=== PATIENT | female | born 1950 ===

== ENCOUNTER 2017-09-10 10:31 | Observation (INO) | payer OTHER ==
--- NOTE | 2017-09-10 11:04 | ED PDOC ---
Arrival/HPI - General Chief Complaint: Pain, Chronic Time Seen by Provider: 09/10/17 10:47 Historian: Patient, Family (daughters) - History of Present Illness Narrative History of Present Illness (Text): 09/10/17 10:54 A 66 year old male, whose past medical history includes rheumatoid arthritis and lupus, presents to the emergency department complaining of generalized body pain for 3 weeks. Patient reports she went to [facility] [place] 3 weeks ago, and had blood-work, X-Ray, and urinalysis done and was given medication, however felt no better. 1 week ago, patient went to [facility] and had repeat X-Ray, blood-work, and was diagnosed with UTI, and was given Levaquin ( which she finished within 1 week). Patient also went to go talk to a physician in [place], and was prescribed Tramadol, however has had no relief still. Due to patient not having in progress in recovery, patient's daughters called the ambulance and was brought here to the ER for evaluation of symptoms. Patient denies any other complaints at this time. No PMD Time/Duration: > week (3 weeks) Associated Symptoms (Text): 09/10/17 12:47 Approximately three-week history of generalized weakness and fatigue and just not feeling well with generalized body pain. She was seen in another hospital emergency department and had blood and urine testing and was discharged. The following week she was seen in a different hospital emergency department and again had blood and urine testing along with a negative CT scan of the head according to the daughter. She was found to have a urinary tract infection and treated with Levaquin but is no better. Today she was unable to ambulate or get out of bed because of severe generalized myalgias and arthralgias and generalized weakness and fatigue. Past Medical History - Provider Review Nursing Documentation Reviewed: Yes - Infectious Disease Hx of Infectious Diseases: None - Reproductive Menopause: Yes - Cardiac Hx Hypertension: Yes - Pulmonary Hx Asthma: Yes Hx Emphysema: Yes - Endocrine/Metabolic Hx Systemic Lupus Erythematosus: Yes - Musculoskeletal/Rheumatological Hx Arthritis: Yes Hx Rheumatoid Arthritis: Yes - Gastrointestinal Hx Gastrointestinal Disorders: No Hx Bowel Surgery: No - Genitourinary/Gynecological Hx Genitourinary Disorders: No - Psychiatric Hx Psychophysiologic Disorder: No Hx Substance Use: No - Anesthesia Hx Anesthesia Reactions: No Family/Social History - Physician Review Nursing Documentation Reviewed: Yes Family/Social History: No Known Family HX Smoking Status: Heavy Smoker > 10 Cigarettes Daily Hx Alcohol Use: No Hx Substance Use: No Allergies/Home Meds Allergies/Adverse Reactions: Allergies aspirin Allergy (Verified 09/10/17 10:49) RASH Penicillins Allergy (Verified 09/10/17 10:49) RASH Home Medications: Home Meds Medication Instructions Recorded Confirmed Meloxicam [Mobic] 7.5 mg PO DAILY 09/10/17 09/10/17 Omeprazole Magnesium [Prilosec] 20 mg PO DAILY 09/10/17 09/10/17 amLODIPine [Norvasc] 5 mg PO DAILY 09/10/17 09/10/17 traMADol [Ultram] 50 mg PO Q12 09/10/17 09/10/17 Review of Systems - Physician Review All systems were reviewed & negative as marked: Yes - Review of Systems Constitutional: Fatigue. absent: Fevers, Night Sweats Respiratory: absent: SOB, Cough, Wheezing Cardiovascular: absent: Chest Pain, Palpitations, Syncope Gastrointestinal: absent: Abdominal Pain, Diarrhea, Nausea, Vomiting Genitourinary Female: Frequency. absent: Dysuria, Hematuria Musculoskeletal: Arthralgias, Myalgias. absent: Back Pain, Neck Pain, Joint Swelling Skin: absent: Rash Neurological: absent: Headache, Dizziness, Focal Weakness Physical Exam Vital Signs Reviewed: Yes Vital Signs Temp Pulse Resp BP Pulse Ox 09/10/17 14:23 98.7 F 83 18 135/60 100 09/10/17 13:00 98.7 F 85 18 130/71 100 09/10/17 11:15 99.5 F 85 18 140/75 100 09/10/17 10:45 98.6 F 85 18 135/75 100 Temperature: Afebrile Blood Pressure: Normal Pulse: Regular Respiratory Rate: Normal Appearance: Positive for: Well-Appearing, Non-Toxic, Uncomfortable Pain Distress: Severe (patient screams in pain when any part of her body is touched or when she moves her joints.) Mental Status: Positive for: Alert and Oriented X 3 - Systems Exam Head: Present: Atraumatic, Normocephalic Pupils: Present: PERRL Extroacular Muscles: Present: EOMI Conjunctiva: Present: Normal Ears: Present: NORMAL TM, Normal Canal. No: Erythema, TM Bulging Mouth: Present: Moist Mucous Membranes Pharnyx: No: ERYTHEMA, EXUDATE, TONSILS ENLARGED Respiratory/Chest: Present: Decreased Breath Sounds Cardiovascular: Present: Regular Rate and Rhythm, Normal S1, S2. No: Murmurs Abdomen: No: Tenderness, Distention, Peritoneal Signs, Rebound, Guarding Upper Extremity: Present: Normal Inspection. No: Cyanosis, Edema Lower Extremity: Present: Normal Inspection. No: Edema Neurological: Present: GCS=15, CN II-XII Intact, Speech Normal, Motor Func Grossly Intact Skin: Present: Warm, Dry, Normal Color. No: Rashes Psychiatric: Present: Alert, Oriented x 3, Normal Insight, Normal Concentration Medical Decision Making ED Course and Treatment: 09/10/17 10:58 Impression: 66 year old female with body aches. Physical exam shows patient is in severe distress, and screams in pain whenever she is touched on any part of her body or when she moves her joint, lungs have diminished breath sounds; no other acute findings on examination. Plan: -- EKG -- Chest X-ray -- Labs -- Toradol -- Urinalysis -- Reassess and disposition Progress Notes: 09/10/17 12:52 EKG shows normal sinus rhythm rate approximately 85 with a left bundle branch block and no acute ST or T-wave changes with no old available for comparison. 09/10/17 14:57 Patient was seen in the emergency department by . - Lab Interpretations Lab Results: 09/10/17 11:29 09/10/17 11:29 Lab Results 09/10/17 11:38: Urine Color Yellow, Urine Appearance Sl cloudy, Urine pH 6.0, Ur Specific [place] 1.020, Urine Protein 30 H, Urine Glucose (UA) Negative, Urine Ketones Trace H, Urine Blood Negative, Urine Nitrate Negative, Urine Bilirubin Negative, Urine Urobilinogen 1.0 H, Ur Leukocyte Esterase Large H, Urine RBC 0 - 2, Urine WBC Tntc, Ur Epithelial Cells 0 - 2, Urine Bacteria Small 09/10/17 11:29: Sodium 136, Potassium 3.8, Chloride 96 L, Carbon Dioxide 29, Anion Gap 14, BUN 14, Creatinine 0.6 L, Est GFR ( Amer) > 60, Est GFR ( Non-Af Amer) > 60, Random Glucose 110, Calcium 8.9, Magnesium 2.1, Total Bilirubin 0.6, AST 27, ALT 15, Alkaline Phosphatase 130 H, Lactate Dehydrogenase 516, Total Creatine Kinase < 20 L, Troponin I < 0.01, Total Protein 7.9, Albumin 3.5, Globulin 4.4, Albumin/Globulin Ratio 0.8 L 09/10/17 11:29: WBC 6.3, RBC 4.39, Hgb 11.3 L, Hct 33.7 L, MCV 76.8 L, MCH 25.7 , MCHC 33.5, RDW 15.0 H, Plt Count 368, MPV 9.0, Gran % 79.4 H, Lymph % (Auto) 9.7 L, [place] % (Auto) 5.3, Eos % (Auto) 5.4 H, Baso % (Auto) 0.2, Gran # 4.99, Lymph # (Auto) 0.6 L, [place] # (Auto) 0.3, Eos # (Auto) 0.3, Baso # (Auto) 0.01, ESR 112 H - RAD Interpretation Radiology Orders: 09/10/17 10:59 CHEST PORTABLE [RAD] Stat Chest one view shows no infiltrate effusion or cardiomegaly. Emission Specialist: Radiologist - Medication Orders Current Medication Orders: Discontinued Medications Ciprofloxacin (Cipro 400mg/200ml Dsw) 400 mg in 200 mls @ 133.3 mls/hr IVPB STAT STA PRN Reason: Protocol Stop: 09/10/17 13:58 Last Admin: 09/10/17 12:39 Dose: 133.3 mls/hr eMAR Start Stop Document 09/10/17 12:39 LA (Rec: 09/10/17 12:41 [facility]) Intravenous Solution Start Date 09/10/17 Start Time 12:39 End Date 09/10/17 End time 14:10 Total Infusion Time 91 Ketorolac Tromethamine (Toradol) 15 mg IVP ONCE ONE Stop: 09/10/17 11:01 Last Admin: 09/10/17 11:21 Dose: 15 mg MAR Pain Assessment Document 09/10/17 11:21 LA (Rec: 09/10/17 11:21 [facility]) Pain Reassessment Is this a pain reassessment? No Sleep Is patient sleeping during reassessment? No Presence of Pain Presence of Pain Yes Pain Scale Used Pain Scale Used Numeric Location Pain Location Body Site Generalized Description Description Constant Intensity of Pain at present 7 IVP Administration Document 09/10/17 11:21 LA (Rec: 09/10/17 11:21 LA [facility]) Charges for Administration # of IVP Administrations 1 Re-Assess: JOSE Pain Assessment Document 09/10/17 12:21 LA (Rec: 09/10/17 12:38 LA [facility] Pain Reassessment Is this a pain reassessment? Yes Sleep Is patient sleeping during reassessment? No Presence of Pain Presence of Pain Yes Pain Scale Used Pain Scale Used Numeric Location Left, Right or Bilateral Bilateral Pain Location Body Engineering Administrator Shoulder Description Description Intermittent Intensity of Pain at present 5 Pain Behavior Facial Grimacing - Scribe Statement The provider has reviewed the documentation as recorded by the Edgardo Turner Provider Scribe Attestation: All medical record entries made by the Maríaibirma were at my direction and personally dictated by me. I have reviewed the chart and agree that the record accurately reflects my personal performance of the history, physical exam, medical decision making, and the department course for this patient. I have also personally directed, reviewed, and agree with the discharge instructions and disposition. Disposition/Present on Arrival - Present on Arrival Any Indicators Present on Arrival: No History of DVT/PE: No History of Uncontrolled Diabetes: No Urinary Catheter: No History of Decub. Ulcer: No History Surgical Site Infection Following: None - Disposition Have Diagnosis and Disposition been Completed?: Yes Diagnosis: Urinary tract infection, Elevated erythrocyte sedimentation rate, Myalgia, Arthralgia, Weakness, Unable to ambulate Disposition: HOSPITALIZED Disposition Time: 12:56 Patient Plan: Observation Patient Problems: Current Active Problems Problem Status Onset Arthralgia Acute Elevated erythrocyte sedimentation rate Acute Myalgia Acute Unable to ambulate Acute Urinary tract infection Acute Weakness Acute Condition: FAIR
[2017-09-10 11:44] LABS: ALB/GLOB RATIO 0.8 (1.1-1.8); ALBUMIN 3.5 g/dL (3.0-4.8); ALT/SGPT 15 U/L (7-56); AST/SGOT 27 U/L (14-36); BLOOD UREA NITROGEN 14 mg/dL (7-21); CALCIUM 8.9 mg/dL (8.4-10.5); GFR AFRICAN-AMERICAN > 60; GFR NON-AFRICAN AMERICAN > 60
[2017-09-10 11:47] LABS: BASO # 0.01 K/mm3 (0.0-2.0); BASO % 0.2 % (0.0-3.0); EOS # 0.3 (0.0-0.7); EOS % 5.4 % (1.5-5.0); GRAN # 4.99 (1.4-6.5); GRAN % 79.4 % (50.0-68.0); HEMOGLOBIN 11.3 g/dL (12.0-16.0); LYMPH # 0.6 (1.2-3.4); LYMPH % 9.7 % (22.0-35.0); MEAN CELL VOLUME 76.8 fl (80.0-105.0); MEAN CORPUSCULAR HEMOGLOBIN 25.7 pg (25.0-35.0); MEAN CORPUSCULAR HGB CONC 33.5 g/dl (31.0-37.0); MONO # 0.3 (0.1-0.6); MONO % 5.3 % (1.0-6.0); RBC 4.39 10^6/uL (3.5-6.1); WHITE BLOOD COUNT 6.3 10^3/ul (4.5-11.0)
[2017-09-10 11:55] LABS: TROPONIN I < 0.01 ng/mL
[2017-09-10 12:13] LABS: URINE BILIRUBIN NEGATIVE (NEGATIVE); URINE BLOOD NEGATIVE (NEGATIVE); URINE GLUCOSE (UA) NEGATIVE (NEGATIVE); URINE LEUKOCYTE ESTERASE LARGE Leu/uL (NEGATIVE); URINE PROTEIN 30 mg/dL (<30 mg/dL)
[2017-09-10 12:15] LABS: URINE APPEARANCE SL CLOUDY (CLEAR); URINE COLOR YELLOW (YELLOW)
--- NOTE | 2017-09-10 12:20 | RAD ---
Date of service: 09/10/2017 HISTORY: weak COMPARISON: No prior. FINDINGS: LUNGS: No active pulmonary disease. PLEURA: No significant pleural effusion identified, no pneumothorax apparent. CARDIOVASCULAR: Normal. OSSEOUS STRUCTURES: No significant abnormalities. VISUALIZED UPPER ABDOMEN: Normal. OTHER FINDINGS: None. IMPRESSION: No active disease.
[2017-09-10 12:25] LABS: URINE EPITHELIAL CELLS 0 - 2 /hpf (0-5); URINE RBC 0 - 2 /hpf (0-2); URINE WBC TNTC /hpf (0-6)
[2017-09-10 12:26] LABS: URINE BACTERIA SMALL (NEG)
[2017-09-10] MEDS ORDERED: Ciprofloxacin 400mg/200ml D5W 400 MG/200 ML BAG IVPB STA (12:28)
[2017-09-10 18:10] VITALS: BMI 28.5
[2017-09-11] MEDS ORDERED: Alum-Mag Hydrox-Simethicone Susp (30 mL) PO STA (04:20)
--- NOTE | 2017-09-11 06:48 | CARD ---
APPROVED REPORT Date of service: 09/10/2017 EKG Measurement Heart [id number] <Conclusion> Normal sinus rhythm Left bundle branch block Abnormal ECG
[2017-09-11] MEDS: levoFLOXacin 500 mg in D5W 500 MG/100 ML BAG IVPB SCH (10:45)
[2017-09-11] MEDS: Meloxicam 7.5 MG TAB PO SCH (10:45)
[2017-09-11] MEDS: Pantoprazole 20 mg EC Tab PO SCH (10:46)
--- NOTE | 2017-09-11 14:58 | PN ---
Copied To: Flora Ace MD Attending MD: Flora Ace MD DATE: 09/11/2017 SUBJECTIVE: This 66-year-old female remains hospitalized weak and deconditioned and according to nursing notes, unable to ambulate independently. She required 2 nursing assistants to assist her to the bathroom this morning and at present she is being treated with IV levofloxacin for presumed urinary tract infection that has been received by the lab, but results of which are pending. The patient at present is also tolerating her medication for chronic comorbidities of hypertension, hyperlipidemia and peptic ulcer disease with gastroesophageal reflux disease. She did require additional Toradol 30 mg IV last evening because of complaints of severe pain and at present remains weak and deconditioned, but denying fever, chills, chest pain or shortness of breath. PHYSICAL EXAMINATION: VITAL SIGNS: Physical exam shows she is in a normal sinus rhythm on engine monitor. Temperature 97.6, respirations 20, pulse 90 and blood pressure 120/69. Pulse ox 95% on room air. HEENT: Head: Normocephalic, atraumatic. Eyes: No icterus. Ears: Clear. Throat: Noninjected. NECK: Supple. HEART: Regular S1, S2. LUNGS: Clear. ABDOMEN: Soft. EXTREMITIES: No edema. SKIN: Without rash. NEUROLOGICAL: Intact. PSYCHOLOGICAL: Alert. VASCULAR: Legs warm to touch. LABORATORY DATA: Her urinalysis showed bacteriuria, white count 6300, hemoglobin 11.3, hematocrit 33.7, platelets 368,000 with a sodium of 136, K 3.8, chloride 96, bicarb 29, BUN 14, creatinine 0.6, random blood sugar 110, bilirubin 0.6, AST 27, ALT 15 and alk phos 130. IMPRESSION: A 66-year-old female with history of rheumatoid arthritis, lupus, hyperlipidemia and degenerative arthritis as well as peptic ulcer disease with gastroesophageal reflux disease, now with deconditioning and failure to thrive and inability to care for herself independently at home, also with recurrent urinary tract infection in the setting of penicillin, aspirin allergies. PLAN: Plan is to continue Levaquin 500 mg IV every 24 pending urine C and S results. She continues on Lipitor 10 mg p.o. at dinnertime, Mobic 7.5 mg p.o. daily, Norvasc 5 mg p.o. daily, Protonix 20 mg p.o. daily, Tylenol 650 p.o. every 6 hours p.r.n. [id number] pain and fever and Ultram 50 mg p.o. every 12 hours, p.r.n. severe pain. I have requested physical therapy for ambulation safety. I have requested Social Service evaluate this patient regarding disposition planning be it to subacute rehab for further reconditioning efforts and greater than 35 minutes was spent in the care and management, review of labs, orders and x-rays for this patient today. All questions were answered. Flora Ace MD MTDD
--- NOTE | 2017-09-11 17:01 | HP ---
Copied To: Flora Ace MD Attending MD: Flora Ace MD DATE OF EXAM: 09/10/2017 HISTORY OF PRESENT ILLNESS: This 66-year-old female was examined in the [facility] ER where she is being admitted with deconditioning, inability to ambulate independently and recurrent urinary tract infection. The patient has a past medical history of peptic ulcer disease with GERD, degenerative arthritis, hypertension, hyperlipidemia and urinary tract infection. She states she has a diagnosis of both lupus and rheumatoid arthritis and follows with a meat cutting block repairer, Dr. Myers in her [employer] managed care plan. The patient states she is on no chronic therapy for her lupus or rheumatoid arthritis, but was taking an occasional Mobic 7.5 mg p.o. daily as well as Ultram 50 mg p.o. every 12 with minimal response. When I questioned the patient if she was ever given any remitative agents for her lupus or rheumatoid arthritis, she stated she was not; however, she is being admitted because she is unable to care for herself independently in her home because of diffuse body aches and musculoskeletal pain. OUTPATIENT MEDICATIONS: Included Prilosec, Norvasc, Lipitor and Ultram p.r.n. ALLERGIES: SHE HAS ALLERGIES TO ASPIRIN AND PENICILLIN. SOCIAL HISTORY: She is a nondrinker, nonsmoker, non IV drug misuser. 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 The patient is a former smoker. REVIEW OF SYSTEMS: Constitutional review: Denied fever or chills. Head review: Denied headache or seizure. Eye: review: No change in visual acuity. Ear review: No hearing loss. Throat review: No swallowing difficulty. Neck review: No stiffness. Cardiac review: No chest pain. No knowledge of myocardial infarction. No valvular pathology. Lung: No asthma. No hemoptysis. GI: Peptic ulcer disease with GERD. : No urinary tract infection. Vascular: No claudication. Psychological: Chronic anxiety. Neurological: No knowledge of stroke. Musculoskeletal: She does have rheumatoid arthritis and degenerative arthritis. Psychological: She seems anxious. FAMILY HISTORY: Noncontributory. PHYSICAL EXAMINATION VITAL SIGNS: She was in a normal sinus rhythm on the airflight attendants supervisor with temperature of 98.7, respirations 18, pulse 85 and blood pressure 130/71 and pulse ox 100% on room air. HEENT: Head: Normocephalic, atraumatic. Eyes: No icterus. Ears: Clear. Throat: Noninjected. NECK: Supple. HEART: Regular S1, S2. LUNGS: Clear. ABDOMEN: Soft. EXTREMITIES: No edema. SKIN: Without rash. NEUROLOGICAL: Intact, but deconditioned. PSYCHOLOGICAL: Alert. VASCULAR: Legs warm to touch. SKIN: No rash. LABORATORY DATA: White count 6300, hemoglobin 11.3, hematocrit 33.7, platelets 368,000. Sodium 136, K 3.8, chloride 96, bicarb 29, BUN 14, creatinine 0.6, random blood sugar 110, calcium 8.9, magnesium 2.1, bilirubin 0.6, AST 27, ALT 17 and alk phos 130 with a CPK less than , troponin less than 0.01 and urinalysis showing small bacteria. EKG was reviewed, it showed a normal sinus rhythm with nonspecific ST-T wave changes and a chest x-ray was reviewed that showed no acute infiltrates, no CHF, no effusions and no active pulmonary disease. IMPRESSION: A 66-year-old female with history of lupus, rheumatoid arthritis, degenerative arthritis, hypertension, hyperlipidemia, now with anxiety and marked deconditioning and inability to care for herself independently at home related to multiple musculoskeletal complaints. Also with recurrent urinary tract infection and penicillin allergy. PLAN: The plan is to send off a stat urine culture while medicating this patient with IV levofloxacin. She continues on Lipitor 10 mg p.o. daily, Mobic 7.5 mg p.o. daily, Norvasc 5 mg p.o. daily, Protonix 20 mg p.o. daily. She was given Toradol 15 mg IV x1 dose with good results. She will be ordered to have Ultram 50 mg p.o. every 12 hours p.r.n. severe pain. ON heart-healthy, low-cholesterol diet and I have requested physical therapy for ambulation safety. As discussed with the patient and daughter at bedside, Pending her response to physical therapy intervention, a subacute rehabilitation stay may be necessary and I have also advised that they follow up with Rheumatology upon discharge for further management of both lupus and rheumatoid arthritic complaints that have rendered this patient deconditioned. All of the above was discussed in detail at bedside. Greater than 75 minutes was spent in the care and management, review of labs, orders, x-rays and discussion of this patient with herself, daughter and Dr. Hans Keita, emergency room physician. All questions were answered. Flora Ace MD JACLYN
[2017-09-12] MEDS: Meloxicam 7.5 MG TAB PO SCH (10:07)
[2017-09-12] MEDS: levoFLOXacin 500 mg in D5W 500 MG/100 ML BAG IVPB SCH (10:07)
[2017-09-12] MEDS: Pantoprazole 20 mg EC Tab PO SCH (10:07)
[2017-09-12 17:01] VITALS: BP 130/75; PULSE 114; RESP 19; O2SAT 93
[2017-09-12 17:05] VITALS: TEMP 99.7
--- NOTE | 2017-09-13 09:50 | DS ---
Copied To: Flora Ace MD Attending MD: Flora Ace MD DATE OF EXAM: 09/12/2017 FINAL DIAGNOSES: Marked deconditioning, inability to care for herself at home, recurrent urinary tract infections, hyperlipidemia, chronic hypertension, peptic ulcer disease with gastroesophageal reflux disease, degenerative arthritis, rheumatoid arthritis, systemic lupus erythematosus. DISPOSITION: Home with family providing 24-hour supervision. The patient was advised to follow up with her computational theory scientist, Dr. Myers within the next 48 hours. MEDICATIONS: The patient will continue on home medications including Prilosec 20 mg p.o. daily; Mobic 7.5 mg p.o. daily; Ultracet 1 tablet p.o. every 12 hours p.r.n. severe pain, #10 no refill; Norvasc 5 mg p.o. daily and Lipitor 10 mg p.o. daily. SUMMARY: This 66-year-old female was admitted to [facility] after presenting with her daughter with a chief complaint of diffuse body aches and dysuria and inability to ambulate safely at home due to deconditioning and concerns of fall. The patient has had recurrent urinary tract infections, has an ALLERGY TO PENICILLIN, was recultured and found to have an unremarkable urine culture and was seen in consultation by physical therapy, who deemed the patient safe for discharge. At the time of her evaluation, her temperature was 97.9, respirations 20, pulse 79 and blood pressure 126/65 with a pulse ox of 97% on room air. White count 6300, hemoglobin 11.3, hematocrit 33.7, platelets 36,000. Sodium 136, K 3.8, chloride 96, bicarb 29. BUN 14, creatinine 0.6. Random blood sugar 110. Calcium 8.9. Magnesium 2.1. Bilirubin 0.6, AST 27, ALT 15 and alk phos 130. Troponin was less than 0.01. EKG showed a normal sinus rhythm with nonspecific ST-T wave changes and her chest x-ray showed no active infiltrate, no CHF, no pleural effusion and no pneumothorax. The patient was cleared for discharge to home with given instructions to follow up with her computational theory scientist within 48 hours. She was instructed to take her Mobic daily, not p.r.n. and to take her Ultracet only for severe pain. I did speak to her physical therapist, Gaurang Marvin, who stated the patient was safe for discharge to home. I did review all of the above with her daughter at the bedside and also with her nurse, Claudia Huynh and socially responsible investment adviser Linnea Carlin. Greater than 35 minutes was spent in the discharge management of this patient today. All questions were answered. Flora Ace MD
== END 2017-09-12 20:31 | disposition home or self-care (01) ==
LOC: ED 10:31 → ERH 12:53 → 3RNO 14:51
PROVIDERS: ADMIT Internal Medicine; ATTEND Internal Medicine
DX: N39.0 Urinary tract infection, site not specified (principal); I10 Essential (primary) hypertension; M06.9 Rheumatoid arthritis, unspecified; M32.9 Systemic lupus erythematosus, unspecified; K27.7 Chronic peptic ulcer, site unspecified, without hemorrhage or perforation; K21.9 Gastro-esophageal reflux disease without esophagitis; E78.5 Hyperlipidemia, unspecified; F41.9 Anxiety disorder, unspecified; J43.9 Emphysema, unspecified; J45.909 Unspecified asthma, uncomplicated; R62.7 Adult failure to thrive; Z87.891 Personal history of nicotine dependence; Z88.0 Allergy status to penicillin
CPT/HCPCS: 71045; 80053; 81001; 82550; 83615; 83735; 84484; 85025; 85651; 87086; 93005; 96365; 96366; 96374; 97116; 97162; 97530; 99285; G0378; G8978; G8979; J0744; J1885

== ENCOUNTER 2017-10-02 16:55 | Inpatient (IN) | payer OTHER ==
--- NOTE | 2017-10-02 17:01 | ED PDOC ---
Arrival/HPI - General Time Seen by Provider: 10/02/17 16:57 Historian: Patient - History of Present Illness Narrative History of Present Illness (Text): 10/02/17 16:59 66 y/o female, pmh including htn/hld/lupus/rheumatoid arthiritis with degenerative arthritis/Chronic neck and lower back pain, seeing independent trader Dr. Myers, allergic to aspirin and pencilling but able to take nsaid such as mobic/toradol in previous visit, bib daughter c/o fatigue/decrease appetize and generalized bodyache for the past 3 days associated with cough. Pt. has been having sorethroat and cough for the past 3 days, associated with fatigue/ decrease appetize, generalized bodyache, started to having fever today, no antipyretic taken for the past 8 hours, no recent traveling, no energy to move or walk around which is worsen than usual, admits decrease appetize, no chest pain or shortness of breath, no other medical or psychological complaints. Past Medical History - Provider Review Nursing Documentation Reviewed: Yes - Infectious Disease Hx of Infectious Diseases: None - Cardiac Hx Cardiac Disorders: Yes Hx Hypertension: Yes - Pulmonary Hx Chronic Obstructive Pulmonary Disease (COPD): Yes - Neurological Hx Neurological Disorder: No - HEENT Hx HEENT Disorder: No - Renal Hx Renal Disorder: No - Endocrine/Metabolic Hx Systemic Lupus Erythematosus: Yes - Hematological/Oncological Hx Blood Disorders: No - Integumentary Hx Dermatological Disorder: No - Musculoskeletal/Rheumatological Hx Arthritis: Yes - Gastrointestinal Hx Gastrointestinal Disorders: Yes Hx Gastroesophageal Reflux: Yes Hx Gastrointestinal Ulcer: Yes - Genitourinary/Gynecological Hx Genitourinary Disorders: No - Psychiatric Hx Psychophysiologic Disorder: No Hx Substance Use: No - Anesthesia Hx Anesthesia Reactions: No Family/Social History - Physician Review Nursing Documentation Reviewed: Yes Family/Social History: Unknown Family HX Smoking Status: Former Smoker Hx Alcohol Use: No Hx Substance Use: No Allergies/Home Meds Allergies/Adverse Reactions: Allergies aspirin Allergy (Verified 10/02/17 17:13) RASH Penicillins Allergy (Verified 10/02/17 17:13) RASH Home Medications: Home Meds Medication Instructions Recorded Confirmed Omeprazole Magnesium [Prilosec] 20 mg PO DAILY 09/10/17 10/02/17 Meloxicam [Mobic] 7.5 mg PO DAILY 10/02/17 10/02/17 traMADol [Ultram] 50 mg PO Q12 10/02/17 10/02/17 Review of Systems - Review of Systems Constitutional: Fatigue, Fevers Eyes: absent: Vision Changes ENT: Sore Throat. absent: Hearing Changes Respiratory: Cough. absent: SOB, Sputum Cardiovascular: absent: Chest Pain Gastrointestinal: absent: Abdominal Pain, Nausea, Vomiting Skin: absent: Rash, Pruritis, Skin Lesions Neurological: absent: Headache, Dizziness Psychiatric: absent: Anxiety, Depression, Suicidal Ideation Physical Exam Vital Signs Reviewed: Yes Vital Signs Temp Pulse Resp BP Pulse Ox 10/02/17 20:38 90 18 113/69 95 10/02/17 19:52 99.7 F H 93 H 18 127/65 93 L 10/02/17 19:18 99.7 F H 10/02/17 18:18 100.4 F H 10/02/17 17:26 99 H 20 101/64 96 10/02/17 17:16 100.4 F H 107 H 20 89/54 L 96 10/02/17 17:12 100.4 F H 107 H 20 89/54 L 96 Temperature: Febrile Pulse: Tachycardic Respiratory Rate: Normal Appearance: Positive for: Ill-Appearing Pain Distress: None Mental Status: Positive for: Alert and Oriented X 3 - Systems Exam Head: Present: Atraumatic, Normocephalic Pupils: Present: PERRL Extroacular Muscles: Present: EOMI Conjunctiva: Present: Normal Ears: Present: NORMAL TM, Normal Canal. No: Erythema Mouth: Present: Moist Mucous Membranes Pharnyx: No: ERYTHEMA, EXUDATE, TONSILS ENLARGED Nose (External): Present: Atraumatic. No: Abrasion, Contusion, Laceration Nose (Internal): Present: Normal Inspection, No Active Bleeding. No: Rhinorrhea , Septal Hematoma, Epistaxis Neck: Present: Normal Range of Motion. No: Meningeal Signs, MIDLINE TENDERNESS , Paraspinal Tenderness, Lymphadenopathy Respiratory/Chest: Present: Rhonchi (RLL). No: Respiratory Distress, Accessory Muscle Use, Wheezes, Decreased Breath Sounds (RLL), Retracting, Tachypneic Cardiovascular: Present: Regular Rate and Rhythm, Normal S1, S2. No: Murmurs Abdomen: No: Tenderness, Distention, Peritoneal Signs, Rebound, Guarding Back: Present: Normal Inspection Upper Extremity: Present: Normal Inspection. No: Cyanosis, Edema Lower Extremity: Present: Normal Inspection, Neurovascularly Intact. No: Edema Neurological: Present: GCS=15, CN II-XII Intact, Speech Normal Skin: Present: Warm, Dry, Normal Color. No: Rashes Lymphatic: No: Cervical Adenopathy, Axillary Adenopathy Psychiatric: Present: Alert, Oriented x 3, Normal Insight, Normal Concentration Medical Decision Making ED Course and Treatment: 10/02/17 17:34 Differential: UTI vs. Pneumonia vs. Viral syndrome vs. Dehydration vs. Sepsis -Labs/vbg/rapid flu/ua -Chest xray -IVF/tylenol -satellite project site monitor -Observe and reassess 10/02/17 18:29 -Chest xray show rt. pleural effusion with atelectasis/infiltate, clinically appear to be infiltrate as she has fever and cough, hospitalized in the past 90 days for over 2 days, IV van/meropenem/cipro ordered with blood cultures. 10/02/17 19:45 -Labs show no acute findings except K+ 3.4 (potassium chloride 20meq po ordered) -VBG lactic acid 1.5, within normal limit. -UA ordered and pending result. -Pt. will need IV antibiotics meropenem/cipro/vancomycin -Paging admitting physican Dr. Ace for admission for hospital acquired pneumonia. 10/02/17 19:57 -All labs/radiology results discussed with the patient, agreed to be admitted. -I spoke to Dr. Ace about this case/labs/radiology result, request to admit to her service under tele but let Dr. Lopez know as he is covering for her now. -Paging Dr. Lopez for admission. 10/02/17 20:01 -I spoke to Dr. Lopez about this case/labs/radiology result, agreed on the admission and he is covering for Dr. Ace, he will follow up on any pending result. - Lab Interpretations Lab Results: 10/02/17 18:29 10/02/17 18:29 Lab Results 10/02/17 18:29: WBC 5.8, RBC 4.11, Hgb 10.4 L, Hct 30.9 L, MCV 75.2 L, MCH 25.3 , MCHC 33.7, RDW 15.0 H, Plt Count 431, MPV 9.1, Gran % 85.6 H, Lymph % (Auto) 5.4 L, [place] % (Auto) 5.2, Eos % (Auto) 3.6, Baso % (Auto) 0.2, Gran # 4.94, Lymph # (Auto) 0.3 L, [place] # (Auto) 0.3, Eos # (Auto) 0.2, Baso # (Auto) 0.01 10/02/17 18:29: Sodium 132, Chloride 94 L, Potassium 3.5 L, Carbon Dioxide 28, Anion Gap 14, BUN 14, Creatinine 0.6 L, Est GFR ( Amer) > 60, Est GFR ( Non-Af Amer) > 60, Random Glucose 110, Calcium 8.4, Magnesium 2.0, Total Bilirubin 0.6, AST 51 H D, ALT 25, Alkaline Phosphatase 167 H D, Total Protein 7.7, Albumin 3.2, Globulin 4.5, Albumin/Globulin Ratio 0.7 L 10/02/17 18:26: pO2 24 L, VBG pH 7.44 H, VBG pCO2 41.0, VBG HCO3 27.8, VBG Total CO2 29.1 H, VBG O2 Sat (Calc) 49.3, VBG Base Excess 3.3 H, VBG Potassium 3.2 L, Sodium 130.0 L, Chloride 95.0 L, Glucose 107 H, Lactate 1.5, FiO2 21.0, Venous Blood Potassium 3.2 L - RAD Interpretation Radiology Orders: 10/02/17 17:29 CHEST PORTABLE [RAD] Stat HISTORY: fever COMPARISON: Chest radiograph dated 09/10/2017. FINDINGS: LUNGS: Right basilar atelectasis versus infiltrate. PLEURA: Questionable small right pleural effusion. No pneumothorax apparent. CARDIOVASCULAR: Atherosclerotic aortic calcifications. Cardiomediastinal silhouette stably enlarged. OSSEOUS STRUCTURES: Unchanged. VISUALIZED UPPER ABDOMEN: Normal. OTHER FINDINGS: None. IMPRESSION: Questionable small right pleural effusion with right basilar atelectasis versus infiltrate. 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 - Medication Orders Current Medication Orders: Amlodipine Besylate (Norvasc) 5 mg PO DAILY BRYANT Meropenem (Merrem Iv 1 Gm Premix) 50 mls @ 100 mls/hr IVPB STAT BRYANT PRN Reason: Protocol Last Admin: 10/02/17 18:59 Dose: 100 mls/hr eMAR Start Stop Document 10/02/17 18:59 HI (Rec: 10/02/17 18:59 [id number]) Intravenous Solution Start Date 10/02/17 Start Time 18:59 Sodium Chloride (Sodium Chloride 0.9%) 1,000 mls @ 100 mls/hr IV .Q10H BRYANT Last Admin: 10/02/17 20:43 Dose: 100 mls/hr eMAR Start Stop Document 10/02/17 20:43 HI (Rec: 10/02/17 20:44 [id number]) Intravenous Solution Start Date 10/02/17 Start Time 20:43 Discontinued Medications Acetaminophen (Tylenol 325mg Tab) 650 mg PO STAT STA Stop: 10/02/17 17:30 Last Admin: 10/02/17 18:18 Dose: 650 mg MAR Pain/Vitals Document 10/02/17 18:18 HI (Rec: 10/02/17 18:18 [id number]) Pain Reassessment Is This A Pain ReAssessment? No Sleep Is patient sleeping during reassessment? No Vitals Temperature (97.6 F-99.6 F) 100.4 F Temperature Source Oral Re-Assess: MAR Pain/Vitals Document 10/02/17 19:18 HI (Rec: 10/02/17 20:01 [id number]) Vitals Temperature (97.6 F-99.6 F) 99.7 F Temperature Source Oral Sodium Chloride (Sodium Chloride 0.9%) 1,000 mls @ 999 mls/hr IV .Q1H1M STA Stop: 10/02/17 18:29 Last Admin: 10/02/17 18:16 Dose: 999 mls/hr eMAR Start Stop Document 10/02/17 18:16 HI (Rec: 10/02/17 18:18 [id number]) Intravenous Solution Start Date 10/02/17 Start Time 18:18 Ciprofloxacin (Cipro 400mg/200ml Dsw) 400 mg in 200 mls @ 133.3 mls/hr IVPB STAT STA PRN Reason: Protocol Stop: 10/02/17 19:55 Last Admin: 10/02/17 19:31 Dose: 133.3 mls/hr eMAR Start Stop Document 10/02/17 19:31 HI (Rec: 10/02/17 19:31 ME [id number]) Intravenous Solution Start Date 10/02/17 Start Time 19:31 Vancomycin HCl (Vancomycin 1gm) 1 gm in 250 mls @ 167 mls/hr IVPB STAT STA PRN Reason: Protocol Stop: 10/02/17 19:54 Last Admin: 10/02/17 21:28 Dose: 167 mls/hr eMAR Start Stop Document 10/02/17 21:28 ME (Rec: 10/02/17 21:29 ME [id number]) Intravenous Solution Start Date 10/02/17 Start Time 21:29 Potassium Chloride (K-Dur 20 Meq Er Tab) 20 meq PO STAT STA Stop: 10/02/17 19:16 Last Admin: 10/02/17 20:41 Dose: 20 meq - 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 Disposition/Present on Arrival - Present on Arrival Any Indicators Present on Arrival: No History of DVT/PE: No History of Uncontrolled Diabetes: No Urinary Catheter: No History of Decub. Ulcer: No History Surgical Site Infection Following: None - Disposition Have Diagnosis and Disposition been Completed?: Yes Diagnosis: Hospital acquired PNA, Failure to thrive, Hypokalemia Disposition: HOSPITALIZED Disposition Time: 18:32 Patient Plan: Admission, Telemetry Patient Problems: Current Active Problems Problem Status Onset Hospital acquired PNA Acute Failure to thrive Acute Hypokalemia Acute Condition: STABLE
[2017-10-02] MEDS ORDERED: Sodium Chloride 0.9% 1,000 ML IV STA (17:29)
[2017-10-02 17:32] VITALS: BMI 24.3
--- NOTE | 2017-10-02 18:24 | RAD ---
Date of service: 10/02/2017 HISTORY: fever COMPARISON: Chest radiograph dated 09/10/2017. FINDINGS: LUNGS: Right basilar atelectasis versus infiltrate. PLEURA: Questionable small right pleural effusion. No pneumothorax apparent. CARDIOVASCULAR: Atherosclerotic aortic calcifications. Cardiomediastinal silhouette stably enlarged. OSSEOUS STRUCTURES: Unchanged. VISUALIZED UPPER ABDOMEN: Normal. OTHER FINDINGS: None. IMPRESSION: Questionable small right pleural effusion with right basilar atelectasis versus infiltrate.
[2017-10-02] MEDS ORDERED: Ciprofloxacin 400mg/200ml D5W 400 MG/200 ML BAG IVPB STA (18:25)
[2017-10-02] MEDS ORDERED: Vancomycin 1gm in NS 250ml 1 GM/250 ML BAG IVPB STA (18:25)
[2017-10-02] MEDS ORDERED: Meropenem IV 1 gm in NS 50 ML IVPB SCH (18:30)
[2017-10-02 18:31] LABS: VENOUS BLOOD GAS BASE EXCESS 3.3 mmol/L (0.0-2.0); VENOUS BLOOD GAS PO2 24 mm/Hg (30-55); VENOUS BLOOD PH 7.44 (7.32-7.43)
[2017-10-02 18:50] LABS: ALB/GLOB RATIO 0.7 (1.1-1.8); ALBUMIN 3.2 g/dL (3.0-4.8); ALT/SGPT 25 U/L (7-56); AST/SGOT 51 U/L (14-36); BLOOD UREA NITROGEN 14 mg/dL (7-21); CALCIUM 8.4 mg/dL (8.4-10.5); GFR NON-AFRICAN AMERICAN > 60
[2017-10-02 18:59] LABS: BASO # 0.01 K/mm3 (0.0-2.0); BASO % 0.2 % (0.0-3.0); EOS # 0.2 (0.0-0.7); EOS % 3.6 % (1.5-5.0); GRAN # 4.94 (1.4-6.5); GRAN % 85.6 % (50.0-68.0); HEMOGLOBIN 10.4 g/dL (12.0-16.0); LYMPH # 0.3 (1.2-3.4); LYMPH % 5.4 % (22.0-35.0); MEAN CELL VOLUME 75.2 fl (80.0-105.0); MEAN CORPUSCULAR HEMOGLOBIN 25.3 pg (25.0-35.0); MEAN CORPUSCULAR HGB CONC 33.7 g/dl (31.0-37.0); MEAN PLATELET VOLUME 9.1 fl (7.0-11.0); MONO # 0.3 (0.1-0.6); MONO % 5.2 % (1.0-6.0); RBC 4.11 10^6/uL (3.5-6.1); WHITE BLOOD COUNT 5.8 10^3/ul (4.5-11.0)
[2017-10-02] MEDS ORDERED: Potassium Chloride 20 mEq ER Tab PO STA (19:15)
[2017-10-02] MEDS: Sodium Chloride 0.9% 1,000 ML IV SCH (20:43)
[2017-10-02 22:59] LABS: URINE BILIRUBIN NEGATIVE (NEGATIVE); URINE BLOOD SMALL (NEGATIVE); URINE GLUCOSE (UA) NEGATIVE (NEGATIVE); URINE LEUKOCYTE ESTERASE LARGE Leu/uL (NEGATIVE); URINE PROTEIN NEGATIVE mg/dL (<30 mg/dL)
[2017-10-02 23:16] LABS: URINE APPEARANCE SL CLOUDY (CLEAR); URINE COLOR YELLOW (YELLOW)
[2017-10-02 23:45] LABS: URINE BACTERIA LARGE (NEG); URINE WBC 25 - 30 /hpf (0-6)
[2017-10-03] MEDS: Sodium Chloride 0.9% 1,000 ML IV SCH ×2 (05:49→19:37)
[2017-10-03 06:32] LABS: IRON 21 ug/dL (45-180)
[2017-10-03 06:42] LABS: % IRON SATURATION 13 % (20-55); TOTAL IRON BINDING CAPACITY 163 ug/dL (265-497)
--- NOTE | 2017-10-03 08:44 | CT ---
Date of service: 10/03/2017 PROCEDURE: CT Chest without contrast HISTORY: r/o right lower lobe PNA COMPARISON: None available. TECHNIQUE: Contiguous axial images were obtained through the chest without intravenous contrast enhancement. Sagittal and coronal reconstructions were performed. Radiation dose (DLP): 711 mGy-cm. This CT exam was performed using one or more of the following dose reduction techniques: Automated exposure control, adjustment of the mA and/or kV according to patient size, and/or use of iterative reconstruction technique. FINDINGS: LUNGS: There is minimal consolidation adjacent to the pleural effusion at the right lung base MEDIASTINUM: Unremarkable thoracic aorta. No aneurysm. Mild cardiomegaly Main pulmonary artery unremarkable. No vascular congestion. No lymphadenopathy. PLEURA: Moderate size right pleural effusion and small left effusion. There is a small pericardial effusion measuring 13 mm in maximal thickness BONES: No fracture. No destructive lesion. UPPER ABDOMEN: Grossly unremarkable. OTHER FINDINGS: None. IMPRESSION: Moderate size right pleural effusion with minimal adjacent consolidation. Small left effusion and small pericardial effusion
--- NOTE | 2017-10-03 08:45 | CP.PCM.CON ---
History of Present Illness - History of Present Illness History of Present Illness: PGY3 INFECTIOUS DISEASE CONSULT NOTE FOR DR. STRICKLAND Past Patient History - Infectious Disease Hx of Infectious Diseases: None - Past Social History Smoking Status: Heavy Smoker > 10 Cigarettes Daily - CARDIAC Hx Cardiac Disorders: Yes Hx Angina: Yes Hx Hypertension: Yes - PULMONARY Hx Respiratory Disorders: Yes Hx Asthma: Yes Hx Chronic Obstructive Pulmonary Disease (COPD): Yes Hx Emphysema: Yes Other/Comment: smokes PPD, haven't smoke in 4wks due to not been able to climb stairs. - NEUROLOGICAL Hx Neurological Disorder: No - HEENT Hx HEENT Problems: No - RENAL Hx Chronic Kidney Disease: No - ENDOCRINE/METABOLIC Hx Endocrine Disorders: Yes Hx Systemic Lupus Erythematosus: Yes - HEMATOLOGICAL/ONCOLOGICAL Hx Blood Disorders: No - INTEGUMENTARY Hx Dermatological Problems: No - MUSCULOSKELETAL/RHEUMATOLOGICAL Hx Musculoskeletal Disorders: Yes Hx Arthritis: Yes Hx Falls: No - GASTROINTESTINAL Hx Gastrointestinal Disorders: Yes Hx Gastroesophageal Reflux: Yes - GENITOURINARY/GYNECOLOGICAL Hx Genitourinary Disorders: No - PSYCHIATRIC Hx Psychophysiologic Disorder: Yes Hx Depression: Yes Hx Substance Use: No - SURGICAL HISTORY Hx Surgeries: Yes Hx Hysterectomy: Yes Other/Comment: left lumpectomy - ANESTHESIA Hx Anesthesia Reactions: No Meds Allergies/Adverse Reactions: Allergies Allergy/AdvReac Type Severity Reaction Status Date / Time aspirin Allergy RASH Verified 10/02/17 17:13 Penicillins Allergy RASH Verified 10/02/17 17:13 - Medications Medications: Current Medications Amlodipine Besylate (Norvasc) 5 mg PO DAILY BRYANT Meropenem (Merrem Iv 1 Gm Premix) 50 mls @ 100 mls/hr IVPB STAT BRYANT PRN Reason: Protocol Last Admin: 10/02/17 18:59 Dose: 100 mls/hr Sodium Chloride (Sodium Chloride 0.9%) 1,000 mls @ 100 mls/hr IV .Q10H BRYANT Last Admin: 10/03/17 05:49 Dose: 100 mls/hr Results - Vital Signs Recent Vital Signs: Last Vital Signs Temp 98 F 10/03/17 05:52 Pulse 91 H 10/03/17 05:52 Resp 16 10/03/17 05:52 BP 126/72 10/03/17 05:52 Pulse Ox 96 10/03/17 05:52 - Labs Result Diagrams: 10/02/17 18:29 10/02/17 18:29 Labs: Laboratory Results - last 24 hr 10/02/17 10/03/17 22:55 05:20 Iron 21 L TIBC 163 L % Saturation 13 L Urine Color Yellow Urine Appearance Sl cloudy Urine pH 6.0 Ur Specific [place] <= 1.005 Urine Protein Negative Urine Glucose (UA) Negative Urine Ketones Negative Urine Blood Small H Urine Nitrate Negative Urine Bilirubin Negative Urine Urobilinogen 1.0 H Ur Leukocyte Esterase Large H Urine RBC 1 - 3 Urine WBC 25 - 30 Ur Epithelial Cells 4 - 5 Urine Bacteria Large
--- NOTE | 2017-10-03 09:13 | CARD ---
APPROVED REPORT Date of service: 10/02/2017 EKG Measurement Heart [id number] <Conclusion> Normal sinus rhythm Left bundle branch block No change
[2017-10-03 09:18] LABS: BASO # 0.01 K/mm3 (0.0-2.0); BASO % 0.3 % (0.0-3.0); EOS # 0.6 (0.0-0.7); EOS % 15.4 % (1.5-5.0); GRAN # 2.57 (1.4-6.5); GRAN % 70.8 % (50.0-68.0); HEMOGLOBIN 8.9 g/dL (12.0-16.0); LYMPH # 0.3 (1.2-3.4); LYMPH % 8.5 % (22.0-35.0); MEAN CELL VOLUME 75.8 fl (80.0-105.0); MEAN CORPUSCULAR HEMOGLOBIN 24.8 pg (25.0-35.0); MEAN CORPUSCULAR HGB CONC 32.7 g/dl (31.0-37.0); MEAN PLATELET VOLUME 8.9 fl (7.0-11.0); MONO # 0.2 (0.1-0.6); RBC 3.59 10^6/uL (3.5-6.1); RED CELL DISTRIBUTION WIDTH 15.3 % (11.5-14.5); WHITE BLOOD COUNT 3.6 10^3/ul (4.5-11.0)
[2017-10-03 09:27] LABS: ALB/GLOB RATIO 0.7 (1.1-1.8); ALBUMIN 2.3 g/dL (3.0-4.8); ALT/SGPT 26 U/L (7-56); AST/SGOT 28 U/L (14-36); BLOOD UREA NITROGEN 7 mg/dL (7-21); CALCIUM 7.9 mg/dL (8.4-10.5); GFR NON-AFRICAN AMERICAN > 60
[2017-10-03] MEDS ORDERED: Potassium Chloride 20 mEq ER Tab PO STA (12:06)
--- NOTE | 2017-10-03 12:15 | CP.PCM.HP ---
<Olivier Howard - Last Filed: 10/03/17 12:10> History of Present Illness - History of Present Illness History of Present Illness: History and Physical for Dr. Tee 66 year old female with past medical history of GERD, HTN, HLD, and questionable SLE/RA presents to the hospital for a 3 day history of fatigue and bodyaches for the past 3 days. Patient also admits to having a cough and sore throat during this time. Patient states she had a subjective fever at home. Denies chest pain, shortness of breath, nausea, vomiting, diarrhea, dysuria, change in vision, numbness, tingling. PMH: As above Social Hx: Former smoker, denies alcohol or illicit drug use Family Hx: CAD, DM Allergies: Penicillin, ASA Meds: Reviewed as per MAR Present on Admission - Present on Admission Any Indicators Present on Admission: No Review of Systems - Review of Systems Review of Systems: 12 point ROS as per HPI, otherwise negative Past Patient History - Infectious Disease Hx of Infectious Diseases: None - Past Social History Smoking Status: Heavy Smoker > 10 Cigarettes Daily - CARDIAC Hx Cardiac Disorders: Yes Hx Angina: Yes Hx Hypertension: Yes - PULMONARY Hx Respiratory Disorders: Yes Hx Asthma: Yes Hx Chronic Obstructive Pulmonary Disease (COPD): Yes Hx Emphysema: Yes Other/Comment: smokes PPD, haven't smoke in 4wks due to not been able to climb stairs. - NEUROLOGICAL Hx Neurological Disorder: No - HEENT Hx HEENT Problems: No - RENAL Hx Chronic Kidney Disease: No - ENDOCRINE/METABOLIC Hx Endocrine Disorders: Yes Hx Systemic Lupus Erythematosus: Yes - HEMATOLOGICAL/ONCOLOGICAL Hx Blood Disorders: No - INTEGUMENTARY Hx Dermatological Problems: No - MUSCULOSKELETAL/RHEUMATOLOGICAL Hx Musculoskeletal Disorders: Yes Hx Arthritis: Yes Hx Falls: No - GASTROINTESTINAL Hx Gastrointestinal Disorders: Yes Hx Gastroesophageal Reflux: Yes - GENITOURINARY/GYNECOLOGICAL Hx Genitourinary Disorders: No - PSYCHIATRIC Hx Psychophysiologic Disorder: Yes Hx Depression: Yes Hx Substance Use: No - SURGICAL HISTORY Hx Surgeries: Yes Hx Hysterectomy: Yes Other/Comment: left lumpectomy - ANESTHESIA Hx Anesthesia Reactions: No Meds Allergies/Adverse Reactions: Allergies Allergy/AdvReac Type Severity Reaction Status Date / Time Iodinated Contrast- Oral and Allergy Intermediate RASH Verified 10/06/17 07:24 IV Dye aspirin Allergy RASH Verified 10/02/17 17:13 Penicillins Allergy RASH Verified 10/02/17 17:13 Physical Exam - Constitutional Appears: Toxic, No Acute Distress - Head Exam Head Exam: ATRAUMATIC, NORMAL INSPECTION, NORMOCEPHALIC - Eye Exam Eye Exam: EOMI, Normal appearance - ENT Exam ENT Exam: Mucous Membranes Dry - Respiratory Exam Respiratory Exam: Decreased Breath Sounds (Right lower lung field), NORMAL BREATHING PATTERN. absent: Rales, Rhonchi, Wheezes - Cardiovascular Exam Cardiovascular Exam: RRR, +S1, +S2 - GI/Abdominal Exam GI & Abdominal Exam: Normal Bowel Sounds, Soft. absent: Tenderness - Extremities Exam Extremities exam: Positive for: normal inspection. Negative for: pedal edema, tenderness - Neurological Exam Neurological exam: Alert, CN II-XII Intact, Oriented x3 - Psychiatric Exam Psychiatric exam: Normal Affect, Normal Mood - Skin Skin Exam: Dry, Intact, Normal Color Results - Vital Signs Recent Vital Signs: Last Vital Signs Temp 99.2 F 10/03/17 11:37 Pulse 101 H 10/03/17 11:37 Resp 20 10/03/17 11:37 BP 146/72 10/03/17 11:37 Pulse Ox 96 10/03/17 05:52 - Labs Result Diagrams: 10/03/17 06:00 10/03/17 06:00 Labs: Laboratory Results - last 24 hr 10/02/17 10/03/17 10/03/17 22:55 05:20 06:00 WBC 3.6 L D RBC 3.59 Hgb 8.9 L Hct 27.2 L MCV 75.8 L MCH 24.8 L MCHC 32.7 RDW 15.3 H Plt Count 397 MPV 8.9 Gran % 70.8 H Lymph % (Auto) 8.5 L [place] % (Auto) 5.0 Eos % (Auto) 15.4 H Baso % (Auto) 0.3 Gran # 2.57 Lymph # (Auto) 0.3 L [place] # (Auto) 0.2 Eos # (Auto) 0.6 Baso # (Auto) 0.01 Sodium Potassium Chloride Carbon Dioxide Anion Gap BUN Creatinine Est GFR ( Amer) Est GFR (Non-Af Amer) Random Glucose Calcium Phosphorus Iron 21 L TIBC 163 L % Saturation 13 L Total Bilirubin AST ALT Alkaline Phosphatase Total Protein Albumin Globulin Albumin/Globulin Ratio Urine Color Yellow Urine Appearance Sl cloudy Urine pH 6.0 Ur Specific [place] <= 1.005 Urine Protein Negative Urine Glucose (UA) Negative Urine Ketones Negative Urine Blood Small H Urine Nitrate Negative Urine Bilirubin Negative Urine Urobilinogen 1.0 H Ur Leukocyte Esterase Large H Urine RBC 1 - 3 Urine WBC 25 - 30 Ur Epithelial Cells 4 - 5 Urine Bacteria Large 10/03/17 10/03/17 06:00 06:30 WBC RBC Hgb Hct MCV MCH MCHC RDW Plt Count MPV Gran % Lymph % (Auto) [place] % (Auto) Eos % (Auto) Baso % (Auto) Gran # Lymph # (Auto) [place] # (Auto) Eos # (Auto) Baso # (Auto) Sodium 138 Potassium 3.5 L Chloride 104 Carbon Dioxide 25 Anion Gap 13 BUN 7 Creatinine 0.5 L Est GFR ( Amer) > 60 Est GFR (Non-Af Amer) > 60 Random Glucose 86 Calcium 7.9 L Phosphorus 2.8 Iron TIBC % Saturation Total Bilirubin 0.4 AST 28 ALT 26 Alkaline Phosphatase 130 H D Total Protein 5.9 Albumin 2.3 L Globulin 3.6 Albumin/Globulin Ratio 0.7 L Urine Color Urine Appearance Urine pH Ur Specific [place] Urine Protein Urine Glucose (UA) Urine Ketones Urine Blood Urine Nitrate Urine Bilirubin Urine Urobilinogen Ur Leukocyte Esterase Urine RBC Urine WBC Ur Epithelial Cells Urine Bacteria Assessment & Plan - Assessment and Plan (Free Text) Plan: 1. HCAP 2. Transaminitis 3. Iron deficiency anemia 4. HTN 5. Hypokalemia Patient will continue current antibiotic regimen of Merrem and Doxycycline as per ID. Patient received Chest CT which showed right and left pleural effusion with right-sided consolidation. We will continue to follow blood and urine cultures. Patient to have abdominal US to evaluate for abnormal LFT's. In addition, patient was noted to have iron deficiency anemia, will consult GI for further workup. Patient will continue on current medical regimen and will be monitored closely. Anita, PGY-3 <Denis Tee S - Last Filed: 10/10/17 17:34> Results - Vital Signs Recent Vital Signs: Last Vital Signs Temp 99.6 F 10/10/17 11:46 Pulse 116 H 10/10/17 11:46 Resp 20 10/10/17 11:46 BP 119/78 10/10/17 11:46 Pulse Ox 99 10/10/17 06:00 - Labs Result Diagrams: 10/09/17 09:20 10/10/17 07:00 Labs: Laboratory Results - last 24 hr 10/10/17 07:00 Potassium 3.9 Assessment & Plan - Assessment and Plan (Free Text) Plan: Pt seen and examined. I have reviewed the note of the district medical examiner and agree with it. I have discussed the assessment and plan with the resident. I have reviewed the patient's labs and medications. Pt with pneumonia. She is on IV Abx and being followed by ID. CT of the chest has been reviewed. Will wait for BCx and UCx. GI eval for iron def anemia. PCN allergy noted.
[2017-10-03] MEDS: Meloxicam 7.5 MG TAB PO SCH (12:45)
--- NOTE | 2017-10-03 13:03 | CP.PCM.CON ---
<Claudia Coley - Last Filed: 10/03/17 14:00> History of Present Illness - History of Present Illness History of Present Illness: Seen and examined at bedside this am, chart reviewed. Request for consult is for Anemia. HPI: This is a 66 year old female with a history of Lupus/RA , chronic neck/ back pain, Iron def. Anemia in the past, HTN and HLD, brought to hospital by daughter for c/o fatigue,decrease appetite and generalized body with subjective fevers. Patient has been having sore throat the past three days. Denies recent travelm sick contacts. No c/o sob or chest pain. In review of labs patient hemaglobin is trending downward. Patient came in at 10.4 and today she is 8.9. Patient was in hospital beginning of September and hemoglobin was noted to be 11. Patient denies melena or BRBPR, had stool guiac about 1 yr ago that was negative. No change in bowel habits except that she does not have much of an appetite, her last BM was 2 days ago, no GI bleeding. She does get dyspepsia and is on Omeprazole daily. In the past the patient endorsed that she had Iron infusion and Iron tablets, but is no longer on supplements. She has lots of back pain, hx of RA is on Melexocam and does admit to taking Tylenol and Motrin few times/week for at least the past month or so. She was told in the past she had ulcers but never had an EGD. She did have a colon 8-9 yrs ago for screening and denies any known h/o of colon polyps. She has recently and difficulty with swallowing, no choking or coughing sensation. Also c/o 30 pound weight loss in month, has no appetite. Also patient endoresed that she had h/o stroke was on PLavix up to 3 weeks ago, was told to stop this for possible procedure for back. PMH: Iron def. Anemia, htn,hld,lupus, RA, Stroke PSH: domenico Family HX: hear disease/DM/HTN Allergies: Aspirin/PCN MEDS: reviewed was per MAR Social hx: quit smoking 44 yrs ago, denies ETOH or illicit drugs ROS: systems reviewed with positive findings, see HPI Past Patient History - Infectious Disease Hx of Infectious Diseases: None - Past Social History Smoking Status: Heavy Smoker > 10 Cigarettes Daily - CARDIAC Hx Cardiac Disorders: Yes Hx Angina: Yes Hx Hypertension: Yes - PULMONARY Hx Respiratory Disorders: Yes Hx Asthma: Yes Hx Chronic Obstructive Pulmonary Disease (COPD): Yes Hx Emphysema: Yes Other/Comment: smokes PPD, haven't smoke in 4wks due to not been able to climb stairs. - NEUROLOGICAL Hx Neurological Disorder: No - HEENT Hx HEENT Problems: No - RENAL Hx Chronic Kidney Disease: No - ENDOCRINE/METABOLIC Hx Endocrine Disorders: Yes Hx Systemic Lupus Erythematosus: Yes - HEMATOLOGICAL/ONCOLOGICAL Hx Blood Disorders: No - INTEGUMENTARY Hx Dermatological Problems: No - MUSCULOSKELETAL/RHEUMATOLOGICAL Hx Musculoskeletal Disorders: Yes Hx Arthritis: Yes Hx Falls: No - GASTROINTESTINAL Hx Gastrointestinal Disorders: Yes Hx Gastroesophageal Reflux: Yes - GENITOURINARY/GYNECOLOGICAL Hx Genitourinary Disorders: No - PSYCHIATRIC Hx Psychophysiologic Disorder: Yes Hx Depression: Yes Hx Substance Use: No - SURGICAL HISTORY Hx Surgeries: Yes Hx Hysterectomy: Yes Other/Comment: left lumpectomy - ANESTHESIA Hx Anesthesia Reactions: No Meds Allergies/Adverse Reactions: Allergies Allergy/AdvReac Type Severity Reaction Status Date / Time aspirin Allergy RASH Verified 10/02/17 17:13 Penicillins Allergy RASH Verified 10/02/17 17:13 - Medications Medications: Current Medications Amlodipine Besylate (Norvasc) 5 mg PO DAILY [facility] Last Admin: 10/03/17 09:25 Dose: 5 mg Doxycycline Hyclate (Doryx) 100 mg PO Q12 [facility] PRN Reason: Protocol Stop: 10/12/17 10:53 Last Admin: 10/03/17 11:51 Dose: 100 mg Sodium Chloride (Sodium Chloride 0.9%) 1,000 mls @ 100 mls/hr IV .Q10H [facility] Last Admin: 10/03/17 05:49 Dose: 100 mls/hr Meropenem (Merrem Iv 1 Gm Premix) 50 mls @ 100 mls/hr IVPB Q8 [facility] PRN Reason: Protocol Stop: 10/12/17 14:01 Meloxicam (Mobic) 7.5 mg PO DAILY [facility] Tramadol HCl (Ultram) 50 mg PO Q12 [facility] Physical Exam - Constitutional Appears: No Acute Distress - Head Exam Head Exam: NORMOCEPHALIC - Eye Exam Eye Exam: Normal appearance. absent: Scleral icterus - ENT Exam ENT Exam: Mucous Membranes Moist - Neck Exam Neck exam: Positive for: Normal Inspection - Respiratory Exam Respiratory Exam: NORMAL BREATHING PATTERN. absent: Respiratory Distress - Cardiovascular Exam Cardiovascular Exam: +S1, +S2 - GI/Abdominal Exam GI & Abdominal Exam: Normal Bowel Sounds, Soft, Tenderness. absent: Guarding, Organomegaly, Rebound Additional comments: diffuse epigastric/ upper abdomen - Extremities Exam Extremities exam: Positive for: pedal pulses present. Negative for: calf tenderness, pedal edema - Neurological Exam Neurological exam: Alert, Oriented x3 - Skin Skin Exam: Dry, Warm Results - Vital Signs Recent Vital Signs: Last Vital Signs Temp 99.2 F 10/03/17 11:37 Pulse 101 H 10/03/17 11:37 Resp 20 10/03/17 11:37 BP 146/72 10/03/17 11:37 Pulse Ox 96 10/03/17 05:52 - Labs Result Diagrams: 10/03/17 06:00 10/03/17 06:00 Labs: Laboratory Results - last 24 hr 10/02/17 10/03/17 10/03/17 22:55 05:20 06:00 WBC 3.6 L D RBC 3.59 Hgb 8.9 L Hct 27.2 L MCV 75.8 L MCH 24.8 L MCHC 32.7 RDW 15.3 H Plt Count 397 MPV 8.9 Gran % 70.8 H Lymph % (Auto) 8.5 L [place] % (Auto) 5.0 Eos % (Auto) 15.4 H Baso % (Auto) 0.3 Gran # 2.57 Lymph # (Auto) 0.3 L [place] # (Auto) 0.2 Eos # (Auto) 0.6 Baso # (Auto) 0.01 Sodium Potassium Chloride Carbon Dioxide Anion Gap BUN Creatinine Est GFR ( Amer) Est GFR (Non-Af Amer) Random Glucose Calcium Phosphorus Iron 21 L TIBC 163 L % Saturation 13 L Total Bilirubin AST ALT Alkaline Phosphatase Total Protein Albumin Globulin Albumin/Globulin Ratio Urine Color Yellow Urine Appearance Sl cloudy Urine pH 6.0 Ur Specific [place] <= 1.005 Urine Protein Negative Urine Glucose (UA) Negative Urine Ketones Negative Urine Blood Small H Urine Nitrate Negative Urine Bilirubin Negative Urine Urobilinogen 1.0 H Ur Leukocyte Esterase Large H Urine RBC 1 - 3 Urine WBC 25 - 30 Ur Epithelial Cells 4 - 5 Urine Bacteria Large 10/03/17 10/03/17 06:00 06:30 WBC RBC Hgb Hct MCV MCH MCHC RDW Plt Count MPV Gran % Lymph % (Auto) [place] % (Auto) Eos % (Auto) Baso % (Auto) Gran # Lymph # (Auto) [place] # (Auto) Eos # (Auto) Baso # (Auto) Sodium 138 Potassium 3.5 L Chloride 104 Carbon Dioxide 25 Anion Gap 13 BUN 7 Creatinine 0.5 L Est GFR ( Amer) > 60 Est GFR (Non-Af Amer) > 60 Random Glucose 86 Calcium 7.9 L Phosphorus 2.8 Iron TIBC % Saturation Total Bilirubin 0.4 AST 28 ALT 26 Alkaline Phosphatase 130 H D Total Protein 5.9 Albumin 2.3 L Globulin 3.6 Albumin/Globulin Ratio 0.7 L Urine Color Urine Appearance Urine pH Ur Specific [place] Urine Protein Urine Glucose (UA) Urine Ketones Urine Blood Urine Nitrate Urine Bilirubin Urine Urobilinogen Ur Leukocyte Esterase Urine RBC Urine WBC Ur Epithelial Cells Urine Bacteria Assessment & Plan - Assessment and Plan (Free Text) Assessment: ASSESSMENT: Anemia Iron deficient Pneumonia Abdominal pain Elevated LFT Weight loss Lupus/RA Chronic back pain PLAN: abdominal US elevated LFT, alk phos hepatitis panel continue PPI, on BID consider ct scan for abdominal pain/weight loss antibiotics as per ID would benefit EGD eval for PUD, GI bleeding, when optimal monitor H/H, transfuse as necessary Thank you for this consult and for allowing us to participate in your patient care, further recommendation based upon clinical course. Seen and discussed w/ Dr. Hackett. <Ranulfo Hackett V - Last Filed: 10/03/17 23:37> Meds - Medications Medications: Current Medications Amlodipine Besylate (Norvasc) 5 mg PO DAILY [facility] Last Admin: 10/03/17 09:25 Dose: 5 mg Doxycycline Hyclate (Doryx) 100 mg PO Q12 [facility] PRN Reason: Protocol Stop: 10/12/17 10:53 Last Admin: 10/03/17 21:48 Dose: 100 mg Sodium Chloride (Sodium Chloride 0.9%) 1,000 mls @ 100 mls/hr IV .Q10H [facility] Last Admin: 10/03/17 19:37 Dose: 100 mls/hr Meropenem (Merrem Iv 1 Gm Premix) 50 mls @ 100 mls/hr IVPB Q8 [facility] PRN Reason: Protocol Stop: 10/12/17 14:01 Last Admin: 10/03/17 21:48 Dose: 100 mls/hr Meloxicam (Mobic) 7.5 mg PO DAILY [facility] Last Admin: 10/03/17 12:45 Dose: 7.5 mg Tramadol HCl (Ultram) 50 mg PO Q12 [facility] Last Admin: 10/03/17 21:49 Dose: 50 mg Results - Vital Signs Recent Vital Signs: Last Vital Signs Temp 99.2 F 10/03/17 11:37 Pulse 97 H 10/03/17 18:00 Resp 20 10/03/17 11:37 BP 146/72 10/03/17 11:37 Pulse Ox 96 10/03/17 05:52 - Labs Result Diagrams: 10/03/17 06:00 10/03/17 06:00 Attending/Attestation - Attestation I have personally seen and examined this patient.: Yes I have fully participated in the care of the patient.: Yes I have reviewed all pertinent clinical information: Yes
[2017-10-03] MEDS: Meropenem IV 1 gm in NS 50 ML IVPB SCH ×2 (13:55→21:48)
[2017-10-03] MEDS ORDERED: Barium Sulfate Susp 2.1% w/v, 2.0% w/w 450 mL Bottle PO ONE (14:36)
--- NOTE | 2017-10-03 16:00 | CON ---
Copied To: Blade Mallory MD Attending MD: Blade Mallory MD DATE: 10/03/2017 LOCATION: The patient is seen earlier today in 264, bed 1. CHIEF COMPLAINT: Fever and weakness times several days. HISTORY OF PRESENT ILLNESS: This is a 66-year-old female with history of hypertension, history of lupus, hyperlipidemia, degenerative joint disease, recurrent urinary tract infections, rheumatoid arthritis, anxiety, who was admitted now with a diagnosis of hospital-acquired pneumonia, hyperkalemia, failure to thrive, weight loss. Review of systems reveals the patient had fevers and the patient does have cough, nonproductive. The patient has nausea, but no vomiting. No diarrhea or constipation. No bright red blood per rectum. No melena. REVIEW OF SYSTEMS: Twelve-point review of systems is performed. PAST MEDICAL HISTORY: Significant for hypertension, lupus, hyperlipidemia, degenerative joint disease, recurrent urinary tract infection, rheumatoid arthritis and anxiety. PAST SURGICAL HISTORY: Significant for hysterectomy and a left upper extremity cyst removal and the patient also has chronic obstructive lung disease. ALLERGIES: THE PATIENT IS ALLERGIC TO PENICILLIN. SHE DEVELOPED A RASH A CHILD. IT WAS NOT TYPE 1. THE PATIENT ALSO IS ALLERGIC TO ASPIRIN. MEDICATIONS AT HOME: Include tramadol, Mobic, amlodipine, omeprazole. PHYSICAL EXAMINATION: GENERAL: The patient is in bed, answering questions appropriately. VITAL SIGNS: Temperature is 98, T-max is 100.4 with heart rate of 91, it was up to 107; respiratory rate of 16 and it was up to 20 with a blood pressure of 126/70 and initially it was 89/54. The patient has BMI of 23. O2 saturation was down to 93% O2 saturation on room air. HEENT: Examination of HEENT reveals temporal wasting. NECK: Supple. LUNGS: Have decreased breath sounds. HEART: Normal S1, S2. ABDOMEN: Soft, nontender. No organomegaly. No rebound or guarding. No masses. LABORATORY DATA: Laboratory examination reveals the white count is 5.8, hemoglobin of 10 with an MCV of 75 with platelets of 431, 85% granulocytosis. Today's white count is 3.6 with 70% granulocytosis. Blood gases are noted. BUN of 14, creatinine of 0.6 with iron level of 21, TIBC of 163 with iron saturation of 13%. AST is 51, ALT is 25, alk phos is 167. Urinalysis reveals small blood, large leukocyte esterase, 25-30 wbc's and large bacteria. The patient had a CAT scan of the chest, which revealed right lower lobe effusion and pneumonia. Emergency room chart is reviewed. The EKG reveals a QTc of 514 and a chest x-ray is reviewed. ASSESSMENT AND PLAN: A 66-year-old female with hypertension, lupus and hyperlipidemia, degenerative joint disease, recurrent urinary tract infection, rheumatoid arthritis, anxiety, presenting with hypotension, fevers, infiltrates and the patient had been in the hospital in 09/2017; however, was in the hospital only 48 hours and the patient who is allergic to penicillin, underlying lupus and rheumatoid arthritis; however, not on immunosuppressive medications with severe sepsis with right lower lobe community-acquired pneumonia with hyponatremia. Rule out bacterial such as Streptococcus pneumonia, which has higher incidence in lupus patients versus typical such as Legionella versus the progression of underlying lupus. We will order blood cultures, urine cultures, sputum cultures, urinalysis, hepatitis profile and phosphorus level, procalcitonin, urine for Legionella antigen. Start the patient on doxycycline and meropenem. Order ultrasound of the abdomen and we will also order a C3 and C4 to evaluate the status of the lupus and we will make further recommendations upon availability of initial results. Blade Mallory MD
[2017-10-03 16:12] LABS: COMPLEMENT C4 10.2 mg/dL (14.0-44.0)
[2017-10-03 17:05] LABS: URINE BILIRUBIN NEGATIVE (NEGATIVE); URINE BLOOD TRACE-LYSED (NEGATIVE); URINE GLUCOSE (UA) NEGATIVE (NEGATIVE); URINE LEUKOCYTE ESTERASE SMALL Leu/uL (NEGATIVE); URINE PROTEIN NEGATIVE mg/dL (<30 mg/dL)
[2017-10-03 17:07] LABS: URINE APPEARANCE CLEAR (CLEAR); URINE COLOR YELLOW (YELLOW)
[2017-10-03 17:10] LABS: URINE BACTERIA MANY (NEG)
--- NOTE | 2017-10-03 17:13 | US ---
Date of service: 10/03/2017 HISTORY: elevated LFTs COMPARISON: None. TECHNIQUE: Sonographic evaluation of the abdomen. FINDINGS: LIVER: Measures 14.9 cm. Diffusely increased echogenicity of the liver parenchyma suggests hepatic steatosis other etiologies are possible. No mass. No intrahepatic bile duct dilatation. GALLBLADDER: Unremarkable. No gallstones. COMMON BILE DUCT: Measures 4.4 mm. No stones. No dilatation. PANCREAS: Unremarkable as visualized. No mass. No ductal dilatation. RIGHT KIDNEY: Measures 10.8cm. Normal echogenicity. No calculus, mass, or hydronephrosis. LEFT KIDNEY: Measures 11.0cm. Normal echogenicity. No calculus, mass, or hydronephrosis. SPLEEN: Normal in size and contour, 8.7 cm. No mass. AORTA: No aneurysmal dilatation. IVC: Unremarkable. OTHER FINDINGS: None. IMPRESSION: Hepatic steatosis suggested though other etiologies are possible. No biliary tree dilatation or suspicious gallbladder findings. Exam otherwise unremarkable.
[2017-10-03 17:39] LABS: HEPATITIS B SURFACE AG Negative (NEGATIVE)
[2017-10-03 17:44] LABS: HEPATITIS B CORE AB NEGATIVE (NEGATIVE)
[2017-10-03 17:56] LABS: HEPATITIS C ANTIBODY NEGATIVE (NEGATIVE)
[2017-10-03 18:57] LABS: HEPATITIS A IGM NEGATIVE (NEGATIVE)
[2017-10-04] MEDS: Meropenem IV 1 gm in NS 50 ML IVPB SCH ×3 (05:33→22:11)
[2017-10-04 06:49] LABS: INR 1.25; PARTIAL THROMBOPLASTIN TIME 28.8 Seconds (25.1-36.5); PROTHROMBIN TIME 14.4 SECONDS (9.4-12.5)
[2017-10-04] MEDS: Meloxicam 7.5 MG TAB PO SCH (09:58)
--- NOTE | 2017-10-04 10:57 | CP.PCM.PN ---
Subjective - Date & Time of Evaluation Date of Evaluation: 10/04/17 Time of Evaluation: 09:10 - Subjective Subjective: S&E at bedside, chart reviewed, c/o sob, no chest pain. Patient just placed oxygen 2L on. No respiratory distress.Abdominal pain better, no fever or chill, N/V or overt GI bleeding. Was NPO for EGD. Objective - Vital Signs/Intake and Output Vital Signs (last 24 hours): Temp Pulse Resp BP Pulse Ox 98.6 F 101 H 18 142/80 95 10/04/17 06:00 10/04/17 09:59 10/04/17 06:00 10/04/17 09:59 10/04/17 06:00 Intake and Output: 10/04/17 10/04/17 06:59 18:59 Intake Total 1340 Output Total 500 Balance 840 - Medications Medications: Current Medications Amlodipine Besylate (Norvasc) 5 mg PO DAILY [facility] Last Admin: 10/04/17 09:59 Dose: 5 mg Arformoterol Tartrate (Brovana) 15 mcg [facility] [id number] [facility] Budesonide (Pulmicort Respules) 0.5 mg IH [id number] [facility] Doxycycline Hyclate (Doryx) 100 mg PO Q12 [facility] PRN Reason: Protocol Stop: 10/12/17 10:53 Last Admin: 10/04/17 09:58 Dose: 100 mg Sodium Chloride (Sodium Chloride 0.9%) 1,000 mls @ 100 mls/hr IV .Q10H [facility] Last Admin: 10/03/17 19:37 Dose: 100 mls/hr Meropenem (Merrem Iv 1 Gm Premix) 50 mls @ 100 mls/hr IVPB Q8 [facility] PRN Reason: Protocol Stop: 10/12/17 14:01 Last Admin: 10/04/17 05:33 Dose: 100 mls/hr Meloxicam (Mobic) 7.5 mg PO DAILY [facility] Last Admin: 10/04/17 09:58 Dose: 7.5 mg Tramadol HCl (Ultram) 50 mg PO Q12 [facility] Last Admin: 10/04/17 10:00 Dose: 50 mg - Labs Labs: PT 14.4 SECONDS (9.4-12.5) H 10/04/17 05:45 INR 1.25 10/04/17 05:45 APTT 28.8 Seconds (25.1-36.5) 10/04/17 05:45 - Constitutional Appears: No Acute Distress - Head Exam Head Exam: NORMOCEPHALIC - Eye Exam Eye Exam: Normal appearance. absent: Scleral icterus - ENT Exam ENT Exam: Mucous Membranes Moist - Neck Exam Neck Exam: Normal Inspection - Respiratory Exam Respiratory Exam: Decreased Breath Sounds (right lung base), NORMAL BREATHING PATTERN. absent: Rales, Wheezes, Respiratory Distress - Cardiovascular Exam Cardiovascular Exam: +S1, +S2 - GI/Abdominal Exam GI & Abdominal Exam: Soft, Normal Bowel Sounds. absent: Guarding, Tenderness, Organomegaly, Rebound - Extremities Exam Extremities Exam: absent: Calf Tenderness, Pedal Edema - Neurological Exam Neurological Exam: Alert, Awake, Oriented x3 - Skin Skin Exam: Dry, Warm Assessment and Plan - Assessment and Plan (Free Text) Assessment: ASSESSMENT: Anemia Iron deficient Pneumonia Abdominal pain Elevated LFT Weight loss Lupus/RA Chronic back pain PLAN: abdominal US no GB stones, CBD 4mm, fatty liver hepatitis panel negative continue PPI, on BID start clear liquid plan for ct scan and A&P with oral contrast , for abdominal pain/weight loss, patient states that she had IV contrast in hte past had purtitis around IV site. antibiotics as per ID monitor H/H, transfuse as necessary CBC/cmp in am pulmonology evaluation EGD planned for today, patient w/SOB, right lung sound decrease, ct scan does show mod pleural effusion, will have pulmonology evaluation, will plan when pt optimal, discuss w/ Dr. Tee covering Dr. Bowling. Resume diet Seen and discussed w/ Dr. Hackett.
[2017-10-04] MEDS ORDERED: Barium Sulfate Susp 2.1% w/v, 2.0% w/w 450 mL Bottle PO ONE (11:25)
--- NOTE | 2017-10-04 11:39 | CP.PCM.PN ---
<Olivier Howard - Last Filed: 10/04/17 11:35> Subjective - Date & Time of Evaluation Date of Evaluation: 10/04/17 Time of Evaluation: 11:35 - Subjective Subjective: Patient seen and examined at bedside. Patient states she has improved shortness of breath, and feels better overall. Denies chest pain, nausea, vomiting, diarrhea, fever, chills. Objective - Vital Signs/Intake and Output Vital Signs (last 24 hours): Temp Pulse Resp BP Pulse Ox 98.6 F 101 H 18 142/80 95 10/04/17 06:00 10/04/17 09:59 10/04/17 06:00 10/04/17 09:59 10/04/17 06:00 Intake and Output: 10/04/17 10/04/17 06:59 18:59 Intake Total 1340 Output Total 500 Balance 840 - Medications Medications: Current Medications Amlodipine Besylate (Norvasc) 5 mg PO DAILY [facility] Last Admin: 10/04/17 09:59 Dose: 5 mg Arformoterol Tartrate (Brovana) 15 mcg [facility] [id number] [facility] Budesonide (Pulmicort Respules) 0.5 mg [facility] [id number] [facility] Doxycycline Hyclate (Doryx) 100 mg PO Q12 [facility] PRN Reason: Protocol Stop: 10/12/17 10:53 Last Admin: 10/04/17 09:58 Dose: 100 mg Sodium Chloride (Sodium Chloride 0.9%) 1,000 mls @ 100 mls/hr IV .Q10H [facility] Last Admin: 10/03/17 19:37 Dose: 100 mls/hr Meropenem (Merrem Iv 1 Gm Premix) 50 mls @ 100 mls/hr IVPB Q8 [facility] PRN Reason: Protocol Stop: 10/12/17 14:01 Last Admin: 10/04/17 05:33 Dose: 100 mls/hr Meloxicam (Mobic) 7.5 mg PO DAILY [facility] Last Admin: 10/04/17 09:58 Dose: 7.5 mg Tramadol HCl (Ultram) 50 mg PO Q12 [facility] Last Admin: 10/04/17 10:00 Dose: 50 mg - Labs Labs: PT 14.4 SECONDS (9.4-12.5) H 10/04/17 05:45 INR 1.25 10/04/17 05:45 APTT 28.8 Seconds (25.1-36.5) 10/04/17 05:45 - Constitutional Appears: Non-toxic, No Acute Distress - Head Exam Head Exam: ATRAUMATIC, NORMAL INSPECTION, NORMOCEPHALIC - ENT Exam ENT Exam: Mucous Membranes Moist - Respiratory Exam Respiratory Exam: Decreased Breath Sounds (On right lower lung base), NORMAL BREATHING PATTERN. absent: Rales, Rhonchi, Wheezes - Cardiovascular Exam Cardiovascular Exam: RRR, +S1, +S2 - GI/Abdominal Exam GI & Abdominal Exam: Soft, Normal Bowel Sounds. absent: Tenderness - Extremities Exam Extremities Exam: Normal Inspection. absent: Pedal Edema - Neurological Exam Neurological Exam: Alert, Awake, CN II-XII Intact, Oriented x3 - Psychiatric Exam Psychiatric exam: Normal Affect, Normal Mood - Skin Skin Exam: Intact, Normal Color, Warm Assessment and Plan - Assessment and Plan (Free Text) Plan: 1. HCAP 2. Transaminitis 3. Iron deficiency anemia 4. HTN 5. Hypokalemia Patient will continue current antibiotic regimen of Merrem and Doxycycline as per ID. Abdominal US showed hepatic steatosis with no acute pathology. Patient scheduled for endoscopy this morning due to anemia, but cancelled due to breathing status as per GI. Will obtain pulmonary consult for further evaluation. Potassium repleted this morning. Patient will continue on current medical regimen and will be monitored closely. Anita, PGY-3 <Denis Tee S - Last Filed: 10/04/17 20:31> Objective - Vital Signs/Intake and Output Vital Signs (last 24 hours): Temp Pulse Resp BP Pulse Ox 99.1 F 88 20 137/80 97 10/04/17 18:00 10/04/17 19:41 10/04/17 18:00 10/04/17 18:00 10/04/17 18:00 Intake and Output: 10/04/17 10/05/17 18:59 06:59 Intake Total 180 Balance 180 - Medications Medications: Current Medications Amlodipine Besylate (Norvasc) 5 mg PO DAILY [facility] Last Admin: 10/04/17 09:59 Dose: 5 mg Arformoterol Tartrate (Brovana) 15 mcg I[facility] [id number] [facility] Last Admin: 10/04/17 19:38 Dose: 15 mcg Budesonide (Pulmicort Respules) 0.5 mg IH [id number] [facility] Last Admin: 10/04/17 19:38 Dose: 0.5 mg Doxycycline Hyclate (Doryx) 100 mg PO Q12 [facility] PRN Reason: Protocol Stop: 10/12/17 10:53 Last Admin: 10/04/17 09:58 Dose: 100 mg Sodium Chloride (Sodium Chloride 0.9%) 1,000 mls @ 100 mls/hr IV .Q10H [facility] Last Admin: 10/04/17 12:15 Dose: 100 mls/hr Meropenem (Merrem Iv 1 Gm Premix) 50 mls @ 100 mls/hr IVPB Q8 [facility] PRN Reason: Protocol Stop: 10/12/17 14:01 Last Admin: 10/04/17 15:00 Dose: 100 mls/hr Meloxicam (Mobic) 7.5 mg PO DAILY [facility] Last Admin: 10/04/17 09:58 Dose: 7.5 mg Tramadol HCl (Ultram) 50 mg PO Q12 [facility] Last Admin: 10/04/17 10:00 Dose: 50 mg - Labs Labs: PT 14.4 SECONDS (9.4-12.5) H 10/04/17 05:45 INR 1.25 10/04/17 05:45 APTT 28.8 Seconds (25.1-36.5) 10/04/17 05:45 Assessment and Plan - Assessment and Plan (Free Text) Plan: Pt seen and examined. I have reviewed the note of the medical office assistant and agree with it. I have discussed the assessment and plan with the resident. I have reviewed the patient's labs and medications. Pt with community acquired pneumonia. She has iron def anemia. Pt with HTN. She may need endoscopy. Will get Pulmonary evaluation.
[2017-10-04] MEDS: Potassium Chloride 20 mEq ER Tab PO STA ×2 (12:14→12:40)
[2017-10-04] MEDS: Sodium Chloride 0.9% 1,000 ML IV SCH ×2 (12:15→22:11)
--- NOTE | 2017-10-04 13:57 | PN ---
Copied To: Blade Mallory MD Attending MD: Blade Mallory MD DATE: 10/04/2017 SUBJECTIVE: The patient is in bed. The patient seen earlier today in 264, bed 1. No fevers, no chills, no nausea. PHYSICAL EXAMINATION: VITAL SIGNS: Temperature is 98, T-max is 100.1, respiratory rate of 18 , heart rate of 104, blood pressure is 138/80. HEENT: Unremarkable. NECK: Supple. LUNGS: Decreased breath sounds. HEART: Normal S1, S2. ABDOMEN: Soft, nontender. LABORATORY EXAMINATION: Reveals a white count of 3.6, hemoglobin of 8, and platelets of 397. BUN of 7, creatinine of 0.5. Alk phos is 130, procalcitonin 0.29. Urinalysis is noted and complement levels are noted. C3 is 91 and C4 is 10. Serology: Urine for Legionella antigen is negative. HIV is negative. Hepatitis C and hepatitis profile negative. The patient is on doxycycline and meropenem. ASSESSMENT AND PLAN: A 66-year-old female with past medical history significant for lupus, degenerative joint disease, urinary tract infection, rheumatoid arthritis, hyperlipidemia, hypertension, anxiety. She is not on any immunosuppressed medications, admitted with severe sepsis with right lower lobe community-acquired pneumonia and hyponatremia with normal procalcitonin and low C4. Negative HIV and negative urine for Legionella antigen. Negative for hepatitis. Currently on day #2 of meropenem and doxycycline. We will check on the panculture results and initial workup results, and we will follow closely with you. Blade Mallory MD
--- NOTE | 2017-10-04 14:39 | CT ---
Date of service: 10/04/2017 PROCEDURE: CT Abdomen and Pelvis without intravenous contrast HISTORY: abdominal pain/anemia/wt loss COMPARISON: None. TECHNIQUE: Without contrast.. Contrast dose: Radiation dose: Total exam DLP = 661 mGy-cm. This CT exam was performed using one or more of the following dose reduction techniques: Automated exposure control, adjustment of the mA and/or kV according to patient size, and/or use of iterative reconstruction technique. FINDINGS: LOWER THORAX: Small pleural effusions LIVER: Unremarkable. No gross lesion or ductal dilatation. GALLBLADDER AND BILE DUCTS: Unremarkable. PANCREAS: Unremarkable. No gross lesion or ductal dilatation. SPLEEN: Unremarkable. ADRENALS: Unremarkable. No mass. KIDNEYS AND URETERS: Unremarkable. No hydronephrosis. No solid mass. VASCULATURE: Unremarkable. No aortic aneurysm. BOWEL: Inflammatory changes are seen in the left lower quadrant adjacent to the colon. The etiology is uncertain. There is no obvious diverticulitis or colitis. Findings could be secondary to mesenteric adenitis. Mildly enlarged mesenteric lymph nodes are seen in this area. APPENDIX: Unremarkable. Normal appendix. PERITONEUM: Unremarkable. No free fluid. No free air. LYMPH NODES: Mildly enlarged lymph nodes are seen in the retroperitoneal space specifically in the peripancreatic and celiac region. BLADDER: Unremarkable. REPRODUCTIVE: Unremarkable. BONES: No acute fracture. OTHER FINDINGS: None. IMPRESSION: Inflammatory changes are seen in the left lower quadrant adjacent to the colon. The etiology is uncertain. There is no obvious diverticulitis or colitis. Findings could be secondary to mesenteric adenitis. Mildly enlarged mesenteric lymph nodes are seen in this area
[2017-10-04] MEDS: Arformoterol 15 mcg/2 ml Inh Sol IH SCH (19:38)
[2017-10-04] MEDS: Budesonide 0.5 mg/2 ml Inhal Susp UD IH SCH (19:38)
--- NOTE | 2017-10-04 20:56 | CON ---
Copied To: Cory Saul MD Attending MD: Cory Saul MD DATE: 10/04/2017 PULMONARY CONSULTATION REASON FOR CONSULTATION: Shortness of breath. REFERRING PHYSICIAN: Denis Tee MD. HISTORY OF PRESENT ILLNESS: The patient is a chronically ill 66-year-old female, with past medical history significant for chronic obstructive pulmonary disease, positive former smoker, asthma, hypertension, systemic lupus erythematosus, rheumatoid arthritis, chronic neck and back pain, who presents to [facility] with main complaints of increasing fatigue, weakness, and cough for the past 3 days. There is no history of shortness of breath at rest, or dyspnea on exertion. There is no history of significant sputum production. There is no history of chest pain, coughing up of blood, or chest pain - made worse with deep respirations. The patient did present with low-grade fevers. No history of chills or infectious exposure. No history of night sweats, weight loss, or appetite change prior to the above events. No history of calf pains. No history of syncope or diaphoresis. No history of recent travel or trauma. REVIEW OF SYSTEMS: The patient did complain of a sore throat for the past few days. No history of nausea, vomiting, or diarrhea. No acute urinary symptoms. Rest of the review of systems negative. ALLERGIES: ASPIRIN AND PENICILLIN. SOCIAL HISTORY: Positive for tobacco. Negative for alcohol. FAMILY HISTORY: No inheritable diseases. HOME MEDICATIONS: Include Ultram, Mobic, Norvasc, Prilosec, and Breo Ellipta PHYSICAL EXAMINATION: GENERAL: The patient appears comfortable this morning. She is not short of breath at rest. VITAL SIGNS: Temperature is 98.6, pulse 99, respirations 18, blood pressure 131/82. Oxygen saturation on nasal cannula is 95%-96%. HEENT: Normocephalic, atraumatic. No JVD. CARDIOVASCULAR: Positive S1, S2. No S3 gallop. LUNGS: Decreased breath sounds at the bases. Minimal rhonchi. No wheezing. EXTREMITIES: No clubbing, cyanosis, or edema. Calves are nontender to palpation. GASTROINTESTINAL: Abdomen is soft, nontender, nondistended. Bowel sounds are positive. SKIN: No acute rash. NEUROLOGIC: Limited at the present time. PERTINENT LABORATORY DATA: CAT scan of the chest was done yesterday and reviewed. There is a [id number] right pleural effusion with minimal adjacent consolidation. There is also a small left pleural effusion, as well as a small pericardial effusion. There is no lymphadenopathy. CBC: White count 3.6K, hemoglobin 8.9, hematocrit 27.2, platelets of 397,000. Complete metabolic profile: Potassium 3.5, calcium 7.9, alkaline phosphatase 130, albumin 2.3. Rest of the metabolic profile is within normal limits. Original urinalysis: Urine bacteria large. Urine leukocyte esterase - large. IMPRESSION: 1. Rule out pneumonia - right lower lobe. 2. Bilateral pleural effusions. 3. Chronic obstructive pulmonary disease. 4. Asthma. 5. Possible urinary tract infection. 6. Anemia. PLAN: The patient presents to [facility] with increasing weakness, fatigue, and cough for the past 3 days. The patient also presented with low-grade fevers-- to the Emergency Room. I did review the CAT scan of the chest - noted above. There is a very minimal consolidation adjacent to the pleural effusion on the right. This consolidation may very well be atelectasis (compressive) and not true pneumonia. I have also reviewed the urinalysis. Urine leukocyte esterase - large - is noted. The patient has been placed on antibiotic therapy - as per Infectious Disease. Input by Dr. Mallory is noted. As above, the patient does have a history of chronic obstructive pulmonary disease, and asthma. On physical exam, there is no significant bronchospasm noted. In addition, there is no significant alveolar-arterial gradient. I will start the patient on Brovana and Pulmicort nebulizer treatments. The patient is on Breo Ellipta at home. Clinical status of the patient certainly appears improved - compared to the initial presentation. Her temperatures are resolving. She does state to feeling better this morning. Additional pulmonary intervention will be based on the clinical status of the patient. I will discuss the above with Dr. Tee. Thank you very much for this pulmonary consultation. Cory Saul MD JACLYN
[2017-10-05] MEDS: Meropenem IV 1 gm in NS 50 ML IVPB SCH ×3 (05:57→22:22)
[2017-10-05] MEDS: Arformoterol 15 mcg/2 ml Inh Sol IH SCH ×3 (07:24→21:05)
[2017-10-05] MEDS: Budesonide 0.5 mg/2 ml Inhal Susp UD IH SCH ×3 (07:25→21:07)
[2017-10-05 07:40] LABS: ALB/GLOB RATIO 0.7 (1.1-1.8); ALBUMIN 2.4 g/dL (3.0-4.8); ALT/SGPT 24 U/L (7-56); AST/SGOT 21 U/L (14-36); BLOOD UREA NITROGEN 4 mg/dL (7-21); GFR NON-AFRICAN AMERICAN > 60
--- NOTE | 2017-10-05 07:45 | PN ---
Copied To: Cory Saul MD Attending MD: Cory Saul MD DATE: 10/05/2017 PULMONARY NOTE SUBJECTIVE: The patient appears very comfortable this morning. She is not short of breath at rest. OBJECTIVE: VITAL SIGNS: Temperature 98.4, pulse 97, respirations 18, blood pressure 126/75. Oxygen saturation on nasal cannula is 94-97%. HEENT: Normocephalic, atraumatic. NECK: No JVD. CARDIOVASCULAR: Positive S1, S2. No S3 gallop. LUNGS: Decreased breath sounds at the bases. Much less/minimal rhonchi. No wheezing. EXTREMITIES: No clubbing, cyanosis or edema. Calves are nontender to palpation. GI: Abdomen is soft, nontender and nondistended. Bowel sounds are positive. SKIN: No acute rash. NEUROLOGIC: Exam limited at the present time. PERTINENT LABORATORY DATA: Abdominal and pelvic CAT scan was done yesterday. There are only small bilateral pleural effusions noted. There are inflammatory changes seen in the left upper quadrant adjacent to the colon. Procalcitonin done yesterday - negative - 0.29. IMPRESSION: 1. Rule out pneumonia - right lower lobe. 2. Bilateral pleural effusions. 3. Chronic obstructive pulmonary disease. 4. Asthma. 5. Possible urinary tract infection. 6. Anemia. PLAN: The patient appears very comfortable this morning. She is not short of breath at rest. She does state to feeling much better overall. I did discuss the case with the night nurse at length. The night nurse stated that the patient had a very good night. On physical exam, there is certainly less bronchospasm noted. In addition, there is no significant alveolar-arterial gradient. I will continue with the current nebulizer treatments and inhaled steroids for now.. The patient remains on antibiotic therapy - as per Infectious Disease. Temperatures have now fully resolved. There is no leukocytosis. Again, I did review the CAT scan of the abdomen and pelvis. There are small bilateral pleural effusions noted. There is only a minimal consolidation adjacent to the right pleural effusion. With the above CAT scan and negative procalcitonin - pneumonia is possible but less likely at this point in time. GI evaluation is ongoing. Clinical status of the patient is certainly improved - compared to the initial presentation. I will discuss the above with Dr. Tee. Cory Saul MD [facility] # [id number] JACLYN
[2017-10-05 07:56] LABS: MEAN CELL VOLUME 75.7 fl (80.0-105.0); MEAN CORPUSCULAR HEMOGLOBIN 24.9 pg (25.0-35.0); MEAN CORPUSCULAR HGB CONC 32.8 g/dl (31.0-37.0); MEAN PLATELET VOLUME 8.5 fl (7.0-11.0); RBC 3.62 10^6/uL (3.5-6.1); RED CELL DISTRIBUTION WIDTH 15.3 % (11.5-14.5); WHITE BLOOD COUNT 4.6 10^3/ul (4.5-11.0)
[2017-10-05] MEDS: Sodium Chloride 0.9% 1,000 ML IV SCH (08:35)
[2017-10-05] MEDS: Meloxicam 7.5 MG TAB PO SCH (09:17)
--- NOTE | 2017-10-05 12:20 | PN ---
Copied To: Blade Mallory MD Attending MD: Blade Mallory MD DATE: 10/05/2017 SUBJECTIVE: The patient is seen in room 264 bed 1 early today. No fevers and no chills. Uneventful night. OBJECTIVE: VITAL SIGNS: On exam, temperature is 98, blood pressure is 126/50, respirations 16. HEENT: Examination is unremarkable. NECK: Supple. LUNGS: Clear. HEART: Normal S1, S2. ABDOMEN: Soft. DATA: Laboratory examination is reviewed. Microbiology reveals negative blood culture, negative urine culture and review of medication reveals the patient is on p.o. doxycycline, IV meropenem and the patient's procalcitonin has stayed at 0.29. The patient had a CAT scan of the abdomen and pelvis, which revealed lower thorax have small pleural effusions and liver to be unremarkable, gallbladder be unremarkable. Pancreas, spleen, adrenals and kidney is unremarkable. Data also reveals a white count of 4.6, hemoglobin of 9, platelets of 437. Creatinine 0.4, procalcitonin 0.29. Urinalysis is noted. IMPRESSION: 1. Inflammatory changes in the left lower quadrant adjacent to the colon, no obvious diverticulitis and/or colitis, mildly enlarged mesenteric lymph nodes. Dr. Saul's note is reviewed from this morning. Dr. Tee's note from yesterday is reviewed. Dr. Saul's consultation from yesterday is reviewed. ASSESSMENT AND PLAN: This is a 66-year-old female seen in room 264 bed 1 earlier today with a history of lupus and degenerative joint disease, rheumatoid arthritis, urinary tract infection, hyperlipidemia, hypertension, anxiety. She is not on immunosuppressive medications, admitted with severe sepsis with right lower lobe community-acquired pneumonia with hyponatremia, normal procalcitonin, does have a low complement for negative HIV, negative urine for Legionella antigen, negative for hepatitis and day #3 of meropenem and doxycycline with negative blood cultures and urine cultures, day #3 of antibiotics and appears to be improving. Maybe able to switch to p.o. upon discharge. The patient did have a CT scan of the chest, which showed a moderate-sized right pleural effusion, minimal adjacent consolidation. We will follow with you. THE PATIENT IS ALLERGIC TO PENICILLIN AND ASPIRIN. Had an EKG on 10/02/2017 with a QTc of 514, which limits the use of quinolones if the patient continues to do well, maybe able to discontinue meropenem and complete the therapy with p.o. doxycycline in 5 to 7 days. Blade Mallory MD
--- NOTE | 2017-10-05 13:57 | CP.PCM.PN ---
Subjective - Date & Time of Evaluation Date of Evaluation: 10/05/17 Time of Evaluation: 13:52 - Subjective Subjective: GI Progress Note for Dr. Hackett's Service- Velma, PGY2 Patient seen and assessed at bedside. No acute events overnight. She reports she is tolerating her diet well without complaints. Patient denies any complaints at this time including fevers, chills, chest pain, SOB, abdominal pain, N/V/D/C, hematochezia, melena, changes in urine output or any skin changes. Objective - Vital Signs/Intake and Output Vital Signs (last 24 hours): Temp Pulse Resp BP Pulse Ox 98 F 91 H 18 120/85 94 L 10/05/17 11:26 10/05/17 11:26 10/05/17 11:26 10/05/17 11:26 10/05/17 06:00 Intake and Output: 10/05/17 10/05/17 06:59 18:59 Intake Total 400 Balance 400 - Medications Medications: Current Medications Amlodipine Besylate (Norvasc) 5 mg PO DAILY [facility] Last Admin: 10/05/17 09:17 Dose: 5 mg Arformoterol Tartrate (Brovana) 15 mcg IH [id number] [facility] Last Admin: 10/05/17 07:24 Dose: 15 mcg Budesonide (Pulmicort Respules) 0.5 mg IH [id number] BR[facility] Last Admin: 10/05/17 07:25 Dose: 0.5 mg Doxycycline Hyclate (Doryx) 100 mg PO Q12 BR[facility]ANT PRN Reason: Protocol Stop: 10/12/17 10:53 Last Admin: 10/05/17 09:16 Dose: 100 mg Sodium Chloride (Sodium Chloride 0.9%) 1,000 mls @ 100 mls/hr IV .Q10H BRYANT Last Admin: 10/05/17 08:35 Dose: 100 mls/hr Meropenem (Merrem Iv 1 Gm Premix) 50 mls @ 100 mls/hr IVPB Q8 BR[facility]ANT PRN Reason: Protocol Stop: 10/12/17 14:01 Last Admin: 10/05/17 05:57 Dose: 100 mls/hr Meloxicam (Mobic) 7.5 mg PO DAILY [facility] Last Admin: 10/05/17 09:17 Dose: 7.5 mg Tramadol HCl (Ultram) 50 mg PO Q12 BRYANT Last Admin: 10/05/17 09:16 Dose: 50 mg - Labs Labs: 10/05/17 06:00 10/05/17 06:00 PT 14.4 SECONDS (9.4-12.5) H 10/04/17 05:45 INR 1.25 10/04/17 05:45 APTT 28.8 Seconds (25.1-36.5) 10/04/17 05:45 - Constitutional Appears: Non-toxic, No Acute Distress - Head Exam Head Exam: ATRAUMATIC, NORMOCEPHALIC - Eye Exam Eye Exam: EOMI, Normal appearance - ENT Exam ENT Exam: Mucous Membranes Moist - Neck Exam Neck Exam: Full ROM. absent: Tenderness - Respiratory Exam Respiratory Exam: Clear to Ausculation Bilateral, NORMAL BREATHING PATTERN. absent: Accessory Muscle Use, Chest Wall Tenderness, Decreased Breath Sounds, Prolonged Expiratory Phase, Rales, Rhonchi, Wheezes, Respiratory Distress, Stridor - Cardiovascular Exam Cardiovascular Exam: REGULAR RHYTHM, RRR, +S1, +S2. absent: Bradycardia, Tachycardia, Clicks, Diastolic murmur, Gallop, Irregular Rhythm, JVD, Rubs, +S4 , Murmur - GI/Abdominal Exam GI & Abdominal Exam: Soft, Normal Bowel Sounds. absent: Distended, Firm, Guarding, Rigid, Tenderness, Mass - Extremities Exam Extremities Exam: Full ROM, Normal Capillary Refill. absent: Calf Tenderness, Joint Swelling, Pedal Edema, Tenderness - Neurological Exam Neurological Exam: Alert, Awake, Oriented x3 - Psychiatric Exam Psychiatric exam: Normal Affect, Normal Mood - Skin Skin Exam: Dry, Intact, Normal Color, Warm Assessment and Plan - Assessment and Plan (Free Text) Assessment: 66 year old female with a past medical history significant for GERD, HTN, HLD, and questionable SLE/RA who presented to the hospital with fatigue and body aches for three days. Patient was found to be anemic and GI was consulted to evaluate for possible GI hemorrhage. Patient was to have EGD but this was postponed after patient was found to have pleural effusions on CT chest. Plan: -CT Abdomen/Pelvis (PO Contrast) showed inflammatory changes in the LLQ adjacent to the colon possibly representing mesenteric adenitis with mildly enlarged mesenteric lymph nodes -Abdominal US showed no cholelithiasis, CBD to 4mm and hepatic steatosis -H/H currently stable -Hepatitis panel negative -Antibiotics per ID, recommendations appreciated -Pulmonology evaluation appreciated -Heart Healthy Diet -Continue BID PPI -Will need EGD when medically optimized Will discuss further with attending, Dr. Hackett.
--- NOTE | 2017-10-05 17:46 | CP.PCM.PN ---
Subjective - Date & Time of Evaluation Date of Evaluation: 10/05/17 Time of Evaluation: 05:00 - Subjective Subjective: Subjective: CC: Paged by RN for Chest Pain HPI: Patient seen and examined at bedside. Patient states that she began experiencing chest pressure and increased shortness of breath after ambulating to the bathroom. Chest pain originated and remained localized to the left inferior parasternal region. Pain was characterized as a dull sensation and was originally rated a 5/10. Pain reproduced/exacerbated on palpation. After patient rested in bed the SOB has improved and chest pain decreased to a 2/10. Also admitted to baseline dizziness. Admits to nausea. Denies fevers, chills, abdominal pain, vomiting, diaphoresis, visual/auditory changes. 12 point ROS negative except as indicated in HPI Physical Examination: - Constitutional Appears: No Acute Distress - Head Exam Head Exam: NORMAL INSPECTION - Respiratory Exam Respiratory Exam: diminished breath sounds on right lower lung basse absent: Rhonchi, Wheezes, Stridor, Nasal retraction, secondary respiratory muscle use - Cardiovascular Exam Cardiovascular Exam: Tachycardic, +S1, +S2, reproducible on palpation, absent: Gallop, Rubs, Murmur - GI/Abdominal Exam GI & Abdominal Exam: Soft, non-distended, non-tender to palpation - Extremities Exam Extremities Exam: no edema, no erythema, no pain on palpation - Back Exam Back Exam: NORMAL INSPECTION - Neurological Exam Neurological Exam: Alert, Awake, Oriented x3, responds to verbal stimuli, answers questions appropriately, follows commands, and moves extremities past midline - Psychiatric Exam Psychiatric exam: Normal Affect, Normal Mood - Skin Skin Exam: Dry, Intact, Normal Color, Warm Assessment and Plan: Patient is a 66 year old female with past medical history of GERD, HTN, HLD, and questionable SLE/RA who was admitted to the hospital for evaluation and treatment of fatigue and bodyache. Paged by RN for evaluation of chest pain, SOB which has improved relative to onset. Chest Pain, Sinus Tachycardia - HR reviewed and trended on tele monitor 110s sustained - EKG ordered and reviewed- Sinus tachycardia, Left Bundle Branch Block HR 116bpm, QTc 480ms; compared to EKG on 10/02/2017 LBBB noted on this EKG with similar ST T wave changes noted - troponin ordered stat and trended q6h x 2 - repeat Ekgs ordered with each troponin draw - d- dimer rule out DVT in light of sinus tach (though likely secondary to exertion upon ambulation) Reproducible Chest Pain - EKG reviewed and appreciated- please see plan under chest pain/ sinus tachycardia Tachypnea - resolved - oxygenating without overt difficultly - Supplemental oxygen 2L via NC prn SOB Nausea/Dizziness - improving - no zofran, antivert at this time as QTc is prolonged 480ms with approaching Twaves to each subsequent Pwave Gait Instability - likely 2/2 to generalized weakness and deconditioned state - high risk fall precautions Call placed to primary service- call back information provided awaiting call back for further instructions Patient case endorsed to night resident- made aware to follow up on troponins, EKGs, and D- dimer. Objective - Vital Signs/Intake and Output Vital Signs (last 24 hours): Temp Pulse Resp BP Pulse Ox 98 F 98 H 18 120/85 94 L 10/05/17 11:26 10/05/17 14:00 10/05/17 11:26 10/05/17 11:26 10/05/17 06:00 Intake and Output: 10/05/17 10/05/17 06:59 18:59 Intake Total 400 Balance 400 - Medications Medications: Current Medications Amlodipine Besylate (Norvasc) 5 mg PO DAILY [facility] Last Admin: 10/05/17 09:17 Dose: 5 mg Arformoterol Tartrate (Brovana) 15 mcg IH [id number] [facility] Last Admin: 10/05/17 07:24 Dose: 15 mcg Budesonide (Pulmicort Respules) 0.5 mg IH [id number] [facility] Last Admin: 10/05/17 07:25 Dose: 0.5 mg Doxycycline Hyclate (Doryx) 100 mg PO Q12 [facility]YANT PRN Reason: Protocol Stop: 10/12/17 10:53 Last Admin: 10/05/17 09:16 Dose: 100 mg Sodium Chloride (Sodium Chloride 0.9%) 1,000 mls @ 100 mls/hr IV .Q10H [facility] Last Admin: 10/05/17 08:35 Dose: 100 mls/hr Meropenem (Merrem Iv 1 Gm Premix) 50 mls @ 100 mls/hr IVPB Q8 [facility]YANT PRN Reason: Protocol Stop: 10/12/17 14:01 Last Admin: 10/05/17 14:47 Dose: 100 mls/hr Meloxicam (Mobic) 7.5 mg PO DAILY [facility] Last Admin: 10/05/17 09:17 Dose: 7.5 mg Tramadol HCl (Ultram) 50 mg PO Q12 [facility] Last Admin: 10/05/17 09:16 Dose: 50 mg - Labs Labs: 10/05/17 06:00 10/05/17 06:00 PT 14.4 SECONDS (9.4-12.5) H 10/04/17 05:45 INR 1.25 10/04/17 05:45 APTT 28.8 Seconds (25.1-36.5) 10/04/17 05:45
--- NOTE | 2017-10-05 21:45 | CP.PCM.PN ---
Addendum entered and electronically signed by Lidia Curry DO 10/06/17 05:36 : V/Q scan was ordered however could not be done til morning; SC heparin 5000 units q8h was started Dopplers ordered and were negative; Addendum entered and electronically signed by Lidia Curry DO 10/05/17 21:47 : Patient denied CT chest because she states she has allergic reaction to contrast Patient was spoken to about the importance of getting ABG because her resp rate was 44 as per Resp therapist Repeat Cxray Original Note: Subjective - Date & Time of Evaluation Date of Evaluation: 10/05/17 Time of Evaluation: 21:35 - Subjective Subjective: Patient seen and examined at bedside Patient was complaining of ongoing nausea since 12pm this morning Patient refused blood cultures; refused ABG Patient asking for anti nausea meds however QTC on most recent EKG As per nursing patient is febrile with temp of 102; patient was given cooling ice packets; Will order 1 dose of tylenol and cooling blankets prn CT chest was ordered for tachycardia and elevated d-dimer No WBC A: Fever Tachycardia Plan: Order cooling blankets, tylenol prn Patient denied blood cultures and ABG; educated on the importance of blood cultures however patient denied Chest CT ordered to rule out PE QTc at 470; ordered Zofran 2mg IVP once Objective - Vital Signs/Intake and Output Vital Signs (last 24 hours): Temp Pulse Resp BP Pulse Ox 98 F 97 H 18 135/59 L 97 10/05/17 18:00 10/05/17 18:00 10/05/17 18:00 10/05/17 18:00 10/05/17 18:00 Intake and Output: 10/05/17 10/06/17 18:59 06:59 Intake Total 2110 Output Total 1200 Balance 910 - Medications Medications: Current Medications Amlodipine Besylate (Norvasc) 5 mg PO DAILY [facility] Last Admin: 10/05/17 09:17 Dose: 5 mg Arformoterol Tartrate (Brovana) 15 mcg IH [id number] [facility] Last Admin: 10/05/17 21:05 Dose: Not Given Budesonide (Pulmicort Respules) 0.5 mg IH [id number] [facility] Last Admin: 10/05/17 21:07 Dose: Not Given Doxycycline Hyclate (Doryx) 100 mg PO Q12 [facility] PRN Reason: Protocol Stop: 10/12/17 10:53 Last Admin: 10/05/17 09:16 Dose: 100 mg Sodium Chloride (Sodium Chloride 0.9%) 1,000 mls @ 100 mls/hr IV .Q10H [facility] Last Admin: 10/05/17 08:35 Dose: 100 mls/hr Meropenem (Merrem Iv 1 Gm Premix) 50 mls @ 100 mls/hr IVPB Q8 [facility] PRN Reason: Protocol Stop: 10/12/17 14:01 Last Admin: 10/05/17 14:47 Dose: 100 mls/hr Meloxicam (Mobic) 7.5 mg PO DAILY [facility] Last Admin: 10/05/17 09:17 Dose: 7.5 mg Tramadol HCl (Ultram) 50 mg PO Q12 [facility] Last Admin: 10/05/17 09:16 Dose: 50 mg - Labs Labs: 10/05/17 06:00 10/05/17 06:00 PT 14.4 SECONDS (9.4-12.5) H 10/04/17 05:45 INR 1.25 10/04/17 05:45 APTT 28.8 Seconds (25.1-36.5) 10/04/17 05:45
[2017-10-05 22:12] LABS: ARTERIAL BLOOD GAS HCO3 24.8 mmol/L (21-28); ARTERIAL BLOOD GAS O2 SAT 97.6 % (95-98); ARTERIAL BLOOD GAS PCO2 29 mm/Hg (35-45); ARTERIAL BLOOD GAS PH 7.54 (7.35-7.45); ARTERIAL BLOOD GAS TCO2 25.7 mmol.L (22-28)
[2017-10-06] MEDS: Meropenem IV 1 gm in NS 50 ML IVPB SCH ×3 (06:35→22:19)
[2017-10-06] MEDS: Sodium Chloride 0.9% 1,000 ML IV SCH ×2 (06:46→14:09)
[2017-10-06 07:42] LABS: BASO # 0.01 K/mm3 (0.0-2.0); BASO % 0.1 % (0.0-3.0); EOS % 0.3 % (1.5-5.0); GRAN # 6.47 (1.4-6.5); GRAN % 86.2 % (50.0-68.0); LYMPH # 0.5 (1.2-3.4); LYMPH % 6.1 % (22.0-35.0); MEAN CELL VOLUME 75.1 fl (80.0-105.0); MEAN CORPUSCULAR HEMOGLOBIN 24.3 pg (25.0-35.0); MEAN CORPUSCULAR HGB CONC 32.4 g/dl (31.0-37.0); MEAN PLATELET VOLUME 8.7 fl (7.0-11.0); MONO # 0.6 (0.1-0.6); MONO % 7.3 % (1.0-6.0); RBC 3.7 10^6/uL (3.5-6.1); RED CELL DISTRIBUTION WIDTH 15.6 % (11.5-14.5); WHITE BLOOD COUNT 7.5 10^3/ul (4.5-11.0)
[2017-10-06 07:44] LABS: TROPONIN I 0.02 ng/mL
[2017-10-06 07:58] LABS: ALB/GLOB RATIO 0.7 (1.1-1.8); ALBUMIN 2.5 g/dL (3.0-4.8); ALT/SGPT 23 U/L (7-56); AST/SGOT 20 U/L (14-36); BLOOD UREA NITROGEN 8 mg/dL (7-21); CALCIUM 7.7 mg/dL (8.4-10.5); GFR NON-AFRICAN AMERICAN > 60
[2017-10-06] MEDS: Budesonide 0.5 mg/2 ml Inhal Susp UD IH SCH ×2 (08:20→21:10)
[2017-10-06] MEDS: Arformoterol 15 mcg/2 ml Inh Sol IH SCH ×2 (08:21→21:10)
--- NOTE | 2017-10-06 08:33 | PN ---
Copied To: Cory Saul MD Attending MD: Cory Saul MD DATE: 10/06/2017 PULMONARY NOTE SUBJECTIVE: The patient appears comfortable this morning. She is not short of breath at rest. She does appear weak. PHYSICAL EXAMINATION: VITAL SIGNS: Temperature is 98.9, pulse on the monitor is 94, respirations 18, blood pressure 126/79. Oxygen saturation on nasal cannula is 97%. HEENT: Normocephalic, atraumatic. No JVD. CARDIOVASCULAR: Positive S1, S2. No S3 gallop. LUNGS: Decreased breath sounds at the bases. Very minimal/less rhonchi. No wheezing. EXTREMITIES: No clubbing, cyanosis or edema. Calves are nontender to palpation. GI: Abdomen is soft, nontender and nondistended. Bowel sounds are positive. SKIN: No acute rash. NEUROLOGIC: Limited at the present time. PERTINENT LABORATORY DATA: Chest x-ray was done last night and reviewed. There is very minimal linear atelectasis versus scarring noted at the right lower lobe. There are no significant infiltrates. IMPRESSION: 1. Rule out pneumonia - right lower lobe. 2. Bilateral pleural effusions. 3. Chronic obstructive pulmonary disease. 4. Asthma. 5. Possible urinary tract infection. 6. Anemia. PLAN: The patient appears comfortable this morning. She is not short of breath at rest. She does appear very weak. I did discuss the case with the night nurse at length. The night nurse stated that the patient had a pretty good night. However, the night nurse also informed me that the patient had a temperature of 102.3 at 7:00 p.m. Repeat cultures were obtained. On physical exam, there is only minimal bronchospasm noted. In addition, there is no significant alveolar-arterial gradient. I will continue with the current nebulizer treatments and inhaled steroids for now. The patient remains on antibiotic therapy - as per Infectious Disease. Input from Dr. Mallory is noted. Input by GI is also noted. Lastly, I did review the chest x-ray as above. There are no significant infiltrates noted. Clinical status of this patient appears guarded at this point in time. I will discuss the above with the attending physician. Cory Saul MD [facility] # [id number] MTDNatasha
[2017-10-06] MEDS ORDERED: Enoxaparin 80 mg Syringe SC SCH (08:45)
[2017-10-06] MEDS ORDERED: Enoxaparin 80 mg Syringe SC ONE (08:48)
[2017-10-06 09:10] LABS: ARTERIAL BLOOD GAS HCO3 23.4 mmol/L (21-28); ARTERIAL BLOOD GAS HEMOGLOBIN 9.1 g/dL (11.7-17.4); ARTERIAL BLOOD GAS O2 CAPACITY 12.4 mL/dl (16-24); ARTERIAL BLOOD GAS O2 CONTENT 12.2 ML/dl (15-23); ARTERIAL BLOOD GAS PCO2 30 mm/Hg (35-45); ARTERIAL BLOOD GAS TCO2 24.3 mmol.L (22-28)
[2017-10-06 09:14] LABS: INR 1.48; PARTIAL THROMBOPLASTIN TIME 31.4 Seconds (25.1-36.5); PROTHROMBIN TIME 17.2 SECONDS (9.4-12.5)
--- NOTE | 2017-10-06 09:22 | RAD ---
Date of service: 10/05/2017 HISTORY: increased resp rate, fever COMPARISON: 10/02/2017 FINDINGS: LUNGS: There is linear scarring at both lung bases PLEURA: No significant pleural effusion identified, no pneumothorax apparent. CARDIOVASCULAR: Moderate cardiomegaly OSSEOUS STRUCTURES: No significant abnormalities. VISUALIZED UPPER ABDOMEN: Normal. OTHER FINDINGS: None. IMPRESSION: No active disease.
[2017-10-06 09:24] LABS: TROPONIN I 0.03 ng/mL
--- NOTE | 2017-10-06 09:39 | CARD ---
APPROVED REPORT Date of service: 10/05/2017 EKG Measurement Heart [id number] NC 148P41 [id number] <Conclusion> Sinus tachycardia Left bundle branch block No change except the rate is faster.
--- NOTE | 2017-10-06 09:43 | CARD ---
APPROVED REPORT Date of service: 10/05/2017 EKG Measurement Heart [id number] IA 150P36 [id number] <Conclusion> Sinus tachycardia Left bundle branch block No change
--- NOTE | 2017-10-06 09:48 | CARD ---
APPROVED REPORT Date of service: 10/05/2017 EKG Measurement Heart [id number] ME 146P49 [id number] <Conclusion> Sinus tachycardia with one PVC Left bundle branch block No change except the PVC.
--- NOTE | 2017-10-06 09:57 | CARD ---
APPROVED REPORT Date of service: 10/06/2017 EKG Measurement Heart [id number] NE 150P43 [id number] <Conclusion> Sinus tachycardia Left bundle branch block No change
--- NOTE | 2017-10-06 09:59 | PCM.RRT ---
<Donavan Escalante - Last Filed: 10/06/17 10:18> MEDICAL CLAIMS PROCESSOR Nurse Assessment - Situation Date: 10/06/17 Time MEDICAL CLAIMS PROCESSOR was called: 08:29 MEDICAL CLAIMS PROCESSOR Responder Arrival Time: 08:32 MEDICAL CLAIMS PROCESSOR Location:: [facility] MEDICAL CLAIMS PROCESSOR Reason for Call: Chest Pain MEDICAL CLAIMS PROCESSOR Called By: Other Disciplines - IV IV Inserted during MEDICAL CLAIMS PROCESSOR?: No IV Fluids Initiated During MEDICAL CLAIMS PROCESSOR?: no - Respiratory Oxygen Delivery Method: Nasal Cannula @L/min Oxygen Flow Rate: 4 Received Nebulizer Treatments:: No Was the Patient Ventilated with Bag/Mask 100% O2?: No Secretions Suctioned?: No Was the Patient Intubated?: No Was the Patient Placed on a Ventilator?: No - Medication Medications Administered During MEDICAL CLAIMS PROCESSOR: 0.5mg Ativan IVP , Lovenox 70mg SC - Diagnostic Test Ordered EKG: Yes CPR started during MEDICAL CLAIMS PROCESSOR?: No - Vital Signs Vital Sign: Rapid Response Vital Sign Blood Pressure 144/80 Pulse Rate 110 Respiratory Rate 22 Oxygen Saturation 98 - Time MEDICAL CLAIMS PROCESSOR Ended Time MEDICAL CLAIMS PROCESSOR Ended: 08:45 I.Reason for MEDICAL CLAIMS PROCESSOR - A) Acute Change in Patient: (Select all that apply): Staff member or family is worried about patient - Neurological Status (Select all that apply): Alert, Responsive, Oriented, Verbal, Follows Commands - Respiratory Oxygen Delivery Method: Nasal Cannula @L/min Oxygen Flow Rate: 4 Plan - Assessment of Findings&Treatment Plan Subjective: MEDICAL CLAIMS PROCESSOR: Called for Chest Pain HPI: Patient seen and examined with MEDICAL CLAIMS PROCESSOR team in VQ scanning office. Patient states that she began experiencing chest pressure and increased shortness of breath as she transferred to the scanning bed. Chest pain originated and remained localized to the right iparasternal region. Pain was characterized as a dull sensation. Pain reproduced/exacerbated on palpation. Both the SOB and chest pain have improved relative to onset. States that she does not handle closed spaces well and becomes anxious. Also admits to baseline baseline dizziness and nausea. Denies fevers, chills, abdominal pain, vomiting, diaphoresis, visual/ auditory changes. 12 point ROS negative except as indicated in HPI Physical Examination: - Constitutional Appears: No Acute Distress - Head Exam Head Exam: NORMAL INSPECTION - Respiratory Exam Respiratory Exam: diminished breath sounds on right lower lung basse absent: Rhonchi, Wheezes, Stridor, Nasal retraction, secondary respiratory muscle use - Cardiovascular Exam Cardiovascular Exam: Tachycardic, +S1, +S2, reproducible on palpation, absent: Gallop, Rubs, Murmur - GI/Abdominal Exam GI & Abdominal Exam: Soft, non-distended, non-tender to palpation - Extremities Exam Extremities Exam: no edema, no erythema, no pain on palpation - Back Exam Back Exam: NORMAL INSPECTION - Neurological Exam Neurological Exam: Alert, Awake, Oriented x3, responds to verbal stimuli, answers questions appropriately, follows commands, and moves extremities past midline - Psychiatric Exam Psychiatric exam: Normal Affect, Normal Mood - Skin Skin Exam: Dry, Intact, Normal Color, Warm Assessment and Plan: Patient is a 66 year old female with past medical history of GERD, HTN, HLD, and questionable SLE/RA who was admitted to the hospital for evaluation and treatment of fatigue and bodyache. MEDICAL CLAIMS PROCESSOR called evaluation of chest pain, SOB which has improved relative to onset. Chest Pain, Sinus Tachycardia - HR reviewed and trended on monitor 110s sustained - EKG ordered and reviewed- Sinus tachycardia, Left Bundle Branch Block HR 111bpm, QTc 505ms; compared to EKG on 10/05/2017 LBBB noted on this EKG with similar ST T wave changes noted - troponin ordered stat - d- dimer elevated- patient performing VQ scan now, Subq lovenox therapeutic dosing ordered - will discontinue and place back on subq heparin if VQ scan is negative - anxiety induced tachycardia- patient given 0.5mg of ativan to allow for VQ scan to be completed Reproducible Chest Pain - EKG reviewed and appreciated- please see plan under chest pain/ sinus tachycardia Tachypnea, SOB - ABG reviewed and appreciated- pH 7.50, not retain PCO2 30, PO2 low at 76, Bicarb 23.4- improve oxygenation with treatment of pneumonia + supplemental oxygen - oxygenating without overt difficultly - increase Supplemental oxygen 4L via NC prn SOB Nausea/Dizziness - no zofran, antivert at this time as QTc is prolonged 505ms Gait Instability - likely 2/2 to generalized weakness and deconditioned state - high risk fall precautions Call placed to primary service x 2- call back information provided awaiting call back for further instructions Call placed to nursing microwave supervisor to confirm the primary care physician status for patient- awaiting call back Patient seen, case discussed with, and plan approved by attending physician, Dr. Minoo Escalante. <Minoo Escalante R - Last Filed: 10/07/17 15:47> MEDICAL CLAIMS PROCESSOR Nurse Assessment - Vital Signs Vital Sign: Rapid Response Vital Sign Blood Pressure 144/80 Pulse Rate 110 Respiratory Rate 22 Oxygen Saturation 98 Attending/Attestation - Attestation I have personally seen and examined this patient.: Yes I have fully participated in the care of the patient.: Yes I have reviewed all pertinent clinical information, including history, physical exam and plan: Yes Notes (Text): Patient seen and examined by me at 8:34AM with resident 10/06/17. Case discussed with resident. Agree with above with following additions/corrections. Rapid response called at 8:29 AM arrived at 8:34 AM. Patient was at VQ scan when she started to experience chest pain. Patient states that she had this chest pain yesterday. However yesterday the chest pain was on the left. Today the chest pain is on the right. Patient also complains of some shortness of breath. Patient feels very anxious. She states that she is claustrophobic. She denies any vomiting but does feel a little nauseous. No abdominal pain. No headaches. Patient does complain of some dizziness. Patient is afebrile. Physical exam: General: Awake and alert lying in bed in no acute distress HEENT: Normocephalic atraumatic. Pupils equal reactive. No scleral icterus. Oropharynx is pink and moist. Cardiovascular: Normal rhythm. Normal S1, S2. No murmurs, rubs, or gallops appreciated Pulmonary: Normal respiratory effort. No rhonchi, rales or wheezing appreciated. Gastrointestinal: Soft, nondistended. Nontender. Positive bowel sounds all 4 quadrants. Musculoskeletal: Positive right anterior chest wall tenderness. Central nervous system: AAOx3. CN2-12 grossly intact. Assessment and plan: 1. Chest pain. Reproducible. May be secondary to underlying pneumonia. D-dimer elevated. Patient given Ativan to complete VQ scan. Given 1 dose of therapeutic Lovenox empirically for possible PE. EKG reviewed in similar to previous. Patient is allergic to aspirin. Will follow-up on VQ scan results. ABG reviewed. Continue with O2 via nasal cannula as needed. 2. Nausea/dizziness. May be secondary to anxiety. Anti-nausea medications held for now secondary to QTc prolongation. Call placed to primary care doctor for further treatment and plan, awaiting callback. Case discussed in detail with the patient.
--- NOTE | 2017-10-06 10:43 | NM ---
Date of service: 10/06/2017 COMPARISON: 10/05/2017 TECHNIQUE: 37.0 mCi technetium 99-m DTPA aerosol. 4.9 mCI technetium 99-m MAA administered intravenously. FINDINGS: VENTILATION COMPONENT: Normal. PERFUSION COMPONENT: Normal. IMPRESSION: Lowprobability ventilation perfusion scan for pulmonary embolism.
[2017-10-06] MEDS: Meloxicam 7.5 MG TAB PO SCH (10:47)
[2017-10-06] MEDS ORDERED: Propofol 10 mg/ml Inj (20 ML) ONE (13:01)
[2017-10-06] MEDS ORDERED: Lidocaine PF 2% (5 ml) Inj (For Cardiac Arrhy) ONE (13:11)
[2017-10-06] MEDS: Benzocaine/Menthol (Cepacol) Lozenge MT PRN (13:37)
[2017-10-06] MEDS: Nystatin 100,000 Units/ml Oral Susp 5 ml UD PO SCH ×2 (13:38→18:12)
--- NOTE | 2017-10-06 14:35 | CP.PCM.PN ---
<Jasper Thurston - Last Filed: 10/06/17 14:38> Subjective - Date & Time of Evaluation Date of Evaluation: 10/06/17 Time of Evaluation: 14:33 - Subjective Subjective: GI Progress Note for Dr. Hackett's Service- Velma, PGY2 Patient seen and assessed at bedside. Overnight, patient was noted to have a fever of 102. She was also tachycardic and was found to have an elevated d- dimer. Due to an allergy to IV contrast, V/Q scan was ordered and showed low probability of pulmonary embolism. While in nuclear medicine, patient also had an TOP AND SEAT COVER FITTER called for chest pain. Currently, patient is resting comfortably in bed without any complaints. Patient denies chills, chest pain, SOB, abdominal pain, N/V/D/C, hematochezia, melena, changes in urine output or any skin changes. Objective - Vital Signs/Intake and Output Vital Signs (last 24 hours): Temp Pulse Resp BP Pulse Ox 98 F 109 H 18 136/77 97 10/06/17 12:00 10/06/17 12:00 10/06/17 12:00 10/06/17 13:37 10/05/17 18:00 Intake and Output: 10/06/17 10/06/17 06:59 18:59 Intake Total 1540 Output Total 350 Balance 1190 - Medications Medications: Current Medications Amlodipine Besylate (Norvasc) 5 mg PO DAILY [facility] Last Admin: 10/06/17 10:47 Dose: 5 mg Arformoterol Tartrate (Brovana) 15 mcg IH [id number] [facility] Last Admin: 10/06/17 08:21 Dose: Not Given Benzocaine/Menthol (Cepacol Sore Throat) 1 julissa MT Q2H PRN PRN Reason: Sore Throat Last Admin: 10/06/17 13:37 Dose: 1 julissa Budesonide (Pulmicort Respules) 0.5 mg IH [id number] [facility] Last Admin: 10/06/17 08:20 Dose: Not Given Doxycycline Hyclate (Doryx) 100 mg PO Q12 [facility] PRN Reason: Protocol Stop: 10/12/17 10:53 Last Admin: 10/06/17 10:47 Dose: 100 mg Heparin Sodium (Porcine) (Heparin) 5,000 units SC Q8 [facility] PRN Reason: Protocol Sodium Chloride (Sodium Chloride 0.9%) 1,000 mls @ 100 mls/hr IV .Q10H [facility] Last Admin: 10/06/17 14:09 Dose: Not Given Meropenem (Merrem Iv 1 Gm Premix) 50 mls @ 100 mls/hr IVPB Q8 [facility] PRN Reason: Protocol Stop: 10/12/17 14:01 Last Admin: 10/06/17 13:37 Dose: 100 mls/hr Meloxicam (Mobic) 7.5 mg PO DAILY [facility] Last Admin: 10/06/17 10:47 Dose: 7.5 mg Nystatin (Nystatin Oral Susp) 5 ml PO Q6 [facility] Last Admin: 10/06/17 13:38 Dose: 5 ml Tramadol HCl (Ultram) 50 mg PO Q12 [facility] Last Admin: 10/06/17 10:46 Dose: 50 mg - Labs Labs: 10/06/17 06:30 10/06/17 06:30 PT 17.2 SECONDS (9.4-12.5) H 10/06/17 08:50 INR 1.48 10/06/17 08:50 APTT 31.4 Seconds (25.1-36.5) 10/06/17 08:50 - Constitutional Appears: No Acute Distress - Head Exam Head Exam: ATRAUMATIC, NORMOCEPHALIC - Eye Exam Eye Exam: EOMI, Normal appearance - ENT Exam ENT Exam: Mucous Membranes Moist - Neck Exam Neck Exam: Full ROM - Respiratory Exam Respiratory Exam: Clear to Ausculation Bilateral, NORMAL BREATHING PATTERN. absent: Accessory Muscle Use, Chest Wall Tenderness, Decreased Breath Sounds, Prolonged Expiratory Phase, Rales, Rhonchi, Wheezes, Respiratory Distress, Stridor - Cardiovascular Exam Cardiovascular Exam: REGULAR RHYTHM, RRR, +S1, +S2. absent: Bradycardia, Tachycardia, Clicks, Diastolic murmur, Gallop, Irregular Rhythm, JVD, Rubs, +S4 , Murmur - GI/Abdominal Exam GI & Abdominal Exam: Soft, Normal Bowel Sounds. absent: Bruit, Distended, Firm , Guarding, Rigid, Tenderness, Diminished Bowel Sounds, Hernia, Hyperactive Bowel Sounds, Hypoactive Bowel Sounds, Organomegaly, Pulsatile Mass, Rebound, Mass - Extremities Exam Extremities Exam: absent: Joint Swelling, Pedal Edema, Tenderness - Neurological Exam Neurological Exam: Alert, Awake, Oriented x3 - Psychiatric Exam Psychiatric exam: Normal Affect, Normal Mood - Skin Skin Exam: Dry, Intact, Normal Color, Warm Assessment and Plan - Assessment and Plan (Free Text) Assessment: 66 year old female with a past medical history significant for GERD, HTN, HLD, and questionable SLE/RA who presented to the hospital with fatigue and body aches for three days. Patient was found to be anemic and GI was consulted to evaluate for possible GI hemorrhage. Patient was to have EGD on 10/05 but this was postponed after patient was found to have pleural effusions on CT chest. Patient was rescheduled for EGD on 10/06 but this was cancelled as patient had fever overnight and was found to have significantly elevated D-Dimer. V/Q scan was done and showed low probability for pulmonary embolism. Plan: -Patient will need EGD once medically appropriate -CT Abdomen/Pelvis (PO Contrast) showed inflammatory changes in the LLQ adjacent to the colon possibly representing mesenteric adenitis with mildly enlarged mesenteric lymph nodes -Abdominal US showed no cholelithiasis, CBD to 4mm and hepatic steatosis -H/H currently stable -Hepatitis panel negative -Antibiotics per ID, recommendations appreciated -Pulmonology evaluation appreciated -Heart Healthy Diet -Continue BID PPI Patient seen and case discussed with attending, Dr. Hackett. <Ranulfo Hackett V - Last Filed: 10/06/17 23:49> Objective - Vital Signs/Intake and Output Vital Signs (last 24 hours): Temp Pulse Resp BP Pulse Ox 100.4 F H 112 H 18 128/69 97 10/06/17 21:57 10/06/17 18:00 10/06/17 18:00 10/06/17 18:00 10/06/17 18:00 Intake and Output: 10/06/17 10/07/17 18:59 06:59 Intake Total 300 1300 Output Total 1200 Balance -900 1300 - Medications Medications: Current Medications Acetaminophen (Tylenol 325mg Tab) 325 mg PO Q6H PRN PRN Reason: Fever >100.4 F Last Admin: 10/06/17 20:57 Dose: 325 mg Amlodipine Besylate (Norvasc) 5 mg PO DAILY [facility] Last Admin: 10/06/17 10:47 Dose: 5 mg Arformoterol Tartrate (Brovana) 15 mcg IH [id number] [facility] Last Admin: 10/06/17 21:10 Dose: 15 mcg Benzocaine/Menthol (Cepacol Sore Throat) 1 julissa MT Q2H PRN PRN Reason: Sore Throat Last Admin: 10/06/17 13:37 Dose: 1 julissa Budesonide (Pulmicort Respules) 0.5 mg IH [id number] [facility] Last Admin: 10/06/17 21:10 Dose: 0.5 mg Doxycycline Hyclate (Doryx) 100 mg PO Q12 [facility] PRN Reason: Protocol Stop: 10/12/17 10:53 Last Admin: 10/06/17 22:18 Dose: 100 mg Heparin Sodium (Porcine) (Heparin) 5,000 units SC Q8 [facility] PRN Reason: Protocol Last Admin: 10/06/17 22:33 Dose: Not Given Sodium Chloride (Sodium Chloride 0.9%) 1,000 mls @ 100 mls/hr IV .Q10H [facility] Last Admin: 10/06/17 14:09 Dose: Not Given Meropenem (Merrem Iv 1 Gm Premix) 50 mls @ 100 mls/hr IVPB Q8 [facility] PRN Reason: Protocol Stop: 10/12/17 14:01 Last Admin: 10/06/17 22:19 Dose: 100 mls/hr Meloxicam (Mobic) 7.5 mg PO DAILY [facility] Last Admin: 10/06/17 10:47 Dose: 7.5 mg Nystatin (Nystatin Oral Susp) 5 ml PO Q6 [facility] Last Admin: 10/06/17 18:12 Dose: 5 ml Tramadol HCl (Ultram) 50 mg PO Q12 [facility] Last Admin: 10/06/17 23:17 Dose: Not Given - Labs Labs: 10/06/17 06:30 10/06/17 06:30 PT 17.2 SECONDS (9.4-12.5) H 10/06/17 08:50 INR 1.48 10/06/17 08:50 APTT 31.4 Seconds (25.1-36.5) 10/06/17 08:50 Attending/Attestation - Attestation I have personally seen and examined this patient.: Yes I have fully participated in the care of the patient.: Yes I have reviewed all pertinent clinical information, including history, physical exam and plan: Yes
--- NOTE | 2017-10-06 21:10 | PN ---
Copied To: Blade Mallory MD Attending MD: Blade Mallory MD DATE: 10/06/2017 SUBJECTIVE: The patient is in bed, in no acute distress, nontoxic. The patient did have a fever. PHYSICAL EXAMINATION: VITAL SIGNS: Temperature is 98, T-max 102.3, blood pressure is 130/70, respiratory rate of 18. HEENT: Unremarkable. NECK: Supple. LUNGS: Have decreased breath sounds. HEART: Normal S1, S2. ABDOMINAL: Soft, nontender. LABORATORY EXAMINATION: Reveals a white count of 7.5, hemoglobin of 9, platelets of 427. Chemistries reveals a BUN of 8, creatinine of 0.5 and procalcitonin is 0.29. Urinalysis is noted and complement is noted. Serology is negative. HIV, hepatitis, urine Legionella, blood cultures, urine cultures are negative and the patient had a perfusion scan which was low probability for PE. Had a rapid response report by Dr. Donavan Escalante. Because of the chest pain, orders are noted. Dr. Saul's progress note is noted. ASSESSMENT AND PLAN: A 66-year-old female with lupus, degenerative joint disease, rheumatoid arthritis, urinary tract infection, hyperlipidemia, hypertension, anxiety. The patient is not on any immunosuppressed medications and admitted with severe sepsis with a right lower lobe community-acquired pneumonia, hyponatremia, normal procalcitonin, low complement, negative human immunodeficiency virus, negative urine Legionella antigen on meropenem and doxycycline day #4 with cultures negative and negative procalcitonin. Blood cultures were ordered yesterday. Urine cultures were ordered today. Doppler of the lower extremities were ordered. The patient's chest x-ray from yesterday linear scarring. No active disease. We will check on repeat culture results. Make further recommendations. Per se, the patient certainly does not look toxic. We will follow with you. Blade Mallory MD
[2017-10-07] MEDS: Nystatin 100,000 Units/ml Oral Susp 5 ml UD PO SCH ×3 (00:19→15:51)
--- NOTE | 2017-10-07 05:12 | CARD ---
APPROVED REPORT Date of service: 10/06/2017 EKG Measurement Heart [id number] MD 142P42 [id number] <Conclusion> Sinus tachycardia Left bundle branch block Abnormal ECG
[2017-10-07] MEDS: Meropenem IV 1 gm in NS 50 ML IVPB SCH (05:48)
[2017-10-07] MEDS: Sodium Chloride 0.9% 1,000 ML IV SCH ×4 (05:53→20:18)
--- NOTE | 2017-10-07 07:40 | CP.PCM.PN ---
<Tyler Lopez - Last Filed: 10/07/17 08:16> Subjective - Date & Time of Evaluation Date of Evaluation: 10/07/17 Time of Evaluation: 07:37 - Subjective Subjective: GI Fellow PGY4, progress note. Patient seen and examined at bedside. Febrile overnight. Left sided chest pains. No complaints of n/v/d/bloody stool. She is tolerating her diet. 12pt ROS completed and negative except for above. Objective - Vital Signs/Intake and Output Vital Signs (last 24 hours): Temp Pulse Resp BP Pulse Ox 99.9 F H 102 H 19 136/86 109 H 10/07/17 06:00 10/07/17 05:10 10/07/17 06:00 10/07/17 06:00 10/07/17 06:00 Intake and Output: 10/07/17 10/07/17 06:59 18:59 Intake Total 2920 Output Total 1000 Balance 1920 - Medications Medications: Current Medications Acetaminophen (Tylenol 325mg Tab) 325 mg PO Q6H PRN PRN Reason: Fever >100.4 F Last Admin: 10/06/17 20:57 Dose: 325 mg Amlodipine Besylate (Norvasc) 5 mg PO DAILY [facility] Last Admin: 10/06/17 10:47 Dose: 5 mg Arformoterol Tartrate (Brovana) 15 mcg IH [id number] [facility] Last Admin: 10/06/17 21:10 Dose: 15 mcg Benzocaine/Menthol (Cepacol Sore Throat) 1 julissa MT Q2H PRN PRN Reason: Sore Throat Last Admin: 10/06/17 13:37 Dose: 1 julissa Budesonide (Pulmicort Respules) 0.5 mg IH [id number] [facility] Last Admin: 10/06/17 21:10 Dose: 0.5 mg Heparin Sodium (Porcine) (Heparin) 5,000 units SC Q8 [facility] PRN Reason: Protocol Last Admin: 10/07/17 05:58 Dose: Not Given Sodium Chloride (Sodium Chloride 0.9%) 1,000 mls @ 100 mls/hr IV .Q10H [facility] Last Admin: 10/07/17 05:53 Dose: 100 mls/hr Meloxicam (Mobic) 7.5 mg PO DAILY [facility] Last Admin: 10/06/17 10:47 Dose: 7.5 mg Nystatin (Nystatin Oral Susp) 5 ml PO Q6 [facility] Last Admin: 10/07/17 05:57 Dose: 5 ml Tramadol HCl (Ultram) 50 mg PO Q12 [facility] Last Admin: 10/06/17 23:17 Dose: Not Given - Labs Labs: 10/06/17 06:30 10/06/17 06:30 PT 17.2 SECONDS (9.4-12.5) H 10/06/17 08:50 INR 1.48 10/06/17 08:50 APTT 31.4 Seconds (25.1-36.5) 10/06/17 08:50 - Constitutional Appears: Non-toxic, No Acute Distress - Head Exam Head Exam: NORMAL INSPECTION - Eye Exam Eye Exam: Normal appearance - ENT Exam ENT Exam: Mucous Membranes Moist - Respiratory Exam Respiratory Exam: Clear to Ausculation Bilateral, NORMAL BREATHING PATTERN. absent: Stridor - Cardiovascular Exam Cardiovascular Exam: REGULAR RHYTHM, +S1, +S2 - GI/Abdominal Exam GI & Abdominal Exam: Soft, Normal Bowel Sounds. absent: Tenderness - Extremities Exam Extremities Exam: Normal Inspection - Neurological Exam Neurological Exam: Alert, Awake, Oriented x3 - Psychiatric Exam Psychiatric exam: Normal Affect - Skin Skin Exam: Dry, Normal Color Assessment and Plan - Assessment and Plan (Free Text) Assessment: 66 year old female with a past medical history significant for GERD, HTN, HLD, and questionable SLE/RA who presented to the hospital with fatigue and body aches for three days. Patient was found to be anemic and GI was consulted to evaluate for possible GI hemorrhage. Patient was to have EGD on 10/05 but this was postponed after patient was found to have pleural effusions on CT chest. Patient was rescheduled for EGD on 10/06 but this was cancelled as patient had fever overnight and was found to have significantly elevated D-Dimer. V/Q scan was done and showed low probability for pulmonary embolism. Plan: -Patient will need EGD once medically appropriate -CT Abdomen/Pelvis (PO Contrast) showed inflammatory changes in the LLQ adjacent to the colon possibly representing mesenteric adenitis with mildly enlarged mesenteric lymph nodes -Abdominal US showed no cholelithiasis, CBD to 4mm and hepatic steatosis -H/H currently stable -Hepatitis panel negative -Antibiotics per ID, recommendations appreciated -Pulmonology evaluation appreciated -Heart Healthy Diet -Continue BID PPI Attending/Attestation - Attestation I have personally seen and examined this patient.: Yes I have fully participated in the care of the patient.: Yes I have reviewed all pertinent clinical information, including history, physical exam and plan: Yes <Ranulfo Hackett V - Last Filed: 10/07/17 23:44> Objective - Vital Signs/Intake and Output Vital Signs (last 24 hours): Temp Pulse Resp BP Pulse Ox 99.6 F 96 H 20 117/60 109 H 10/07/17 18:00 10/07/17 18:00 10/07/17 18:00 10/07/17 18:00 10/07/17 06:00 Intake and Output: 10/07/17 10/08/17 18:59 06:59 Intake Total 900 Output Total 1200 Balance -300 - Medications Medications: Current Medications Acetaminophen (Tylenol 325mg Tab) 325 mg PO Q6H PRN PRN Reason: Fever >100.4 F Last Admin: 10/06/17 20:57 Dose: 325 mg Amlodipine Besylate (Norvasc) 5 mg PO DAILY [facility] Last Admin: 10/07/17 09:27 Dose: 5 mg Arformoterol Tartrate (Brovana) 15 mcg IH [id number] [facility] Last Admin: 10/07/17 20:03 Dose: 15 mcg Atorvastatin Calcium (Lipitor) 20 mg PO DIN [facility] Last Admin: 10/07/17 17:34 Dose: 20 mg Benzocaine/Menthol (Cepacol Sore Throat) 1 julissa MT Q2H PRN PRN Reason: Sore Throat Last Admin: 10/06/17 13:37 Dose: 1 julissa Budesonide (Pulmicort Respules) 0.5 mg IH [id number] [facility] Last Admin: 10/07/17 20:03 Dose: 0.5 mg Clopidogrel Bisulfate (Plavix) 75 mg PO DAILY [facility] Famotidine (Pepcid) 20 mg PO 1000,2200 [facility] Last Admin: 10/07/17 21:25 Dose: 20 mg Heparin Sodium (Porcine) (Heparin) 5,000 units SC Q8 [facility] PRN Reason: Protocol Last Admin: 10/07/17 21:28 Dose: Not Given Sodium Chloride (Sodium Chloride 0.9%) 1,000 mls @ 100 mls/hr IV .Q10H [facility] Last Admin: 10/07/17 20:18 Dose: Not Given Meloxicam (Mobic) 7.5 mg PO DAILY [facility] Last Admin: 10/07/17 09:27 Dose: Not Given Nitroglycerin (Nitrostat Sl Tab) 0.4 mg SL Q5M PRN PRN Reason: chest pain Nystatin (Nystatin Oral Susp) 5 ml PO Q6 [facility] Last Admin: 10/07/17 15:51 Dose: 5 ml Tramadol HCl (Ultram) 50 mg PO Q12 [facility] Last Admin: 10/07/17 21:25 Dose: 50 mg - Labs Labs: 10/06/17 06:30 10/06/17 06:30 PT 17.2 SECONDS (9.4-12.5) H 10/06/17 08:50 INR 1.48 10/06/17 08:50 APTT 31.4 Seconds (25.1-36.5) 10/06/17 08:50 - Constitutional Appears: Well - Head Exam Head Exam: ATRAUMATIC, NORMAL INSPECTION, NORMOCEPHALIC - Eye Exam Eye Exam: EOMI, Normal appearance, PERRL Pupil Exam: NORMAL ACCOMODATION, PERRL - ENT Exam ENT Exam: Mucous Membranes Moist, Normal Exam - Neck Exam Neck Exam: Full ROM, Normal Inspection. absent: Lymphadenopathy - Respiratory Exam Respiratory Exam: Clear to Ausculation Bilateral, NORMAL BREATHING PATTERN - Cardiovascular Exam Cardiovascular Exam: REGULAR RHYTHM, +S1, +S2. absent: Murmur - GI/Abdominal Exam GI & Abdominal Exam: Soft, Normal Bowel Sounds. absent: Tenderness - Rectal Exam Rectal Exam: NORMAL INSPECTION - Exam Exam: Circumcision, NORMAL INSPECTION External exam: NORMAL EXTERNAL EXAM Speculum exam: NORMAL SPECULUM EXAM Bimanual exam: NORMAL BIMANUAL EXAM - Extremities Exam Extremities Exam: Full ROM, Normal Capillary Refill, Normal Inspection. absent : Joint Swelling, Pedal Edema - Back Exam Back Exam: NORMAL INSPECTION - Neurological Exam Neurological Exam: Alert, Awake, CN II-XII Intact, Normal Gait, Oriented x3 - Psychiatric Exam Psychiatric exam: Normal Affect, Normal Mood - Skin Skin Exam: Dry, Intact, Normal Color, Warm Attending/Attestation - Attestation I have personally seen and examined this patient.: Yes I have fully participated in the care of the patient.: Yes I have reviewed all pertinent clinical information, including history, physical exam and plan: Yes Notes (Text): This is an addendum to GI progress report dictated by the GI Fellow.The patient was seen and examined earlier. Medical records, lab studies, imagings were reviewed. Last 24 hours events reviewed. Agreed with the above treatment plan as outlined in GI Fellow 's notes with the addition of the following Patient has been complaining of left- sided chest discomfort earlier Denies any abdominal pain Physical examination no abdominal tenderness Patient was also has mild peripancreatic and celiac adenopathy questionable inflammatory changes left quadrant area mesenteric adenitis Patient has been on antibiotics as per ID EGD scheduled earlier was as this patient spiked a temperature awaiting for pulmonary optimization Patient would benefit from GD and a colonoscopy to further evallaluate anemia 10/07/17 23:38
[2017-10-07] MEDS: Arformoterol 15 mcg/2 ml Inh Sol IH SCH ×2 (07:45→20:03)
[2017-10-07] MEDS: Budesonide 0.5 mg/2 ml Inhal Susp UD IH SCH ×2 (07:45→20:03)
--- NOTE | 2017-10-07 07:59 | PN ---
Copied To: Cory Saul MD Attending MD: Cory Salu MD DATE: 10/07/2017 PULMONARY NOTE SUBJECTIVE: The patient appears comfortable this morning. She is not short of breath at rest. PHYSICAL EXAMINATION: VITAL SIGNS: Temperature is 99.9, pulse 102, respirations 19, blood pressure 136/86. Oxygen saturation on nasal cannula is 99%. HEENT: Normocephalic, atraumatic. No JVD. CARDIOVASCULAR: Positive S1, S2. No S3 gallop. LUNGS: Decreased breath sounds at the bases. No rhonchi or wheezing this morning. EXTREMITIES: No clubbing, cyanosis, edema. Calves are nontender to palpation. GASTROINTESTINAL: Abdomen is soft, nontender, and nondistended. Bowel sounds are positive. SKIN: No acute rash. NEUROLOGIC: Limited at the present time. PERTINENT LABORATORY DATA: Ventilation-perfusion scan was done yesterday. It is low probability for pulmonary embolism. IMPRESSION: 1. Sepsis syndrome. 2. Rule out pneumonia - right lower lobe - less likely. 3. Bilateral pleural effusions. 4. Chronic obstructive pulmonary disease. 5. Asthma. 6. Anemia. PLAN: The patient appears comfortable this morning. She is not short of breath at rest. I did discuss the case with the night nurse at length. The night nurse informed me that the patient did have an episode of left-sided chest discomfort yesterday. This chest discomfort is reproducible by palpation. In any case, ventilation-perfusion scan was done. It was low probability for pulmonary embolism. On physical exam, her bronchospasm continues to resolve. In addition, the oxygen saturation on nasal cannula is now 99%. I will continue with the current nebulizer treatments and inhaled steroids for now. I would continue with the antibiotic coverage as per Infectious Disease. Input by Dr. Mallory is noted. The patient remains with low-grade fevers. The previous procalcitonin was negative. Input by GI is also noted. Clinical status of the patient is improved - compared to the initial presentation. However, again, her overall status/prognosis does remain somewhat guarded. I will discuss the above with the attending physician. Cory Saul MD [facility] # [id number] JACLYN
--- NOTE | 2017-10-07 08:22 | PN ---
Copied To: Blade Mallory MD Attending MD: Blade Mallory MD DATE: 10/07/2017 SUBJECTIVE: The patient is seen earlier today in bed, no acute distress. She had low-grade fevers. She did have a fever earlier. OBJECTIVE: VITAL SIGNS: On exam, temperature is 99, T-max is 102; blood pressure is 130/80; heart rate of 109. HEENT: Examination is unremarkable. NECK: Supple. LUNGS: Have decreased breath sounds. HEART: Normal S1, S2. ABDOMEN: Soft, nontender. No rebound, no guarding. DATA: Laboratory examination reveals the blood cultures are negative. Urine cultures are negative and the patient had a abdominal CAT scan, inflammatory changes is seen in left lower quadrant adjacent to the colon. No obvious diverticulitis or colitis, mesenteric adenitis, mildly enlarged mesenteric lymph nodes. CAT scan was done on 10/04/[address] Jasper Thurston's note is reviewed. ASSESSMENT AND PLAN: This is a 66-year-old female who was seen earlier today in room 264, bed 1 who has a history of lupus, degenerative joint disease, rheumatoid arthritis, urinary tract infection, hyperlipidemia, hypertension, anxiety. The patient is not on immunosuppressive medications, admitted with severe sepsis with a right lower lobe community-acquired pneumonia, hyponatremia, normal procalcitonin. The patient does have a low complement, negative human immunodeficiency virus, negative urine Legionella antigen, feels nauseated probably secondary to the doxycycline, today is day #5 with negative procalcitonin, cultures negative, Dopplers negative and lung scan is negative with lower extremity Dopplers pending. Because of the nausea and workup thus far, we will discontinue the doxycycline. The patient is on meropenem, we will discontinue the meropenem. THE PATIENT IS ALLERGIC TO PENICILLIN. She does not appear toxic. 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 The patient is on tramadol, Mobic, Norvasc, Prilosec. We will follow the patient 24 hours with discontinuing the antibiotics and since she is not appearing toxic, white count is normal, cultures are negative, procalcitonin is negative. We will discuss with Dr. Saul regarding right lower lobe infiltrate. The patient did have a CAT scan of the chest. She is comfortable. She is not short of breath. Minimal adjacent consolidation on the CAT scan. Today is day #5 of antibiotics. We will discontinue the antibiotics and follow with you. Blade Mallory MD
[2017-10-07] MEDS: Meloxicam 7.5 MG TAB PO SCH (09:27)
[2017-10-07] MEDS ORDERED: Levalbuterol 0.63 MG/3 ML Inhal Soln UD IH PRN (22:46)
[2017-10-07] MEDS ORDERED: Levalbuterol 0.63 MG/3 ML Inhal Soln UD IH ONE (23:06)
[2017-10-08] MEDS: Sodium Chloride 0.9% 1,000 ML IV SCH ×4 (02:58→17:14)
[2017-10-08] MEDS: Nystatin 100,000 Units/ml Oral Susp 5 ml UD PO SCH ×4 (05:08→18:03)
[2017-10-08] MEDS: Pantoprazole 40 mg EC Tab PO SCH (06:39)
[2017-10-08] MEDS: Arformoterol 15 mcg/2 ml Inh Sol IH SCH ×2 (08:03→20:30)
[2017-10-08] MEDS: Budesonide 0.5 mg/2 ml Inhal Susp UD IH SCH ×2 (08:04→20:30)
--- NOTE | 2017-10-08 08:25 | PN ---
Copied To: Cory Saul MD Attending MD: Cory Saul MD DATE: 10/08/2017 PULMONARY NOTE SUBJECTIVE: The patient appears comfortable this morning. She is not short of breath at rest. PHYSICAL EXAMINATION: VITAL SIGNS: Temperature is 98.1, pulse on the monitor is 91, respiratory rate 18, blood pressure 113/68. Oxygen saturation on nasal cannula is 96%. HEENT: Normocephalic, atraumatic. No JVD. CARDIOVASCULAR: Positive S1, S2. No S3 gallop. LUNGS: Slight decreased breath sounds at the bases. Otherwise clear. EXTREMITIES: No clubbing, cyanosis or edema. Calves are nontender to palpation. GI: Abdomen is soft, nontender and nondistended. Bowel sounds are positive. SKIN: No acute rash. NEUROLOGIC: Limited at the present time. IMPRESSION: 1. Sepsis syndrome. 2. Rule out pneumonia - right lower lobe - less likely. 3. Bilateral pleural effusions. 4. Chronic obstructive pulmonary disease. 5. Asthma. 6. Anemia. PLAN: The patient appears very comfortable this morning. She is not short of breath at rest. I did discuss the case with the night nurse at length. The night nurse stated that the patient had a good night. She is quite comfortable this morning. On physical exam, her bronchospasm has resolved. In addition, there is no significant alveolar-arterial gradient. I will continue with the current nebulizer treatments and inhaled steroids for now. I would continue with the antibiotic coverage as per Infectious Disease. There is no leukocytosis noted. The temperatures have now fully resolved. Input by GI is also noted. At this point in time, the patient appears to show significant clinical improvement. Her lungs are now clear. There is no significant alveolar-arterial gradient. In addition, her temperatures have now fully resolved. I would continue with the antibiotic coverage - as per Infectious Disease. Input by Dr. Mallory is noted. At this point in time, no additional pulmonary intervention is needed or warranted. I will thus follow up on this patient again as requested. Please call me for any additional pulmonary questions or problems with this patient. Thank you. Cory Saul MD [facility] # [id number] MTDNatasha
[2017-10-08] MEDS: Benzocaine/Menthol (Cepacol) Lozenge MT PRN (09:04)
[2017-10-08] MEDS: Meloxicam 7.5 MG TAB PO SCH ×2 (09:06→14:31)
--- NOTE | 2017-10-08 11:48 | CP.PCM.PN ---
<Tyler Lopez - Last Filed: 10/08/17 11:48> Subjective - Date & Time of Evaluation Date of Evaluation: 10/08/17 Time of Evaluation: 11:45 - Subjective Subjective: GI fellow PGY4 Looking better. Still complains of some left sided chest pain. Complains of vision changes. Wants to see a neurologist. She is tolerating diet. Denies n,v,d , bloody bms, melena, abdominal pain. She does not want an EGD or colonoscopy. We discussed the findings of lymphnodes in the abdomen and she should have endoscopy as an outpt. 5pt ROS completed and negative except for above. Objective - Vital Signs/Intake and Output Vital Signs (last 24 hours): Temp Pulse Resp BP Pulse Ox 98.1 F 115 H 20 120/66 96 10/08/17 05:56 10/08/17 10:00 10/08/17 05:56 10/08/17 09:05 10/08/17 05:56 Intake and Output: 10/08/17 10/08/17 06:59 18:59 Intake Total 2640 Output Total 1600 Balance 1040 - Medications Medications: Current Medications Acetaminophen (Tylenol 325mg Tab) 325 mg PO Q6H PRN PRN Reason: Fever >100.4 F Last Admin: 10/06/17 20:57 Dose: 325 mg Amlodipine Besylate (Norvasc) 5 mg PO DAILY [facility] Last Admin: 10/08/17 09:05 Dose: 5 mg Arformoterol Tartrate (Brovana) 15 mcg IH [id number] [facility] Last Admin: 10/08/17 08:03 Dose: 15 mcg Atorvastatin Calcium (Lipitor) 20 mg PO DIN [facility] Last Admin: 10/07/17 17:34 Dose: 20 mg Benzocaine/Menthol (Cepacol Sore Throat) 1 julissa MT Q2H PRN PRN Reason: Sore Throat Last Admin: 10/08/17 09:04 Dose: 1 julissa Budesonide (Pulmicort Respules) 0.5 mg IH [id number] [facility] Last Admin: 10/08/17 08:04 Dose: 0.5 mg Clopidogrel Bisulfate (Plavix) 75 mg PO DAILY [facility] Last Admin: 10/08/17 09:05 Dose: 75 mg Heparin Sodium (Porcine) (Heparin) 5,000 units SC Q8 [facility] PRN Reason: Protocol Last Admin: 10/08/17 05:09 Dose: Not Given Sodium Chloride (Sodium Chloride 0.9%) 1,000 mls @ 100 mls/hr IV .Q10H [facility] Last Admin: 10/08/17 05:09 Dose: Not Given Meloxicam (Mobic) 7.5 mg PO DAILY [facility] Last Admin: 10/08/17 09:06 Dose: Not Given Nitroglycerin (Nitrostat Sl Tab) 0.4 mg SL Q5M PRN PRN Reason: chest pain Nystatin (Nystatin Oral Susp) 5 ml PO Q6 [facility] Last Admin: 10/08/17 05:08 Dose: 5 ml Pantoprazole Sodium (Protonix Ec Tab) 40 mg PO 0600 [facility] Last Admin: 10/08/17 06:39 Dose: 40 mg Tramadol HCl (Ultram) 50 mg PO Q12 [facility] Last Admin: 10/08/17 09:05 Dose: 50 mg - Labs Labs: 10/06/17 06:30 10/06/17 06:30 PT 17.2 SECONDS (9.4-12.5) H 10/06/17 08:50 INR 1.48 10/06/17 08:50 APTT 31.4 Seconds (25.1-36.5) 10/06/17 08:50 - Constitutional Appears: Non-toxic, No Acute Distress - Head Exam Head Exam: NORMAL INSPECTION - Eye Exam Eye Exam: Normal appearance - ENT Exam ENT Exam: Mucous Membranes Moist - Respiratory Exam Respiratory Exam: Clear to Ausculation Bilateral, NORMAL BREATHING PATTERN - Cardiovascular Exam Cardiovascular Exam: REGULAR RHYTHM, +S1, +S2 - GI/Abdominal Exam GI & Abdominal Exam: Soft, Normal Bowel Sounds. absent: Tenderness - Extremities Exam Extremities Exam: Normal Inspection - Neurological Exam Neurological Exam: Alert, Awake, Oriented x3 - Skin Skin Exam: Dry, Normal Color Assessment and Plan - Assessment and Plan (Free Text) Assessment: 66 year old female with a past medical history significant for GERD, HTN, HLD, and questionable SLE/RA who presented to the hospital with fatigue and body aches for three days. Patient was found to be anemic and GI was consulted to evaluate for possible GI hemorrhage. Patient was to have EGD on 10/05 but this was postponed after patient was found to have pleural effusions on CT chest. Patient was rescheduled for EGD on 10/06 but this was cancelled as patient had fever overnight and was found to have significantly elevated D-Dimer. V/Q scan was done and showed low probability for pulmonary embolism. Plan: -CT Abdomen/Pelvis (PO Contrast) showed inflammatory changes in the LLQ adjacent to the colon possibly representing mesenteric adenitis with mildly enlarged mesenteric lymph nodes -CT findings discussed with patient. She does not want EGD or CSPY at this time. She should have endoscopic procedures as an outpatient. -Abdominal US showed no cholelithiasis, CBD to 4mm and hepatic steatosis -H/H currently stable -Hepatitis panel negative -Antibiotics per ID, recommendations appreciated -Pulmonology evaluation appreciated -Heart Healthy Diet -Continue ppi daily. -Plavix per primary -Follow up with GI as outpt for EGD/colonoscopy <Ranulfo Hackett V - Last Filed: 10/08/17 20:18> Objective - Vital Signs/Intake and Output Vital Signs (last 24 hours): Temp Pulse Resp BP Pulse Ox 99.2 F 119 H 18 125/82 95 10/08/17 18:00 10/08/17 18:00 10/08/17 18:00 10/08/17 18:00 10/08/17 18:00 Intake and Output: 10/08/17 10/09/17 18:59 06:59 Intake Total 1200 Output Total 1150 Balance 50 - Medications Medications: Current Medications Acetaminophen (Tylenol 325mg Tab) 325 mg PO Q6H PRN PRN Reason: Fever >100.4 F Last Admin: 10/06/17 20:57 Dose: 325 mg Amlodipine Besylate (Norvasc) 5 mg PO DAILY [facility] Last Admin: 10/08/17 09:05 Dose: 5 mg Arformoterol Tartrate (Brovana) 15 mcg IH [id number] [facility] Last Admin: 10/08/17 08:03 Dose: 15 mcg Atorvastatin Calcium (Lipitor) 20 mg PO DIN [facility] Last Admin: 10/08/17 17:14 Dose: 20 mg Benzocaine/Menthol (Cepacol Sore Throat) 1 julissa MT Q2H PRN PRN Reason: Sore Throat Last Admin: 10/08/17 09:04 Dose: 1 julissa Budesonide (Pulmicort Respules) 0.5 mg IH [id number] [facility] Last Admin: 10/08/17 08:04 Dose: 0.5 mg Clopidogrel Bisulfate (Plavix) 75 mg PO DAILY [facility] Last Admin: 10/08/17 09:05 Dose: 75 mg Heparin Sodium (Porcine) (Heparin) 5,000 units SC Q8 [facility] PRN Reason: Protocol Last Admin: 10/08/17 14:31 Dose: Not Given Sodium Chloride (Sodium Chloride 0.9%) 1,000 mls @ 100 mls/hr IV .Q10H [facility] Last Admin: 10/08/17 17:14 Dose: Not Given Meloxicam (Mobic) 7.5 mg PO DAILY [facility] Last Admin: 10/08/17 14:31 Dose: 7.5 mg Nitroglycerin (Nitrostat Sl Tab) 0.4 mg SL Q5M PRN PRN Reason: chest pain Nystatin (Nystatin Oral Susp) 5 ml PO Q6 [facility] Last Admin: 10/08/17 18:03 Dose: 5 ml Pantoprazole Sodium (Protonix Ec Tab) 40 mg PO 0600 [facility] Last Admin: 10/08/17 06:39 Dose: 40 mg Tramadol HCl (Ultram) 50 mg PO Q12 [facility] Last Admin: 10/08/17 09:05 Dose: 50 mg - Labs Labs: 10/06/17 06:30 10/06/17 06:30 PT 17.2 SECONDS (9.4-12.5) H 10/06/17 08:50 INR 1.48 10/06/17 08:50 APTT 31.4 Seconds (25.1-36.5) 10/06/17 08:50 Attending/Attestation - Attestation I have personally seen and examined this patient.: Yes I have fully participated in the care of the patient.: Yes I have reviewed all pertinent clinical information, including history, physical exam and plan: Yes Notes (Text): This is an addendum to GI progress report dictated by the GI Fellow.The patient was seen and examined earlier. Medical records, lab studies, imagings were reviewed. Last 24 hours events reviewed. Agreed with the above treatment plan as outlined in GI Fellow 's notes with the addition of the following patient was feeling better on examination abdomen was soft nont Patient's CT scan finding and anemia status explained need for endoscopic evaluation explain Patient refused endoscopy athe present time Patient has been started on Plavix 10/08/17 20:17
--- NOTE | 2017-10-08 13:15 | PN ---
Copied To: Blade Mallory MD Attending MD: Blade Mallory MD DATE: 10/08/2017 SUBJECTIVE: The patient is in bed, in no acute distress, nontoxic. PHYSICAL EXAMINATION: VITAL SIGNS: Temperature is 98, blood pressure is 113/60, respiratory rate of 20. HEENT: Unremarkable. NECK: Supple. LUNGS: Decreased breath sounds. HEART: Normal S1, S2. ABDOMEN: Soft, nontender. LABORATORY EXAMINATION: Reveals a white count of 7.5, hemoglobin of 9, and platelets of 427. Chemistries are noted. BUN of 8, creatinine of 0.5. Procalcitonin 0.57. Urinalysis is noted. Immunology is reviewed. Serology is noted. MEDICATIONS: Review of medications reveals the patient to be off antibiotics. Dr. Saul's note is reviewed from this morning. ASSESSMENT AND PLAN: A 66-year-old female who was seen earlier today with a history of lupus, history of degenerative joint disease, history of rheumatoid arthritis, urinary tract infection, hyperlipidemia, hypertension, anxiety. However, the patient is not on any immunosuppressive medications, who was admitted with severe sepsis, right lower lobe community-acquired pneumonia, hyponatremia, has a normal procalcitonin. She does have a low complement C4.. HIV is negative. Urine Legionella antigen is negative and has completed 5 days of antibiotics and currently off antibiotics. SHE IS ALLERGIC TO PENICILLIN. She is afebrile. Off antibiotics. White count is normal and procalcitonin is negative. We will follow with you. flaring of the lupus including the pulmonary symptoms. We will follow with you. The patient is now off antibiotics, she has completed antibiotic therapy, she is afebrile with a normal white count. Blade Mallory MD
[2017-10-09] MEDS: Nystatin 100,000 Units/ml Oral Susp 5 ml UD PO SCH ×5 (00:05→23:09)
[2017-10-09] MEDS: Sodium Chloride 0.9% 1,000 ML IV SCH ×2 (01:22→12:24)
[2017-10-09] MEDS: Pantoprazole 40 mg EC Tab PO SCH (05:26)
--- NOTE | 2017-10-09 05:32 | CARD ---
APPROVED REPORT Date of service: 10/08/2017 EKG Measurement Heart [id number] <Conclusion> Sinus tachycardia Left bundle branch block Abnormal ECG
[2017-10-09] MEDS: Arformoterol 15 mcg/2 ml Inh Sol IH SCH ×2 (07:33→20:05)
[2017-10-09] MEDS: Budesonide 0.5 mg/2 ml Inhal Susp UD IH SCH ×2 (07:33→20:05)
--- NOTE | 2017-10-09 08:23 | PN ---
Copied To: Flora Ace MD Attending MD: Flora Ace MD DATE: 10/05/2017 SUBJECTIVE: This 66-year-old female remains hospitalized with multiple medical problems including right lower lung pneumonia, exacerbation of chronic obstructive pulmonary disease with an episode earlier of atypical chest pain exacerbated by claustrophobia while trying to complete a V/Q lung scan. The patient was seen in evaluation by mannequin maker, Dr. Cory Saul, who felt the patient was still experiencing bronchospasm, but felt the patient also was showing signs of clinical improvement. However, he nonetheless recommended a V/Q scan for completeness sake. PHYSICAL EXAMINATION: VITAL SIGNS: At present, vital signs show temperature 98, respirations 18, pulse 97 and blood pressure 135/59 with a pulse ox of 97% on room air. HEENT: Head: Normocephalic, atraumatic. Eyes: No icterus. Ears: Clear. Throat: Noninjected. NECK: Supple. HEART: Regular S1, S2. LUNGS: Had occasional rhonchi that cleared with coughing. ABDOMEN: Soft. EXTREMITIES: No edema. SKIN: Without rash. NEUROLOGICAL: Deconditioned. VASCULAR: Legs warm to touch. LABORATORY DATA: White count 4600, hemoglobin 9, hematocrit 27.4, platelets 437,000. PT/INR 1.25, PTT 28.8. Sodium 135, K 3.5, chloride 100, bicarb 27, BUN 4, creatinine 0.4, random blood sugar 86. All liver function testing normal including bilirubin 0.4, AST 21, ALT 24, alk phos 113. Blood and urine culture showed no growth to date. IMPRESSION: A 66-year-old female with history of lupus and rheumatoid arthritis, now admitted with right lower lung pneumonia, exacerbation of chronic obstructive pulmonary disease, degenerative arthritis, chronic hypertension, hyperlipidemia with plans to continue IV antibiotics under the direction of Dr. Blade Mallory and maintenance medication including Mobic, Norvasc and Ultram. The patient will continue pulmonary toiletry with inhaled steroids and will consider new to be followed by Dr. Cory Saul from Pulmonary regarding all of the above. This case was reviewed with co-consultants and the patient. Flora Ace MD [facility] # [id number] MTDD
--- NOTE | 2017-10-09 08:35 | PN ---
Copied To: Flora Ace MD Attending MD: Flora Ace MD DATE: 10/07/2017 SUBJECTIVE: This 66-year-old female was examined at her bedside and this case was reviewed in detail with her nurse, Angela Lilly, registered nurse. The patient remains weak and deconditioned with a poor appetite. I did discuss with nurse, Vijaya the institution of strawberry-flavored supplement to include Ensure Enlive one with each meal three times daily strawberry flavored. Also, the patient was reevaluated by Dr. Mallory after recurrent fever and approximately 5 days of parenteral meropenem and oral Doryx and at present is off all antibiotics with no further fever noted. The patient was seen earlier today by Dr. Cory Saul from pulmonary, who comments that the patient's clinical status is improved compared to her initial presentation and he recommends continued nebulizer treatment and inhaled steroids at present time. The patient has had no further chest pain. PHYSICAL EXAMINATION: VITAL SIGNS: On physical exam had a temperature of 99.4, respirations 20, pulse 102 and blood pressure 127/71. HEENT: Head: Normocephalic, atraumatic. Eyes: No icterus. Ears: Clear. Throat: Noninjected. NECK: Supple. HEART: Regular S1, S2. LUNGS: With occasional rhonchi. No wheezing. ABDOMEN: Soft. EXTREMITIES: No edema. SKIN: Without rash. NEUROLOGICAL: Intact, but deconditioned. VASCULAR: Legs warm to touch. PSYCHOLOGICAL: Alert and oriented x3. LABORATORY DATA: Repeat blood cultures also showed no growth. IMPRESSION: A 66-year-old female with right lower lung pneumonia, exacerbation of chronic obstructive pulmonary disease, history of lupus and rheumatoid arthritis as well as degenerative arthritis and comorbidities of chronic hypertension and hyperlipidemia, anxiety neurosis, also with anemia of chronic disease and dyspepsia, dysphagia. PLAN: The plan as discussed with the patient and nursing will be to encourage p.o. intake while continuing Cepacol lozenges for sore throat and administering strawberry Ensure Enlive three times daily. She will continue on pulmonary toiletry, inhaled steroids. She continues off IV antibiotics while being followed by Infectious Disease group segment consultant, Dr. Mallory. She is now receiving heparin subcu because of deconditioning and will continue on Lipitor, Mobic when able to swallow, nitroglycerin p.r.n. chest pain, Norvasc, nystatin swish and swallow, 0.9 saline at 100 mL/hour and p.r.n. Ultram for severe pain. All of the above was discussed in detail with the patient and nursing at bedside. I have encouraged this patient to perform incentive spirometry and did instruct her into the proper technique and also to attempt out of bed to chair and ambulation with assistance to avoid further deconditioning and blood clots. Greater than 35 minutes was spent in the care and discussion of this patient today. All questions were answered. Flora Ace MD MTDD
--- NOTE | 2017-10-09 09:03 | PN ---
Copied To: Flora Ace MD Attending MD: Flora Ace MD DATE: 10/08/2017 SUBJECTIVE: This 66-year-old female was examined on the cardiac gregory at the [facility] in the presence of nurse, Namrata Jacobsen, registered nurse. The patient is improving daily. She is less short of breath at rest. She was seen by Dr. Saul, who feels her pulmonary status is now stable and is recommending continued pulmonary toiletry with nebulizer treatments as well as inhaled steroids. She has been off parenteral antibiotics for almost 48 hours and at present has had no fever higher than 99. She remains in a normal sinus rhythm on the registered nurse cardiac and is cooperating with dietary intake of Ensure Enlive. PHYSICAL EXAMINATION: VITAL SIGNS: On her physical exam, she was in a sinus rhythm on the registered nurse cardiac with a temperature of 99.4, respirations 19, pulse 104 and blood pressure 131/64. HEENT: Head: Normocephalic, atraumatic. Eyes: No icterus. Ears: Clear. Throat: Noninjected. NECK: Supple. HEART: S1, S2. No pathological rubs, murmurs or gallops. LUNGS: With occasional rhonchi that clear with coughing. ABDOMEN: Soft. EXTREMITIES: No edema. SKIN: Without rash. NEUROLOGICAL: Deconditioned. VASCULAR: Legs warm to touch. PSYCHOLOGICAL: Alert and oriented x3. LABORATORY DATA: Microbiology show all blood and urine cultures with no growth. Her labs show white count 7500, hemoglobin 9, hematocrit 27.8, platelets 427,000. Sodium 131, K 3.6, chloride 97, bicarb 23, BUN 8, creatinine 0.5, random blood sugar 117. Procalcitonin level 0.57. Hepatitis A, B, C serology negative. HIV serology negative. Urine for Legionella antigen negative. IMPRESSION: A 66-year-old female with an exacerbation of chronic obstructive pulmonary disease, hyperlipidemia, deconditioning, rheumatoid arthritis, degenerative arthritis, systemic lupus erythematosus, chronic hypertension, peptic ulcer disease with gastroesophageal reflux disease and deconditioning with dysphagia. PLAN: Plan is to encourage p.o. intake of soft bland diet as well as Ensure Enlive strawberry flavored three times daily while maintaining the patient on aspiration precautions and physical and occupational therapy for reconditioning and gait training. She was once again instructed on incentive spirometry. She continues on tramadol, Tylenol, 0.9 saline, Pulmicort inhalational therapy, Protonix, Plavix, nystatin, Norvasc, nitroglycerin, Mobic, Lipitor, subcu heparin, Cepacol and Brovana. Based on her clinical progress, disposition planning will be entertained and the patient was advised that she will need endoscopy and colonoscopy under the direction of Dr. Ranulfo Hackett given her multiple GI complaints and chronic anemia. Greater than 35 minutes was spent in the care and management, review of labs, orders, x-rays and discussion of this patient with her at bedside and nurse, Namrata Jacobsen, registered nurse present as well. All questions were answered. Flora Ace MD MTDNatasha
[2017-10-09] MEDS: Meloxicam 7.5 MG TAB PO SCH (09:10)
[2017-10-09 09:35] LABS: BLOOD UREA NITROGEN 6 mg/dL (7-21); CALCIUM 7.8 mg/dL (8.4-10.5); GFR NON-AFRICAN AMERICAN > 60
--- NOTE | 2017-10-09 09:42 | PN ---
Copied To: Flora Ace MD Attending MD: Flora Ace MD DATE: 10/06/2017 SUBJECTIVE: This 66-year-old female was examined at her bedside in the presence of her nurse, Namrata Jacobsen, registered nurse. The patient had a rapid response earlier this morning while undergoing a V/Q scan under the direction of Dr. Cory Saul from [facility]. Apparently, the patient became acutely short of breath, fearful, and exhibited sinus tachycardia on her heart monitor. She was examined by the house physician as well as Dr. Saul and this was felt to be consistent with atypical chest pain. The patient at present has no further chest discomfort. EKG showed no acute changes and her costochondral chest discomfort is easily reproducible. The patient is being hospitalized for right lower lung pneumonia with exacerbation of chronic obstructive pulmonary disease and also complains of difficulty swallowing secondary to sore throat. Also, she was scheduled for upper endoscopy as well as colonoscopy which has been canceled x2 in the setting of worsening anemia and guaiac-positive stools. Because of hyponatremia, I have instructed her nurse to give the patient one dose of Lasix 20 IV and for her dysphagia, nystatin 5 mL swish and swallow every 6 hours as well as Cepacol lozenges every 2 hours. This was reviewed at bedside with nurse, Namrata Jacobsen. PHYSICAL EXAMINATION: VITAL SIGNS: This patient was in sinus tachycardia rhythm with a temperature of 98, respirations 18, pulse 109, and blood pressure 136/77. Temperature at 08:00 p.m. last night was recorded at 102.3. HEENT: Head: Normocephalic, atraumatic. Eyes: No icterus. Ears: Clear. Throat: Noninjected. NECK: Supple. HEART: Was regular S1, S2. No pathological rubs, murmurs, or gallops. LUNGS: With rhonchi that clear with coughing. ABDOMEN: Soft. EXTREMITIES: No edema. SKIN: Without rash. NEUROLOGICAL: Deconditioned. VASCULAR: Legs warm to touch. PSYCHOLOGICAL: Alert and oriented x3. LABORATORY DATA: Sodium 131, K 3.6, chloride 97, bicarb 23, BUN 8, creatinine 0.5, random blood sugar 117. Bilirubin 0.6, AST 20, ALT 23, alk phos 104. Complement C3 of 91, compliment C4 of 10.2. Hepatitis A, B, C serology negative. HIV serology nonreactive. Urine for Legionella negative. V/Q scan was reviewed and showed low probability for pulmonary embolism. IMPRESSION: A 66-year-old female with exacerbation of chronic obstructive pulmonary disease, right lower lung pneumonia, persistent fevers, dyspepsia, rule out secondary to Doryx antibiotic. The patient continues at present on IV meropenem under the direction of Dr. Blade Mallory, Infectious Disease, and I have asked nurse, Namrata Jacobsen, registered nurse to reach out to discuss further plan of action with Dr. Mallory given fever in excess of 102 late last evening. At present, the patient will continue on inhalational steroids, Cepacol lozenges p.r.n., subcu heparin, Lipitor, Mobic, nitroglycerin p.r.n. chest pain, Norvasc, nystatin swish and swallow, gentle IV fluids, p.r.n. Tylenol and p.r.n. Ultram for severe pain. Based on clinical response, additional diagnostic testing and workup will be entertained. Greater than 35 minutes was spent in the care management, review of labs, orders, x-rays, and discussion of this patient with herself, co-consultants, and nursing at bedside. All questions were answered. Flora Ace MD JACLYN
--- NOTE | 2017-10-09 09:45 | PN ---
Copied To: Blade Mallory MD Attending MD: Blade Malloyr MD DATE: 10/09/2017 SUBJECTIVE: The patient is in bed, in no acute distress. She is comfortable. No fevers and chills. PHYSICAL EXAMINATION: VITAL SIGNS: On exam, temperature is 98, blood pressure is 138/60, respiratory rate of 18, heart rate of 102. HEENT: Examination of HEENT is unremarkable. NECK: Supple. LABORATORY DATA: Laboratory examination reveals a white count of 7.5, hemoglobin of 9, platelets of 427. Chemistries reveals a BUN of 8, creatinine of 0.5, procalcitonin 0.57 and initial one was 0.29. Urinalysis is noted. Immunology is noted. Complement C4 level is 10. Complement C3 is 91. Serology is urine for Legionella antigen is negative. Hepatitis profile is negative. HIV is negative. Microbiology: Blood cultures, urine cultures are negative and repeat blood cultures are negative. Review of orders reveals the patient to be off of antibiotics. Dr. Ace's note from yesterday and another note from yesterday is also reviewed. Dr. Saul's note from yesterday is reviewed. ASSESSMENT AND PLAN: A 66-year-old female, seen earlier this morning in 264, bed 1 with a history of lupus, history of degenerative joint disease, history of rheumatoid arthritis, history of hyperlipidemia, anxiety, hypertension, history of urinary tract infection. The patient has not been on any immunosuppressive medication for her lupus or rheumatoid arthritis, who was admitted with severe sepsis with a right lower lobe community-acquired pneumonia, hyponatremia, had a normal procalcitonin, had a negative human immunodeficiency virus, negative urine Legionella antigen. Did have low complement, all cultures have been negative. Currently off of antibiotics. A repeat procalcitonin is slightly elevated. The patient is clinically stable. I believe this may be the lupus that is responsible for her pulmonary symptoms. Rheumatology evaluation. Currently afebrile, off of antibiotics and normal white count. She does have exertional dyspnea. She would benefit from a rheumatological evaluation. Blade Mallory MD [facility] # [id number]
[2017-10-09 09:53] LABS: HEMOGLOBIN 8.8 g/dL (12.0-16.0); MEAN CELL VOLUME 75.8 fl (80.0-105.0); MEAN CORPUSCULAR HEMOGLOBIN 24.8 pg (25.0-35.0); MEAN CORPUSCULAR HGB CONC 32.7 g/dl (31.0-37.0); MEAN PLATELET VOLUME 8.7 fl (7.0-11.0); RBC 3.55 10^6/uL (3.5-6.1); RED CELL DISTRIBUTION WIDTH 15.6 % (11.5-14.5); WHITE BLOOD COUNT 3.7 10^3/ul (4.5-11.0)
--- NOTE | 2017-10-09 11:29 | CP.PCM.PN ---
Subjective - Date & Time of Evaluation Date of Evaluation: 10/09/17 Time of Evaluation: 11:26 - Subjective Subjective: GI Fellow PGY4 She is doing well. No complaints. Possible discharge tomorrow. Again, she is refusing EGD at this time. She understands the risk of not following up. 5pt ROS neg except for above. Objective - Vital Signs/Intake and Output Vital Signs (last 24 hours): Temp Pulse Resp BP Pulse Ox 98.2 F 108 H 18 138/67 96 10/09/17 06:00 10/09/17 10:00 10/09/17 06:00 10/09/17 09:11 10/09/17 06:00 Intake and Output: 10/09/17 10/09/17 06:59 18:59 Intake Total 3420 Output Total 1150 Balance 2270 - Medications Medications: Current Medications Acetaminophen (Tylenol 325mg Tab) 325 mg PO Q6H PRN PRN Reason: Fever >100.4 F Last Admin: 10/06/17 20:57 Dose: 325 mg Amlodipine Besylate (Norvasc) 5 mg PO DAILY [facility] Last Admin: 10/09/17 09:11 Dose: 5 mg Arformoterol Tartrate (Brovana) 15 mcg IH [id number] [facility] Last Admin: 10/09/17 07:33 Dose: 15 mcg Atorvastatin Calcium (Lipitor) 20 mg PO DIN [facility] Last Admin: 10/08/17 17:14 Dose: 20 mg Benzocaine/Menthol (Cepacol Sore Throat) 1 julissa MT Q2H PRN PRN Reason: Sore Throat Last Admin: 10/08/17 09:04 Dose: 1 julissa Budesonide (Pulmicort Respules) 0.5 mg [facility] [id number] [facility] Last Admin: 10/09/17 07:33 Dose: 0.5 mg Clopidogrel Bisulfate (Plavix) 75 mg PO DAILY [facility] Last Admin: 10/09/17 09:08 Dose: 75 mg Heparin Sodium (Porcine) (Heparin) 5,000 units SC Q8 BRYANT PRN Reason: Protocol Last Admin: 10/09/17 06:11 Dose: Not Given Sodium Chloride (Sodium Chloride 0.9%) 1,000 mls @ 100 mls/hr IV .Q10H [facility] Last Admin: 10/09/17 01:22 Dose: 100 mls/hr Meloxicam (Mobic) 7.5 mg PO DAILY [facility] Last Admin: 10/09/17 09:10 Dose: 7.5 mg Nitroglycerin (Nitrostat Sl Tab) 0.4 mg SL Q5M PRN PRN Reason: chest pain Nystatin (Nystatin Oral Susp) 5 ml PO Q6 [facility] Last Admin: 10/09/17 05:26 Dose: 5 ml Pantoprazole Sodium (Protonix Ec Tab) 40 mg PO 0600 [facility] Last Admin: 10/09/17 05:26 Dose: 40 mg Tramadol HCl (Ultram) 50 mg PO Q12 [facility] Last Admin: 10/09/17 09:08 Dose: 50 mg - Labs Labs: 10/09/17 09:20 10/09/17 09:20 PT 17.2 SECONDS (9.4-12.5) H 10/06/17 08:50 INR 1.48 10/06/17 08:50 APTT 31.4 Seconds (25.1-36.5) 10/06/17 08:50 - Head Exam Head Exam: NORMAL INSPECTION - Eye Exam Eye Exam: Normal appearance - ENT Exam ENT Exam: Mucous Membranes Moist - Respiratory Exam Respiratory Exam: Clear to Ausculation Bilateral, NORMAL BREATHING PATTERN - Cardiovascular Exam Cardiovascular Exam: REGULAR RHYTHM - GI/Abdominal Exam GI & Abdominal Exam: Soft, Normal Bowel Sounds. absent: Tenderness - Neurological Exam Neurological Exam: Alert, Awake, Oriented x3 - Psychiatric Exam Psychiatric exam: Normal Affect, Normal Mood - Skin Skin Exam: Dry, Normal Color Assessment and Plan - Assessment and Plan (Free Text) Assessment: 66 year old female with a past medical history significant for GERD, HTN, HLD, and questionable SLE/RA who presented to the hospital with fatigue and body aches for three days. Patient was found to be anemic and GI was consulted to evaluate for possible GI hemorrhage. Patient was to have EGD on 10/05 but this was postponed after patient was found to have pleural effusions on CT chest. Patient was rescheduled for EGD on 10/06 but this was cancelled as patient had fever overnight and was found to have significantly elevated D-Dimer. V/Q scan was done and showed low probability for pulmonary embolism. Plan: -CT Abdomen/Pelvis (PO Contrast) showed inflammatory changes in the LLQ adjacent to the colon possibly representing mesenteric adenitis with mildly enlarged celiac lymph nodes -CT findings discussed with patient. She does not want EGD or CSPY at this time. She should have endoscopic procedures as an outpatient. -Abdominal US showed no cholelithiasis, CBD to 4mm and hepatic steatosis -H/H currently stable -Hepatitis panel negative -Antibiotics per ID, recommendations appreciated -Pulmonology evaluation appreciated -Heart Healthy Diet -Continue ppi daily. -Plavix per primary -Follow up with GI as outpt for EGD/colonoscopy. Patient understands.
[2017-10-09] MEDS: Potassium Chloride 20 mEq ER Tab PO SCH ×2 (12:18→17:29)
--- NOTE | 2017-10-09 22:17 | US ---
HISTORY: Leg pain and swelling. Evaluate for DVT PHYSICIAN(S): Mohit Nguyễn MD. TECHNIQUE: Duplex sonography and color-flow Doppler with graded compression were used to evaluate the deep venous systems of both lower extremities. FINDINGS: The visualized deep venous systems of both lower extremities are sonographically normal and compressible. Normal wave forms and augmentation are seen. There is no sonographic evidence for deep venous thrombosis in the visualized segments of both lower extremities. IMPRESSION: No sonographic evidence for deep venous thrombosis in the visualized segments of both lower extremities.
[2017-10-10] MEDS: Pantoprazole 40 mg EC Tab PO SCH (05:32)
[2017-10-10] MEDS: Nystatin 100,000 Units/ml Oral Susp 5 ml UD PO SCH ×3 (05:32→18:35)
[2017-10-10] MEDS: Budesonide 0.5 mg/2 ml Inhal Susp UD IH SCH ×2 (07:21→20:04)
[2017-10-10] MEDS: Arformoterol 15 mcg/2 ml Inh Sol IH SCH ×2 (07:21→20:04)
[2017-10-10] MEDS ORDERED: Metoprolol Succinate 25 mg XL Tab PO SCH ×2 (09:45→18:00)
[2017-10-10] MEDS: Meloxicam 7.5 MG TAB PO SCH (09:58)
[2017-10-10] MEDS: Potassium Chloride 20 mEq ER Tab PO SCH ×2 (09:59→18:35)
[2017-10-10] MEDS: Sodium Chloride 0.9% 1,000 ML IV SCH ×2 (10:00→12:15)
--- NOTE | 2017-10-10 13:04 | CON ---
Copied To: Dar Varghese MD Attending MD: Dar Varghese MD DATE: 10/10/2017 HISTORY OF PRESENT ILLNESS: This is a 66-year-old female with past medical history of hypertension, lupus, hyperlipidemia, recurrent UTI, anxiety, who presented with hypotension and fever and workup going on and she developed dizzy. Called to evaluate the patient. PAST MEDICAL HISTORY: As above, hypertension, lupus, hyperlipidemia, arthritis and also chronic obstructive lung disease. ALLERGIES: ALLERGIC TO PENICILLIN AND ALSO TO ASPIRIN. PHYSICAL EXAMINATION: HEENT: Normocephalic, atraumatic. NECK: Supple. NEUROLOGIC: Alert, awake, orientated x3. No aphasia. Cranial nerves II through XII were tested. Pupils reactive. EOM intact. Visual field full. No facial asymmetry. Tongue midline. Motor examination: Moves all the extremities equally. Tone normal. Deep tendon reflexes 1+. Both plantars downgoing. Sensory appears intact. Cerebellar gait deferred. IMPRESSION: A 66-year-old female with past medical history of hypertension, lupus, hyperlipidemia, degenerative joint disease, recurrent infection and chronic obstructive pulmonary disease. Became a little dizzy yesterday and with some visual symptoms and with some nausea. No vomiting. Appears like benign positional dizziness and less likely vertebrobasilar ischemia. We will do the CAT scan of the head without contrast and follow up. Dar Varghese MD
--- NOTE | 2017-10-10 16:09 | CT ---
Date of service: 10/10/2017 PROCEDURE: CT HEAD WITHOUT CONTRAST. HISTORY: dizzy COMPARISON: None available. TECHNIQUE: Axial computed tomography images were obtained through the head/brain without intravenous contrast. Radiation dose: Total exam DLP = 813 mGy-cm. This CT exam was performed using one or more of the following dose reduction techniques: Automated exposure control, adjustment of the mA and/or kV according to patient size, and/or use of iterative reconstruction technique. FINDINGS: HEMORRHAGE: No intracranial hemorrhage. BRAIN: No mass effect or edema. Chronic microvascular changes are seen in the periventricular white matter. No acute findings VENTRICLES: Unremarkable. No hydrocephalus. CALVARIUM: Unremarkable. PARANASAL SINUSES: Unremarkable as visualized. No significant inflammatory changes. MASTOID AIR CELLS: Unremarkable as visualized. No inflammatory changes. OTHER FINDINGS: None. IMPRESSION: No acute findings
--- NOTE | 2017-10-10 17:10 | CP.PCM.PN ---
Subjective - Date & Time of Evaluation Date of Evaluation: 10/10/17 Time of Evaluation: 17:07 - Subjective Subjective: GI Fellow PGY4. Patient had CT head and Echo today. No change in clinical status. She did not eat lunch today. 5pt ROS completed and neg except for above. Objective - Vital Signs/Intake and Output Vital Signs (last 24 hours): Temp Pulse Resp BP Pulse Ox 99.6 F 116 H 20 119/78 99 10/10/17 11:46 10/10/17 11:46 10/10/17 11:46 10/10/17 11:46 10/10/17 06:00 Intake and Output: 10/10/17 10/10/17 06:59 18:59 Intake Total 1560 Output Total 1200 Balance 360 - Medications Medications: Current Medications Acetaminophen (Tylenol 325mg Tab) 325 mg PO Q6H PRN PRN Reason: Fever >100.4 F Last Admin: 10/06/17 20:57 Dose: 325 mg Arformoterol Tartrate (Brovana) 15 mcg IH [id number] [facility] Last Admin: 10/10/17 07:21 Dose: 15 mcg Atorvastatin Calcium (Lipitor) 20 mg PO DIN [facility] Last Admin: 10/09/17 17:29 Dose: 20 mg Benzocaine/Menthol (Cepacol Sore Throat) 1 julissa MT Q2H PRN PRN Reason: Sore Throat Last Admin: 10/08/17 09:04 Dose: 1 julissa Budesonide (Pulmicort Respules) 0.5 mg IH [id number] [facility] Last Admin: 10/10/17 07:21 Dose: 0.5 mg Clopidogrel Bisulfate (Plavix) 75 mg PO DAILY [facility] Last Admin: 10/10/17 09:57 Dose: 75 mg Heparin Sodium (Porcine) (Heparin) 5,000 units SC Q8 [facility] PRN Reason: Protocol Last Admin: 10/10/17 14:00 Dose: Not Given Sodium Chloride (Sodium Chloride 0.9%) 1,000 mls @ 50 mls/hr IV .Q20H [facility] Last Admin: 10/10/17 12:15 Dose: 50 mls/hr Lorazepam (Ativan) 0.5 mg PO Q6H PRN; Protocol PRN Reason: Anxiety Meloxicam (Mobic) 7.5 mg PO DAILY [facility] Last Admin: 10/10/17 09:58 Dose: 7.5 mg Metoprolol Succinate (Toprol Xl) 25 mg PO BID [facility] Nitroglycerin (Nitrostat Sl Tab) 0.4 mg SL Q5M PRN PRN Reason: chest pain Nystatin (Nystatin Oral Susp) 5 ml PO Q6 [facility] Last Admin: 10/10/17 12:00 Dose: Not Given Pantoprazole Sodium (Protonix Ec Tab) 40 mg PO 0600 [facility] Last Admin: 10/10/17 05:32 Dose: 40 mg Potassium Chloride (K-Dur 20 Meq Er Tab) 40 meq PO BID [facility] Stop: 10/11/17 10:00 Last Admin: 10/10/17 09:59 Dose: 40 meq Tramadol HCl (Ultram) 50 mg PO Q12 [facility] Last Admin: 10/10/17 10:00 Dose: Not Given - Labs Labs: 10/09/17 09:20 10/10/17 07:00 PT 17.2 SECONDS (9.4-12.5) H 10/06/17 08:50 INR 1.48 10/06/17 08:50 APTT 31.4 Seconds (25.1-36.5) 10/06/17 08:50 - Constitutional Appears: Non-toxic, No Acute Distress, Chronically Ill - Head Exam Head Exam: NORMAL INSPECTION - Eye Exam Eye Exam: Normal appearance - ENT Exam ENT Exam: Mucous Membranes Moist - Respiratory Exam Respiratory Exam: Clear to Ausculation Bilateral, NORMAL BREATHING PATTERN. absent: Stridor - Cardiovascular Exam Cardiovascular Exam: REGULAR RHYTHM, +S1, +S2 - GI/Abdominal Exam GI & Abdominal Exam: Soft, Normal Bowel Sounds. absent: Tenderness - Extremities Exam Extremities Exam: Normal Inspection - Neurological Exam Neurological Exam: Alert, Awake, Oriented x3 - Psychiatric Exam Psychiatric exam: Normal Affect, Normal Mood - Skin Skin Exam: Dry, Normal Color Assessment and Plan - Assessment and Plan (Free Text) Assessment: 66 year old female with a past medical history significant for GERD, HTN, HLD, and questionable SLE/RA who presented to the hospital with fatigue and body aches for three days. Patient was found to be anemic and GI was consulted to evaluate for possible GI hemorrhage. Patient was to have EGD on 10/05 but this was postponed after patient was found to have pleural effusions on CT chest. Patient was rescheduled for EGD on 10/06 but this was cancelled as patient had fever overnight and was found to have significantly elevated D-Dimer. V/Q scan was done and showed low probability for pulmonary embolism. Plan: -CT Abdomen/Pelvis (PO Contrast) showed inflammatory changes in the LLQ adjacent to the colon possibly representing mesenteric adenitis with mildly enlarged celiac lymph nodes -CT findings discussed with patient. She does not want EGD or CSPY at this time. She should have endoscopic procedures as an outpatient. -Abdominal US showed no cholelithiasis, CBD to 4mm and hepatic steatosis -H/H currently stable -Hepatitis panel negative -Antibiotics per ID, recommendations appreciated -Pulmonology evaluation appreciated -Heart Healthy Diet -Continue ppi daily. -Plavix per primary -Follow up with GI as outpt for EGD/colonoscopy. Patient understands.
--- NOTE | 2017-10-10 19:37 | CARD ---
APPROVED REPORT Date of service: 10/10/2017 EXAM: Two-dimensional and M-mode echocardiogram with Doppler and color Doppler. INDICATION TACHYCARDIA 2D DIMENSIONS IVSd1.3 (0.7-1.1cm)LVDd4.3 (3.9-5.9cm) PWd1.2 (0.7-1.1cm)LVDs3.7 (2.5-4.0cm) FS (%) 13.1 %LVEF (%)28.2 (>50%) M-Mode DIMENSIONS Left Atrium (MM)3.90 (2.5-4.0cm)Aortic Root3.60 (2.2-3.7cm) Aortic Cusp Exc.2.00 (1.5-2.0cm) Aortic Valve AoV Peak Ekkrykwz059.0cm/Ricardo Peak GR.16mmHg Mitral Valve MV E Xraycytc168.0cm/s TDI Lateral E' Peak V14.80cm/sMedial E' Peak V14.10cm/sE/Lateral E'9.5 E/Medial E'9.9 Tricuspid Valve TR Peak Kmzqqnty121fn/sRAP ROSUKYIN23sjYzHD Peak Gr.30mmHg [id number] LEFT VENTRICLE The left ventricle is normal size. There is mild concentric left ventricular hypertrophy. The systolic function is severely impaired. Paradoxic septum Transmitral Doppler flow pattern is Grade I-abnormal relaxation pattern. No left ventricle thrombus noted on this study. RIGHT VENTRICLE The right ventricle is normal size. There is normal right ventricular wall thickness. The right ventricular systolic function is normal. ATRIA The left atrium size is normal. The right atrium size is normal. AORTIC VALVE The aortic valve is not well visualized. No aortic regurgitation is present. There is no aortic valvular stenosis. MITRAL VALVE The mitral valve is moderately thickened. There is no mitral valve regurgitation noted. There is no mitral valve stenosis. TRICUSPID VALVE The tricuspid valve is normal in structure. There is mild pulmonary hypertension. PULMONIC VALVE The pulmonary valve is normal in structure. There is no pulmonic valvular regurgitation. GREAT VESSELS The aortic root is normal in size. The IVC collapses <50% with inspiration. PERICARDIAL EFFUSION There is moderate pleural effusion. There is a small-moderate circumferential pericardial effusion. There are echocardiographic suggestion for cardiac tamponade. <Conclusion> The left ventricle is normal size. There is mild concentric left ventricular hypertrophy. The systolic function is severely impaired. Paradoxic septum Transmitral Doppler flow pattern is Grade I-abnormal relaxation pattern. There is mild pulmonary hypertension. There is a small-moderate circumferential pericardial effusion. There are echocardiographic suggestion for cardiac tamponade.(Floor was notified)
--- NOTE | 2017-10-10 21:03 | CP.PCM.PN ---
<Aline Shea - Last Filed: 10/11/17 00:34> Subjective - Date & Time of Evaluation Date of Evaluation: 10/10/17 Time of Evaluation: 20:50 - Subjective Subjective: PGY1 Night Float Progress Note for: Dr. Mcdonald CC: Nurse called for echo report suspicious of cardiac tamponade Pt was seen and examined at bedside soon after I recieved a call from the nurse about an echo report that was concerning for the suspicion of cardiac tamponade. Upon exam the pt denies any chest pain, weakness, lightheadedness, difficult breathing, SOB, feeling faint or LOC. She states that she is having some anxiety that is related to neck and back pain that she experiences every night. She also admits to some jaw pain that she states started when she quit smoking 2 months ago. Subjective: V: BP: 91/57, HR:104, RR:18, O2sat:100 on 4L O2, temp: 98 PE: General: No acute distress, non-toxic, pt has NC on and is showing no signs of distress HEENT: JVD noted on exam, no carotid bruits noted, no stridor, PERRLA, EOMI Cardiac: Tachycardic, no murmurs, rubs or gallops, no muffled heart sounds Pulm: Decreased breath sounds noted in both the lower lung landaverde, no wheezing, rales, rhonchi Abd: Soft, non-tender Extermties: Distal pulses present b/l, no pedal edema Skin: Warm, dry, intact A&P: 66 yo F who was suspected to have cardiac tamponade as per echo report, was seen and examined at the bedside. 1) Echo suggesting cardiac tamponade, (+) paradoxic septum, (+) JVD distention on exam Hx of questionable SLE/RA - Vital signs: BP remains on the lower side (91/57) althought pt is on IV fluids, has tachycardia even after metoprolol given twice today - EKG done: No change from previous EKGs and continues to have LBBB, no electrical alternans noted, and no evidence of pericarditis, read by me - Cardiology consult for: cardiac tamponade - Dr. Mcdonald called Dr. Ace and discussed pts echo findings - Cardiology consult with Dr. Conde/Jennifer was requested stat and pt to be transferred to ICU as per request - Case discussed with Dr. Conde - He agreed with transfer to ICU and consult to be called with cardiothoracic surgeon - residential electrician placed call to Dr. Bañuelos, awaiting response - Dr. Hunter consulted, pt was moved to ICU for further care Objective - Vital Signs/Intake and Output Vital Signs (last 24 hours): Temp Pulse Resp BP Pulse Ox 99.5 F 119 H 20 114/73 99 10/10/17 18:00 10/10/17 18:34 10/10/17 18:00 10/10/17 18:34 10/10/17 06:00 Intake and Output: 10/10/17 10/11/17 18:59 06:59 Intake Total 360 Output Total 750 Balance -390 - Medications Medications: Current Medications Acetaminophen (Tylenol 325mg Tab) 325 mg PO Q6H PRN PRN Reason: Fever >100.4 F Last Admin: 10/06/17 20:57 Dose: 325 mg Arformoterol Tartrate (Brovana) 15 mcg IH [id number] [facility] Last Admin: 10/10/17 20:04 Dose: 15 mcg Atorvastatin Calcium (Lipitor) 20 mg PO DIN [facility] Last Admin: 10/10/17 18:34 Dose: 20 mg Benzocaine/Menthol (Cepacol Sore Throat) 1 julissa MT Q2H PRN PRN Reason: Sore Throat Last Admin: 10/08/17 09:04 Dose: 1 julissa Budesonide (Pulmicort Respules) 0.5 mg IH [id number] [facility] Last Admin: 10/10/17 20:04 Dose: 0.5 mg Clopidogrel Bisulfate (Plavix) 75 mg PO DAILY [facility] Last Admin: 10/10/17 09:57 Dose: 75 mg Heparin Sodium (Porcine) (Heparin) 5,000 units SC Q8 [facility] PRN Reason: Protocol Last Admin: 10/10/17 14:00 Dose: Not Given Sodium Chloride (Sodium Chloride 0.9%) 1,000 mls @ 50 mls/hr IV .Q20H [facility] Last Admin: 10/10/17 12:15 Dose: 50 mls/hr Lorazepam (Ativan) 0.5 mg PO Q6H PRN; Protocol PRN Reason: Anxiety Meloxicam (Mobic) 7.5 mg PO DAILY [facility] Last Admin: 10/10/17 09:58 Dose: 7.5 mg Metoprolol Succinate (Toprol Xl) 25 mg PO BID [facility] Last Admin: 10/10/17 18:34 Dose: 25 mg Nitroglycerin (Nitrostat Sl Tab) 0.4 mg SL Q5M PRN PRN Reason: chest pain Nystatin (Nystatin Oral Susp) 5 ml PO Q6 [facility] Last Admin: 10/10/17 18:35 Dose: Not Given Pantoprazole Sodium (Protonix Ec Tab) 40 mg PO 0600 [facility] Last Admin: 10/10/17 05:32 Dose: 40 mg Potassium Chloride (K-Dur 20 Meq Er Tab) 40 meq PO BID [facility] Stop: 10/11/17 10:00 Last Admin: 10/10/17 18:35 Dose: 40 meq Tramadol HCl (Ultram) 50 mg PO Q12 [facility] Last Admin: 10/10/17 10:00 Dose: Not Given - Labs Labs: 10/09/17 09:20 10/10/17 07:00 PT 17.2 SECONDS (9.4-12.5) H 10/06/17 08:50 INR 1.48 10/06/17 08:50 APTT 31.4 Seconds (25.1-36.5) 10/06/17 08:50 <Marimar Mcdonald - Last Filed: 10/11/17 03:00> Objective - Vital Signs/Intake and Output Vital Signs (last 24 hours): Temp Pulse Resp BP Pulse Ox 99.5 F 102 H 35 H 106/65 99 10/10/17 18:00 10/11/17 01:10 10/11/17 01:10 10/11/17 01:00 10/11/17 01:10 Intake and Output: 10/10/17 10/11/17 18:59 06:59 Intake Total 360 Output Total 750 Balance -390 - Medications Medications: Current Medications Acetaminophen (Tylenol 325mg Tab) 325 mg PO Q6H PRN PRN Reason: Fever >100.4 F Last Admin: 10/06/17 20:57 Dose: 325 mg Arformoterol Tartrate (Brovana) 15 mcg IH [id number] [facility] Last Admin: 10/10/17 20:04 Dose: 15 mcg Atorvastatin Calcium (Lipitor) 20 mg PO DIN [facility] Last Admin: 10/10/17 18:34 Dose: 20 mg Benzocaine/Menthol (Cepacol Sore Throat) 1 julissa MT Q2H PRN PRN Reason: Sore Throat Last Admin: 10/08/17 09:04 Dose: 1 julissa Budesonide (Pulmicort Respules) 0.5 mg IH [id number] [facility] Last Admin: 10/10/17 20:04 Dose: 0.5 mg Haloperidol Lactate (Haldol) 2 mg IM Q6 PRN; Protocol PRN Reason: Agitation Heparin Sodium (Porcine) (Heparin) 5,000 units SC Q8 [facility] PRN Reason: Protocol Last Admin: 10/10/17 21:37 Dose: Not Given Sodium Chloride (Sodium Chloride 0.9%) 1,000 mls @ 50 mls/hr IV .Q20H [facility] Last Admin: 10/10/17 12:15 Dose: 50 mls/hr Meloxicam (Mobic) 7.5 mg PO DAILY [facility] Last Admin: 10/10/17 09:58 Dose: 7.5 mg Nystatin (Nystatin Oral Susp) 5 ml PO Q6 [facility] Last Admin: 10/11/17 01:48 Dose: 5 ml Pantoprazole Sodium (Protonix Ec Tab) 40 mg PO 0600 [facility] Last Admin: 10/10/17 05:32 Dose: 40 mg Potassium Chloride (K-Dur 20 Meq Er Tab) 40 meq PO BID [facility] Stop: 10/11/17 10:00 Last Admin: 10/10/17 18:35 Dose: 40 meq Tramadol HCl (Ultram) 50 mg PO Q12 [facility] Last Admin: 10/10/17 21:36 Dose: 50 mg - Labs Labs: 10/09/17 09:20 10/10/17 07:00 PT 17.2 SECONDS (9.4-12.5) H 10/06/17 08:50 INR 1.48 10/06/17 08:50 APTT 31.4 Seconds (25.1-36.5) 10/06/17 08:50 Attending/Attestation - Attestation I have personally seen and examined this patient.: Yes I have fully participated in the care of the patient.: Yes I have reviewed all pertinent clinical information, including history, physical exam and plan: Yes Notes (Text): 10/11/17 02:53 Pt seen with the resident by the bedside. Case discussed in detail,Pt's PMD, Dr Ace called. As per request discussed with Dr Conde and whirley operator Mulu. Patient was transferred to the ICU. Dr Bañuelos called,message left with service.Will await respomse.
[2017-10-10] MEDS ORDERED: Albumin Human 25% (12.5 gm/50 ml) IV ONE (22:29)
--- NOTE | 2017-10-10 23:13 | CP.PCM.CON ---
<Lidia Curry - Last Filed: 10/10/17 23:37> History of Present Illness - History of Present Illness History of Present Illness: Lidia Curry PGY-1 Consult Note CC: Echo findings HPI: Patient is a 66 year old female with PMH of HTN, lupus, RA, HLD, recurrent UTI, and anxiety who presented to the hospital for evaluation for 3 day history of fatigue and body aches. During admission, patient was noted to have fevers and was worked up for possible pneumonia due to imaging showing pleural effusions however pneumonia studies came back negative. Antibiotics were discontinued as per ID because the thought was the symptoms were due to possible SLE flair instead of infectious cause. During hospital course, patient complained of chest pain and SOB worsened with exertion, noted to have sinus tachycardia on EKG. D-dimer was ordered and V/Q scan showed low probability of pulmonary embolism. Troponins were negative and repeat EKGs were done to rule out acute coronary syndrome. Echo from 10/10 showed pericardial effusion with possible cardiac tamponade findings. PMH: As above Social Hx: Former smoker, denies alcohol or illicit drug use Family Hx: CAD, DM Allergies: Penicillin, ASA Meds: Reviewed as per [facility] Review of Systems - Constitutional Constitutional: Chills, Fatigue, Fever. absent: Headache - EENT Eyes: absent: Blurred Vision, Change in Vision Ears: Dizziness - Cardiovascular Cardiovascular: absent: Chest Pain, Chest Pain at Rest, Diaphoresis, Lightheadedness - Respiratory Respiratory: absent: Cough, Dyspnea - Gastrointestinal Gastrointestinal: absent: Abdominal Pain, Constipation, Diarrhea, Nausea, Vomiting - Genitourinary Genitourinary: absent: Change in Urinary Stream, Difficulty Urinating, Dysuria - Musculoskeletal Musculoskeletal: absent: Back Pain, Numbness, Tingling - Neurological Neurological: Dizziness. absent: Numbness, Headaches, Tingling Past Patient History - Infectious Disease Hx of Infectious Diseases: None - Past Social History Smoking Status: Heavy Smoker > 10 Cigarettes Daily - CARDIAC Hx Cardiac Disorders: Yes Hx Angina: Yes Hx Hypertension: Yes - PULMONARY Hx Respiratory Disorders: Yes Hx Asthma: Yes Hx Chronic Obstructive Pulmonary Disease (COPD): Yes Hx Emphysema: Yes Other/Comment: smokes PPD, haven't smoke in 4wks due to not been able to climb stairs. - NEUROLOGICAL Hx Neurological Disorder: No - HEENT Hx HEENT Problems: No - RENAL Hx Chronic Kidney Disease: No - ENDOCRINE/METABOLIC Hx Endocrine Disorders: Yes Hx Systemic Lupus Erythematosus: Yes - HEMATOLOGICAL/ONCOLOGICAL Hx Blood Disorders: No - INTEGUMENTARY Hx Dermatological Problems: No - MUSCULOSKELETAL/RHEUMATOLOGICAL Hx Musculoskeletal Disorders: Yes Hx Arthritis: Yes Hx Falls: No - GASTROINTESTINAL Hx Gastrointestinal Disorders: Yes Hx Gastroesophageal Reflux: Yes - GENITOURINARY/GYNECOLOGICAL Hx Genitourinary Disorders: No - PSYCHIATRIC Hx Psychophysiologic Disorder: Yes Hx Depression: Yes Hx Substance Use: No - SURGICAL HISTORY Hx Surgeries: Yes Hx Hysterectomy: Yes Other/Comment: left lumpectomy - ANESTHESIA Hx Anesthesia Reactions: No Meds Allergies/Adverse Reactions: Allergies Allergy/AdvReac Type Severity Reaction Status Date / Time Iodinated Contrast- Oral and Allergy Intermediate RASH Verified 10/06/17 07:24 IV Dye aspirin Allergy RASH Verified 10/02/17 17:13 Penicillins Allergy RASH Verified 10/02/17 17:13 - Medications Medications: Current Medications Acetaminophen (Tylenol 325mg Tab) 325 mg PO Q6H PRN PRN Reason: Fever >100.4 F Last Admin: 10/06/17 20:57 Dose: 325 mg Arformoterol Tartrate (Brovana) 15 mcg IH [id number] [facility] Last Admin: 10/10/17 20:04 Dose: 15 mcg Atorvastatin Calcium (Lipitor) 20 mg PO DIN [facility] Last Admin: 10/10/17 18:34 Dose: 20 mg Benzocaine/Menthol (Cepacol Sore Throat) 1 julissa MT Q2H PRN PRN Reason: Sore Throat Last Admin: 10/08/17 09:04 Dose: 1 julissa Budesonide (Pulmicort Respules) 0.5 mg IH [id number] [facility] Last Admin: 10/10/17 20:04 Dose: 0.5 mg Haloperidol Lactate (Haldol) 2 mg IM Q6 PRN; Protocol PRN Reason: Agitation Heparin Sodium (Porcine) (Heparin) 5,000 units SC Q8 [facility] PRN Reason: Protocol Last Admin: 10/10/17 21:37 Dose: Not Given Sodium Chloride (Sodium Chloride 0.9%) 1,000 mls @ 50 mls/hr IV .Q20H [facility] Last Admin: 10/10/17 12:15 Dose: 50 mls/hr Meloxicam (Mobic) 7.5 mg PO DAILY [facility] Last Admin: 10/10/17 09:58 Dose: 7.5 mg Nystatin (Nystatin Oral Susp) 5 ml PO Q6 [facility] Last Admin: 10/10/17 18:35 Dose: Not Given Pantoprazole Sodium (Protonix Ec Tab) 40 mg PO 0600 [facility] Last Admin: 10/10/17 05:32 Dose: 40 mg Potassium Chloride (K-Dur 20 Meq Er Tab) 40 meq PO BID [facility] Stop: 10/11/17 10:00 Last Admin: 10/10/17 18:35 Dose: 40 meq Tramadol HCl (Ultram) 50 mg PO Q12 [facility] Last Admin: 10/10/17 21:36 Dose: 50 mg Physical Exam - Constitutional Appears: Non-toxic, No Acute Distress - Head Exam Head Exam: NORMAL INSPECTION, NORMOCEPHALIC - Eye Exam Eye Exam: EOMI, Normal appearance. absent: Nystagmus, Scleral icterus - ENT Exam ENT Exam: Mucous Membranes Dry - Respiratory Exam Respiratory Exam: Rales, NORMAL BREATHING PATTERN - Cardiovascular Exam Cardiovascular Exam: Tachycardia, REGULAR RHYTHM, +S1, +S2 - GI/Abdominal Exam GI & Abdominal Exam: Normal Bowel Sounds, Soft. absent: Distended, Tenderness - Extremities Exam Extremities exam: Positive for: normal inspection. Negative for: calf tenderness, pedal edema - Neurological Exam Neurological exam: Alert, Oriented x3 - Psychiatric Exam Psychiatric exam: Anxious Results - Vital Signs Recent Vital Signs: Last Vital Signs Temp 99.5 F 10/10/17 18:00 Pulse 104 H 10/10/17 22:00 Resp 20 10/10/17 18:00 BP 114/73 10/10/17 18:34 Pulse Ox 99 10/10/17 06:00 - Labs Result Diagrams: 10/09/17 09:20 10/10/17 07:00 Labs: Laboratory Results - last 24 hr 10/10/17 07:00 Potassium 3.9 Assessment & Plan - Assessment and Plan (Free Text) Assessment: Patient is a 66 yo female who presents to hospital for evaluation of 3 day fatigue and bodyaches; patient found to have pleural effusion on imaging; worked up and treated for possible pna; EKG showed sinus tachy with complaints of nausea from patient; imaging and labs demonstrated that low probability of pulmonary embolism or acute coronary syndrome; echo on 10/10 showed pericardial effusion with hypotension; patient will be transferred to ICU and instructional technology director and CT surgeon consulted Plan: Neuro Patient was complaining of dizziness Neuro Consulted: Dr. Varghese CT head w/o contrast- showed no acute findings Haldol 2mg PRN for patient agitation; Ativan will further low blood pressure Rheum History of SLE but not on steroids or DMARDs at home Rheum consult would be beneficial Procal elevated 0.57 Meloxicam 7.5mg po daily Cardio Echo 10/10 shows pericardial effusion; severe systolic dysfunction; concern for possible cardiac tamponade Patient being transferred to ICU Cardiothoracic Consult: Dr. Bañuelos- recommendations appreciated Held nitro, ativan, beta chata- as patient was hypotensive Albumin 1 bag @ 50cc; NS @ 50mls/hr EKG shows sinus tachy with left bundle branch block unchanged from prior EKGs GI Anemia was noted with microcytic anemia GI consulted: Dr. Dodge- recommend outpatient EGD/CSPY as patient denies to have procedure done inpatient Repeat CBC in AM Respiratory: Chest CT 10/03 showed bilateral pleural effusions Brovana 15mcg IH q12h resp sydni Pulmicort 0.5mg IH [id number] Unlikely infectious cause with negative pneumonia antigen studies ID consulted: Dr. Mallory- unlikely due to infectious cause; possible SLE flareup Consider repeat Cxray including lateral views <Jaziel Hunter - Last Filed: 10/11/17 06:19> Meds - Medications Medications: Current Medications Acetaminophen (Tylenol 325mg Tab) 325 mg PO Q6H PRN PRN Reason: Fever >100.4 F Last Admin: 10/06/17 20:57 Dose: 325 mg Arformoterol Tartrate (Brovana) 15 mcg IH [id number] [id number] Last Admin: 10/10/17 20:04 Dose: 15 mcg Atorvastatin Calcium (Lipitor) 20 mg PO DIN [facility] Last Admin: 10/10/17 18:34 Dose: 20 mg Benzocaine/Menthol (Cepacol Sore Throat) 1 julissa MT Q2H PRN PRN Reason: Sore Throat Last Admin: 10/08/17 09:04 Dose: 1 julissa Budesonide (Pulmicort Respules) 0.5 mg IH [id number] [facility] Last Admin: 10/10/17 20:04 Dose: 0.5 mg Haloperidol Lactate (Haldol) 2 mg IM Q6 PRN; Protocol PRN Reason: Agitation Heparin Sodium (Porcine) (Heparin) 5,000 units SC Q8 [facility] PRN Reason: Protocol Last Admin: 10/11/17 06:11 Dose: Not Given Sodium Chloride (Sodium Chloride 0.9%) 1,000 mls @ 50 mls/hr IV .Q20H [facility] Last Admin: 10/10/17 12:15 Dose: 50 mls/hr Meloxicam (Mobic) 7.5 mg PO DAILY [facility] Last Admin: 10/10/17 09:58 Dose: 7.5 mg Nystatin (Nystatin Oral Susp) 5 ml PO Q6 [facility] Last Admin: 10/11/17 01:48 Dose: 5 ml Pantoprazole Sodium (Protonix Ec Tab) 40 mg PO 0600 [facility] Last Admin: 10/11/17 06:12 Dose: 40 mg Potassium Chloride (K-Dur 20 Meq Er Tab) 40 meq PO BID [facility] Stop: 10/11/17 10:00 Last Admin: 10/10/17 18:35 Dose: 40 meq Tramadol HCl (Ultram) 50 mg PO Q12 [facility] Last Admin: 10/10/17 21:36 Dose: 50 mg Results - Vital Signs Recent Vital Signs: Last Vital Signs Temp 99.5 F 10/10/17 18:00 Pulse 102 H 10/11/17 01:10 Resp 35 H 10/11/17 01:10 BP 106/65 10/11/17 01:00 Pulse Ox 99 10/11/17 01:10 - Labs Result Diagrams: 10/09/17 09:20 10/10/17 07:00 Labs: Laboratory Results - last 24 hr 10/10/17 07:00 Potassium 3.9 Attending/Attestation - Attestation I have personally seen and examined this patient.: Yes I have fully participated in the care of the patient.: Yes I have reviewed all pertinent clinical information: Yes
[2017-10-11] MEDS ORDERED: Albumin Human 25% (25 gm/100 ml) IV ONE (01:30)
[2017-10-11] MEDS: Nystatin 100,000 Units/ml Oral Susp 5 ml UD PO SCH ×5 (01:48→19:37)
--- NOTE | 2017-10-11 05:41 | CP.PCM.CON ---
History of Present Illness - History of Present Illness History of Present Illness: Cardiothoracic Surgery Consult Note for Dr. Bañuelos This is a 66F with a PMH of RA, Lupus, HTN, HLD she presented due to back pain and was found to be anemic which prompted further workup. Since admission the pt has had 2 CT scans significant for a small circumferential pericardial effusion. Today due to tachycardia on the floor the patient had a cardiac workup which included an echo which was suggestive of cardiac temponade. The patient is currently stable denying and chest pain, or SOB. She denies any prior cardiac history. PMH: SLE, RA, HTN, HLD PSH: Denies ALL: Contrast, ASA, PCN Social: Former smoker Review of Systems - Review of Systems All systems: reviewed and no additional remarkable complaints except - Cardiovascular Cardiovascular: absent: Chest Pain, Dyspnea, Palpitations - Gastrointestinal Gastrointestinal: Heartburn Past Patient History - Infectious Disease Hx of Infectious Diseases: None - Past Social History Smoking Status: Heavy Smoker > 10 Cigarettes Daily - CARDIAC Hx Cardiac Disorders: Yes Hx Angina: Yes Hx Hypertension: Yes - PULMONARY Hx Respiratory Disorders: Yes Hx Asthma: Yes Hx Chronic Obstructive Pulmonary Disease (COPD): Yes Hx Emphysema: Yes Other/Comment: smokes PPD, haven't smoke in 4wks due to not been able to climb stairs. - NEUROLOGICAL Hx Neurological Disorder: No - HEENT Hx HEENT Problems: No - RENAL Hx Chronic Kidney Disease: No - ENDOCRINE/METABOLIC Hx Endocrine Disorders: Yes Hx Systemic Lupus Erythematosus: Yes - HEMATOLOGICAL/ONCOLOGICAL Hx Blood Disorders: No - INTEGUMENTARY Hx Dermatological Problems: No - MUSCULOSKELETAL/RHEUMATOLOGICAL Hx Musculoskeletal Disorders: Yes Hx Arthritis: Yes Hx Falls: No - GASTROINTESTINAL Hx Gastrointestinal Disorders: Yes Hx Gastroesophageal Reflux: Yes - GENITOURINARY/GYNECOLOGICAL Hx Genitourinary Disorders: No - PSYCHIATRIC Hx Psychophysiologic Disorder: Yes Hx Depression: Yes Hx Substance Use: No - SURGICAL HISTORY Hx Surgeries: Yes Hx Hysterectomy: Yes Other/Comment: left lumpectomy - ANESTHESIA Hx Anesthesia Reactions: No Meds Allergies/Adverse Reactions: Allergies Allergy/AdvReac Type Severity Reaction Status Date / Time Iodinated Contrast- Oral and Allergy Intermediate RASH Verified 10/06/17 07:24 IV Dye aspirin Allergy RASH Verified 10/02/17 17:13 Penicillins Allergy RASH Verified 10/02/17 17:13 - Medications Medications: Current Medications Acetaminophen (Tylenol 325mg Tab) 325 mg PO Q6H PRN PRN Reason: Fever >100.4 F Last Admin: 10/06/17 20:57 Dose: 325 mg Arformoterol Tartrate (Brovana) 15 mcg IH [id number] [facility] Last Admin: 10/10/17 20:04 Dose: 15 mcg Atorvastatin Calcium (Lipitor) 20 mg PO DIN [facility] Last Admin: 10/10/17 18:34 Dose: 20 mg Benzocaine/Menthol (Cepacol Sore Throat) 1 julissa MT Q2H PRN PRN Reason: Sore Throat Last Admin: 10/08/17 09:04 Dose: 1 julissa Budesonide (Pulmicort Respules) 0.5 mg IH [id number] [facility] Last Admin: 10/10/17 20:04 Dose: 0.5 mg Haloperidol Lactate (Haldol) 2 mg IM Q6 PRN; Protocol PRN Reason: Agitation Heparin Sodium (Porcine) (Heparin) 5,000 units SC Q8 [facility] PRN Reason: Protocol Last Admin: 10/10/17 21:37 Dose: Not Given Sodium Chloride (Sodium Chloride 0.9%) 1,000 mls @ 50 mls/hr IV .Q20H [facility] Last Admin: 10/10/17 12:15 Dose: 50 mls/hr Meloxicam (Mobic) 7.5 mg PO DAILY [facility] Last Admin: 10/10/17 09:58 Dose: 7.5 mg Nystatin (Nystatin Oral Susp) 5 ml PO Q6 [facility] Last Admin: 10/11/17 01:48 Dose: 5 ml Pantoprazole Sodium (Protonix Ec Tab) 40 mg PO 0600 [facility] Last Admin: 10/10/17 05:32 Dose: 40 mg Potassium Chloride (K-Dur 20 Meq Er Tab) 40 meq PO BID [facility] Stop: 10/11/17 10:00 Last Admin: 10/10/17 18:35 Dose: 40 meq Tramadol HCl (Ultram) 50 mg PO Q12 [facility] Last Admin: 10/10/17 21:36 Dose: 50 mg Physical Exam - Constitutional Appears: Non-toxic, No Acute Distress - Head Exam Head Exam: ATRAUMATIC, NORMOCEPHALIC - Eye Exam Eye Exam: EOMI - ENT Exam ENT Exam: Mucous Membranes Moist - Neck Exam Additional comments: JVD - Respiratory Exam Respiratory Exam: NORMAL BREATHING PATTERN - Cardiovascular Exam Cardiovascular Exam: +S1, +S2 - GI/Abdominal Exam GI & Abdominal Exam: Soft. absent: Tenderness - Extremities Exam Extremities exam: Positive for: normal inspection - Neurological Exam Neurological exam: Alert, Oriented x3 - Psychiatric Exam Psychiatric exam: Anxious - Skin Skin Exam: Dry, Intact Results - Vital Signs Recent Vital Signs: Last Vital Signs Temp 99.5 F 10/10/17 18:00 Pulse 102 H 10/11/17 01:10 Resp 35 H 10/11/17 01:10 BP 106/65 10/11/17 01:00 Pulse Ox 99 10/11/17 01:10 - Labs Result Diagrams: 10/09/17 09:20 10/10/17 07:00 Labs: Laboratory Results - last 24 hr 10/10/17 07:00 Potassium 3.9 - Imaging and Cardiology CT scan - chest Status: Image reviewed by me, Report reviewed by me Assessment & Plan - Assessment and Plan (Free Text) Assessment: 66F with pericardial effusion Continue to monitor in ICU Followup cardiology recommendations Will discuss with attending Dr. Edda Foy PGY3
[2017-10-11] MEDS: Pantoprazole 40 mg EC Tab PO SCH (06:12)
[2017-10-11] MEDS: Budesonide 0.5 mg/2 ml Inhal Susp UD IH SCH ×2 (08:05→20:04)
[2017-10-11] MEDS: Arformoterol 15 mcg/2 ml Inh Sol IH SCH ×2 (08:05→20:17)
[2017-10-11 08:35] LABS: BASO # 0.01 K/mm3 (0.0-2.0); BASO % 0.2 % (0.0-3.0); EOS # 0.3 (0.0-0.7); EOS % 6.3 % (1.5-5.0); GRAN # 4.11 (1.4-6.5); HEMOGLOBIN 7.7 g/dL (12.0-16.0); LYMPH # 0.5 (1.2-3.4); LYMPH % 9.6 % (22.0-35.0); MEAN CELL VOLUME 74.9 fl (80.0-105.0); MEAN CORPUSCULAR HEMOGLOBIN 24.1 pg (25.0-35.0); MEAN CORPUSCULAR HGB CONC 32.2 g/dl (31.0-37.0); MEAN PLATELET VOLUME 8.5 fl (7.0-11.0); MONO # 0.4 (0.1-0.6); MONO % 7.9 % (1.0-6.0); RBC 3.19 10^6/uL (3.5-6.1); RED CELL DISTRIBUTION WIDTH 15.8 % (11.5-14.5); WHITE BLOOD COUNT 5.4 10^3/ul (4.5-11.0)
[2017-10-11 08:47] LABS: ALB/GLOB RATIO 0.7 (1.1-1.8); ALBUMIN 2.6 g/dL (3.0-4.8); ALT/SGPT 28 U/L (7-56); AST/SGOT 35 U/L (14-36); BLOOD UREA NITROGEN 10 mg/dL (7-21); CALCIUM 8.1 mg/dL (8.4-10.5); GFR NON-AFRICAN AMERICAN > 60
[2017-10-11] MEDS: Potassium Chloride 20 mEq ER Tab PO SCH (09:42)
[2017-10-11] MEDS: Meloxicam 7.5 MG TAB PO SCH (09:42)
[2017-10-11] MEDS: MethylPREDNISolone 40 mg Vial IVP SCH ×2 (09:47→19:37)
[2017-10-11] MEDS: Sodium Chloride 0.9% 1,000 ML IV SCH (09:48)
--- NOTE | 2017-10-11 10:24 | CP.PCM.PN ---
<Jasper Thurston - Last Filed: 10/11/17 10:34> Subjective - Date & Time of Evaluation Date of Evaluation: 10/11/17 Time of Evaluation: 10:23 - Subjective Subjective: GI Progress Note for Dr. Hackett's Service- Velma, PGY2 Patient seen and assessed at bedside. Overnight, patient was transferred to the ICU as she was found to have findings suspicious for tamponade on echo. She reports she is tolerating her diet well without complaints. Patient denies any fevers, chills, chest pain, SOB, abdominal pain, N/V/D/C, hematochezia, melena, changes in urine output or any skin changes. Objective - Vital Signs/Intake and Output Vital Signs (last 24 hours): Temp Pulse Resp BP Pulse Ox 99.4 F 103 H 35 H 106/65 99 10/11/17 06:00 10/11/17 06:00 10/11/17 01:10 10/11/17 01:00 10/11/17 01:10 Intake and Output: 10/11/17 10/11/17 06:59 18:59 Intake Total 700 Output Total 400 Balance 300 - Medications Medications: Current Medications Acetaminophen (Tylenol 325mg Tab) 325 mg PO Q6H PRN PRN Reason: Fever >100.4 F Last Admin: 10/06/17 20:57 Dose: 325 mg Arformoterol Tartrate (Brovana) 15 mcg IH [id number] [facility] Last Admin: 10/11/17 08:05 Dose: 15 mcg Atorvastatin Calcium (Lipitor) 20 mg PO DIN [facility] Last Admin: 10/10/17 18:34 Dose: 20 mg Benzocaine/Menthol (Cepacol Sore Throat) 1 julissa MT Q2H PRN PRN Reason: Sore Throat Last Admin: 10/08/17 09:04 Dose: 1 julissa Budesonide (Pulmicort Respules) 0.5 mg IH [id number] [facility] Last Admin: 10/11/17 08:05 Dose: 0.5 mg Haloperidol Lactate (Haldol) 2 mg IM Q6 PRN; Protocol PRN Reason: Agitation Heparin Sodium (Porcine) (Heparin) 5,000 units SC Q8 [facility] PRN Reason: Protocol Last Admin: 10/11/17 06:11 Dose: Not Given Sodium Chloride (Sodium Chloride 0.9%) 1,000 mls @ 50 mls/hr IV .Q20H [facility] Last Admin: 10/11/17 09:48 Dose: 50 mls/hr Meloxicam (Mobic) 7.5 mg PO DAILY [facility] Last Admin: 10/11/17 09:42 Dose: 7.5 mg Methylprednisolone (Solu-Medrol) 20 mg IVP Q8H [facility] Last Admin: 10/11/17 09:47 Dose: 20 mg Nystatin (Nystatin Oral Susp) 5 ml PO Q6 [facility] Last Admin: 10/11/17 07:49 Dose: Not Given Pantoprazole Sodium (Protonix Ec Tab) 40 mg PO 0600 [facility] Last Admin: 10/11/17 06:12 Dose: 40 mg Tramadol HCl (Ultram) 50 mg PO Q12 [facility] Last Admin: 10/11/17 09:52 Dose: Not Given - Labs Labs: 10/11/17 08:20 10/11/17 08:20 PT 17.2 SECONDS (9.4-12.5) H 10/06/17 08:50 INR 1.48 10/06/17 08:50 APTT 31.4 Seconds (25.1-36.5) 10/06/17 08:50 - Constitutional Appears: Non-toxic, No Acute Distress - Head Exam Head Exam: ATRAUMATIC, NORMOCEPHALIC - Eye Exam Eye Exam: EOMI, Normal appearance - ENT Exam ENT Exam: Mucous Membranes Moist. absent: Mucous Membranes Dry - Neck Exam Neck Exam: Full ROM - Respiratory Exam Respiratory Exam: Rhonchi (RLL), NORMAL BREATHING PATTERN. absent: Accessory Muscle Use, Chest Wall Tenderness, Decreased Breath Sounds, Clear to Ausculation Bilateral, Prolonged Expiratory Phase, Rales, Wheezes, Respiratory Distress, Stridor - Cardiovascular Exam Cardiovascular Exam: Tachycardia, REGULAR RHYTHM, +S1, +S2. absent: Bradycardia , Clicks, Diastolic murmur, Gallop, Irregular Rhythm, JVD, RRR, Rubs, +S4, Murmur - GI/Abdominal Exam GI & Abdominal Exam: Soft, Normal Bowel Sounds. absent: Bruit, Distended, Firm , Guarding, Rigid, Tenderness, Diminished Bowel Sounds, Hernia, Hyperactive Bowel Sounds, Hypoactive Bowel Sounds, Organomegaly, Pulsatile Mass, Rebound, Mass - Extremities Exam Extremities Exam: absent: Calf Tenderness, Joint Swelling - Neurological Exam Neurological Exam: Alert, Awake, Oriented x3 - Psychiatric Exam Psychiatric exam: Normal Affect, Normal Mood - Skin Skin Exam: Dry, Intact, Normal Color, Warm Assessment and Plan - Assessment and Plan (Free Text) Assessment: 66 year old female with a past medical history significant for GERD, HTN, HLD, and questionable SLE/RA who presented to the hospital with fatigue and body aches for three days. Patient was found to be anemic and GI was consulted to evaluate for possible GI hemorrhage. Patient was to have EGD on 10/05 but this was postponed after patient was found to have pleural effusions on CT chest. Patient was rescheduled for EGD on 10/06 but this was cancelled as patient had fever overnight and was found to have significantly elevated D-Dimer. Patient has since refused rescheduling of inpatient EGD and has agreed to have this done as an outpatient. She is now transferred to the ICU as she was found to have findings suspicious for cardiac tamponade of cardiac echo. Plan: -CT Abdomen/Pelvis (PO Contrast) showed inflammatory changes in the LLQ adjacent to the colon possibly representing mesenteric adenitis with mildly enlarged celiac lymph nodes -Abdominal US showed no cholelithiasis, CBD to 4mm and hepatic steatosis -Hepatitis panel negative -H/H currently stable -NPO Diet -Continue PPI PO daily -Plavix/Pain Control per PMD -Antibiotics per ID, all recommendations appreciated GI Disposition: CT/Abdominal US/Pertinent laboratory findings discussed with patient. She does not want EGD or colonoscopy done at this time. She should have endoscopic procedures done as an outpatient. Patient verbalizes understanding of this and agrees to follow up with GI as outpatient for EGD/ colonoscopy. Patient seen and case discussed with attending, Dr. Hackett. <Ranulfo Hackett V - Last Filed: 10/11/17 21:52> Objective - Vital Signs/Intake and Output Vital Signs (last 24 hours): Temp Pulse Resp BP Pulse Ox 99.4 F 107 H 28 H 135/81 87 L 10/11/17 06:00 10/11/17 21:01 10/11/17 21:00 10/11/17 21:01 10/11/17 21:01 - Medications Medications: Current Medications Acetaminophen (Tylenol 325mg Tab) 325 mg PO Q6H PRN PRN Reason: Fever >100.4 F Last Admin: 10/06/17 20:57 Dose: 325 mg Arformoterol Tartrate (Brovana) 15 mcg IH [id number] [facility] Last Admin: 10/11/17 20:17 Dose: 15 mcg Atorvastatin Calcium (Lipitor) 20 mg PO DIN [facility] Last Admin: 10/11/17 19:37 Dose: 20 mg Benzocaine/Menthol (Cepacol Sore Throat) 1 julissa MT Q2H PRN PRN Reason: Sore Throat Last Admin: 10/08/17 09:04 Dose: 1 julissa Budesonide (Pulmicort Respules) 0.5 mg IH [id number] [facility] Last Admin: 10/11/17 20:04 Dose: 0.5 mg Haloperidol Lactate (Haldol) 2 mg IM Q6 PRN; Protocol PRN Reason: Agitation Heparin Sodium (Porcine) (Heparin) 5,000 units SC Q8 [facility] PRN Reason: Protocol Last Admin: 10/11/17 20:59 Dose: Not Given Sodium Chloride (Sodium Chloride 0.9%) 1,000 mls @ 50 mls/hr IV .Q20H [facility] Last Admin: 10/11/17 09:48 Dose: 50 mls/hr Meloxicam (Mobic) 7.5 mg PO DAILY [facility] Last Admin: 10/11/17 09:42 Dose: 7.5 mg Methylprednisolone (Solu-Medrol) 20 mg IVP Q8H [facility] Last Admin: 10/11/17 19:37 Dose: 20 mg Nystatin (Nystatin Oral Susp) 5 ml PO Q6 [facility] Last Admin: 10/11/17 19:37 Dose: 5 ml Pantoprazole Sodium (Protonix Ec Tab) 40 mg PO 0600 [facility] Last Admin: 10/11/17 06:12 Dose: 40 mg Tramadol HCl (Ultram) 50 mg PO Q12 [facility] Last Admin: 10/11/17 21:04 Dose: 50 mg - Labs Labs: 10/11/17 11:50 10/11/17 08:20 PT 16.2 SECONDS (9.4-12.5) H 10/11/17 10:45 INR 1.40 10/11/17 10:45 APTT 31.6 Seconds (25.1-36.5) 10/11/17 10:45 Attending/Attestation - Attestation I have personally seen and examined this patient.: Yes I have fully participated in the care of the patient.: Yes I have reviewed all pertinent clinical information, including history, physical exam and plan: Yes Notes (Text): This is an addendum to GI followup report dictated by the Commissary Representative. The patient was seen and evaluated earlier. Medical records, lab studies, imagings were reviewed. Last 24 hours events reviewed. Agreed with the above treatment plan as outlined in Commissary Representative 's notes with the addition of the following previous events noted Cardiology consult reviewed Slight drop in hemoglobin repeat hemoglobin stable No obvious bleeding per rectum or melena now Patient is on sq heparin, and Mobic Patient is also on Protonix 40 mg daily On examination abdomen soft mild tenderness on deep palpation in the epigastric area recommend Follow-up hemoglobin and hematocrit closely EGD when the patient is optimized medically and agreeable Would consider DC Mobic. We will discuss with adult daycare coordinator and PCP 10/11/17 21:48
--- NOTE | 2017-10-11 10:30 | CP.CCUPN ---
CCU Objective - Vital Signs / Intake & Output Intake and Output (Last 8hrs): Intake & Output 10/10/17 10/11/17 10/11/17 22:59 06:59 14:59 Intake Total 360 700 Output Total 750 400 Balance -390 300 Intake: IV 650 Right Hand 650 Oral 360 50 Output: Urine 750 400 Urine, Voided 750 400 Other: # Bowel Movements 0 0 - Physical Exam Head: Positive for: Atraumatic, Normocephalic Pupils: Positive for: PERRL Extroacular Muscles: Positive for: EOMI Conjunctiva: Positive for: Normal Ears: Positive for: NORMAL TM, Normal Canal. Negative for: Erythema Mouth: Positive for: Moist Mucous Membranes Pharnyx: Negative for: ERYTHEMA, EXUDATE, TONSILS ENLARGED Nose (External): Positive for: Atraumatic. Negative for: Abrasion, Contusion, Laceration Nose (Internal): Positive for: Normal Inspection, No Active Bleeding. Negative for: Rhinorrhea, Septal Hematoma, Epistaxis Neck: Positive for: Normal Range of Motion. Negative for: Meningeal Signs, MIDLINE TENDERNESS, Paraspinal Tenderness, Lymphadenopathy Respiratory/Chest: Positive for: Rhonchi (RLL). Negative for: Respiratory Distress, Accessory Muscle Use, Wheezes, Decreased Breath Sounds (RLL), Retracting, Tachypneic Cardiovascular: Positive for: Regular Rate and Rhythm, Normal S1, S2. Negative for: Murmurs Abdomen: Negative for: Tenderness, Distention, Peritoneal Signs, Rebound, Guarding Back: Positive for: Normal Inspection Upper Extremity: Positive for: Normal Inspection. Negative for: Cyanosis, Edema Lower Extremity: Positive for: Normal Inspection, Neurovascularly Intact. Negative for: Edema Neurological: Positive for: GCS=15, CN II-XII Intact, Speech Normal Skin: Positive for: Warm, Dry, Normal Color. Negative for: Rashes Lymphatic: Negative for: Cervical Adenopathy, Axillary Adenopathy Psychiatric: Positive for: Alert, Oriented x 3, Normal Insight, Normal Concentration - Medications Active Medications: Active Medications Generic Name Dose Route Start Last Admin Trade Name Freq PRN Reason Stop Dose Admin Acetaminophen 325 mg 10/06/17 20:34 10/06/17 20:57 Tylenol 325mg Tab PO 325 mg Q6H PRN Administration Fever >100.4 F Arformoterol Tartrate 15 mcg 10/04/17 20:00 10/11/17 08:05 Brovana IH 15 mcg [id number] [facility] Administration Atorvastatin Calcium 20 mg 10/07/17 17:00 10/10/17 18:34 Lipitor PO 20 mg DIN [facility] Administration Benzocaine/Menthol 1 julissa 10/06/17 13:04 10/08/17 09:04 Cepacol Sore Throat MT 1 julissa Q2H PRN Administration Sore Throat Budesonide 0.5 mg 10/04/17 20:00 10/11/17 08:05 Pulmicort Respules IH 0.5 mg [id number] [facility] Administration Haloperidol Lactate 2 mg 10/10/17 22:56 Haldol IM Q6 PRN Agitation Protocol Heparin Sodium (Porcine) 5,000 units 10/06/17 22:00 10/11/17 06:11 Heparin SC Not Given Q8 [facility] Protocol Sodium Chloride 1,000 mls @ 50 mls/hr 10/10/17 11:45 10/11/17 09:48 Sodium Chloride 0.9% IV 50 mls/hr .Q20H [facility] Administration Meloxicam 7.5 mg 10/08/17 14:00 10/11/17 09:42 Mobic PO 7.5 mg DAILY [facility] Administration Methylprednisolone 20 mg 10/11/17 09:30 10/11/17 09:47 Solu-Medrol IVP 20 mg Q8H [facility] Administration Nystatin 5 ml 10/06/17 13:06 10/11/17 07:49 Nystatin Oral Susp PO Not Given Q6 [facility] Pantoprazole Sodium 40 mg 10/08/17 06:00 10/11/17 06:12 Protonix Ec Tab PO 40 mg 0600 [facility] Administration Tramadol HCl 50 mg 10/03/17 12:30 10/11/17 09:52 Ultram PO Not Given Q12 [facility] - Patient Studies Lab Studies: Microbiology Studies 10/06/17 05:45 Blood Culture - Final Blood NO GROWTH AFTER 5 DAYS Gram Stain - Final TEST NOT PERFORMED 10/06/17 05:30 Blood Culture - Final Blood NO GROWTH AFTER 5 DAYS Gram Stain - Final TEST NOT PERFORMED Lab Studies 10/11/17 10/11/17 Range/Units 08:20 08:20 WBC 5.4 D (4.5-11.0) 10^3/ul RBC 3.19 L (3.5-6.1) 10^6/uL Hgb 7.7 L (12.0-16.0) g/dL Hct 23.9 L (36.0-48.0) % MCV 74.9 L (80.0-105.0) fl MCH 24.1 L (25.0-35.0) pg MCHC 32.2 (31.0-37.0) g/dl RDW 15.8 H (11.5-14.5) % Plt Count 323 (120.0-450.0) 10^3/uL MPV 8.5 (7.0-11.0) fl Gran % 76.0 H (50.0-68.0) % Lymph % (Auto) 9.6 L (22.0-35.0) % Irion % (Auto) 7.9 H (1.0-6.0) % Eos % (Auto) 6.3 H (1.5-5.0) % Baso % (Auto) 0.2 (0.0-3.0) % Gran # 4.11 (1.4-6.5) Lymph # (Auto) 0.5 L (1.2-3.4) Irion # (Auto) 0.4 (0.1-0.6) Eos # (Auto) 0.3 (0.0-0.7) Baso # (Auto) 0.01 (0.0-2.0) K/mm3 Sodium 130 L (132-148) mmol/L Potassium 4.7 (3.6-5.0) mmol/L Chloride 95 L (98-107) mmol/L Carbon Dioxide 27 (21-33) mmol/L Anion Gap 12 (10-20) BUN 10 (7-21) mg/dL Creatinine 0.4 L (0.7-1.2) mg/dl Est GFR ( Amer) > 60 Est GFR (Non-Af Amer) > 60 Random Glucose 94 (70-110) mg/dL Calcium 8.1 L (8.4-10.5) mg/dL Phosphorus 3.3 (2.5-4.5) mg/dL Magnesium 1.9 (1.7-2.2) mg/dL Total Bilirubin 0.6 (0.2-1.3) mg/dL AST 35 (14-36) U/L ALT 28 (7-56) U/L Alkaline Phosphatase 104 (38-126) U/L Total Protein 6.4 (5.8-8.3) g/dL Albumin 2.6 L (3.0-4.8) g/dL Globulin 3.8 gm/dL Albumin/Globulin Ratio 0.7 L (1.1-1.8) Laboratory Results - last 24 hr 10/11/17 10/11/17 08:20 08:20 WBC 5.4 D RBC 3.19 L Hgb 7.7 L Hct 23.9 L MCV 74.9 L MCH 24.1 L MCHC 32.2 RDW 15.8 H Plt Count 323 MPV 8.5 Gran % 76.0 H Lymph % (Auto) 9.6 L Irion % (Auto) 7.9 H Eos % (Auto) 6.3 H Baso % (Auto) 0.2 Gran # 4.11 Lymph # (Auto) 0.5 L Irion # (Auto) 0.4 Eos # (Auto) 0.3 Baso # (Auto) 0.01 Sodium 130 L Potassium 4.7 Chloride 95 L Carbon Dioxide 27 Anion Gap 12 BUN 10 Creatinine 0.4 L Est GFR ( Amer) > 60 Est GFR (Non-Af Amer) > 60 Random Glucose 94 Calcium 8.1 L Phosphorus 3.3 Magnesium 1.9 Total Bilirubin 0.6 AST 35 ALT 28 Alkaline Phosphatase 104 Total Protein 6.4 Albumin 2.6 L Globulin 3.8 Albumin/Globulin Ratio 0.7 L EKG/Cardiology Studies: Cardiology / EKG Studies 10/10/17 20:52 EKG [ELECTROCARDIOGRAM] Stat Comment: Reason For Exam: WEAKNESS Critical Care Progress Note - Nutrition Nutrition: Nutrition Category Date Time Status NPO Diet [DIET] Diets 10/11/17 Breakfast Ordered
--- NOTE | 2017-10-11 11:01 | CP.PCM.PN ---
Subjective - Date & Time of Evaluation Date of Evaluation: 10/11/17 Time of Evaluation: 09:40 - Subjective Subjective: Noted events overnight. Patient was having tachycardia and had 2D echo done, which showed possible cardiac tamponade and the patient has been transferred to the ICU for closer observation. Currently the patient is comfortable, no fevers , no cough, no SOB at rest, no nausea, no diarrhea, no chest pain. Objective - Vital Signs/Intake and Output Vital Signs (last 24 hours): Temp Pulse Resp BP Pulse Ox 99.5 F 102 H 35 H 106/65 99 10/10/17 18:00 10/11/17 01:10 10/11/17 01:10 10/11/17 01:00 10/11/17 01:10 Intake and Output: 10/10/17 10/11/17 18:59 06:59 Intake Total 360 Output Total 750 Balance -390 - Medications Medications: Current Medications Acetaminophen (Tylenol 325mg Tab) 325 mg PO Q6H PRN PRN Reason: Fever >100.4 F Last Admin: 10/06/17 20:57 Dose: 325 mg Arformoterol Tartrate (Brovana) 15 mcg IH [id number] [facility] Last Admin: 10/10/17 20:04 Dose: 15 mcg Atorvastatin Calcium (Lipitor) 20 mg PO DIN [facility] Last Admin: 10/10/17 18:34 Dose: 20 mg Benzocaine/Menthol (Cepacol Sore Throat) 1 julissa MT Q2H PRN PRN Reason: Sore Throat Last Admin: 10/08/17 09:04 Dose: 1 julissa Budesonide (Pulmicort Respules) 0.5 mg IH [id number] [facility] Last Admin: 10/10/17 20:04 Dose: 0.5 mg Haloperidol Lactate (Haldol) 2 mg IM Q6 PRN; Protocol PRN Reason: Agitation Heparin Sodium (Porcine) (Heparin) 5,000 units SC Q8 [facility] PRN Reason: Protocol Last Admin: 10/11/17 06:11 Dose: Not Given Sodium Chloride (Sodium Chloride 0.9%) 1,000 mls @ 50 mls/hr IV .Q20H [facility] Last Admin: 10/10/17 12:15 Dose: 50 mls/hr Meloxicam (Mobic) 7.5 mg PO DAILY [facility] Last Admin: 10/10/17 09:58 Dose: 7.5 mg Nystatin (Nystatin Oral Susp) 5 ml PO Q6 [facility] Last Admin: 10/11/17 01:48 Dose: 5 ml Pantoprazole Sodium (Protonix Ec Tab) 40 mg PO 0600 [facility] Last Admin: 10/11/17 06:12 Dose: 40 mg Potassium Chloride (K-Dur 20 Meq Er Tab) 40 meq PO BID [facility] Stop: 10/11/17 10:00 Last Admin: 10/10/17 18:35 Dose: 40 meq Tramadol HCl (Ultram) 50 mg PO Q12 [facility] Last Admin: 10/10/17 21:36 Dose: 50 mg - Labs Labs: 10/09/17 09:20 10/10/17 07:00 PT 17.2 SECONDS (9.4-12.5) H 10/06/17 08:50 INR 1.48 10/06/17 08:50 APTT 31.4 Seconds (25.1-36.5) 10/06/17 08:50 - Constitutional Appears: No Acute Distress, Chronically Ill - Head Exam Head Exam: NORMAL INSPECTION - Respiratory Exam Respiratory Exam: Decreased Breath Sounds - Cardiovascular Exam Cardiovascular Exam: +S1, +S2 - GI/Abdominal Exam GI & Abdominal Exam: Soft. absent: Tenderness Assessment and Plan - Assessment and Plan (Free Text) Plan: Assessment S/P severe sepsis due to right sided community-acquired pneumonia possible cardiac tamponade GERD HTN dyslipidemia possible rheumatoid arthritis anxiety history of UTI Plan continue to monitor off antibiotics since she is at risk for nosocomial infections follow up plans of Cardiology for the possible cardiac tamponade
[2017-10-11 11:05] LABS: INR 1.4; PARTIAL THROMBOPLASTIN TIME 31.6 Seconds (25.1-36.5); PROTHROMBIN TIME 16.2 SECONDS (9.4-12.5)
--- NOTE | 2017-10-11 11:08 | CON ---
Copied To: Danie Rosen MD Attending MD: Danie Rosen MD DATE: 10/11/2017 REASON FOR CONSULTATION: Pericardial effusion. HISTORY: This is a 66-year-old woman with a history of hypertension, hyperlipidemia and presumed diagnosis of systemic lupus erythematosus, who presented to the emergency room with complaints of fatigue, cough and dyspnea for several days. Chest x-ray and CT of the chest showed evidence of a right lower lobe pneumonia and she was admitted for treatment. She was noted to have some increasing dyspnea. An echocardiogram showed evidence of a pericardial effusion, evaluation was requested. She continues to have intermittent fevers. A V/Q scan was suggested low probability of pulmonary embolus. Her CT of the chest did show evidence of bilateral pleural effusions, greater on the right than on the left. Her blood pressure has been borderline low at times and she has been tachycardic. Her past history is notable for longstanding COPD, hyperlipidemia and gastroesophageal reflux disease. She underwent a prior hysterectomy, but her ovaries were left intact. She states she had a mass removed from her left axilla sometime in the past. This was benign. She reportedly had a prior history of a cerebrovascular accident with full recovery, details of this event are unclear. She apparently did have some speech issues and motor weakness, which have resolved. ALLERGIES: SHE HAS HAD A REACTION TO IODINATED CONTRAST IN THE PAST. SHE ALSO HAS HAD A REACTION WITH ASPIRIN AND PENICILLINS. CURRENT MEDICATIONS: Include Brovana, Haldol p.r.n., subcutaneous heparin, Lipitor 20 mg daily, Mobic, Protonix 40 mg daily, Pulmicort inhaler, Solu-Medrol and Ultram p.r.n. SOCIAL HISTORY: She was a heavy smoker for many years, having quit several weeks ago. She denies alcohol use. 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 She is not currently on any medications for her lupus. FAMILY HISTORY: Both parents in their 50s from heart-related disease. Full details are unclear. REVIEW OF SYSTEMS: Ten-point review of systems is notable for mainly problems as mentioned above. She does have arthralgias. She denies any prior history of cardiac issues. Denies any chest pain or prior myocardial infarction. PHYSICAL EXAMINATION: GENERAL: She is an anxious-appearing middle-aged woman. VITAL SIGNS: Her blood pressure is 106/64 with a pulse of 100, respirations are 14. She is in sinus rhythm. She currently has a temperature of 99.4. HEENT: Head normocephalic, atraumatic. NECK: Supple. No JVD noted. CHEST: Diminished breath sounds noted at both bases with bilateral scattered rhonchi heard. HEART: PMI in normal position. No rub is heard. A systolic murmur is present in the left sternal border. ABDOMEN: Soft, nontender, normoactive bowel sounds. EXTREMITIES: No clubbing, cyanosis or edema. SKIN: Warm and dry. PSYCHIATRIC: Normal mood and affect. NEUROLOGICAL: Alert and oriented x3. No clear gross motor or sensory deficits appreciable. DIAGNOSTIC DATA: Sodium is 130, potassium 4.7, BUN and creatinine are 10 and 0.4. White count 5.4, hemoglobin and hematocrit 7.7 and 23.9 with a platelet count of 323,000. Albumin is 2.6. Electrocardiogram reveals sinus tachycardia with left bundle-branch block pattern. Echocardiogram was reviewed and was somewhat limited study. Left ventricular size appeared normal with mild concentric LVH. Left ventricular systolic function appeared moderately reduced with paradoxical septal motion. Right ventricular size and function appeared normal. A small to moderate pericardial effusion was present. Echocardiographic evaluation for tamponade was not completed and that mitral and tricuspid inflow velocities were not measured adequately. There appeared to be some right ventricular diastolic collapse; however, this was suboptimally viewed and the imaging somewhat confounded by significant septal dyskinesis. IMPRESSION: 1. Small to moderate pericardial effusion clinically without evidence of tamponade at this time. Of note, her CT performed earlier the week also revealed a small pericardial effusion at that time. Pericardial effusion is likely on the basis of collagen vascular disease. Infectious process would be less likely. 2. Apparent right lower lobe pneumonia. Currently on antibiotics. 3. History of lupus erythematosus. 4. Longstanding history of tobacco abuse and chronic obstructive pulmonary disease. 5. Abnormal wall motion on echocardiogram suggestive of coronary artery disease. She does have significant risk factors given longstanding history of tobacco abuse as well as a strong family history of premature heart disease and her hyperlipidemia. 6. Chronic anemia. 7. Rest of problems as noted. RECOMMENDATIONS: At this time, continued antibiotic treatment appears reasonable. A followup echocardiogram in several days will be performed to evaluate her for any worsening of her pericardial effusion. At the present time, she appears stable and does not appear to need percutaneous or surgical drainage of that effusion. If she develops hemodynamic changes, this will need to be reevaluated. An eventual stress test once her current acute medical problems have been addressed would be reasonable as she has significant wall motion abnormalities and has significant risk factors. Thank you for this consultation. We will be happy to follow along throughout her hospital course. Danie Rosen MD MTDNatasha
[2017-10-11 12:08] LABS: HEMOGLOBIN 8.6 g/dL (12.0-16.0)
--- NOTE | 2017-10-11 15:16 | CARD ---
APPROVED REPORT Date of service: 10/11/2017 EKG Measurement Heart [id number] <Conclusion> Sinus tachycardia Left bundle branch block Abnormal ECG
--- NOTE | 2017-10-11 15:41 | CARD ---
APPROVED REPORT Date of service: 10/10/2017 EKG Measurement Heart [id number] <Conclusion> Sinus tachycardia Left bundle branch block Abnormal ECG
--- NOTE | 2017-10-11 18:27 | CP.CCUPN ---
Addendum entered and electronically signed by Hossein Escalante DO 10/12/17 07:56 : Correction: GI on board is Dr. Hackett Original Note: <Hossein Escalante - Last Filed: 10/11/17 18:09> CCU Subjective - Physician Review Subjective (Free Text): 10/11/17 18:09 Hossein Escalante DO PGY1 - Internal Medicine Pulverizer Tender - ICU Progress Note Patient was seen and examined at bedside this morning. Pt. reported panic/anxiety like symptoms this AM after rounds were made; complaints consisted of SOB, Hyperventilation, CP. ROS was otherwise negative. Family memeber was present at bedside; spoke w/ family and explained echo findings and ICU management plans moving forward CCU Objective - Vital Signs / Intake & Output Vital Signs (Last 4 hours): Vital Signs Pulse Resp Pulse Ox 10/11/17 14:40 101 H 35 H 100 10/11/17 14:30 105 H 35 H 100 10/11/17 14:20 110 H 35 H 100 10/11/17 14:10 105 H 40 H 100 Intake and Output (Last 8hrs): Intake & Output 10/11/17 10/11/17 10/11/17 06:59 14:59 22:59 Intake Total 700 Output Total 400 Balance 300 Intake: IV 650 Right Hand 650 Oral 50 Output: Urine 400 Urine, Voided 400 Other: # Bowel Movements 0 - Physical Exam Head: Positive for: Atraumatic, Normocephalic Pupils: Positive for: PERRL Extroacular Muscles: Positive for: EOMI Conjunctiva: Positive for: Normal Ears: Negative for: Erythema Mouth: Positive for: Moist Mucous Membranes Pharnyx: Negative for: ERYTHEMA, EXUDATE, TONSILS ENLARGED Nose (External): Positive for: Atraumatic. Negative for: Abrasion, Contusion, Laceration Nose (Internal): Positive for: Normal Inspection, No Active Bleeding. Negative for: Rhinorrhea, Septal Hematoma, Epistaxis Neck: Positive for: Normal Range of Motion. Negative for: Meningeal Signs, MIDLINE TENDERNESS, Paraspinal Tenderness, Lymphadenopathy Respiratory/Chest: Positive for: Rhonchi (RLL). Negative for: Respiratory Distress, Accessory Muscle Use, Wheezes, Decreased Breath Sounds (RLL), Retracting, Tachypneic Cardiovascular: Positive for: Regular Rate and Rhythm, Normal S1, S2, Other ( Chest wall tenderness). Negative for: Murmurs Abdomen: Negative for: Tenderness, Distention, Peritoneal Signs, Rebound, Guarding Back: Positive for: Normal Inspection Upper Extremity: Positive for: Normal Inspection. Negative for: Cyanosis, Edema Lower Extremity: Positive for: Normal Inspection, NORMAL PULSES, Neurovascularly Intact. Negative for: Edema Neurological: Positive for: GCS=15, CN II-XII Intact, Speech Normal Skin: Positive for: Warm, Dry, Normal Color. Negative for: Rashes Lymphatic: Negative for: Cervical Adenopathy, Axillary Adenopathy Psychiatric: Positive for: Alert, Oriented x 3, Normal Insight, Normal Concentration - Medications Active Medications: Active Medications Generic Name Dose Route Start Last Admin Trade Name Freq PRN Reason Stop Dose Admin Acetaminophen 325 mg 10/06/17 20:34 10/06/17 20:57 Tylenol 325mg Tab PO 325 mg Q6H PRN Administration Fever >100.4 F Arformoterol Tartrate 15 mcg 10/04/17 20:00 10/11/17 08:05 Brovana IH 15 mcg [id number] SYDNI Administration Atorvastatin Calcium 20 mg 10/07/17 17:00 10/10/17 18:34 Lipitor PO 20 mg DIN SYDNI Administration Benzocaine/Menthol 1 julissa 10/06/17 13:04 10/08/17 09:04 Cepacol Sore Throat MT 1 julissa Q2H PRN Administration Sore Throat Budesonide 0.5 mg 10/04/17 20:00 10/11/17 08:05 Pulmicort Respules IH 0.5 mg [id number] SYDNI Administration Haloperidol Lactate 2 mg 10/10/17 22:56 Haldol IM Q6 PRN Agitation Protocol Heparin Sodium (Porcine) 5,000 units 10/06/17 22:00 10/11/17 15:05 Heparin SC Not Given Q8 SYDNI Protocol Sodium Chloride 1,000 mls @ 50 mls/hr 10/10/17 11:45 10/11/17 09:48 Sodium Chloride 0.9% IV 50 mls/hr .Q20H SYDNI Administration Meloxicam 7.5 mg 10/08/17 14:00 10/11/17 09:42 Mobic PO 7.5 mg DAILY SYDNI Administration Methylprednisolone 20 mg 10/11/17 09:30 10/11/17 09:47 Solu-Medrol IVP 20 mg Q8H SYDNI Administration Nystatin 5 ml 10/06/17 13:06 10/11/17 15:00 Nystatin Oral Susp PO 5 ml Q6 SYDNI Administration Pantoprazole Sodium 40 mg 10/08/17 06:00 10/11/17 06:12 Protonix Ec Tab PO 40 mg 0600 SYDNI Administration Tramadol HCl 50 mg 10/03/17 12:30 10/11/17 09:52 Ultram PO Not Given Q12 SYDNI - Patient Studies Lab Studies: Microbiology Studies 10/06/17 05:45 Blood Culture - Final Blood NO GROWTH AFTER 5 DAYS Gram Stain - Final TEST NOT PERFORMED 10/06/17 05:30 Blood Culture - Final Blood NO GROWTH AFTER 5 DAYS Gram Stain - Final TEST NOT PERFORMED Lab Studies 10/11/17 10/11/17 10/11/17 Range/Units 12:00 11:50 10:45 WBC (4.5-11.0) 10^3/ul RBC (3.5-6.1) 10^6/uL Hgb 8.6 L (12.0-16.0) g/dL Hct 25.9 L (36.0-48.0) % MCV (80.0-105.0) fl MCH (25.0-35.0) pg MCHC (31.0-37.0) g/dl RDW (11.5-14.5) % Plt Count (120.0-450.0) 10^3/uL MPV (7.0-11.0) fl Gran % (50.0-68.0) % Lymph % (Auto) (22.0-35.0) % [place] % (Auto) (1.0-6.0) % Eos % (Auto) (1.5-5.0) % Baso % (Auto) (0.0-3.0) % Gran # (1.4-6.5) Lymph # (Auto) (1.2-3.4) [place] # (Auto) (0.1-0.6) Eos # (Auto) (0.0-0.7) Baso # (Auto) (0.0-2.0) K/mm3 PT 16.2 H (9.4-12.5) SECONDS INR 1.40 APTT 31.6 (25.1-36.5) Seconds Sodium (132-148) mmol/L Potassium (3.6-5.0) mmol/L Chloride (98-107) mmol/L Carbon Dioxide (21-33) mmol/L Anion Gap (10-20) BUN (7-21) mg/dL Creatinine (0.7-1.2) mg/dl Est GFR ( Amer) Est GFR (Non-Af Amer) Random Glucose (70-110) mg/dL Calcium (8.4-10.5) mg/dL Phosphorus (2.5-4.5) mg/dL Magnesium (1.7-2.2) mg/dL Total Bilirubin (0.2-1.3) mg/dL AST (14-36) U/L ALT (7-56) U/L Alkaline Phosphatase (38-126) U/L Troponin I < 0.01 D ng/mL Total Protein (5.8-8.3) g/dL Albumin (3.0-4.8) g/dL Globulin gm/dL Albumin/Globulin Ratio (1.1-1.8) 10/11/17 10/11/17 Range/Units 08:20 08:20 WBC 5.4 D (4.5-11.0) 10^3/ul RBC 3.19 L (3.5-6.1) 10^6/uL Hgb 7.7 L (12.0-16.0) g/dL Hct 23.9 L (36.0-48.0) % MCV 74.9 L (80.0-105.0) fl MCH 24.1 L (25.0-35.0) pg MCHC 32.2 (31.0-37.0) g/dl RDW 15.8 H (11.5-14.5) % Plt Count 323 (120.0-450.0) 10^3/uL MPV 8.5 (7.0-11.0) fl Gran % 76.0 H (50.0-68.0) % Lymph % (Auto) 9.6 L (22.0-35.0) % [place] % (Auto) 7.9 H (1.0-6.0) % Eos % (Auto) 6.3 H (1.5-5.0) % Baso % (Auto) 0.2 (0.0-3.0) % Gran # 4.11 (1.4-6.5) Lymph # (Auto) 0.5 L (1.2-3.4) [place] # (Auto) 0.4 (0.1-0.6) Eos # (Auto) 0.3 (0.0-0.7) Baso # (Auto) 0.01 (0.0-2.0) K/mm3 PT (9.4-12.5) SECONDS INR APTT (25.1-36.5) Seconds Sodium 130 L (132-148) mmol/L Potassium 4.7 (3.6-5.0) mmol/L Chloride 95 L (98-107) mmol/L Carbon Dioxide 27 (21-33) mmol/L Anion Gap 12 (10-20) BUN 10 (7-21) mg/dL Creatinine 0.4 L (0.7-1.2) mg/dl Est GFR ( Amer) > 60 Est GFR (Non-Af Amer) > 60 Random Glucose 94 (70-110) mg/dL Calcium 8.1 L (8.4-10.5) mg/dL Phosphorus 3.3 (2.5-4.5) mg/dL Magnesium 1.9 (1.7-2.2) mg/dL Total Bilirubin 0.6 (0.2-1.3) mg/dL AST 35 (14-36) U/L ALT 28 (7-56) U/L Alkaline Phosphatase 104 (38-126) U/L Troponin I ng/mL Total Protein 6.4 (5.8-8.3) g/dL Albumin 2.6 L (3.0-4.8) g/dL Globulin 3.8 gm/dL Albumin/Globulin Ratio 0.7 L (1.1-1.8) Laboratory Results - last 24 hr 10/11/17 10/11/17 10/11/17 08:20 08:20 10:45 WBC 5.4 D RBC 3.19 L Hgb 7.7 L Hct 23.9 L MCV 74.9 L MCH 24.1 L MCHC 32.2 RDW 15.8 H Plt Count 323 MPV 8.5 Gran % 76.0 H Lymph % (Auto) 9.6 L [place] % (Auto) 7.9 H Eos % (Auto) 6.3 H Baso % (Auto) 0.2 Gran # 4.11 Lymph # (Auto) 0.5 L [place] # (Auto) 0.4 Eos # (Auto) 0.3 Baso # (Auto) 0.01 PT 16.2 H INR 1.40 APTT 31.6 Sodium 130 L Potassium 4.7 Chloride 95 L Carbon Dioxide 27 Anion Gap 12 BUN 10 Creatinine 0.4 L Est GFR ( Amer) > 60 Est GFR (Non-Af Amer) > 60 Random Glucose 94 Calcium 8.1 L Phosphorus 3.3 Magnesium 1.9 Total Bilirubin 0.6 AST 35 ALT 28 Alkaline Phosphatase 104 Troponin I Total Protein 6.4 Albumin 2.6 L Globulin 3.8 Albumin/Globulin Ratio 0.7 L 10/11/17 10/11/17 11:50 12:00 WBC RBC Hgb 8.6 L Hct 25.9 L MCV MCH MCHC RDW Plt Count MPV Gran % Lymph % (Auto) [place] % (Auto) Eos % (Auto) Baso % (Auto) Gran # Lymph # (Auto) [place] # (Auto) Eos # (Auto) Baso # (Auto) PT INR APTT Sodium Potassium Chloride Carbon Dioxide Anion Gap BUN Creatinine Est GFR ( Amer) Est GFR (Non-Af Amer) Random Glucose Calcium Phosphorus Magnesium Total Bilirubin AST ALT Alkaline Phosphatase Troponin I < 0.01 D Total Protein Albumin Globulin Albumin/Globulin Ratio EKG/Cardiology Studies: Cardiology / EKG Studies 10/10/17 20:52 EKG [ELECTROCARDIOGRAM] Stat Comment: Reason For Exam: WEAKNESS 10/11/17 12:32 EKG [ELECTROCARDIOGRAM] Stat Comment: Reason For Exam: Anxiety Attack vs ACS Review of Systems - Review of Systems All systems: reviewed and no additional remarkable complaints except Review of Systems: As per HPI Critical Care Progress Note - Nutrition Nutrition: Nutrition Category Date Time Status Heart Healthy Diet [DIET] Diets 10/11/17 Dinner Active Assessment/Plan - Assessment and Plan (Free Text) Assessment: 66F admitted to [facility] [place] on 10/03 for SOB and Cough suspected possibly PNA; found to chest pain during hospital course and under went ACS r/o. No findings on troponin or EKG however, echo was concerning for pericardial effusion, possible cardiac tamponade, and EF of 28% PLAN: Cardio Echo 10/10: Pericardial effusion w/ possible evidence of tamponade; EF of 28% Cardiothoracic Consult: Dr. Bañuelos- No acute surgical intervention at this time Cardiology: Dr. Conde - C/w current abx treatment for RLL PNA; f/u w/ Echo w/ in several days to reassess effusion; May require sooner reevaluation if she becomes HD unstable Held nitro, ativan, beta chata- as patient was hypotensive during ICU admission EKG shows sinus tachy with left bundle branch block unchanged from prior EKGs Repeated EKG today during panic attack; no ischemic signs appreciated Troponins also repeated during panic attack; no elevations continue monitoring patient maintain map >65 Rheum History of SLE but not on steroids or DMARDs at home Rheum consult would be beneficial Procal elevated 0.57 Meloxicam 7.5mg po daily Started Solumedrol 20 Q8 Psych: Anxiety attack earlier in day today Can admin Xanax 0.25 PRN Neuro: Complaints of dizziness initially CT head w/o contrast- showed no acute findings Haldol 2mg PRN for patient agitation Neurology Following GI: Anemia was noted with microcytic anemia GI consulted: Dr. Dodge- recommend outpatient EGD/CSPY as patient denies to have procedure done inpatient Repeat CBC this AM showed no Respiratory: Chest CT 10/03 showed bilateral pleural effusions Brovana 15mcg IH q12h resp sydni Pulmicort 0.5mg IH [id number] Unlikely infectious cause with negative pneumonia antigen studies ID consulted: Dr. Mallory- unlikely due to infectious cause; possible SLE flareup Consider repeat Cxray including lateral views GI/DVT PPx: Protonix/ Heparin 5000 Q8 Patient was seen, examined, and discussed w/ attending physician Dr. Eliza Escalante DO PGY1 - Internal Medicine Pulverizer Tender -Pager [phone] - Date & Time Date: 10/11/17 Time: 19:39 <Musa Kay - Last Filed: 10/12/17 11:34> CCU Objective - Vital Signs / Intake & Output Vital Signs (Last 4 hours): Vital Signs Temp Pulse Resp BP Pulse Ox 10/12/17 09:29 125/67 10/12/17 08:40 96 H 35 H 100 10/12/17 08:30 101 H 14 98 10/12/17 08:20 94 H 29 H 100 10/12/17 08:10 104 H 25 H 99 10/12/17 08:00 97.9 F 89 28 H 128/60 99 10/12/17 07:50 91 H 30 H 100 10/12/17 07:40 89 27 H 99 Intake and Output (Last 8hrs): Intake & Output 10/11/17 10/12/17 10/12/17 22:59 06:59 14:59 Intake Total 1080 Output Total 1100 Balance -20 Weight 176 lb Intake: Oral 480 Other 600 Output: Urine 1100 Urine, Voided 1100 - Medications Active Medications: Active Medications Generic Name Dose Route Start Last Admin Trade Name Freq PRN Reason Stop Dose Admin Acetaminophen 325 mg 10/06/17 20:34 10/06/17 20:57 Tylenol 325mg Tab PO 325 mg Q6H PRN Administration Fever >100.4 F Arformoterol Tartrate 15 mcg 10/04/17 20:00 10/12/17 07:20 Brovana IH 15 mcg [id number] SYDNI Administration Atorvastatin Calcium 20 mg 10/07/17 17:00 10/11/17 19:37 Lipitor PO 20 mg DIN SYDNI Administration Benzocaine/Menthol 1 julissa 10/06/17 13:04 10/08/17 09:04 Cepacol Sore Throat MT 1 julissa Q2H PRN Administration Sore Throat Budesonide 0.5 mg 10/04/17 20:00 10/12/17 07:21 Pulmicort Respules IH 0.5 mg [id number] SYDNI Administration Furosemide 20 mg 10/12/17 10:00 10/12/17 09:29 Lasix PO 20 mg DAILY SYDNI Administration Heparin Sodium (Porcine) 5,000 units 10/06/17 22:00 10/12/17 07:08 Heparin SC Not Given Q8 [facility] Protocol Lorazepam 0.5 mg 10/12/17 11:01 Ativan PO Q6H PRN Anxiety Meloxicam 7.5 mg 10/08/17 14:00 10/12/17 09:30 Mobic PO 7.5 mg DAILY SYDNI Administration Methylprednisolone 20 mg 10/12/17 11:15 Solu-Medrol IVP Q12H SYDNI Nystatin 5 ml 10/06/17 13:06 10/12/17 07:07 Nystatin Oral Susp PO 5 ml Q6 SYDNI Administration Pantoprazole Sodium 40 mg 10/08/17 06:00 10/12/17 07:07 Protonix Ec Tab PO 40 mg 0600 SYDNI Administration Tramadol HCl 50 mg 10/12/17 11:01 Ultram PO Q12 PRN severe pain - Patient Studies Lab Studies: Lab Studies 10/12/17 10/12/17 10/11/17 Range/Units 08:00 06:30 12:00 WBC 4.9 (4.5-11.0) 10^3/ul RBC 3.18 L (3.5-6.1) 10^6/uL Hgb 7.9 L (12.0-16.0) g/dL Hct 23.8 L (36.0-48.0) % MCV 74.8 L (80.0-105.0) fl MCH 24.8 L (25.0-35.0) pg MCHC 33.2 (31.0-37.0) g/dl RDW 15.9 H (11.5-14.5) % Plt Count 393 (120.0-450.0) 10^3/uL MPV 9.4 (7.0-11.0) fl Gran % 85.2 H (50.0-68.0) % Lymph % (Auto) 7.3 L (22.0-35.0) % [place] % (Auto) 7.5 H (1.0-6.0) % Eos % (Auto) 0.0 L (1.5-5.0) % Baso % (Auto) 0.0 (0.0-3.0) % Gran # 4.18 (1.4-6.5) Lymph # (Auto) 0.4 L (1.2-3.4) [place] # (Auto) 0.4 (0.1-0.6) Eos # (Auto) 0.0 (0.0-0.7) Baso # (Auto) 0.00 (0.0-2.0) K/mm3 Sodium 136 (132-148) mmol/L Potassium 4.4 (3.6-5.0) mmol/L Chloride 102 (98-107) mmol/L Carbon Dioxide 29 (21-33) mmol/L Anion Gap 10 (10-20) BUN 10 (7-21) mg/dL Creatinine 0.3 L (0.7-1.2) mg/dl Est GFR ( Amer) > 60 Est GFR (Non-Af Amer) > 60 Random Glucose 128 H (70-110) mg/dL Calcium 8.8 (8.4-10.5) mg/dL Troponin I < 0.01 D ng/mL 10/11/17 Range/Units 11:50 WBC (4.5-11.0) 10^3/ul RBC (3.5-6.1) 10^6/uL Hgb 8.6 L (12.0-16.0) g/dL Hct 25.9 L (36.0-48.0) % MCV (80.0-105.0) fl MCH (25.0-35.0) pg MCHC (31.0-37.0) g/dl RDW (11.5-14.5) % Plt Count (120.0-450.0) 10^3/uL MPV (7.0-11.0) fl Gran % (50.0-68.0) % Lymph % (Auto) (22.0-35.0) % [place] % (Auto) (1.0-6.0) % Eos % (Auto) (1.5-5.0) % Baso % (Auto) (0.0-3.0) % Gran # (1.4-6.5) Lymph # (Auto) (1.2-3.4) [place] # (Auto) (0.1-0.6) Eos # (Auto) (0.0-0.7) Baso # (Auto) (0.0-2.0) K/mm3 Sodium (132-148) mmol/L Potassium (3.6-5.0) mmol/L Chloride (98-107) mmol/L Carbon Dioxide (21-33) mmol/L Anion Gap (10-20) BUN (7-21) mg/dL Creatinine (0.7-1.2) mg/dl Est GFR ( Amer) Est GFR (Non-Af Amer) Random Glucose (70-110) mg/dL Calcium (8.4-10.5) mg/dL Troponin I ng/mL Laboratory Results - last 24 hr 0910/11/17 10/12/17 11:50 12:00 06:30 WBC RBC Hgb 8.6 L Hct 25.9 L MCV MCH MCHC RDW Plt Count MPV Gran % Lymph % (Auto) [place] % (Auto) Eos % (Auto) Baso % (Auto) Gran # Lymph # (Auto) [place] # (Auto) Eos # (Auto) Baso # (Auto) Sodium 136 Potassium 4.4 Chloride 102 Carbon Dioxide 29 Anion Gap 10 BUN 10 Creatinine 0.3 L Est GFR ( Amer) > 60 Est GFR (Non-Af Amer) > 60 Random Glucose 128 H Calcium 8.8 Troponin I < 0.01 D 10/12/17 08:00 WBC 4.9 RBC 3.18 L Hgb 7.9 L Hct 23.8 L MCV 74.8 L MCH 24.8 L MCHC 33.2 RDW 15.9 H Plt Count 393 MPV 9.4 Gran % 85.2 H Lymph % (Auto) 7.3 L [place] % (Auto) 7.5 H Eos % (Auto) 0.0 L Baso % (Auto) 0.0 Gran # 4.18 Lymph # (Auto) 0.4 L [place] # (Auto) 0.4 Eos # (Auto) 0.0 Baso # (Auto) 0.00 Sodium Potassium Chloride Carbon Dioxide Anion Gap BUN Creatinine Est GFR ( Amer) Est GFR (Non-Af Amer) Random Glucose Calcium Troponin I EKG/Cardiology Studies: Cardiology / EKG Studies 10/11/17 12:32 EKG [ELECTROCARDIOGRAM] Stat Comment: Reason For Exam: Anxiety Attack vs ACS Critical Care Progress Note - Nutrition Nutrition: Nutrition Category Date Time Status Heart Healthy Diet [DIET] Diets 10/11/17 Dinner Active Attending/Attestation - Attestation I have personally seen and examined this patient.: Yes I have fully participated in the care of the patient.: Yes I have reviewed all pertinent clinical information: Yes Notes (Text): 10/12/17 11:[address] Kay note
--- NOTE | 2017-10-11 20:17 | CON ---
Copied To: Musa Kay MD Attending MD: Musa Kay MD DATE: 10/11/2017 HISTORY OF PRESENT ILLNESS: This is a 66-year-old lady with history of questionable rheumatoid arthritis and SLE as well as hypertension and hyperlipidemia who presented to the hospital on 10/02 (8 days ago) with diagnosis of community-acquired pneumonia (CAT scan of the chest showed right pleural effusion of moderate amount with adjacent consolidation versus atelectasis). At the same time, CAT scan showed some pericardial effusion as well. The patient was treated with antibiotics and supportive measures. Of note, she was also found to have new onset of severe left ventricular systolic dysfunction. According to my conversation with Dr. Rosen, no prior echocardiogram is available. Some other issues that were addressed during the patient's hospitalization were some transaminitis due to steatohepatosis which was followed by GI Service. Pulmonary embolism/VTE was ruled out by V/Q scan and negative lower extremities venous Doppler. Yesterday's echocardiogram showed [id number] circumferential pericardial effusion with what appears to be early diastolic collapse of the right ventricle and right atrium with paradoxical interventricular septum movement and as was mentioned above severe left ventricular systolic dysfunction. The patient remained relatively hemodynamically stable except for very mild tachycardia in the range of 103 to 105. She was only minimally symptomatic, however did complain of some shortness of breath. She was transferred to ICU for further management and monitoring overnight until multidisciplinary approach to further plan could be set up. No nausea, no vomiting, no diarrhea, no constipation. PAST MEDICAL HISTORY: Diabetes, hypertension, hyperlipidemia, gastroesophageal reflux disease, questionable SLE and rheumatoid arthritis. SOCIAL HISTORY: No alcohol or illicit drug abuse. No tobacco smoking. ALLERGIES: IODINATED CONTRAST, ORAL AND IV; ASPIRIN; AND PENICILLINS. MEDICATIONS IN THE HOSPITAL: Tylenol p.r.n., Brovana, Lipitor, Pulmicort, heparin 5000 subcu every 8, Mobic, Solu-Medrol 20 mg IV every 8 (started today by ICU team), Protonix 40 mg p.o., normal saline 50 mL/hour, tramadol. FAMILY HISTORY: Noncontributory. REVIEW OF SYSTEMS: Review of 12-organ system other than mentioned in history of present illness is negative. PHYSICAL EXAMINATION: VITAL SIGNS: Heart rate 105, blood pressure 103/58 with mean arterial pressure 71, oxygen saturation 98% on 2 liters nasal cannula, respiratory rate 25. GENERAL: The patient is comfortable, ate breakfast, talks full sentences and comfortably playing with iPhone. ENT: Head and neck atraumatic. LUNGS: Clear to auscultation bilaterally. HEART: Regular rate and rhythm. S1, S2 normal. ABDOMEN: Soft, nontender, nondistended. MUSCULOSKELETAL: No C/C/E. NEUROLOGIC: The patient moves all extremities spontaneously. SKIN: Moist. PSYCH: The patient is alert, awake and oriented x3. LABORATORY DATA: Reviewed. ASSESSMENT AND PLAN: This is a 66-year-old lady who presented to Intensive Care Unit with echocardiographic features suggestive of early cardiac tamponade in the setting of circumferential pericardial effusion and new onset left ventricular systolic dysfunction. The patient does have some shortness of breath, however, overall relatively asymptomatic. Most likely etiology of the patient's pericardial effusion is autoimmune disorder which would require further workup, treatment and evaluation. Meanwhile, the patient will be on Solu-Medrol 60 mg/day. We will avoid volume depletion. The patient is on IV fluids. Most importantly, conversation between me and Dr. Bañuelos (Cardiothoracic Surgery) and Dr. Rosen (Cardiology Service) took place. As per Dr. Rosen, the echocardiographic findings are not impressive and not pose immediate/imminent danger. He agreed with corticosteroids and watchful observation on telemetry floor at present time. I also discussed with Dr. Bañuelos the echocardiographic findings. I spoke with surgical team as well about importance of direct communication between Cardiothoracic Surgery and Cardiology Service in this particular case where the plan of action should be multidisciplinary. The patient at present time hemodynamically relatively stable except for mild tachycardia. She maintained mean arterial pressure more than 65. I would continue target euvolemia, euglycemia, normothermia and oxygen saturation more than 90%. Further plan will depend on direct communication between Cardiothoracic Surgery and Cardiology Service. ccm time 40 min Musa Kay MD JACLYN
[2017-10-12] MEDS: Nystatin 100,000 Units/ml Oral Susp 5 ml UD PO SCH ×4 (00:03→19:03)
[2017-10-12] MEDS: MethylPREDNISolone 40 mg Vial IVP SCH ×3 (02:07→22:16)
[2017-10-12] MEDS: Sodium Chloride 0.9% 1,000 ML IV SCH (03:23)
[2017-10-12] MEDS: Pantoprazole 40 mg EC Tab PO SCH (07:07)
[2017-10-12 07:12] LABS: BLOOD UREA NITROGEN 10 mg/dL (7-21); CALCIUM 8.8 mg/dL (8.4-10.5); GFR NON-AFRICAN AMERICAN > 60
[2017-10-12] MEDS: Arformoterol 15 mcg/2 ml Inh Sol IH SCH ×2 (07:20→20:21)
[2017-10-12] MEDS: Budesonide 0.5 mg/2 ml Inhal Susp UD IH SCH ×2 (07:21→20:21)
--- NOTE | 2017-10-12 08:17 | CP.PCM.PN ---
Subjective - Date & Time of Evaluation Date of Evaluation: 10/12/17 Time of Evaluation: 07:00 - Subjective Subjective: Stable in CCU. Still some SOB at times and BERRY with min. exertions. No CP V/S noted. RSR/ST PE: Lungs: rhonchi Cor.: S1S2, soft sys. murmur Abd.: soft Ext.: no edema Neuro.: alert I/O= 1080/1100 Labs noted. trop < 0.01 ECG: ST, LBBB Echo, V/Q, CT chest reports noted. BC X 4 NG at 5 days Objective - Vital Signs/Intake and Output Vital Signs (last 24 hours): Temp Pulse Resp BP Pulse Ox 98.1 F 116 H 39 H 133/65 95 10/12/17 00:00 10/12/17 06:50 10/12/17 06:50 10/12/17 06:04 10/12/17 06:50 Intake and Output: 10/12/17 10/12/17 06:59 18:59 Intake Total 1080 Output Total 1100 Balance -20 - Medications Medications: Current Medications Acetaminophen (Tylenol 325mg Tab) 325 mg PO Q6H PRN PRN Reason: Fever >100.4 F Last Admin: 10/06/17 20:57 Dose: 325 mg Arformoterol Tartrate (Brovana) 15 mcg IH [id number] [facility] Last Admin: 10/12/17 07:20 Dose: 15 mcg Atorvastatin Calcium (Lipitor) 20 mg PO DIN [facility] Last Admin: 10/11/17 19:37 Dose: 20 mg Benzocaine/Menthol (Cepacol Sore Throat) 1 julissa MT Q2H PRN PRN Reason: Sore Throat Last Admin: 10/08/17 09:04 Dose: 1 julissa Budesonide (Pulmicort Respules) 0.5 mg IH [id number] [facility] Last Admin: 10/12/17 07:21 Dose: 0.5 mg Haloperidol Lactate (Haldol) 2 mg IM Q6 PRN; Protocol PRN Reason: Agitation Heparin Sodium (Porcine) (Heparin) 5,000 units SC Q8 BRYANT PRN Reason: Protocol Last Admin: 10/12/17 07:08 Dose: Not Given Sodium Chloride (Sodium Chloride 0.9%) 1,000 mls @ 50 mls/hr IV .Q20H [facility] Last Admin: 10/12/17 03:23 Dose: 50 mls/hr Meloxicam (Mobic) 7.5 mg PO DAILY [facility] Last Admin: 10/11/17 09:42 Dose: 7.5 mg Methylprednisolone (Solu-Medrol) 20 mg IVP Q8H [facility] Last Admin: 10/12/17 02:07 Dose: 20 mg Nystatin (Nystatin Oral Susp) 5 ml PO Q6 [facility] Last Admin: 10/12/17 07:07 Dose: 5 ml Pantoprazole Sodium (Protonix Ec Tab) 40 mg PO 0600 [facility] Last Admin: 10/12/17 07:07 Dose: 40 mg Tramadol HCl (Ultram) 50 mg PO Q12 [facility] Last Admin: 10/11/17 21:04 Dose: 50 mg - Labs Labs: 10/11/17 11:50 10/12/17 06:30 PT 16.2 SECONDS (9.4-12.5) H 10/11/17 10:45 INR 1.40 10/11/17 10:45 APTT 31.6 Seconds (25.1-36.5) 10/11/17 10:45 Assessment and Plan - Assessment and Plan (Free Text) Assessment: SOB: multifactorial Pneumonia Pleural effusions Severe COPD/Smoker Abn LV on echo: LVD, possible MT, abn. septal motion in setting of LBBB Small/medium pericardial effusion w/o tamponade on suboptimal study, possible related to SLE dx. Anemia LBBB HLD CVA GERD SLE FH of CAD Plan: AB Resp./Pulm Tx. PO Lasix OOB to chair Tel. bed. D/C tobacco Nuclear stress testing, timing to be determined. F/U echo in a few days. As per ID, Pulm., Neuro., Intensivists, Dr. Ace
--- NOTE | 2017-10-12 08:41 | CP.PCM.PN ---
Subjective - Date & Time of Evaluation Date of Evaluation: 10/12/17 Time of Evaluation: 08:38 - Subjective Subjective: Cardiothoracic Surgery Progress Note for Dr. Bañuelos This 66F was seen and examined this AM at bedside sonny cute events reported overnight. Patient appears comfortable and stable she denies any SOB or chest pain. No new complaints at this time. Objective - Vital Signs/Intake and Output Vital Signs (last 24 hours): Temp Pulse Resp BP Pulse Ox 97.9 F 101 H 14 128/60 98 10/12/17 08:00 10/12/17 08:30 10/12/17 08:30 10/12/17 08:00 10/12/17 08:30 Intake and Output: 10/12/17 10/12/17 06:59 18:59 Intake Total 1080 Output Total 1100 Balance -20 - Medications Medications: Current Medications Acetaminophen (Tylenol 325mg Tab) 325 mg PO Q6H PRN PRN Reason: Fever >100.4 F Last Admin: 10/06/17 20:57 Dose: 325 mg Arformoterol Tartrate (Brovana) 15 mcg IH [id number] [facility] Last Admin: 10/12/17 07:20 Dose: 15 mcg Atorvastatin Calcium (Lipitor) 20 mg PO DIN [facility] Last Admin: 10/11/17 19:37 Dose: 20 mg Benzocaine/Menthol (Cepacol Sore Throat) 1 julissa MT Q2H PRN PRN Reason: Sore Throat Last Admin: 10/08/17 09:04 Dose: 1 julissa Budesonide (Pulmicort Respules) 0.5 mg IH [id number] [facility] Last Admin: 10/12/17 07:21 Dose: 0.5 mg Furosemide (Lasix) 20 mg PO DAILY [facility] Haloperidol Lactate (Haldol) 2 mg IM Q6 PRN; Protocol PRN Reason: Agitation Heparin Sodium (Porcine) (Heparin) 5,000 units SC Q8 [facility] PRN Reason: Protocol Last Admin: 10/12/17 07:08 Dose: Not Given Sodium Chloride (Sodium Chloride 0.9%) 1,000 mls @ 50 mls/hr IV .Q20H [facility] Last Admin: 10/12/17 03:23 Dose: 50 mls/hr Meloxicam (Mobic) 7.5 mg PO DAILY [facility] Last Admin: 10/11/17 09:42 Dose: 7.5 mg Methylprednisolone (Solu-Medrol) 20 mg IVP Q8H [facility] Last Admin: 10/12/17 02:07 Dose: 20 mg Nystatin (Nystatin Oral Susp) 5 ml PO Q6 [facility] Last Admin: 10/12/17 07:07 Dose: 5 ml Pantoprazole Sodium (Protonix Ec Tab) 40 mg PO 0600 [facility] Last Admin: 10/12/17 07:07 Dose: 40 mg Tramadol HCl (Ultram) 50 mg PO Q12 [facility] Last Admin: 10/11/17 21:04 Dose: 50 mg - Labs Labs: 10/11/17 11:50 10/12/17 06:30 PT 16.2 SECONDS (9.4-12.5) H 10/11/17 10:45 INR 1.40 10/11/17 10:45 APTT 31.6 Seconds (25.1-36.5) 10/11/17 10:45 - Constitutional Appears: Non-toxic, No Acute Distress - Head Exam Head Exam: ATRAUMATIC, NORMOCEPHALIC - Eye Exam Eye Exam: EOMI, Normal appearance - ENT Exam ENT Exam: Mucous Membranes Moist - Respiratory Exam Respiratory Exam: NORMAL BREATHING PATTERN - Cardiovascular Exam Cardiovascular Exam: +S1, +S2 - GI/Abdominal Exam GI & Abdominal Exam: Soft. absent: Rigid, Tenderness - Neurological Exam Neurological Exam: Alert, Awake - Psychiatric Exam Psychiatric exam: Normal Affect, Normal Mood - Skin Skin Exam: Dry, Intact Assessment and Plan - Assessment and Plan (Free Text) Assessment: 66F with SLE and pericardial effusion No current surgical intervention at this time, thank you for the consult if patient needs surgical evaluation please reconsult the service. D/W Dr. Edda Foy PGY3
[2017-10-12 08:50] LABS: GRAN # 4.18 (1.4-6.5); GRAN % 85.2 % (50.0-68.0); HEMOGLOBIN 7.9 g/dL (12.0-16.0); LYMPH # 0.4 (1.2-3.4); LYMPH % 7.3 % (22.0-35.0); MEAN CELL VOLUME 74.8 fl (80.0-105.0); MEAN CORPUSCULAR HEMOGLOBIN 24.8 pg (25.0-35.0); MEAN CORPUSCULAR HGB CONC 33.2 g/dl (31.0-37.0); MEAN PLATELET VOLUME 9.4 fl (7.0-11.0); MONO # 0.4 (0.1-0.6); MONO % 7.5 % (1.0-6.0); RBC 3.18 10^6/uL (3.5-6.1); RED CELL DISTRIBUTION WIDTH 15.9 % (11.5-14.5); WHITE BLOOD COUNT 4.9 10^3/ul (4.5-11.0)
[2017-10-12] MEDS: Meloxicam 7.5 MG TAB PO SCH (09:30)
--- NOTE | 2017-10-12 12:36 | CP.PCM.PN ---
<Jasper Thurston - Last Filed: 10/12/17 12:33> Subjective - Date & Time of Evaluation Date of Evaluation: 10/12/17 Time of Evaluation: 12:33 - Subjective Subjective: GI Progress Note for Dr. Hackett's Service- Velma, PGY2 Patient seen and assessed at bedside. No acute events noted overnight. She reports she is tolerating her diet well without complaints at this time. Patient denies any fevers, chills, chest pain, SOB, abdominal pain, N/V/D/C, hematochezia, melena, changes in urine output or any skin changes. Objective - Vital Signs/Intake and Output Vital Signs (last 24 hours): Temp Pulse Resp BP Pulse Ox 97.9 F 96 H 35 H 125/67 100 10/12/17 08:00 10/12/17 08:40 10/12/17 08:40 10/12/17 09:29 10/12/17 08:40 Intake and Output: 10/12/17 10/12/17 06:59 18:59 Intake Total 1080 Output Total 1100 Balance -20 - Medications Medications: Current Medications Acetaminophen (Tylenol 325mg Tab) 325 mg PO Q6H PRN PRN Reason: Fever >100.4 F Last Admin: 10/06/17 20:57 Dose: 325 mg Arformoterol Tartrate (Brovana) 15 mcg IH [id number] [facility] Last Admin: 10/12/17 07:20 Dose: 15 mcg Atorvastatin Calcium (Lipitor) 20 mg PO DIN [facility] Last Admin: 10/11/17 19:37 Dose: 20 mg Benzocaine/Menthol (Cepacol Sore Throat) 1 julissa MT Q2H PRN PRN Reason: Sore Throat Last Admin: 10/08/17 09:04 Dose: 1 julissa Budesonide (Pulmicort Respules) 0.5 mg IH [id number] [facility] Last Admin: 10/12/17 07:21 Dose: 0.5 mg Furosemide (Lasix) 20 mg PO DAILY [facility] Last Admin: 10/12/17 09:29 Dose: 20 mg Heparin Sodium (Porcine) (Heparin) 5,000 units SC Q8 [facility] PRN Reason: Protocol Last Admin: 10/12/17 07:08 Dose: Not Given Lorazepam (Ativan) 0.5 mg PO Q6H PRN PRN Reason: Anxiety Methylprednisolone (Solu-Medrol) 20 mg IVP Q12H [facility] Nystatin (Nystatin Oral Susp) 5 ml PO Q6 [facility] Last Admin: 10/12/17 07:07 Dose: 5 ml Pantoprazole Sodium (Protonix Ec Tab) 40 mg PO 0600 [facility] Last Admin: 10/12/17 07:07 Dose: 40 mg Tramadol HCl (Ultram) 50 mg PO Q12 PRN PRN Reason: severe pain - Labs Labs: 10/12/17 08:00 10/12/17 06:30 PT 16.2 SECONDS (9.4-12.5) H 10/11/17 10:45 INR 1.40 10/11/17 10:45 APTT 31.6 Seconds (25.1-36.5) 10/11/17 10:45 - Constitutional Appears: Non-toxic, No Acute Distress - Head Exam Head Exam: ATRAUMATIC, NORMOCEPHALIC - Eye Exam Eye Exam: EOMI, Normal appearance - ENT Exam ENT Exam: Mucous Membranes Moist - Neck Exam Neck Exam: Full ROM - Respiratory Exam Respiratory Exam: Rhonchi (Rhonchi in RLL noted to have interval improvement), NORMAL BREATHING PATTERN. absent: Accessory Muscle Use, Chest Wall Tenderness, Decreased Breath Sounds, Prolonged Expiratory Phase, Rales, Wheezes, Respiratory Distress, Stridor - Cardiovascular Exam Cardiovascular Exam: REGULAR RHYTHM, RRR, +S1, +S2 - GI/Abdominal Exam GI & Abdominal Exam: Soft, Normal Bowel Sounds. absent: Bruit, Distended, Firm , Guarding, Rigid, Tenderness, Diminished Bowel Sounds, Hernia, Hyperactive Bowel Sounds, Hypoactive Bowel Sounds, Mass, Organomegaly, Pulsatile Mass, Rebound - Extremities Exam Extremities Exam: absent: Calf Tenderness, Joint Swelling, Pedal Edema, Tenderness - Neurological Exam Neurological Exam: Alert, Awake, Oriented x3 - Psychiatric Exam Psychiatric exam: Normal Affect, Normal Mood - Skin Skin Exam: Dry, Intact, Normal Color, Warm Assessment and Plan - Assessment and Plan (Free Text) Assessment: 66 year old female with a past medical history significant for GERD, HTN, HLD, and questionable SLE/RA who presented to the hospital with fatigue and body aches for three days. Patient was found to be anemic and GI was consulted to evaluate for possible GI hemorrhage. Patient was to have EGD on 10/05 but this was postponed after patient was found to have pleural effusions on CT chest. Patient was rescheduled for EGD on 10/06 but this was cancelled as patient had fever overnight and was found to have significantly elevated D-Dimer. Patient has agreed to have this done as an outpatient. Plan: -CT Abdomen/Pelvis (PO Contrast) showed inflammatory changes in the LLQ adjacent to the colon possibly representing mesenteric adenitis with mildly enlarged celiac lymph nodes -Abdominal US showed no cholelithiasis, CBD to 4mm and hepatic steatosis -Hepatitis panel negative -Repeat H/H stable with no obvious signs of GI hemorrhage, such as melena or hematochezia -Heart Healthy Diet with Ensure Enlive supplementation TID -Continue PPI PO daily -Plavix/Pain Control per PMD; Discontinued Mobic for pain control in setting anemia with GI hemorrhage in differential GI Disposition: CT/Abdominal US/Pertinent laboratory findings discussed with patient. She should have endoscopic procedures done as an outpatient. Patient verbalizes understanding of this and agrees to follow up with GI as outpatient for EGD/colonoscopy. Patient seen and case discussed with attending, Dr. Hackett. <Ranulfo Hackett V - Last Filed: 10/14/17 00:18> Objective - Vital Signs/Intake and Output Vital Signs (last 24 hours): Temp Pulse Resp BP Pulse Ox 98.4 F 89 19 123/73 100 10/13/17 17:57 10/13/17 18:00 10/13/17 17:57 10/13/17 17:57 10/13/17 05:00 Intake and Output: 10/13/17 10/14/17 18:59 06:59 Intake Total 100 Balance 100 - Medications Medications: Current Medications Acetaminophen (Tylenol 325mg Tab) 325 mg PO Q6H PRN PRN Reason: Fever >100.4 F Last Admin: 10/06/17 20:57 Dose: 325 mg Arformoterol Tartrate (Brovana) 15 mcg IH [id number] [facility] Last Admin: 10/13/17 20:57 Dose: 15 mcg Atorvastatin Calcium (Lipitor) 20 mg PO DIN [facility] Last Admin: 10/13/17 17:12 Dose: 20 mg Benzocaine/Menthol (Cepacol Sore Throat) 1 julissa MT Q2H PRN PRN Reason: Sore Throat Last Admin: 10/08/17 09:04 Dose: 1 julissa Budesonide (Pulmicort Respules) 0.5 mg IH [id number] [facility] Last Admin: 10/13/17 20:58 Dose: 0.5 mg Furosemide (Lasix) 20 mg PO DAILY [facility] Last Admin: 10/13/17 09:52 Dose: 20 mg Heparin Sodium (Porcine) (Heparin) 5,000 units SC Q8 [facility] PRN Reason: Protocol Last Admin: 10/13/17 13:10 Dose: Not Given Lorazepam (Ativan) 0.5 mg PO Q6H PRN PRN Reason: Anxiety Last Admin: 10/13/17 17:12 Dose: 0.5 mg Meloxicam (Mobic) 7.5 mg PO DAILY [facility] Last Admin: 10/13/17 12:58 Dose: 7.5 mg Methylprednisolone (Solu-Medrol) 20 mg IVP Q12H [facility] Last Admin: 10/13/17 11:10 Dose: 20 mg Metoprolol Tartrate (Lopressor) 12.5 mg PO BRK [facility] Last Admin: 10/13/17 12:59 Dose: 12.5 mg Nystatin (Nystatin Oral Susp) 5 ml PO Q6 [facility] Last Admin: 10/13/17 23:31 Dose: 5 ml Pantoprazole Sodium (Protonix Ec Tab) 40 mg PO 0600 [facility] Last Admin: 10/13/17 06:12 Dose: 40 mg Tramadol HCl (Ultram) 50 mg PO Q12 PRN PRN Reason: severe pain Last Admin: 10/13/17 23:31 Dose: 50 mg - Labs Labs: 10/12/17 08:00 10/12/17 06:30 PT 16.2 SECONDS (9.4-12.5) H 10/11/17 10:45 INR 1.40 10/11/17 10:45 APTT 31.6 Seconds (25.1-36.5) 10/11/17 10:45 Attending/Attestation - Attestation I have personally seen and examined this patient.: Yes I have fully participated in the care of the patient.: Yes I have reviewed all pertinent clinical information, including history, physical exam and plan: Yes Notes (Text): This is a delayed addendum to GI followup report dictated by the Proof Carrier. The patient was seen and evaluated earlier. Medical records, lab studies, imagings were reviewed. Last 24 hours events reviewed. Agreed with the above treatment plan as outlined in [employer] [facility]rier 's notes with the addition of the following patient has been on Mobic which has been discontinued Continue PPI Follow-up hemoglobin hematocrit EGD the patient is agreeable. Discussed again with the patient 10/14/17 00:12
--- NOTE | 2017-10-12 12:56 | PN ---
DATE: 10/12/2017 CRITICAL CARE PROGRESS NOTE SUBJECTIVE: This 66-year-old female was examined in CCU bed 4. This case was reviewed in detail with Dr. Lewis Conde, Cardiology. The patient was transferred to the ICU Critical Care Unit because of shortness of breath and a newly noted [id number] pericardial effusion, which on further review by Dr. Conde, was not consistent with tamponade. Her mild pericardial effusion is possibly related to her diagnosis of systemic lupus erythematosus. To date, there have been no reports of chest pain or arrhythmia and the patient will have a repeat 2-D echocardiogram to further assess the status of this newly noted small pericardial effusion on recent echocardiography. The patient also has intermittent tachycardia in the setting of shortness of breath, status post recent hospitalization for community-acquired right lower lung pneumonia complicated by a pleural effusion in a cigarette smoker with severe COPD and now a finding of left ventricular dysfunction on 2-D echocardiography, possibly secondary to a recent MN. As discussed with Dr. Conde, the patient will be readied for a nuclear stress test given her SEVERE ALLERGY TO IV CONTRAST and is also being treated for multiple comorbidities including hyperlipidemia, GERD, lupus, chronic anemia, COPD, recent discontinuation of cigarette smoking and a degenerative arthritis. At present, the patient remains in a normal sinus rhythm on the youth nutritional monitor. OBJECTIVE: VITAL SIGNS: Her latest vital signs show a temperature of 97.9, respirations of 14, pulse of 96 and blood pressure 125/67 with a pulse ox 100% on 2 liters nasal O2. HEENT: Head: Normocephalic, atraumatic. Eyes: No icterus. Ears: Clear. Throat: Noninjected. NECK: Supple. HEART: Regular S1, S2. No pathological rubs, murmurs or gallops. LUNGS: With occasional rhonchi that clears with coughing. ABDOMEN: Soft. EXTREMITIES: No edema. SKIN: Without rash. NEUROLOGICAL: Deconditioned, intact. VASCULAR: Legs warm to touch. PSYCHOLOGICAL: Alert and anxious. DATA: Sodium 136, K 4.4, chloride 102, bicarb 29, BUN 10, creatinine 0.3. Random blood sugar 128 with calcium of 8.8. All liver function testing was normal. Bilirubin 0.6, AST 35, ALT 28, alk phos 104. Troponin was less than 0.01. Previous iron level 21, percent saturation 13. Latest CBC: White count 4900, hemoglobin 7.9, hematocrit 23.8, platelets 393,000. Hepatitis A, B, C serologies are negative. HIV serology is nonreactive and her urine for Legionella antigen is negative. Her electrocardiogram dated 10/11/2017 was reviewed. It shows sinus tachycardia with left bundle branch block, nonspecific ST-T wave changes. IMPRESSION: This is a 66-year-old female with multiple medical problems as listed above with a recent 2-D echocardiogram showing [id number] pericardial effusion with no evidence of tamponade upon further review by Dr. Rosen and Dr. Conde from Cardiology with a recent CT of her chest also revealing a small pericardial effusion at that time, most likely on the basis of her systemic lupus erythematosus, collagen vascular disease with fully treated right lower lung pneumonia, on antibiotics, pulmonary toiletry and recent discontinuation of tobacco in the setting of longstanding chronic obstructive pulmonary disease with abnormal wall motion noted on her echocardiography suggestive of coronary artery disease as well as history of hypertension and hyperlipidemia, for which the patient will be scheduled for nuclear stress test by Cardiology when it is felt she is stable for this testing. At present, the patient care will be continued on the cardiac gregory. She will continue to receive Brovana inhalational therapy every 12 hours, Cepacol lozenges every 2 hours p.r.n. sore throat, heparin 5000 units subcu every 8 hours, Lasix 20 mg p.o. daily, Lipitor 20 mg p.o. daily, Mobic 7.5 mg p.o. daily, nystatin 5 mL p.o. swish and swallow every 6 hours, Protonix 40 mg p.o. daily, Pulmicort inhalational therapy every 12 hours, methylprednisolone, Solu-Medrol 20 mg IV every 8 hours, Tylenol p.o. every 6 hours p.r.n. mild pain with temperature greater than 101, Ultram 50 mg p.o. every 12 hours p.r.n. severe pain, Xanax 0.25 mg p.o. daily p.r.n. severe anxiety. She is encouraged to perform incentive spirometry. Her repeat 2-D echocardiogram has been ordered by Dr. Conde. She continues on a heart-healthy diet with aspiration precautions and is ordered to be out of bed to chair with physical therapy for reconditioning and gait training. Once the patient is medically stable and cleared by her co-consultants, I will ask Social Service to arrange subacute rehab for reconditioning and gait training and the patient was also counseled regarding smoking cessation and all of the above. Greater than 60 minutes was spent in the care management, review of labs, orders, x-rays and discussion with co-consultants including Cardiology and Infectious Disease as well as Intensive Care. All questions were answered. Flora Ace MD MTDNatasha
--- NOTE | 2017-10-12 16:07 | CP.PCM.PN ---
Subjective - Date & Time of Evaluation Date of Evaluation: 10/12/17 Time of Evaluation: 10:00 - Subjective Subjective: Comfortable, no fevers, not in distress, no chest pain, no SOB at rest. Objective - Vital Signs/Intake and Output Vital Signs (last 24 hours): Temp Pulse Resp BP Pulse Ox 98.1 F 116 H 39 H 133/65 95 10/12/17 00:00 10/12/17 06:50 10/12/17 06:50 10/12/17 06:04 10/12/17 06:50 Intake and Output: 10/12/17 10/12/17 06:59 18:59 Intake Total 1080 Output Total 1100 Balance -20 - Medications Medications: Current Medications Acetaminophen (Tylenol 325mg Tab) 325 mg PO Q6H PRN PRN Reason: Fever >100.4 F Last Admin: 10/06/17 20:57 Dose: 325 mg Arformoterol Tartrate (Brovana) 15 mcg IH [id number] [facility] Last Admin: 10/12/17 07:20 Dose: 15 mcg Atorvastatin Calcium (Lipitor) 20 mg PO DIN [facility] Last Admin: 10/11/17 19:37 Dose: 20 mg Benzocaine/Menthol (Cepacol Sore Throat) 1 julissa MT Q2H PRN PRN Reason: Sore Throat Last Admin: 10/08/17 09:04 Dose: 1 julissa Budesonide (Pulmicort Respules) 0.5 mg IH [id number] [facility] Last Admin: 10/12/17 07:21 Dose: 0.5 mg Haloperidol Lactate (Haldol) 2 mg IM Q6 PRN; Protocol PRN Reason: Agitation Heparin Sodium (Porcine) (Heparin) 5,000 units SC Q8 [facility] PRN Reason: Protocol Last Admin: 10/12/17 07:08 Dose: Not Given Sodium Chloride (Sodium Chloride 0.9%) 1,000 mls @ 50 mls/hr IV .Q20H [facility] Last Admin: 10/12/17 03:23 Dose: 50 mls/hr Meloxicam (Mobic) 7.5 mg PO DAILY [facility] Last Admin: 10/11/17 09:42 Dose: 7.5 mg Methylprednisolone (Solu-Medrol) 20 mg IVP Q8H [facility] Last Admin: 10/12/17 02:07 Dose: 20 mg Nystatin (Nystatin Oral Susp) 5 ml PO Q6 [facility] Last Admin: 10/12/17 07:07 Dose: 5 ml Pantoprazole Sodium (Protonix Ec Tab) 40 mg PO 0600 [facility] Last Admin: 10/12/17 07:07 Dose: 40 mg Tramadol HCl (Ultram) 50 mg PO Q12 [facility] Last Admin: 10/11/17 21:04 Dose: 50 mg - Labs Labs: 10/11/17 11:50 10/12/17 06:30 PT 16.2 SECONDS (9.4-12.5) H 10/11/17 10:45 INR 1.40 10/11/17 10:45 APTT 31.6 Seconds (25.1-36.5) 10/11/17 10:45 - Constitutional Appears: Non-toxic, Chronically Ill - Head Exam Head Exam: NORMAL INSPECTION - ENT Exam ENT Exam: Mucous Membranes Moist - Neck Exam Neck Exam: absent: Meningismus - Respiratory Exam Respiratory Exam: Decreased Breath Sounds - Cardiovascular Exam Cardiovascular Exam: +S1, +S2 - GI/Abdominal Exam GI & Abdominal Exam: Soft. absent: Tenderness Assessment and Plan - Assessment and Plan (Free Text) Plan: Assessment S/P severe sepsis due to right sided community-acquired pneumonia possible cardiac tamponade GERD HTN dyslipidemia possible rheumatoid arthritis anxiety history of UTI Plan continue to monitor off antibiotics since she is at risk for hospital-acquired infections follow up plans of Cardiology for the possible cardiac tamponade
[2017-10-13] MEDS: Nystatin 100,000 Units/ml Oral Susp 5 ml UD PO SCH ×5 (00:01→23:31)
[2017-10-13] MEDS: Pantoprazole 40 mg EC Tab PO SCH (06:12)
[2017-10-13] MEDS: Budesonide 0.5 mg/2 ml Inhal Susp UD IH SCH ×2 (07:40→20:58)
[2017-10-13] MEDS: Arformoterol 15 mcg/2 ml Inh Sol IH SCH ×2 (07:40→20:57)
--- NOTE | 2017-10-13 07:51 | CP.PCM.PN ---
Subjective - Date & Time of Evaluation Date of Evaluation: 10/13/17 Time of Evaluation: 07:00 - Subjective Subjective: Stable on 2R. No CP or SOB V/S noted. RSR/ST 93 - 110 PE: Lungs: rhonchi Cor.: S1S2, soft sys. murmur Abd.: soft Ext.: no edema Neuro.: alert I/O= 910/650 Labs noted: H/H 7.9/23.8, BMP OK ECG 10/11 : ST, LBBB Echo, V/Q, CT chest reports noted. BC X 4 NG at 5 days Objective - Vital Signs/Intake and Output Vital Signs (last 24 hours): Temp Pulse Resp BP Pulse Ox 98 F 93 H 18 112/63 100 10/13/17 05:00 10/13/17 05:00 10/13/17 05:00 10/13/17 05:00 10/13/17 05:00 Intake and Output: 10/13/17 10/13/17 06:59 18:59 Intake Total 360 Balance 360 - Medications Medications: Current Medications Acetaminophen (Tylenol 325mg Tab) 325 mg PO Q6H PRN PRN Reason: Fever >100.4 F Last Admin: 10/06/17 20:57 Dose: 325 mg Arformoterol Tartrate (Brovana) 15 mcg IH [id number] [facility] Last Admin: 10/13/17 07:40 Dose: 15 mcg Atorvastatin Calcium (Lipitor) 20 mg PO DIN [facility] Last Admin: 10/12/17 18:00 Dose: 20 mg Benzocaine/Menthol (Cepacol Sore Throat) 1 julissa MT Q2H PRN PRN Reason: Sore Throat Last Admin: 10/08/17 09:04 Dose: 1 julissa Budesonide (Pulmicort Respules) 0.5 mg IH [id number] [facility] Last Admin: 10/13/17 07:40 Dose: 0.5 mg Furosemide (Lasix) 20 mg PO DAILY [facility] Last Admin: 10/12/17 09:29 Dose: 20 mg Heparin Sodium (Porcine) (Heparin) 5,000 units SC Q8 [facility] PRN Reason: Protocol Last Admin: 10/13/17 06:11 Dose: Not Given Iron Sucrose 200 mg/ Sodium (Chloride) 110 mls @ 110 mls/hr IVPB ONCE ONE Stop: 10/13/17 07:51 Lorazepam (Ativan) 0.5 mg PO Q6H PRN PRN Reason: Anxiety Methylprednisolone (Solu-Medrol) 20 mg IVP Q12H [facility] Last Admin: 10/12/17 22:16 Dose: 20 mg Nystatin (Nystatin Oral Susp) 5 ml PO Q6 [facility] Last Admin: 10/13/17 06:12 Dose: 5 ml Pantoprazole Sodium (Protonix Ec Tab) 40 mg PO 0600 [facility] Last Admin: 10/13/17 06:12 Dose: 40 mg Tramadol HCl (Ultram) 50 mg PO Q12 PRN PRN Reason: severe pain Last Admin: 10/12/17 23:05 Dose: 50 mg - Labs Labs: 10/12/17 08:00 10/12/17 06:30 PT 16.2 SECONDS (9.4-12.5) H 10/11/17 10:45 INR 1.40 10/11/17 10:45 APTT 31.6 Seconds (25.1-36.5) 10/11/17 10:45 Assessment and Plan - Assessment and Plan (Free Text) Assessment: SOB: multifactorial Pneumonia Pleural effusions Severe COPD/Smoker Abn LV on echo: LVD, possible MN, abn. septal motion in setting of LBBB Small/medium pericardial effusion w/o tamponade on suboptimal study, possible related to SLE dx. Clinically no tamponade. Anemia LBBB HLD CVA GERD SLE FH of CAD Plan: Anemia eval. Resp./Pulm Tx. PO Lasix OOB to chair as cleo. As per Dr. Ace, ID, GI, neuro., Pulm. D/C tobacco Nuclear stress testing, timing to be determined, probably next week. F/U echo > Monday PT/Rehab.
--- NOTE | 2017-10-13 08:13 | PN ---
DATE: 10/09/2017 SUBJECTIVE: This 66-year-old female was examined at her bedside. The patient is anxious for discharge. This case was reviewed in detail with her nurse, Mirza Langford, registered nurse. The patient remains short of breath at rest and has intermittent episodes of tachycardia. She is being followed by myself, Infectious Disease, Pulmonary and Gastroenterology. The patient does complain of lightheadedness with visual changes and I have expressed that I will obtain a consultation with Dr. Varghese from Neurology regarding the above. At present, she is lying in bed. She is in a sinus to sinus tachycardia rhythm on the cardiac nurse specialist. She is alert and oriented x3. Denies any chest pain or shortness of breath. PHYSICAL EXAMINATION: VITAL SIGNS: Temperature 99.2, respirations 20, pulse 100, blood pressure 113/58. Pulse ox 96% on 2 L nasal O2. HEENT: Head normocephalic, atraumatic. Eyes: No icterus. Ears: Clear. Throat: Noninjected. NECK: Supple. HEART: Regular S1, S2. No pathological rubs, murmurs or gallops. LUNGS: With occasional rhonchi that clear with coughing. ABDOMEN: Soft. EXTREMITIES: No edema. SKIN: Without rash. NEUROLOGICAL: Deconditioned. VASCULAR: Legs warm to touch. PSYCHOLOGICAL: Alert and anxious. NEURO: Intact. LABORATORY DATA: White count 3700, hemoglobin 8.8, hematocrit 26.9, platelets 406,000. Sodium 134, K 3, chloride 96, bicarb 31, BUN 6, creatinine 0.4, random blood sugar 129. Procalcitonin level 0.57, normal is 0.19-0.49. IMPRESSION: A 66-year-old female, admitted with community-acquired right lower lung pneumonia, exacerbation of chronic obstructive pulmonary disease with comorbidities of degenerative arthritis, systemic lupus erythematosus, hyperlipidemia, peptic ulcer disease with gastroesophageal reflux disease, anemia of chronic disease, iron-deficiency anemia, chronic anxiety, hypokalemia, recent hyponatremia, status post nausea, vomiting and diarrhea. PLAN: My plans as discussed with the patient and nursing will be to replace potassium orally and monitor potassium levels daily. The patient will continue on Ultram p.r.n. severe pain, Tylenol for mild to moderate pain and low-grade fever, Pulmicort inhalational therapy, Protonix orally daily, nystatin swish and swallow, Lipitor 20 mg at bedtime, Lasix 20 mg p.o. daily, heparin subcu 5000 units every 8, Cepacol lozenges p.r.n. sore throat, Brovana inhalational therapy. I did discuss with the patient at bedside proceeding with endoscopic colonoscopy and colonoscopy given her GI complaints and iron-deficiency anemia. She is reluctant to proceed with this at present. The patient continues to be followed by co-consultants. The patient is agreeable to consideration of subacute rehab when medically cleared by Infectious Disease, Pulmonary, Gastroenterology and Neurology. All of the above was discussed in detail with the patient at bedside and nursing. All questions were answered. Flora Ace MD MTDD
--- NOTE | 2017-10-13 08:20 | PN ---
DATE: 10/10/2017 SUBJECTIVE: This 66-year-old female was examined at her bedside. Her case was reviewed in detail with herself and nurse, cori Mae nurse. The patient remains anxious, weak and debilitated. At present, the patient is refusing EGD as recommended by Dr. Ranulfo Hackett from GI. The patient has persistent tachycardia. She denies any fever, chills, chest pain. She remains mildly short of breath at rest. PHYSICAL EXAMINATION: VITAL SIGNS: Her temperature was 99, respirations 20, pulse 120 with a blood pressure of 118/69 and a pulse ox of 99% on room air. HEENT: Head: Normocephalic, atraumatic. Eyes: No icterus. Ears: Clear. Throat: Noninjected. NECK: Supple. HEART: S1, S2. No pathological rubs, murmurs or gallops. LUNGS: Occasional rhonchi, clear with wheezing. ABDOMEN: Soft. EXTREMITIES: No edema. SKIN: No rash. VASCULAR: Legs warm to touch. PSYCHOLOGICAL: Alert and anxious. NEURO: Deconditioned. LABORATORY DATA: Potassium this morning 3.9, previously 3. White count 3700, hemoglobin 8.8, hematocrit 26.9, platelets 406,000. Hepatitis A, B, C serologies are negative. HIV antibodies are nonreactive. Urine for Legionella antigen is negative. All blood, urine and MRSA cultures are unremarkable. IMPRESSION: A 66-year-old female admitted with right lower lung pneumonia, community acquired; exacerbation of chronic obstructive pulmonary disease with history of chronic anxiety; systemic lupus erythematosus; hypertension; hyperlipidemia; peptic ulcer disease with gastroesophageal reflux disease; anemia of chronic disease and now iron-deficiency anemia indices. PLAN: As discussed with the patient and nurse, Abbi Alamo, registered nurse will be to order a 2-D echocardiogram for completeness sake. A consultation has been placed with Dr. Dar Varghese from Neurology regarding complaints of lightheadedness and visual disturbance. She will continue on Tylenol, pulmonary toiletry with Brovana and Pulmicort inhalational therapy, oral Protonix, nystatin swish and swallow, Lipitor, subcu heparin, p.r.n. Cepacol throat lozenges. I have discussed with Social Service that the patient is agreeable with subacute rehab when medically cleared. She has been reinstructed regarding incentive spirometry, heart-healthy soft bland diet. She will remain on aspiration precautions and has been encouraged to be out of bed to chair with physical therapy as able. Because of her recent poor p.o. intake, dietary supplemenatation with Enlive strawberry flavored 1 can t.i.d. has been reinforced. Based on clinical progress and results of the above diagnostic workup, additional diagnostic testing will be entertained. Greater than 35 minutes was spent in the care and management, review of labs, orders and x-rays and discussion of this patient with herself, co-consultants and nurse, Cally. All questions were answered. Flora Ace MD MTDNatasha
--- NOTE | 2017-10-13 08:31 | PN ---
DATE: 10/11/2017 CRITICAL CARE PROGRESS NOTE SUBJECTIVE: This 66-year-old female is now in CCU, bed 4. She was examined at her bedside and her case was reviewed in detail with critical care nurse, Donta Johansen, registered nurse as well as Dr. Lewis Conde from Cardiology. Late last evening, the patient was transferred to Intensive Care when 2-D echocardiography revealed a pericardial effusion with possible tamponade. The patient was evaluated during the evening by the perfect bind machine operator and was noted to have JVD as well as tachycardia. At present, she is resting comfortably and her 2-D echocardiography was re-reviewed by Dr. Lewis Conde from Cardiology. It is his feeling that the patient may have a small to moderate pericardial effusion, but he sees no evidence of cardiac tamponade. The patient at present denies any fever, chills, chest pain or palpitation and is in a sinus to sinus tachycardia rhythm on the potline monitor. PHYSICAL EXAMINATION: VITAL SIGNS: Showing temperature 99.4, respirations 18, blood pressure 109/61, pulse ox 94% on 2 L nasal O2 and blood pressure 103/58. Current heart rate is approximately 109, regular sinus tach per minute. HEENT: Head: Normocephalic, atraumatic. Eyes: No icterus. Ears: Clear. Throat: Noninjected. NECK: Supple. HEART: Regular S1, S2. No pathological rubs, murmurs or gallops. LUNGS: Clear. ABDOMEN: Soft. EXTREMITIES: No edema. SKIN: Without rash. NEUROLOGICAL: Intact. PSYCHOLOGICAL: Anxious. VASCULAR: Legs warm to touch. LABORATORY DATA: Sodium 130, K 4.7, chloride 95, bicarb 27, BUN 10, creatinine 0.4, random blood sugar 94, calcium 8.1, phosphorous 3.3, magnesium 1.9, bilirubin 0.6, AST 35, ALT 28, alk phos 104. Troponin less than 0.01. White count 5400, hemoglobin 7.7, hematocrit 23.9, platelets 323,000. PT/INR 1.4, PTT 31.6. IMPRESSION: A 66-year-old female with multiple medical problems including hospitalization for right lower lung pneumonia with exacerbation of chronic obstructive pulmonary disease with history of hypertension, hyperlipidemia, systemic lupus erythematous, now with persistent tachycardia and a recent 2-D echocardiogram showing pericardial effusion, questionable cardiac tamponade. Recent CT of chest showing bilateral pleural effusions right greater than left with history of allergy to iodinated dye with the plan to continue antibiotics as per Infectious Disease. As discussed with Cardiology, a followup echocardiography exam will be done in the next few days to evaluate her for any worsening of pericardial effusion, which according to their recommendation does not warrant any further intervention at this time. A consultation with Chest Surgery, Dr. Bañuelos has been requested for completeness sake. It is not felt that she needs any percutaneous or surgical drainage of the effusion at present. If she should develop any hemodynamic changes, this decision will be rediscussed. As discussed with Cardiology, an eventual stress test will be completed during this hospital stay given her wall abnormality noticed on recent echocardiography and risk factors. The patient will remain in the intensive care until cleared by Cardiology and greater than 60 minutes were spent in the care and management, review of labs, orders, x-rays and discussion of her case with the intensivists, Dr. Rosen from Cardiology, Dr. Lewis Conde from Cardiology and Dr. Scott Kay, perfect bind machine operator. All of the above was reviewed with the patient at her bedside. All questions were answered. Flora Ace MD JACLYN
--- NOTE | 2017-10-13 11:01 | CP.PCM.PN ---
<Jasper Thurston - Last Filed: 10/13/17 18:02> Subjective - Date & Time of Evaluation Date of Evaluation: 10/13/17 Time of Evaluation: 10:58 - Subjective Subjective: GI Progress Note for Dr. Hackett's Service- Velma, PGY2 Patient seen and assessed at bedside. No acute events noted overnight. Patient denies any complications or tolerance issues with diet. Patient denies any fevers, chills, chest pain, SOB, abdominal pain, N/V/D/C, hematochezia, melena, changes in urine output or any skin changes. Objective - Vital Signs/Intake and Output Vital Signs (last 24 hours): Temp Pulse Resp BP Pulse Ox 98 F 93 H 18 117/60 100 10/13/17 05:00 10/13/17 05:00 10/13/17 05:00 10/13/17 09:52 10/13/17 05:00 Intake and Output: 10/13/17 10/13/17 06:59 18:59 Intake Total 360 Balance 360 - Medications Medications: Current Medications Acetaminophen (Tylenol 325mg Tab) 325 mg PO Q6H PRN PRN Reason: Fever >100.4 F Last Admin: 10/06/17 20:57 Dose: 325 mg Arformoterol Tartrate (Brovana) 15 mcg IH [id number] [facility] Last Admin: 10/13/17 07:40 Dose: 15 mcg Atorvastatin Calcium (Lipitor) 20 mg PO DIN [facility] Last Admin: 10/12/17 18:00 Dose: 20 mg Benzocaine/Menthol (Cepacol Sore Throat) 1 julissa MT Q2H PRN PRN Reason: Sore Throat Last Admin: 10/08/17 09:04 Dose: 1 julissa Budesonide (Pulmicort Respules) 0.5 mg IH [id number] [facility] Last Admin: 10/13/17 07:40 Dose: 0.5 mg Furosemide (Lasix) 20 mg PO DAILY [facility] Last Admin: 10/13/17 09:52 Dose: 20 mg Heparin Sodium (Porcine) (Heparin) 5,000 units SC Q8 [facility] PRN Reason: Protocol Last Admin: 10/13/17 06:11 Dose: Not Given Lorazepam (Ativan) 0.5 mg PO Q6H PRN PRN Reason: Anxiety Methylprednisolone (Solu-Medrol) 20 mg IVP Q12H [facility] Last Admin: 10/12/17 22:16 Dose: 20 mg Nystatin (Nystatin Oral Susp) 5 ml PO Q6 [facility] Last Admin: 10/13/17 06:12 Dose: 5 ml Pantoprazole Sodium (Protonix Ec Tab) 40 mg PO 0600 [facility] Last Admin: 10/13/17 06:12 Dose: 40 mg Tramadol HCl (Ultram) 50 mg PO Q12 PRN PRN Reason: severe pain Last Admin: 10/12/17 23:05 Dose: 50 mg - Labs Labs: 10/12/17 08:00 10/12/17 06:30 PT 16.2 SECONDS (9.4-12.5) H 10/11/17 10:45 INR 1.40 10/11/17 10:45 APTT 31.6 Seconds (25.1-36.5) 10/11/17 10:45 - Constitutional Appears: Non-toxic, No Acute Distress - Head Exam Head Exam: ATRAUMATIC, NORMOCEPHALIC - Eye Exam Eye Exam: EOMI, Normal appearance - ENT Exam ENT Exam: Mucous Membranes Moist - Neck Exam Neck Exam: Full ROM - Respiratory Exam Respiratory Exam: Clear to Ausculation Bilateral, NORMAL BREATHING PATTERN. absent: Accessory Muscle Use, Rales, Rhonchi, Wheezes, Respiratory Distress - Cardiovascular Exam Cardiovascular Exam: REGULAR RHYTHM, RRR, +S1, +S2 - GI/Abdominal Exam GI & Abdominal Exam: Soft, Normal Bowel Sounds. absent: Distended, Firm, Guarding, Rigid, Tenderness, Rebound - Rectal Exam Rectal Exam: Deferred - Extremities Exam Extremities Exam: absent: Calf Tenderness, Joint Swelling, Pedal Edema, Tenderness - Neurological Exam Neurological Exam: Alert, Awake, Oriented x3 - Psychiatric Exam Psychiatric exam: Normal Affect, Normal Mood - Skin Skin Exam: Dry, Intact, Normal Color, Warm Assessment and Plan - Assessment and Plan (Free Text) Assessment: 66 year old female with a past medical history significant for GERD, HTN, HLD, and questionable SLE/RA who presented to the hospital with fatigue and body aches for three days. Patient was found to be anemic and GI was consulted to evaluate for possible GI hemorrhage. Patient was to have EGD on 10/05 but this was postponed after patient was found to have pleural effusions on CT chest. Patient was rescheduled for EGD on 10/06 but this was cancelled as patient had fever overnight and was found to have significantly elevated D-Dimer. Patient has agreed to have this done as an outpatient. Plan: -CT Abdomen/Pelvis (PO Contrast) showed inflammatory changes in the LLQ adjacent to the colon possibly representing mesenteric adenitis with mildly enlarged celiac lymph nodes -Abdominal US showed no cholelithiasis, CBD to 4mm and hepatic steatosis -Hepatitis panel negative -Repeat H/H's -No signs of obvious GI hemorrhage, such as hematemesis, melena or hematochezia -Heart Healthy Diet with Ensure Enlive supplementation TID -Continue PPI PO daily -Plavix/Pain Control per PMD -Cardiology, ID, Cardiothoracic Surgery and Neurology consultations, all recommendations appreciated GI Disposition: CT/Abdominal US/Pertinent laboratory findings discussed with patient. She should have endoscopic procedures done as an outpatient. Patient verbalizes understanding of this and agrees to follow up with GI as outpatient for EGD/colonoscopy. Patient seen and case discussed with attending, Dr. Hackett. <Ranulfo Hackett V - Last Filed: 10/14/17 00:23> Objective - Vital Signs/Intake and Output Vital Signs (last 24 hours): Temp Pulse Resp BP Pulse Ox 98.4 F 89 19 123/73 100 10/13/17 17:57 10/13/17 18:00 10/13/17 17:57 10/13/17 17:57 10/13/17 05:00 Intake and Output: 10/13/17 10/14/17 18:59 06:59 Intake Total 100 Balance 100 - Medications Medications: Current Medications Acetaminophen (Tylenol 325mg Tab) 325 mg PO Q6H PRN PRN Reason: Fever >100.4 F Last Admin: 10/06/17 20:57 Dose: 325 mg Arformoterol Tartrate (Brovana) 15 mcg IH [id number] [facility] Last Admin: 10/13/17 20:57 Dose: 15 mcg Atorvastatin Calcium (Lipitor) 20 mg PO DIN [facility] Last Admin: 10/13/17 17:12 Dose: 20 mg Benzocaine/Menthol (Cepacol Sore Throat) 1 julissa MT Q2H PRN PRN Reason: Sore Throat Last Admin: 10/08/17 09:04 Dose: 1 julissa Budesonide (Pulmicort Respules) 0.5 mg IH [id number] [facility] Last Admin: 10/13/17 20:58 Dose: 0.5 mg Furosemide (Lasix) 20 mg PO DAILY [facility] Last Admin: 10/13/17 09:52 Dose: 20 mg Heparin Sodium (Porcine) (Heparin) 5,000 units SC Q8 [facility] PRN Reason: Protocol Last Admin: 10/13/17 13:10 Dose: Not Given Lorazepam (Ativan) 0.5 mg PO Q6H PRN PRN Reason: Anxiety Last Admin: 10/13/17 17:12 Dose: 0.5 mg Meloxicam (Mobic) 7.5 mg PO DAILY [facility] Last Admin: 10/13/17 12:58 Dose: 7.5 mg Methylprednisolone (Solu-Medrol) 20 mg IVP Q12H [facility] Last Admin: 10/13/17 11:10 Dose: 20 mg Metoprolol Tartrate (Lopressor) 12.5 mg PO BRK [facility] Last Admin: 10/13/17 12:59 Dose: 12.5 mg Nystatin (Nystatin Oral Susp) 5 ml PO Q6 [facility] Last Admin: 10/13/17 23:31 Dose: 5 ml Pantoprazole Sodium (Protonix Ec Tab) 40 mg PO 0600 [facility] Last Admin: 10/13/17 06:12 Dose: 40 mg Tramadol HCl (Ultram) 50 mg PO Q12 PRN PRN Reason: severe pain Last Admin: 10/13/17 23:31 Dose: 50 mg - Labs Labs: 10/12/17 08:00 10/12/17 06:30 PT 16.2 SECONDS (9.4-12.5) H 10/11/17 10:45 INR 1.40 10/11/17 10:45 APTT 31.6 Seconds (25.1-36.5) 10/11/17 10:45 Attending/Attestation - Attestation I have personally seen and examined this patient.: Yes I have fully participated in the care of the patient.: Yes I have reviewed all pertinent clinical information, including history, physical exam and plan: Yes Notes (Text): This is an addendum to GI followup report dictated by the Long Term Care Pharmacist. The patient was seen and evaluated earlier. Medical records, lab studies, imagings were reviewed. Last 24 hours events reviewed. Agreed with the above treatment plan as outlined in Long Term Care Pharmacist 's notes with the addition of the following Patient still on Mobic slight drop in blood count On steroid and heparin knee Need close follow-up of hemoglobin On Protonix continue Patient is presently agreeable for EGD but she wants to discuss with the Cardiology evaluation noted Would await for cariopulmonary optimization prior to EGD 10/14/17 00:20
[2017-10-13] MEDS: MethylPREDNISolone 40 mg Vial IVP SCH (11:10)
[2017-10-13] MEDS: Meloxicam 7.5 MG TAB PO SCH (12:58)
--- NOTE | 2017-10-13 13:07 | CP.PCM.PN ---
Subjective - Date & Time of Evaluation Date of Evaluation: 10/13/17 Time of Evaluation: 11:40 - Subjective Subjective: No fevers, no chest pain, not in distress, no diarrhea. Objective - Vital Signs/Intake and Output Vital Signs (last 24 hours): Temp Pulse Resp BP Pulse Ox 98 F 93 H 18 117/60 100 10/13/17 05:00 10/13/17 05:00 10/13/17 05:00 10/13/17 09:52 10/13/17 05:00 Intake and Output: 10/13/17 10/13/17 06:59 18:59 Intake Total 360 Balance 360 - Medications Medications: Current Medications Acetaminophen (Tylenol 325mg Tab) 325 mg PO Q6H PRN PRN Reason: Fever >100.4 F Last Admin: 10/06/17 20:57 Dose: 325 mg Arformoterol Tartrate (Brovana) 15 mcg IH [id number] [facility] Last Admin: 10/13/17 07:40 Dose: 15 mcg Atorvastatin Calcium (Lipitor) 20 mg PO DIN [facility] Last Admin: 10/12/17 18:00 Dose: 20 mg Benzocaine/Menthol (Cepacol Sore Throat) 1 julissa MT Q2H PRN PRN Reason: Sore Throat Last Admin: 10/08/17 09:04 Dose: 1 julissa Budesonide (Pulmicort Respules) 0.5 mg IH [id number] [facility] Last Admin: 10/13/17 07:40 Dose: 0.5 mg Furosemide (Lasix) 20 mg PO DAILY [facility] Last Admin: 10/13/17 09:52 Dose: 20 mg Heparin Sodium (Porcine) (Heparin) 5,000 units SC Q8 [facility] PRN Reason: Protocol Last Admin: 10/13/17 06:11 Dose: Not Given Lorazepam (Ativan) 0.5 mg PO Q6H PRN PRN Reason: Anxiety Methylprednisolone (Solu-Medrol) 20 mg IVP Q12H [facility] Last Admin: 10/12/17 22:16 Dose: 20 mg Nystatin (Nystatin Oral Susp) 5 ml PO Q6 [facility] Last Admin: 10/13/17 06:12 Dose: 5 ml Pantoprazole Sodium (Protonix Ec Tab) 40 mg PO 0600 [facility] Last Admin: 10/13/17 06:12 Dose: 40 mg Tramadol HCl (Ultram) 50 mg PO Q12 PRN PRN Reason: severe pain Last Admin: 10/12/17 23:05 Dose: 50 mg - Labs Labs: 10/12/17 08:00 10/12/17 06:30 PT 16.2 SECONDS (9.4-12.5) H 10/11/17 10:45 INR 1.40 10/11/17 10:45 APTT 31.6 Seconds (25.1-36.5) 10/11/17 10:45 - Constitutional Appears: Non-toxic, Chronically Ill - Head Exam Head Exam: NORMAL INSPECTION - Respiratory Exam Respiratory Exam: Decreased Breath Sounds (at the bases). absent: Rales - Cardiovascular Exam Cardiovascular Exam: +S1, +S2 - GI/Abdominal Exam GI & Abdominal Exam: Soft. absent: Tenderness Assessment and Plan - Assessment and Plan (Free Text) Plan: Assessment S/P severe sepsis due to right sided community-acquired pneumonia possible cardiac tamponade GERD HTN dyslipidemia possible rheumatoid arthritis anxiety history of UTI Plan continue to monitor off antibiotics since she is at risk for healthcare- associated infections follow up plans of Cardiology for the possible cardiac tamponade
[2017-10-14] MEDS: Nystatin 100,000 Units/ml Oral Susp 5 ml UD PO SCH ×4 (06:43→23:00)
[2017-10-14] MEDS: Pantoprazole 40 mg EC Tab PO SCH (06:43)
[2017-10-14] MEDS: Budesonide 0.5 mg/2 ml Inhal Susp UD IH SCH ×2 (07:27→22:21)
[2017-10-14] MEDS: Arformoterol 15 mcg/2 ml Inh Sol IH SCH ×2 (07:27→22:21)
--- NOTE | 2017-10-14 07:34 | CP.PCM.PN ---
Subjective - Date & Time of Evaluation Date of Evaluation: 10/14/17 Time of Evaluation: 07:00 - Subjective Subjective: Stable on 2R. No CP or SOB. Some BERRY with mild activities, using O2 via n/c V/S noted. RSR 83 - 99, 132/88 PE: Lungs: rhonchi Cor.: S1S2, soft sys. murmur Abd.: soft Ext.: no edema Neuro.: alert I/O= 340/500 recorded Labs pending today. ECG 10/11 : ST, LBBB Echo, V/Q, CT chest reports noted. BC X 4 NG at 5 days Objective - Vital Signs/Intake and Output Vital Signs (last 24 hours): Temp Pulse Resp BP Pulse Ox 98.2 F 99 H 20 132/88 94 L 10/14/17 05:26 10/14/17 05:26 10/14/17 05:26 10/14/17 05:26 10/14/17 05:26 Intake and Output: 10/14/17 10/14/17 06:59 18:59 Intake Total 240 Output Total 500 Balance -260 - Medications Medications: Current Medications Acetaminophen (Tylenol 325mg Tab) 325 mg PO Q6H PRN PRN Reason: Fever >100.4 F Last Admin: 10/06/17 20:57 Dose: 325 mg Arformoterol Tartrate (Brovana) 15 mcg IH [id number] [facility] Last Admin: 10/14/17 07:27 Dose: 15 mcg Atorvastatin Calcium (Lipitor) 20 mg PO DIN [facility] Last Admin: 10/13/17 17:12 Dose: 20 mg Benzocaine/Menthol (Cepacol Sore Throat) 1 julissa MT Q2H PRN PRN Reason: Sore Throat Last Admin: 10/08/17 09:04 Dose: 1 julissa Budesonide (Pulmicort Respules) 0.5 mg IH [id number] [facility] Last Admin: 10/14/17 07:27 Dose: 0.5 mg Furosemide (Lasix) 20 mg PO DAILY [facility] Last Admin: 10/13/17 09:52 Dose: 20 mg Heparin Sodium (Porcine) (Heparin) 5,000 units SC Q8 [facility] PRN Reason: Protocol Last Admin: 10/13/17 13:10 Dose: Not Given Lorazepam (Ativan) 0.5 mg PO Q6H PRN PRN Reason: Anxiety Last Admin: 10/13/17 17:12 Dose: 0.5 mg Meloxicam (Mobic) 7.5 mg PO DAILY [facility] Last Admin: 10/13/17 12:58 Dose: 7.5 mg Methylprednisolone (Solu-Medrol) 20 mg IVP Q12H [facility] Last Admin: 10/13/17 11:10 Dose: 20 mg Metoprolol Tartrate (Lopressor) 12.5 mg PO BRK [facility] Last Admin: 10/13/17 12:59 Dose: 12.5 mg Nystatin (Nystatin Oral Susp) 5 ml PO Q6 [facility] Last Admin: 10/14/17 06:43 Dose: 5 ml Pantoprazole Sodium (Protonix Ec Tab) 40 mg PO 0600 [facility] Last Admin: 10/14/17 06:43 Dose: 40 mg Tramadol HCl (Ultram) 50 mg PO Q12 PRN PRN Reason: severe pain Last Admin: 10/13/17 23:31 Dose: 50 mg - Labs Labs: 10/12/17 08:00 10/12/17 06:30 PT 16.2 SECONDS (9.4-12.5) H 10/11/17 10:45 INR 1.40 10/11/17 10:45 APTT 31.6 Seconds (25.1-36.5) 10/11/17 10:45 Assessment and Plan - Assessment and Plan (Free Text) Assessment: SOB: multifactorial Pneumonia Pleural effusions Severe COPD/Smoker Abn LV on echo: LVD, possible W[place], abn. septal motion in setting of LBBB Small/medium pericardial effusion w/o tamponade on suboptimal study, possible related to SLE dx. Clinically no tamponade. Anemia LBBB HLD CVA GERD SLE FH of CAD Plan: Anemia eval. Resp./Pulm Tx. PO Lasix OOB as cleo As per Dr. Ace, ID, GI, neuro., Pulm. D/C tobacco Nuclear stress testing, timing to be determined, probably next week. F/U echo > Monday F/U CXR > tomorrow. PT/Rehab Efforts
[2017-10-14 08:00] LABS: HEMOGLOBIN 8.8 g/dL (12.0-16.0)
[2017-10-14 08:16] LABS: BLOOD UREA NITROGEN 19 mg/dL (7-21); CALCIUM 8.9 mg/dL (8.4-10.5); GFR NON-AFRICAN AMERICAN > 60
--- NOTE | 2017-10-14 08:32 | PN ---
DATE: 10/13/2017 SUBJECTIVE: This 66-year-old female was examined at her bedside. She is on the cardiac gregory in the [facility]. This case was reviewed in detail with nurse, Lima Dunn, registered nurse. The patient remains weak and deconditioned. She is being followed by Dr. Conde from Cardiology. Her next 2-D echocardiogram is scheduled for Monday to be followed by nuclear stress thallium study for further evaluation of her [id number] pericardial effusion and abnormal wall motion as noted on her last echocardiogram of 10/10/2017. The patient remains at bedrest. She is encouraged to ambulate with assistance and has been scheduled for physical therapy for reconditioning and gait training. Has discussed this case in detail with community mental health social worker, Sosa Quintanilla and has expressed that it is the patient's desire to be admitted to subacute rehab when cleared medically by co-consultants. At present, she remains in a normal sinus rhythm on the monitoring specialist, but appetite remains poor. PHYSICAL EXAMINATION: VITAL SIGNS: The patient was noted to have a temperature of 97.6, respirations 18, pulse 96 and blood pressure 130/85. Pulse ox was 100% on 2 liters nasal O2. HEENT: Head: Normocephalic, atraumatic. Eyes, no icterus. Ears clear. Throat: Noninjected. NECK: Supple. HEART: Regular S1, S2. No pathological rubs, murmurs or gallops. LUNGS: With occasional rhonchi that cleared with coughing. ABDOMEN: Soft. EXTREMITIES: No edema. SKIN: No rash. No ulceration. VASCULAR: Legs warm to touch. PSYCHOLOGICAL: Alert and anxious. NEUROLOGICAL: Intact, but deconditioned. DATA: White count 4900, hemoglobin 7.9, hematocrit 23.8, platelets 293,000. Sodium 136, K 4.4, chloride 102, bicarb 29, BUN 10, creatinine 0.3, random blood sugar 128. Troponin less than 0.01. All liver function testing was normal including bilirubin 0.6, AST 35, ALT 28, alk phos 104. Iron 21, TIBC 163, percent saturation low 13%. IMPRESSION: This is a 62-year-old female admitted with community-acquired right lower lung pneumonia, exacerbation of chronic obstructive pulmonary disease with complications of [id number] pericardial effusion, history of lupus erythematosus, degenerative arthritis, deconditioning, anemia of chronic disease, iron-deficiency anemia, chronic hypertension, hyperlipidemia, peptic ulcer disease with gastroesophageal reflux disease. PLAN: As discussed with the patient and nurse, Shaun will be to administer Venofer 200 mg IV daily x3 days. The patient continues to refuse any consideration of endoscopy or colonoscopy at this time. She has been seen by Dr. Ranulfo Hackett from Gastroenterology and his notes have been reviewed in detail. She will be scheduled for 2-D echocardiography and nuclear stress test as per the discretion of Dr. Lewis Conde from Cardiology who is following this patient on a daily basis. She will continue on Ativan 0.5 mg p.o. every 6 hours p.r.n. anxiety, Brovana inhalational therapy every 12 hours, Cepacol lozenges every 2 hours p.r.n. sore throat. Subcu heparin will be discontinued given her improved ambulatory status. She continues on Lasix 20 mg p.o. daily, Lipitor 20 mg p.o. at dinner time, Lopressor 12.5 mg p.o. daily and Mobic 7.5 mg p.o. daily, nystatin oral swish and swallow 5 mL p.o. every 6 hours, Protonix 40 mg p.o. daily, Pulmicort inhalational therapy every 12 hours, Solu-Medrol 20 mg IV every 12 hours, Tylenol 325 mg p.o. every 6 hours p.r.n. mild pain or temperature greater than 101 and Ultram 50 mg p.o. every 12 hours p.r.n. [id number] pain. I did encourage the patient to perform incentive spirometry. She continues on a heart-healthy, soft bland diet. She will remain on aspiration and fall precautions and has been encouraged out of bed to chair as tolerated. A stool for occult blood has been requested. She continues on Ensure Enlive strawberry flavored t.i.d. and physical therapy for reconditioning and gait training with plans for subacute rehab when medically cleared. All of the above was discussed in detail with the patient and nurse, Shaun, at bedside. Greater than 35 minutes were spent in the care management, review of labs, orders, x-rays and outlining of treatment plan and discussion of her care with co-consultants and nursing. All questions were answered. Flora Ace MD JACLYN
[2017-10-14] MEDS: Meloxicam 7.5 MG TAB PO SCH (09:06)
[2017-10-14] MEDS: MethylPREDNISolone 40 mg Vial IVP SCH ×2 (12:11→23:00)
--- NOTE | 2017-10-14 14:47 | CP.PCM.PN ---
Subjective - Date & Time of Evaluation Date of Evaluation: 10/14/17 Time of Evaluation: 12:20 - Subjective Subjective: Feels a little nauseated, no fevers, no diarrhea, no chest pain. Objective - Vital Signs/Intake and Output Vital Signs (last 24 hours): Temp Pulse Resp BP Pulse Ox 97.6 F 96 H 18 130/85 100 10/13/17 11:27 10/13/17 12:59 10/13/17 11:27 10/13/17 12:59 10/13/17 05:00 Intake and Output: 10/13/17 10/13/17 06:59 18:59 Intake Total 360 Balance 360 - Medications Medications: Current Medications Acetaminophen (Tylenol 325mg Tab) 325 mg PO Q6H PRN PRN Reason: Fever >100.4 F Last Admin: 10/06/17 20:57 Dose: 325 mg Arformoterol Tartrate (Brovana) 15 mcg IH [id number] [facility] Last Admin: 10/13/17 07:40 Dose: 15 mcg Atorvastatin Calcium (Lipitor) 20 mg PO DIN [facility] Last Admin: 10/12/17 18:00 Dose: 20 mg Benzocaine/Menthol (Cepacol Sore Throat) 1 julissa MT Q2H PRN PRN Reason: Sore Throat Last Admin: 10/08/17 09:04 Dose: 1 julissa Budesonide (Pulmicort Respules) 0.5 mg IH [id number] [facility] Last Admin: 10/13/17 07:40 Dose: 0.5 mg Furosemide (Lasix) 20 mg PO DAILY [facility] Last Admin: 10/13/17 09:52 Dose: 20 mg Heparin Sodium (Porcine) (Heparin) 5,000 units SC Q8 [facility] PRN Reason: Protocol Last Admin: 10/13/17 06:11 Dose: Not Given Lorazepam (Ativan) 0.5 mg PO Q6H PRN PRN Reason: Anxiety Meloxicam (Mobic) 7.5 mg PO DAILY [facility] Last Admin: 10/13/17 12:58 Dose: 7.5 mg Methylprednisolone (Solu-Medrol) 20 mg IVP Q12H [facility] Last Admin: 10/13/17 11:10 Dose: 20 mg Metoprolol Tartrate (Lopressor) 12.5 mg PO BRK [facility] Last Admin: 10/13/17 12:59 Dose: 12.5 mg Nystatin (Nystatin Oral Susp) 5 ml PO Q6 [facility] Last Admin: 10/13/17 11:10 Dose: 5 ml Pantoprazole Sodium (Protonix Ec Tab) 40 mg PO 0600 [facility] Last Admin: 10/13/17 06:12 Dose: 40 mg Tramadol HCl (Ultram) 50 mg PO Q12 PRN PRN Reason: severe pain Last Admin: 10/13/17 11:10 Dose: 50 mg - Labs Labs: 10/12/17 08:00 10/12/17 06:30 PT 16.2 SECONDS (9.4-12.5) H 10/11/17 10:45 INR 1.40 10/11/17 10:45 APTT 31.6 Seconds (25.1-36.5) 10/11/17 10:45 - Constitutional Appears: Chronically Ill - Head Exam Head Exam: NORMAL INSPECTION - Respiratory Exam Respiratory Exam: Decreased Breath Sounds - Cardiovascular Exam Cardiovascular Exam: +S1, +S2 - GI/Abdominal Exam GI & Abdominal Exam: Soft. absent: Tenderness Assessment and Plan - Assessment and Plan (Free Text) Plan: Assessment S/P severe sepsis due to right sided community-acquired pneumonia possible cardiac tamponade GERD HTN dyslipidemia possible rheumatoid arthritis anxiety history of UTI Plan continue to monitor off antibiotics since she is at risk for nosocomial infections
[2017-10-15] MEDS: Nystatin 100,000 Units/ml Oral Susp 5 ml UD PO SCH ×4 (05:37→23:09)
[2017-10-15] MEDS: Pantoprazole 40 mg EC Tab PO SCH (05:37)
[2017-10-15] MEDS: Arformoterol 15 mcg/2 ml Inh Sol IH SCH ×2 (07:16→20:40)
[2017-10-15] MEDS: Budesonide 0.5 mg/2 ml Inhal Susp UD IH SCH ×2 (07:16→20:40)
--- NOTE | 2017-10-15 07:34 | CP.PCM.PN ---
Subjective - Date & Time of Evaluation Date of Evaluation: 10/15/17 Time of Evaluation: 07:00 - Subjective Subjective: Stable on 2R. No CP or SOB. Some BERRY with mild activities, using O2 via n/c V/S noted. RSR 80 - 108, 123/73 PE: Lungs: few rhonchi Cor.: S1S2, soft sys. murmur Abd.: soft Ext.: no edema Neuro.: alert Labs 10/14: H/H = 8.8/28.1 ECG 10/11 : ST, LBBB Echo, V/Q, CT chest reports noted. BC X 4 NG at 5 days Objective - Vital Signs/Intake and Output Vital Signs (last 24 hours): Temp Pulse Resp BP Pulse Ox 97.9 F 80 20 123/73 98 10/15/17 06:00 10/15/17 06:00 10/15/17 06:00 10/15/17 06:00 10/15/17 06:00 Intake and Output: 10/15/17 10/15/17 06:59 18:59 Intake Total 780 Output Total 5 Balance 775 - Medications Medications: Current Medications Acetaminophen (Tylenol 325mg Tab) 325 mg PO Q6H PRN PRN Reason: Fever >100.4 F Last Admin: 10/06/17 20:57 Dose: 325 mg Arformoterol Tartrate (Brovana) 15 mcg IH [id number] [facility] Last Admin: 10/15/17 07:16 Dose: 15 mcg Atorvastatin Calcium (Lipitor) 20 mg PO DIN [facility] Last Admin: 10/14/17 17:56 Dose: 20 mg Benzocaine/Menthol (Cepacol Sore Throat) 1 julissa MT Q2H PRN PRN Reason: Sore Throat Last Admin: 10/08/17 09:04 Dose: 1 julissa Budesonide (Pulmicort Respules) 0.5 mg IH [id number] [facility] Last Admin: 10/15/17 07:16 Dose: 0.5 mg Furosemide (Lasix) 20 mg PO DAILY [facility] Last Admin: 10/14/17 09:06 Dose: 20 mg Lorazepam (Ativan) 0.5 mg PO Q6H PRN PRN Reason: Anxiety Last Admin: 10/13/17 17:12 Dose: 0.5 mg Methylprednisolone (Solu-Medrol) 20 mg IVP Q12H [facility] Last Admin: 10/14/17 23:00 Dose: 20 mg Metoprolol Tartrate (Lopressor) 12.5 mg PO BRK [facility] Last Admin: 10/14/17 09:06 Dose: 12.5 mg Nystatin (Nystatin Oral Susp) 5 ml PO Q6 [facility] Last Admin: 10/15/17 05:37 Dose: 5 ml Ondansetron HCl (Zofran Inj) 4 mg IVP Q6H PRN PRN Reason: Nausea/Vomiting Last Admin: 10/14/17 15:18 Dose: 4 mg Pantoprazole Sodium (Protonix Ec Tab) 40 mg PO 0600 [facility] Last Admin: 10/15/17 05:37 Dose: 40 mg Tramadol HCl (Ultram) 50 mg PO Q12 PRN PRN Reason: severe pain Last Admin: 10/14/17 23:00 Dose: 50 mg - Labs Labs: 10/14/17 06:45 10/14/17 06:45 PT 16.2 SECONDS (9.4-12.5) H 10/11/17 10:45 INR 1.40 10/11/17 10:45 APTT 31.6 Seconds (25.1-36.5) 10/11/17 10:45 Assessment and Plan - Assessment and Plan (Free Text) Assessment: SOB: multifactorial Pneumonia Pleural effusions Severe COPD/Smoker Abn LV on echo: LVD, possible MA, abn. septal motion in setting of LBBB Small/medium pericardial effusion w/o tamponade on suboptimal study, possible related to SLE dx. Clinically no tamponade. Anemia LBBB HLD CVA GERD SLE FH of CAD Plan: Anemia eval. Resp./Pulm Tx. PO Lasix OOB as cleo As per Dr. Ace, ID, GI, neuro., Pulm. D/C tobacco Nuclear stress testing, timing to be determined, probably next week. F/U echo > tomorrow. F/U CXR today. PT/Rehab Efforts
--- NOTE | 2017-10-15 10:16 | RAD ---
Date of service: 10/15/2017 HISTORY: F/U pneumonia COMPARISON: Portable chest 09/08/2017. TECHNIQUE: Chest PA and lateral FINDINGS: LUNGS: Improved inspiratory volume noted. However, a mild right pleural effusion is now identified. Fibrotic changes in the mid right lung zone laterally. Limited airspace disease is question in the medial left base though this is not definite. No left pleural effusion. No pneumothorax bilaterally. PLEURA: As above. CARDIOVASCULAR: Stable mild cardiomegaly. No pulmonary vascular congestion appreciated. OSSEOUS STRUCTURES: No significant abnormalities. VISUALIZED UPPER ABDOMEN: Normal. OTHER FINDINGS: None. IMPRESSION: Mild right pleural effusion. Questionable medial left basilar airspace disease. Stable cardiomegaly. No pulmonary vascular congestion.
--- NOTE | 2017-10-15 10:22 | CP.PCM.PN ---
Subjective - Date & Time of Evaluation Date of Evaluation: 10/15/17 Time of Evaluation: 10:05 - Subjective Subjective: No fevers, not in distress, no more nausea, no chest pain, no SOB, no diarrhea. Objective - Vital Signs/Intake and Output Vital Signs (last 24 hours): Temp Pulse Resp BP Pulse Ox 98.1 F 86 19 124/75 94 L 10/14/17 12:00 10/14/17 14:00 10/14/17 12:00 10/14/17 12:00 10/14/17 05:26 Intake and Output: 10/14/17 10/14/17 06:59 18:59 Intake Total 240 Output Total 500 Balance -260 - Medications Medications: Current Medications Acetaminophen (Tylenol 325mg Tab) 325 mg PO Q6H PRN PRN Reason: Fever >100.4 F Last Admin: 10/06/17 20:57 Dose: 325 mg Arformoterol Tartrate (Brovana) 15 mcg IH [id number] [facility] Last Admin: 10/14/17 07:27 Dose: 15 mcg Atorvastatin Calcium (Lipitor) 20 mg PO DIN [facility] Last Admin: 10/13/17 17:12 Dose: 20 mg Benzocaine/Menthol (Cepacol Sore Throat) 1 julissa MT Q2H PRN PRN Reason: Sore Throat Last Admin: 10/08/17 09:04 Dose: 1 julissa Budesonide (Pulmicort Respules) 0.5 mg IH [id number] [facility] Last Admin: 10/14/17 07:27 Dose: 0.5 mg Furosemide (Lasix) 20 mg PO DAILY [facility] Last Admin: 10/14/17 09:06 Dose: 20 mg Lorazepam (Ativan) 0.5 mg PO Q6H PRN PRN Reason: Anxiety Last Admin: 10/13/17 17:12 Dose: 0.5 mg Meloxicam (Mobic) 7.5 mg PO DAILY [facility] Last Admin: 10/14/17 09:06 Dose: 7.5 mg Methylprednisolone (Solu-Medrol) 20 mg IVP Q12H [facility] Last Admin: 10/14/17 12:11 Dose: 20 mg Metoprolol Tartrate (Lopressor) 12.5 mg PO BRK [facility] Last Admin: 10/14/17 09:06 Dose: 12.5 mg Nystatin (Nystatin Oral Susp) 5 ml PO Q6 [facility] Last Admin: 10/14/17 12:11 Dose: 5 ml Ondansetron HCl (Zofran Inj) 4 mg IVP Q6H PRN PRN Reason: Nausea/Vomiting Pantoprazole Sodium (Protonix Ec Tab) 40 mg PO 0600 [facility] Last Admin: 10/14/17 06:43 Dose: 40 mg Tramadol HCl (Ultram) 50 mg PO Q12 PRN PRN Reason: severe pain Last Admin: 10/13/17 23:31 Dose: 50 mg - Labs Labs: 10/14/17 06:45 10/14/17 06:45 PT 16.2 SECONDS (9.4-12.5) H 10/11/17 10:45 INR 1.40 10/11/17 10:45 APTT 31.6 Seconds (25.1-36.5) 10/11/17 10:45 - Constitutional Appears: No Acute Distress, Chronically Ill - Head Exam Head Exam: NORMAL INSPECTION - Respiratory Exam Respiratory Exam: Decreased Breath Sounds - Cardiovascular Exam Cardiovascular Exam: +S1, +S2 - GI/Abdominal Exam GI & Abdominal Exam: Soft. absent: Tenderness Assessment and Plan - Assessment and Plan (Free Text) Plan: Assessment S/P severe sepsis due to right sided community-acquired pneumonia possible cardiac tamponade GERD HTN dyslipidemia possible rheumatoid arthritis anxiety history of UTI Plan continue to monitor off antibiotics since she is at risk for hospital-acquired infections
[2017-10-15] MEDS: MethylPREDNISolone 40 mg Vial IVP SCH ×2 (11:02→23:08)
--- NOTE | 2017-10-15 12:38 | PN ---
DATE: 10/14/2017 SUBJECTIVE: This 66-year-old female was examined at her bedside in the presence of her nurse, Jessica Santiago, registered nurse. The patient remains weak and deconditioned. She is anxious and had one episode of nausea with vomiting. She has requested an antiemetic and also a note to be written to excuse her from her jury duty this 10/17/2017. As discussed with the patient and nursing, she is being readied for a repeat 2-D echocardiogram on 10/16/2017 for further followup of a moderate pericardial effusion. At present, she is markedly deconditioned and is being evaluated for subacute rehab when cleared by Cardiology. 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 HEENT: Head normocephalic, atraumatic. Eyes: No icterus. Ears: Clear. Throat: Noninjected. NECK: Supple. HEART: Regular S1, S2. No pathological rubs, murmurs or gallops. LUNGS: Clear. ABDOMEN: Soft. EXTREMITIES: No edema. SKIN: Without rash. NEUROLOGICAL: Intact. PSYCHOLOGICAL: Anxious. VASCULAR: Legs warm to touch. LABORATORY DATA: Hemoglobin 8.8 and hematocrit 28.1, previously 7.9 with hematocrit of 23.8. Sodium 139, K 4.5, chloride 99, bicarb 33, BUN 19, creatinine 0.4, random blood sugar 78. IMPRESSION: A 66-year-old female, admitted with a right lower lung community-acquired pneumonia, exacerbation of chronic obstructive pulmonary disease. Now, with pericardial effusion, recent concerns of pericardial tamponade and comorbidities of chronic hypertension, anxiety neurosis, hyperlipidemia, atherosclerotic heart disease, peptic ulcer disease with gastroesophageal reflux disease, degenerative arthritis, lupus erythematosus and deconditioning. PLAN: The plan is discussed with the patient and nurse, Pamela will be to administer Zofran 4 mg IV stat and every 6 hours p.r.n. nausea, vomiting. The patient continues on Ativan 0.5 mg p.o. every 6 hours p.r.n. anxiety, Brovana inhalational therapy every 12, Cepacol lozenges every 2 hours p.r.n. sore throat, Lasix 20 mg p.o. daily, Lipitor 20 mg p.o. at dinnertime, Lopressor 12.5 mg p.o. daily, nystatin swish and swallow 5 mL p.o. every 6, Protonix 40 mg p.o. daily, Pulmicort inhalational therapy every 12, Solu-Medrol 20 mg IV every 12, Tylenol 325 mg p.o. every 6 hours p.r.n. pain or temperature greater than 101 and Ultram 50 mg p.o. every 12 hours p.r.n. severe pain. The patient's Mobic has been discontinued by Gastroenterology given her anemia and recent guaiac-positive stools. As rediscussed with the patient, she currently refuses endoscopy and colonoscopy, but has been repeatedly advised by Dr. Ranulfo Hackett from GI that this should be scheduled when medically cleared as an outpatient for completeness sake. Greater than 35 minutes was spent in the care and management, review of labs, orders, x-rays, execution of a jury duty dismissal note given her current hospitalization and outlining of her treatment plan and disposition with the patient at bedside with nurse Ramos present. All questions were answered. Flora Ace MD JACLYN
--- NOTE | 2017-10-15 12:43 | PN ---
DATE: 10/15/2017 SUBJECTIVE: This 66-year-old female remains hospitalized with multiple medical problems including exacerbation of chronic obstructive pulmonary disease, community-acquired right lower lung pneumonia and now mild to moderate pericardial effusion with previous concerns of cardiac tamponade. The patient is on schedule for a repeat 2-D echocardiogram in the a.m. and pending those results will be scheduled for a nuclear stress study given her abnormal wall motion on most recent echocardiography as reviewed dated 10/10/2017. At present, the patient remains weak and deconditioned and will be scheduled for subacute rehab once cleared by Cardiology. PHYSICAL EXAMINATION: VITAL SIGNS: On today's physical exam, her temperature is 97.9, respirations 20, pulse 80 and blood pressure 123/73, pulse ox 98% on 2 L nasal O2. She is in normal sinus rhythm on the manager cardiac. HEENT: Head: Normocephalic, atraumatic. Eyes: No icterus. Ears: Clear. Throat: Noninjected. NECK: Supple. HEART: Regular S1, S2. No pathological rubs, murmurs or gallops. LUNGS: Clear. ABDOMEN: Soft. EXTREMITIES: No edema. SKIN: Without rash. NEUROLOGICAL: Intact, but deconditioned. VASCULAR: Legs warm to touch. PSYCHOLOGICAL: Alert and oriented x3. LABORATORY DATA: BUN 19, creatinine 0.4. Sodium 139, K 4.5. PT/INR 1.4, PTT 31.6. Hemoglobin 8.8, hematocrit 28.1. IMPRESSION: A 66-year-old female with chronic lupus erythematosus, degenerative arthritis, admitted with right lower lung pneumonia, exacerbation of chronic obstructive pulmonary disease and now with abnormal wall motion study on 2-D echocardiography as well as moderate pericardial effusion and recent concerns of pericardial tamponade. Now awaiting repeat echocardiography and thallium stress test in the setting of iodinated contrast dye allergy with comorbidities of hyperlipidemia, chronic hypertension, peptic ulcer disease with gastroesophageal reflux disease, anemia of chronic disease, iron-deficiency anemia, degenerative arthritis and anxiety neurosis. PLAN: The plan will be to continue Ativan, Brovana, Cepacol, Lasix, Lipitor, Lopressor, nystatin, Protonix, Pulmicort, Solu-Medrol, Tylenol, Ultram and Zofran. She is scheduled for physical therapy for reconditioning and gait training. Once cleared by Cardiology after completing echocardiography and stress thallium with good resulting, hopefully she can be readied for transfer to subacute rehab and at present will continue on heart-healthy diet, aspiration precautions and serial labs and an additional dose of Venofer 200 mg IV has been ordered for today. She will have followup hemoglobin and hematocrit in the a.m. She was encouraged to do incentive spirometry and all of this was reviewed with the patient at bedside. All questions were answered. Flora Ace MD MTDD
[2017-10-16] MEDS: Pantoprazole 40 mg EC Tab PO SCH (05:29)
[2017-10-16] MEDS: Nystatin 100,000 Units/ml Oral Susp 5 ml UD PO SCH ×2 (05:29→18:13)
[2017-10-16] MEDS: Arformoterol 15 mcg/2 ml Inh Sol IH SCH ×2 (08:05→20:06)
[2017-10-16] MEDS: Budesonide 0.5 mg/2 ml Inhal Susp UD IH SCH ×2 (08:06→20:06)
--- NOTE | 2017-10-16 08:28 | CARD ---
APPROVED REPORT Date of service: 10/16/2017 EXAM: Two-dimensional and M-mode echocardiogram with Doppler and color Doppler. INDICATION Pericardial Effusion 2D DIMENSIONS Left Atrium (2D)3.6 (1.6-4.0cm)IVSd1.1 (0.7-1.1cm) LVDd4.4 (3.9-5.9cm)PWd0.8 (0.7-1.1cm) LVDs3.7 (2.5-4.0cm)LVEF (%)30.0 (>50%) M-Mode DIMENSIONS Aortic Root2.70 (2.2-3.7cm)Aortic Cusp Exc.2.10 (1.5-2.0cm) Aortic Valve AoV Peak [id number]/Ricardo Peak GR.15mmHg Mitral Valve E/A ratio0.0 TDI E/Lateral E'0.0E/Medial E'0.0 Tricuspid Valve TR Peak [id number] Peak Gr.26mmHg [id number] LEFT VENTRICLE The left ventricle is normal size. There is normal left ventricular wall thickness. The systolic function is moderately impaired. Paradoxic septal motion noted. RIGHT VENTRICLE The right ventricle is normal size. The right ventricular systolic function is normal. ATRIA The left atrium size is normal. The right atrium size is normal. The interatrial septum is intact with no evidence for an atrial septal defect. AORTIC VALVE The aortic valve is normal in structure. MITRAL VALVE Mitral regurgitation is mild. TRICUSPID VALVE The tricuspid valve is normal in structure. There is mild tricuspid regurgitation. PERICARDIAL EFFUSION There is moderate left pleural effusion. There is a small circumferential pericardial effusion. <Conclusion> Follow-up echocardiogram performed. Pericardial effusion appears small with no evidence of tamponade physiology. Compared to study of 10/10/17, effusion appears smaller. Rest of findings are unchanged.
[2017-10-16] MEDS: MethylPREDNISolone 40 mg Vial IVP SCH ×2 (09:51→22:12)
--- NOTE | 2017-10-16 11:22 | PN ---
DATE: 10/16/2017 SUBJECTIVE: The patient is seen sitting in bed on telemetry. She feels somewhat better. She denies any chest pain or dyspnea at rest. She underwent a repeat echocardiogram this morning, which shows improvement in the size of her pericardial effusion with otherwise no significant change noted. There is clearly no evidence of tamponade physiology. CURRENT MEDICATIONS: Remain Ativan, Brovana, Lasix 20 mg daily, Lipitor, metoprolol 12.5 mg daily, Protonix, Pulmicort inhaler, Solu-Medrol. OBJECTIVE: GENERAL: She is a middle-aged woman, appears comfortable at the present time. VITAL SIGNS: Her blood pressure 130/96 with a pulse of 90, respirations are 16. She is afebrile. HEENT: No JVD. CHEST: Few scattered rhonchi heard. HEART: PMI displaced laterally with soft systolic murmur in the left sternal border. ABDOMEN: Soft, nontender. Normoactive bowel sounds. EXTREMITIES: No edema. DIAGNOSTIC DATA: Morning blood work is pending. IMPRESSION: 1. Recent dyspnea, likely multifactorial. 2. Severe chronic obstructive pulmonary disease. 3. Small pericardial effusion, appears to be inconsequential. 4. History of lupus. 5. Left ventricular dysfunction with wall motion abnormalities suggestive of coronary artery disease. RECOMMENDATIONS: No further treatment for pericardial effusion appears necessary at the present time. Smoking abstinence should continue. Her current medications should continue unchanged. A nuclear stress test will be arranged to assess for presence of coronary ischemia. Further recommendations will be made based upon those results. Danie Rosen MD
--- NOTE | 2017-10-16 12:20 | CP.PCM.PN ---
<Jasper Thurston - Last Filed: 10/16/17 12:13> Subjective - Date & Time of Evaluation Date of Evaluation: 10/16/17 Time of Evaluation: 12:13 - Subjective Subjective: GI Progress Note for Dr. Hackett's Service- Velma, PGY2 Patient seen and assessed at bedside. No acute events noted overnight. Patient denies any complications or tolerance issues with diet. Patient denies any fevers, chills, chest pain, SOB, abdominal pain, N/V/D/C, hematochezia, melena, changes in urine output or any skin changes. Objective - Vital Signs/Intake and Output Vital Signs (last 24 hours): Temp Pulse Resp BP Pulse Ox 98.7 F 89 20 131/96 H 98 10/16/17 05:59 10/16/17 08:25 10/16/17 05:59 10/16/17 05:59 10/16/17 05:59 Intake and Output: 10/16/17 10/16/17 06:59 18:59 Intake Total 1800 Balance 1800 - Medications Medications: Current Medications Acetaminophen (Tylenol 325mg Tab) 325 mg PO Q6H PRN PRN Reason: Fever >100.4 F Last Admin: 10/06/17 20:57 Dose: 325 mg Arformoterol Tartrate (Brovana) 15 mcg IH [id number] [facility] Last Admin: 10/16/17 08:05 Dose: 15 mcg Atorvastatin Calcium (Lipitor) 20 mg PO DIN [facility] Last Admin: 10/15/17 17:01 Dose: 20 mg Benzocaine/Menthol (Cepacol Sore Throat) 1 julissa MT Q2H PRN PRN Reason: Sore Throat Last Admin: 10/08/17 09:04 Dose: 1 julissa Budesonide (Pulmicort Respules) 0.5 mg IH [id number] [facility] Last Admin: 10/16/17 08:06 Dose: 0.5 mg Furosemide (Lasix) 20 mg PO DAILY [facility] Last Admin: 10/16/17 09:55 Dose: Not Given Lorazepam (Ativan) 0.5 mg PO Q6H PRN PRN Reason: Anxiety Last Admin: 10/16/17 07:00 Dose: 0.5 mg Methylprednisolone (Solu-Medrol) 20 mg IVP Q12H [facility] Last Admin: 10/16/17 09:51 Dose: 20 mg Metoprolol Tartrate (Lopressor) 12.5 mg PO BRK [facility] Last Admin: 10/16/17 08:25 Dose: 12.5 mg Nystatin (Nystatin Oral Susp) 5 ml PO Q6 [facility] Last Admin: 10/16/17 05:29 Dose: 5 ml Ondansetron HCl (Zofran Inj) 4 mg IVP Q6H PRN PRN Reason: Nausea/Vomiting Last Admin: 10/14/17 15:18 Dose: 4 mg Pantoprazole Sodium (Protonix Ec Tab) 40 mg PO 0600 [facility] Last Admin: 10/16/17 05:29 Dose: 40 mg Tramadol HCl (Ultram) 50 mg PO Q12 PRN PRN Reason: severe pain Last Admin: 10/15/17 23:09 Dose: 50 mg - Labs Labs: 10/14/17 06:45 10/14/17 06:45 PT 16.2 SECONDS (9.4-12.5) H 10/11/17 10:45 INR 1.40 10/11/17 10:45 APTT 31.6 Seconds (25.1-36.5) 10/11/17 10:45 - Constitutional Appears: Non-toxic, No Acute Distress - Head Exam Head Exam: ATRAUMATIC, NORMOCEPHALIC - Eye Exam Eye Exam: EOMI - ENT Exam ENT Exam: Mucous Membranes Moist - Neck Exam Neck Exam: Full ROM - Respiratory Exam Respiratory Exam: NORMAL BREATHING PATTERN. absent: Accessory Muscle Use, Respiratory Distress - Cardiovascular Exam Cardiovascular Exam: REGULAR RHYTHM, RRR, +S1, +S2 - GI/Abdominal Exam GI & Abdominal Exam: Soft, Normal Bowel Sounds. absent: Bruit, Distended, Firm , Guarding, Rigid, Tenderness, Diminished Bowel Sounds, Hernia, Hypoactive Bowel Sounds, Mass, Organomegaly, Pulsatile Mass, Rebound - Rectal Exam Rectal Exam: Deferred - Extremities Exam Extremities Exam: absent: Calf Tenderness, Pedal Edema - Neurological Exam Neurological Exam: Alert, Awake, Oriented x3 - Psychiatric Exam Psychiatric exam: Normal Affect, Normal Mood - Skin Skin Exam: Dry, Intact, Normal Color, Warm Assessment and Plan - Assessment and Plan (Free Text) Assessment: 66 year old female with a past medical history significant for GERD, HTN, HLD, and questionable SLE/RA who presented to the hospital with fatigue and body aches for three days. Patient was found to be anemic and GI was consulted to evaluate for possible GI hemorrhage. Plan: -CT Abdomen/Pelvis, Abdominal US and all pertinent vitals, labs, imaging studies and consultations reviewed -Continue to monitor H/H for signs of hemorrhage -Heart Healthy Diet with Ensure Enlive supplementation TID -Continue PPI daily -Plavix/Pain Control per PMD -Cardiology, ID, Cardiothoracic Surgery and Neurology consultations, all recommendations appreciated GI Disposition: Patient reports that she would like to have an EGD done while here as an inpatient. We will plan for this to be scheduled on Monday (10/18) , pending cardiopulmonary optimization. Patient seen and case discussed with attending, Dr. Hackett. <Ranulfo Hackett V - Last Filed: 10/17/17 00:00> Objective - Vital Signs/Intake and Output Vital Signs (last 24 hours): Temp Pulse Resp BP Pulse Ox 98.4 F 100 H 18 133/81 98 10/16/17 17:43 10/16/17 18:00 10/16/17 17:43 10/16/17 17:43 10/16/17 05:59 Intake and Output: 10/16/17 10/17/17 18:59 06:59 Intake Total 1520 Balance 1520 - Medications Medications: Current Medications Acetaminophen (Tylenol 325mg Tab) 325 mg PO Q6H PRN PRN Reason: Fever >100.4 F Last Admin: 10/06/17 20:57 Dose: 325 mg Arformoterol Tartrate (Brovana) 15 mcg IH [id number] [facility] Last Admin: 10/16/17 20:06 Dose: 15 mcg Atorvastatin Calcium (Lipitor) 20 mg PO DIN [facility] Last Admin: 10/16/17 18:13 Dose: 20 mg Benzocaine/Menthol (Cepacol Sore Throat) 1 julissa MT Q2H PRN PRN Reason: Sore Throat Last Admin: 10/08/17 09:04 Dose: 1 julissa Budesonide (Pulmicort Respules) 0.5 mg IH [id number] [facility] Last Admin: 10/16/17 20:06 Dose: 0.5 mg Furosemide (Lasix) 20 mg PO DAILY [facility] Last Admin: 10/16/17 09:55 Dose: Not Given Lorazepam (Ativan) 0.5 mg PO Q6H PRN PRN Reason: Anxiety Last Admin: 10/16/17 07:00 Dose: 0.5 mg Methylprednisolone (Solu-Medrol) 20 mg IVP Q12H [facility] Last Admin: 10/16/17 22:12 Dose: 20 mg Metoprolol Tartrate (Lopressor) 12.5 mg PO BRK [facility] Last Admin: 10/16/17 08:25 Dose: 12.5 mg Nystatin (Nystatin Oral Susp) 5 ml PO Q6 [facility] Last Admin: 10/16/17 18:13 Dose: 5 ml Ondansetron HCl (Zofran Inj) 4 mg IVP Q6H PRN PRN Reason: Nausea/Vomiting Last Admin: 10/14/17 15:18 Dose: 4 mg Pantoprazole Sodium (Protonix Ec Tab) 40 mg PO 0600 [facility] Last Admin: 10/16/17 05:29 Dose: 40 mg Tramadol HCl (Ultram) 50 mg PO Q12 PRN PRN Reason: severe pain Last Admin: 10/16/17 23:20 Dose: 50 mg - Labs Labs: 10/14/17 06:45 10/14/17 06:45 PT 16.2 SECONDS (9.4-12.5) H 10/11/17 10:45 INR 1.40 10/11/17 10:45 APTT 31.6 Seconds (25.1-36.5) 10/11/17 10:45 Attending/Attestation - Attestation I have personally seen and examined this patient.: Yes I have fully participated in the care of the patient.: Yes I have reviewed all pertinent clinical information, including history, physical exam and plan: Yes Notes (Text): This is an addendum to GI followup report dictated by the Hurl Shaker. The patient was seen and evaluated earlier. Medical records, lab studies, imagings were reviewed. Last 24 hours events reviewed. Agreed with the above treatment plan as outlined in Hurl Shaker 's notes with the addition of the following Patient has history of anemia CT showed a Retroperitoneal adenopahy Patient was on Mobic which was discontinued Presently on steroid Patient was reluctant to have endoscopy before Follow-up hemoglobin Consider EGD if patient is agreeable after medically optimiz and cleared by cardiology Will discuss with 10/16/17 23:58
--- NOTE | 2017-10-16 12:50 | PN ---
DATE: 10/16/2017 SUBJECTIVE: This 66-year-old female was examined at her bedside on the cardiac gregory at [facility]. She remains weak and deconditioned. She will be ready for subacute rehab when medically cleared by Cardiology. At present, she is awaiting a repeat 2-D echocardiogram. This is to evaluate the status of her pericardial effusion. She was released from intensive care with Cardiology recommending cardiac unit step-down followup for newly noted moderate pericardial effusion with no evidence of cardiac tamponade. At present, she is in a normal sinus rhythm on the monitoring engineer. She denies any fever, chills, chest pain, or shortness of breath. PHYSICAL EXAMINATION: VITAL SIGNS: Shows temperature of 98.7, respirations 20, pulse 87, and blood pressure 131/96. Pulse ox 98% on 2 L nasal O2. HEENT: Head: Normocephalic, atraumatic. Eyes: No icterus. Ears: Clear. Throat: Noninjected. NECK: Supple. HEART: Regular S1, S2. LUNGS: Clear. ABDOMEN: Soft. EXTREMITIES: No edema. SKIN: No rash. VASCULAR: Legs warm to touch. PSYCHOLOGICAL: Chronic anxiety. NEURO: Deconditioned. LABORATORY DATA: White count 8.8, hematocrit 28.1. Sodium 139, K 4.5, chloride 99, bicarb 33. BUN 19, creatinine 0.4. Random blood sugar 78. Calcium 8.9. IMPRESSION: A 66-year-old female awaiting 2-D echocardiogram, repeat pericardial effusion followup as well as to evaluate wall motion and then to be scheduled for a nuclear stress test because of abnormal 2-D echocardiogram dated 10/10/2017, with comorbidities of recent hospitalization for community-acquired right lower lung pneumonia, exacerbation of chronic obstructive pulmonary disease, marked deconditioning, chronic anxiety neurosis, chronic obstructive pulmonary disease, chronic hypertension, hyperlipidemia, peptic ulcer disease with gastroesophageal reflux disease, degenerative arthritis, and lupus erythematosus. PLAN: The plan as discussed with the patient, Nursing, Cardiology will be to continue Ativan 0.5 mg p.o. every 6 hours p.r.n. anxiety, Brovana inhalational therapy every 12 hours, Pulmicort inhalational therapy every 12 hours, 2 L nasal O2 p.r.n., Cepacol lozenges p.r.n. sore throat every 2 hours, Lasix 20 mg p.o. daily, Lipitor 20 mg p.o. daily, Lopressor 12.5 mg p.o. daily, nystatin swish and swallow 5 mL p.o. every 6 hours, Protonix 40 mg p.o. every 6 a.m. daily, Solu-Medrol 20 mg IV every 12 hours, Tylenol 325 mg p.o. every 6 hours p.r.n. fever or mild pain, and Ultram 50 mg p.o. every 12 hours p.r.n. severe pain with Zofran 4 mg IV every 6 hours p.r.n. nausea and vomiting. The patient continues on incentive spirometry, heart healthy diet, aspiration precautions, and is encouraged to be out of bed to chair as tolerated with dietary supplementation with Ensure Enlive strawberry flavored t.i.d. and physical therapy for reconditioning and gait training. Greater than 35 minutes was spent in the care management, review of labs, orders, x-rays, and outlining of care for this patient today. I did discuss her case in detail with herself, Nursing, and social service as well as immigration case worker and ultimate plan will be for discharge to subacute rehab when medically stabilized and cleared by Cardiology. Flora Ace MD MTDD
--- NOTE | 2017-10-16 17:24 | CP.PCM.PN ---
Subjective - Date & Time of Evaluation Date of Evaluation: 10/16/17 Time of Evaluation: 10:10 - Subjective Subjective: No fevers, not in distress, still feels weak, no nausea, no diarrhea. Objective - Vital Signs/Intake and Output Vital Signs (last 24 hours): Temp Pulse Resp BP Pulse Ox 97.9 F 91 H 20 123/73 98 10/15/17 06:00 10/15/17 07:57 10/15/17 06:00 10/15/17 07:57 10/15/17 06:00 Intake and Output: 10/15/17 10/15/17 06:59 18:59 Intake Total 780 Output Total 5 Balance 775 - Medications Medications: Current Medications Acetaminophen (Tylenol 325mg Tab) 325 mg PO Q6H PRN PRN Reason: Fever >100.4 F Last Admin: 10/06/17 20:57 Dose: 325 mg Arformoterol Tartrate (Brovana) 15 mcg IH [id number] [facility] Last Admin: 10/15/17 07:16 Dose: 15 mcg Atorvastatin Calcium (Lipitor) 20 mg PO DIN [facility] Last Admin: 10/14/17 17:56 Dose: 20 mg Benzocaine/Menthol (Cepacol Sore Throat) 1 julissa MT Q2H PRN PRN Reason: Sore Throat Last Admin: 10/08/17 09:04 Dose: 1 julissa Budesonide (Pulmicort Respules) 0.5 mg IH [id number] [facility] Last Admin: 10/15/17 07:16 Dose: 0.5 mg Furosemide (Lasix) 20 mg PO DAILY [facility] Last Admin: 10/14/17 09:06 Dose: 20 mg Lorazepam (Ativan) 0.5 mg PO Q6H PRN PRN Reason: Anxiety Last Admin: 10/13/17 17:12 Dose: 0.5 mg Methylprednisolone (Solu-Medrol) 20 mg IVP Q12H [facility] Last Admin: 10/14/17 23:00 Dose: 20 mg Metoprolol Tartrate (Lopressor) 12.5 mg PO BRK [facility] Last Admin: 10/15/17 07:57 Dose: 12.5 mg Nystatin (Nystatin Oral Susp) 5 ml PO Q6 [facility] Last Admin: 10/15/17 05:37 Dose: 5 ml Ondansetron HCl (Zofran Inj) 4 mg IVP Q6H PRN PRN Reason: Nausea/Vomiting Last Admin: 10/14/17 15:18 Dose: 4 mg Pantoprazole Sodium (Protonix Ec Tab) 40 mg PO 0600 [facility] Last Admin: 10/15/17 05:37 Dose: 40 mg Tramadol HCl (Ultram) 50 mg PO Q12 PRN PRN Reason: severe pain Last Admin: 10/14/17 23:00 Dose: 50 mg - Labs Labs: 10/14/17 06:45 10/14/17 06:45 PT 16.2 SECONDS (9.4-12.5) H 10/11/17 10:45 INR 1.40 10/11/17 10:45 APTT 31.6 Seconds (25.1-36.5) 10/11/17 10:45 - Constitutional Appears: Non-toxic, No Acute Distress, Chronically Ill - Head Exam Head Exam: NORMAL INSPECTION - Respiratory Exam Respiratory Exam: Decreased Breath Sounds - Cardiovascular Exam Cardiovascular Exam: +S1, +S2 - GI/Abdominal Exam GI & Abdominal Exam: Soft. absent: Tenderness Assessment and Plan - Assessment and Plan (Free Text) Plan: Assessment S/P severe sepsis due to right sided community-acquired pneumonia possible cardiac tamponade GERD HTN dyslipidemia possible rheumatoid arthritis anxiety history of UTI Plan continue to monitor off antibiotics since she is at risk for healthcare- associated infections
[2017-10-17] MEDS: Nystatin 100,000 Units/ml Oral Susp 5 ml UD PO SCH ×3 (00:49→18:53)
[2017-10-17] MEDS: Pantoprazole 40 mg EC Tab PO SCH (05:25)
[2017-10-17] MEDS: Arformoterol 15 mcg/2 ml Inh Sol IH SCH ×2 (07:39→20:12)
[2017-10-17] MEDS: Budesonide 0.5 mg/2 ml Inhal Susp UD IH SCH ×2 (07:40→20:13)
--- NOTE | 2017-10-17 08:25 | CP.PCM.PN ---
<Jasper Thurston - Last Filed: 10/17/17 11:00> Subjective - Date & Time of Evaluation Date of Evaluation: 10/17/17 Time of Evaluation: 08:24 - Subjective Subjective: GI Progress Note for Dr. Hackett's Service- Velma, PGY2 Patient seen and assessed at bedside. No acute events noted overnight. Patient reports that she is tolerating her diet well without complaints, although currently she is NPO for nuclear stress test later today. Patient had two formed BM's overnight. Patient denies any fevers, chills, chest pain, SOB, abdominal pain, N/V/D/C, hematochezia, melena, changes in urine output or any skin changes. Objective - Vital Signs/Intake and Output Vital Signs (last 24 hours): Temp Pulse Resp BP Pulse Ox 97.8 F 75 18 133/79 95 10/17/17 06:00 10/17/17 08:19 10/17/17 06:00 10/17/17 08:19 10/17/17 06:00 Intake and Output: 10/17/17 10/17/17 06:59 18:59 Intake Total 1720 Output Total 0 Balance 1720 - Medications Medications: Current Medications Acetaminophen (Tylenol 325mg Tab) 325 mg PO Q6H PRN PRN Reason: Fever >100.4 F Last Admin: 10/06/17 20:57 Dose: 325 mg Arformoterol Tartrate (Brovana) 15 mcg IH [id number] [facility] Last Admin: 10/17/17 07:39 Dose: 15 mcg Atorvastatin Calcium (Lipitor) 20 mg PO DIN [facility] Last Admin: 10/16/17 18:13 Dose: 20 mg Benzocaine/Menthol (Cepacol Sore Throat) 1 julissa MT Q2H PRN PRN Reason: Sore Throat Last Admin: 10/08/17 09:04 Dose: 1 julissa Budesonide (Pulmicort Respules) 0.5 mg IH [id number] [facility] Last Admin: 10/17/17 07:40 Dose: 0.5 mg Furosemide (Lasix) 20 mg PO DAILY [facility] Last Admin: 10/16/17 09:55 Dose: Not Given Lorazepam (Ativan) 0.5 mg PO Q6H PRN PRN Reason: Anxiety Last Admin: 10/17/17 06:27 Dose: 0.5 mg Methylprednisolone (Solu-Medrol) 20 mg IVP Q12H [facility] Last Admin: 10/16/17 22:12 Dose: 20 mg Metoprolol Tartrate (Lopressor) 12.5 mg PO BRK [facility] Last Admin: 10/17/17 08:19 Dose: 12.5 mg Nystatin (Nystatin Oral Susp) 5 ml PO Q6 [facility] Last Admin: 10/17/17 00:49 Dose: 5 ml Ondansetron HCl (Zofran Inj) 4 mg IVP Q6H PRN PRN Reason: Nausea/Vomiting Last Admin: 10/14/17 15:18 Dose: 4 mg Pantoprazole Sodium (Protonix Ec Tab) 40 mg PO 0600 [facility] Last Admin: 10/17/17 05:25 Dose: Not Given Tramadol HCl (Ultram) 50 mg PO Q12 PRN PRN Reason: severe pain Last Admin: 10/16/17 23:20 Dose: 50 mg - Labs Labs: 10/14/17 06:45 10/14/17 06:45 PT 16.2 SECONDS (9.4-12.5) H 10/11/17 10:45 INR 1.40 10/11/17 10:45 APTT 31.6 Seconds (25.1-36.5) 10/11/17 10:45 - Constitutional Appears: Non-toxic, No Acute Distress - Head Exam Head Exam: ATRAUMATIC, NORMOCEPHALIC - Eye Exam Eye Exam: EOMI - ENT Exam ENT Exam: Mucous Membranes Moist - Neck Exam Neck Exam: Full ROM - Respiratory Exam Respiratory Exam: NORMAL BREATHING PATTERN. absent: Accessory Muscle Use, Respiratory Distress - Cardiovascular Exam Cardiovascular Exam: RRR, +S1, +S2 - GI/Abdominal Exam GI & Abdominal Exam: Soft, Normal Bowel Sounds. absent: Distended, Firm, Guarding, Rigid, Tenderness, Rebound - Rectal Exam Rectal Exam: Deferred - Extremities Exam Extremities Exam: absent: Calf Tenderness - Neurological Exam Neurological Exam: Alert, Awake, Oriented x3 - Psychiatric Exam Psychiatric exam: Normal Affect, Normal Mood - Skin Skin Exam: Dry, Intact, Normal Color, Warm Assessment and Plan - Assessment and Plan (Free Text) Assessment: 66 year old female with a past medical history significant for GERD, HTN, HLD, and questionable SLE/RA who presented to the hospital with fatigue and body aches for three days. Patient was found to be anemic and GI was consulted to evaluate for possible GI hemorrhage. Plan: -CT Abdomen/Pelvis, Abdominal US and all pertinent vitals, labs, imaging studies and consultations reviewed -Continue to monitor H/H -Heart Healthy Diet with Ensure Enlive supplementation TID to be continued after nuclear stress test today -Continue PPI daily -Cardiology, ID, Cardiothoracic Surgery and Neurology consultations, all recommendations appreciated GI Disposition: Patient reports that she would like to have an EGD done while here as an inpatient. We will plan for this to be scheduled on Monday (10/18) , pending cardiopulmonary optimization. Patient pending nuclear stress test today (10/17). Patient seen and case discussed with attending, Dr. Hackett. <Ranulfo Hackett V - Last Filed: 10/18/17 00:45> Objective - Vital Signs/Intake and Output Vital Signs (last 24 hours): Temp Pulse Resp BP Pulse Ox 98.4 F 92 H 20 139/70 98 10/18/17 00:01 10/18/17 00:01 10/18/17 00:01 10/18/17 00:01 10/17/17 12:00 Intake and Output: 10/17/17 10/18/17 18:59 06:59 Intake Total 967 Balance 967 - Medications Medications: Current Medications Acetaminophen (Tylenol 325mg Tab) 325 mg PO Q6H PRN PRN Reason: Fever >100.4 F Last Admin: 10/06/17 20:57 Dose: 325 mg Arformoterol Tartrate (Brovana) 15 mcg IH [id number] [facility] Last Admin: 10/17/17 20:12 Dose: 15 mcg Atorvastatin Calcium (Lipitor) 20 mg PO DIN [facility] Last Admin: 10/17/17 18:52 Dose: 20 mg Benzocaine/Menthol (Cepacol Sore Throat) 1 julissa MT Q2H PRN PRN Reason: Sore Throat Last Admin: 10/08/17 09:04 Dose: 1 julissa Budesonide (Pulmicort Respules) 0.5 mg IH [id number] [facility] Last Admin: 10/17/17 20:13 Dose: 0.5 mg Furosemide (Lasix) 20 mg PO DAILY [facility] Last Admin: 10/17/17 12:24 Dose: 20 mg Lorazepam (Ativan) 0.5 mg PO Q6H PRN PRN Reason: Anxiety Last Admin: 10/17/17 06:27 Dose: 0.5 mg Methylprednisolone (Solu-Medrol) 20 mg IVP Q12H [facility] Last Admin: 10/17/17 21:39 Dose: 20 mg Metoprolol Tartrate (Lopressor) 12.5 mg PO BRK [facility] Last Admin: 10/17/17 08:19 Dose: 12.5 mg Nystatin (Nystatin Oral Susp) 5 ml PO Q6 [facility] Last Admin: 10/18/17 00:14 Dose: 5 ml Ondansetron HCl (Zofran Inj) 4 mg IVP Q6H PRN PRN Reason: Nausea/Vomiting Last Admin: 10/14/17 15:18 Dose: 4 mg Pantoprazole Sodium (Protonix Ec Tab) 40 mg PO 0600 [facility] Last Admin: 10/17/17 05:25 Dose: Not Given Tramadol HCl (Ultram) 50 mg PO Q12 PRN PRN Reason: severe pain Last Admin: 10/18/17 00:15 Dose: 50 mg - Labs Labs: 10/14/17 06:45 10/14/17 06:45 PT 16.2 SECONDS (9.4-12.5) H 10/11/17 10:45 INR 1.40 10/11/17 10:45 APTT 31.6 Seconds (25.1-36.5) 10/11/17 10:45 Attending/Attestation - Attestation I have personally seen and examined this patient.: Yes I have fully participated in the care of the patient.: Yes I have reviewed all pertinent clinical information, including history, physical exam and plan: Yes Notes (Text): This is an addendum to GI followup report dictated by the Wire Drawing Die Maker. The patient was seen and evaluated earlier. Medical records, lab studies, imagings were reviewed. Last 24 hours events reviewed. Agreed with the above treatment plan as outlined in Wire Drawing [employer] Maker 's notes with the addition of the following hemoglobin stable Continue PPI Avoid NSAIDs EGD once patient is optimized and agreeable 10/18/17 00:44
[2017-10-17] MEDS: MethylPREDNISolone 40 mg Vial IVP SCH ×3 (09:17→21:39)
--- NOTE | 2017-10-17 19:51 | PN ---
DATE: 10/17/2017 SUBJECTIVE: The patient is seen lying in bed on telemetry. She is currently comfortable. She denies any chest pain or dyspnea. CURRENT MEDICATIONS: Remain Ativan p.r.n., Brovana, Lasix 20 mg daily, Lipitor 20 mg daily, metoprolol 12.5 mg daily, Protonix, Pulmicort inhaler, Solu-Medrol and Ultram p.r.n. PHYSICAL EXAMINATION GENERAL: She is a middle-aged woman who appears comfortable at rest. VITAL SIGNS: Her blood pressure is 134/74 with a pulse of 76 in sinus, respirations are 16. She is afebrile. HEENT: No JVD. CHEST: Clear to auscultation and percussion. HEART: No pathological gallops noted. ABDOMEN: Soft, nontender. Normoactive bowel sounds. EXTREMITIES: No edema. DIAGNOSTIC DATA: No blood work pending from this morning. Repeat echocardiogram showed a small pericardial effusion with no evidence of worsening, the effusion appears to be fairly inconsequential. IMPRESSION: 1. Recent dyspnea, likely multifactorial. 2. Significant chronic obstructive pulmonary disease. 3. History of lupus. 4. Left ventricular dysfunction with wall motion abnormalities. RECOMMENDATIONS: The patient will undergo a nuclear stress test this morning to screen for presence of ischemic heart disease. Further recommendations will be made based on those results. Smoking abstinence should continue at the current time. There is no role for any intervention of her pericardial effusion at this time. We will follow and make further recommendations as appropriate. Danie Rosen MD
--- NOTE | 2017-10-17 22:26 | PN ---
DATE: 10/17/2017 SUBJECTIVE: The patient is seen earlier to this morning in room 276, bed 1. No fevers and no chills. PHYSICAL EXAMINATION: VITAL SIGNS: Temperature is 98, blood pressure is 130/70, respiratory rate of 18. HEENT: Unremarkable. NECK: Supple. LUNGS: Have decreased breath sounds. HEART: Normal S1 and S2. ABDOMEN: Soft, nontender. LABORATORY DATA: Reveals a white count of 4.9, hemoglobin of 7, platelets of 393. Chemistries reveal a BUN of 19, creatinine of 0.4. Urinalysis is noted, immunology is noted, serology is noted and microbiology reveals the blood cultures are negative. ASSESSMENT AND PLAN: A 66 years old with status post severe sepsis, right-sided community-acquired pneumonia, possible cardiac tamponade, gastroesophageal reflux disease, hypertension, dyslipidemia, rheumatoid arthritis, possibly with anxiety and history of urinary tract infections. Currently, off of antibiotics and afebrile. The patient is at risk for developing nosocomial infections. Blade Mallory MD
--- NOTE | 2017-10-17 22:35 | CARD ---
APPROVED REPORT Date of service: 10/17/2017 Protocol: LEXISCAN Test Type: Lexiscan Sestamibi Stress Test Attending Physician: Dr. Danie Rosen Referring Physician: Dr. Flora Ace Test Indications: Chest Pain Height:5 ft 9 in Weight:161lbs Medications: Brovana,Atorvastatin,Budesonide, Furosemide, Lorazepam, Methylprednisolone,Lorazepam, Metoprolol, Nystatin, Zofran, Protonix, Ultram Medical History: 66 y/o female. Hx of chest pain,shortness of breath, COPD, asthma,palpitations, hypertension,high choleaterol, stroke, prevoius smoker. Target HR: 153 bpm Resting ECG: left bundle branch block Resting Heart Rate: 76 bpm Resting Blood Pressure: 120/70mmHg Submaximum (85%): 130 bpm PROCEDURE Pharmacologic stress testing was performed using 0.4mg per 5ml of regadenoson given intravenously over 7-10 seconds. POST EXERCISE Reason for Termination: Protocol completed Target HR: No Max HR: 81 bpm 69% of Maximum Predicted HR: 153 bpm Exercise duration: 00:31 min:sec, 0 Stage Exercise capacity: 1.0METs Max Blood Pressure: 124/70mmHg Blood Pressure response to exercise: normal resting BP - appropriate response Heart Rate response to exercise: appropriate Chest Pain: No, none Angina index: 0 Arrhythmia: No, none ST Change: No, none Deviation: 0 mm INTERPRETATION Stress EKG Conclusion: Normal infusion phase of Lexiscan NST. Signed by Danie Rosen Electronically Approved: 10/17/2017 12:26:22 EXAM: Myocardial Perfusion REST/STRESS Stress Test Type: Pharmacologic Imaging Protocol Rest Spect myocardial perfusion imaging was performed in supine position 45 minutes following the injection of 10.2 mCi of Tc-99 Myoview. At peak stress, the patient was injected intravenously with 30.2mCi of Tc-99 tetrofosmin after an infusion time of 0 minutes and 10 seconds. Gated Stress Spect was performed 65 minutes after intravenous Tc-99 Myoview injection. The images were gated to evaluate regional wall motion and calculate ventricular ejection fraction.Images were reconstructed using backfilter projection method in short horizontal and verticle long axis. Spect slices were generated. LV Perfusion The quality of the study is good. The left ventricle is mildly enlarged in size. The right ventricle is unremarkable. The lung uptake is normal. The distribution of tracer reveals mildly to moderately decreased perfusion involving mid to distal anteroseptal and apical mata on the stress study. The remainder of the LV myocardium is unremarkable. The rest myocardial perfusion study shows no significant change. Wall Motion Wall motion study shows good contractility of the left ventricle except for paradoxical septal wall motion. LVEF = 53%. Conclusion 1. Probably negative SPECT myocardial perfusion study. 2. Fixed, anteroseptal and apical defects are most likely due to breast attenuation and/ or previous myocardial injury. 3. Normal overall LV function despite paradoxical septal wall motion.
[2017-10-18] MEDS: Nystatin 100,000 Units/ml Oral Susp 5 ml UD PO SCH ×4 (00:14→17:16)
[2017-10-18] MEDS: Pantoprazole 40 mg EC Tab PO SCH (05:11)
[2017-10-18 06:12] VITALS: O2SAT 99
--- NOTE | 2017-10-18 07:55 | PN ---
DATE: 10/17/2017 SUBJECTIVE: This 66-year-old female was examined at her bedside. She is on the cardiac gregory at the [facility]. She is being followed by Cardiology because of a now resolved moderate pericardial effusion in the setting of systemic lupus erythematosus. Her recent echo showed abnormal wall motion studies and the patient is now undergoing nuclear stress testing because of an IODINATED CONTRAST DYE ALLERGY. This is in the process of being completed. The patient remains anxious. She denies any active chest pain or shortness of breath. PHYSICAL EXAMINATION: VITAL SIGNS: On physical exam, was in a normal sinus rhythm at the time of this interview. Her temperature was 98.5, respirations 20, pulse 79 and blood pressure 133/79 with pulse ox 98% on 2 liters nasal O2. HEENT: Head: Normocephalic, atraumatic. Eyes: No icterus. Ears: Clear. Throat: Noninjected. NECK: Supple. HEART: Regular S1, S2. No pathological rubs, murmur or gallop. LUNGS: Clear. ABDOMEN: Soft. EXTREMITIES: No edema. SKIN: Without rash. NEUROLOGICAL: Intact. PSYCHOLOGICAL: Chronic anxiety. VASCULAR: Legs warm to touch. DATA: Hemoglobin 8.8, hematocrit 28.1. PT/INR 1.4, PTT 31.6. Sodium 139, K 4.5, chloride 99, bicarb 33, BUN 19, creatinine 0.4, random blood sugar 78 with a calcium of 8.9. All blood, urine and nasal cultures are negative. IMPRESSION: An 66-year-old female admitted with right lower lung community-acquired pneumonia and exacerbation of chronic obstructive pulmonary disease with course complicated by moderate pericardial effusion with no evidence of cardiac tamponade either clinically or on 2-D echo with abnormal wall motion studies, rule out silent myocardial infarction, rule out unstable atherosclerotic heart disease with comorbidities of chronic anxiety neurosis, chronic hypertension, systolic congestive heart failure, hyperlipidemia, peptic ulcer disease with gastroesophageal reflux disease, anemia of chronic disease, iron-deficiency anemia, degenerative arthritis. PLAN: As discussed with the patient and Nursing as well as social welfare research worker, Greg Carlin, will be to await results of myocardial stress testing and clearance for discharge by Dr. Danie Rosen from Cardiology. Once this is accomplished, the patient will be readied for evaluation for subacute rehab by Physical Therapy and her insurance. Current medications, we will continue and include Ativan, Brovana inhalational therapy, Cepacol throat lozenges, oral Lasix, Lipitor, Lopressor, nystatin swish and swallow, Protonix, Pulmicort inhalational therapy, IV Solu-Medrol, Tylenol, Ultram and Zofran. The patient is aware that when she is medically stable, she will need outpatient endoscopy and colonoscopy as recommended by Dr. Ranulfo Hackett from GI given her iron-deficiency anemia and peptic ulcer disease complaints and the patient hopefully will be compliant with this recommendation as well. Greater than 35 minutes was spent in the care management, review of labs, orders, x-rays and discussion of her disposition with herself, family, Nursing and Case Management as well as Social Service. All questions were answered. Flora Ace MD MTDD
[2017-10-18] MEDS: Budesonide 0.5 mg/2 ml Inhal Susp UD IH SCH ×2 (08:13→20:15)
[2017-10-18] MEDS: Arformoterol 15 mcg/2 ml Inh Sol IH SCH ×2 (08:13→20:15)
[2017-10-18] MEDS: MethylPREDNISolone 40 mg Vial IVP SCH ×2 (09:42→22:24)
--- NOTE | 2017-10-18 10:16 | PN ---
DATE: 10/18/2017 SUBJECTIVE: The patient is seen sitting in bed on telemetry. She is currently comfortable. She denies any dyspnea. She has had no chest pain. She underwent stress testing yesterday. Nuclear scans were consistent with previous anteroseptal and apical infarct. Her overall ejection fraction remain normal. There was no clear evidence of cardiac ischemia. Her current medications include Brovana, Lasix 20 mg daily, Lipitor 20 mg daily, metoprolol 12.5 mg daily, Protonix, Pulmicort inhaler, Solu-Medrol and Ultram. OBJECTIVE: GENERAL: She is a middle-aged woman who appears comfortable at rest. VITAL SIGNS: Her blood pressure is 126/70 with pulse of 80, respirations are 16. She is afebrile. HEENT: No JVD. CHEST: Few scattered rhonchi heard. HEART: PMI in normal position. No pathological gallops noted. ABDOMEN: Soft, nontender with normoactive bowel sounds. EXTREMITIES: No edema. DIAGNOSTIC DATA: No blood work pending from this morning. IMPRESSION: 1. Recent dyspnea, appears multifactorial given chronic obstructive pulmonary disease and recent pneumonia. 2. Pericardial effusion which is currently small and apparently not playing any significant role in her current symptomatology. 3. History of lupus. 4. Apparent remote anterior wall myocardial infarction, clinically stable with preserved left ventricular function. 5. Microcytic anemia. RECOMMENDATIONS: Given her stress test findings, continued conservative management of her heart disease appears reasonable. Beta chata and statin therapy should continue for now. Her anemia will need to be addressed. If there is no contraindication to aspirin therapy in the future, this should be resumed. From a cardiac standpoint, she appears stable for transfer to subacute rehabilitation. We will follow along as needed. Danie Rosen MD
[2017-10-18 12:24] VITALS: RESP 20
--- NOTE | 2017-10-18 16:10 | CP.PCM.PN ---
Subjective - Date & Time of Evaluation Date of Evaluation: 10/18/17 Time of Evaluation: 10:25 - Subjective Subjective: Comfortable in bed, non-toxic, no fevers. No chest pain, no nausea. Objective - Vital Signs/Intake and Output Vital Signs (last 24 hours): Temp Pulse Resp BP Pulse Ox 97.6 F 82 18 125/59 L 99 10/18/17 06:00 10/18/17 06:00 10/18/17 06:00 10/18/17 06:00 10/18/17 06:00 Intake and Output: 10/18/17 10/18/17 06:59 18:59 Intake Total 240 Balance 240 - Medications Medications: Current Medications Acetaminophen (Tylenol 325mg Tab) 325 mg PO Q6H PRN PRN Reason: Fever >100.4 F Last Admin: 10/06/17 20:57 Dose: 325 mg Arformoterol Tartrate (Brovana) 15 mcg IH [id number] [facility] Last Admin: 10/17/17 20:12 Dose: 15 mcg Atorvastatin Calcium (Lipitor) 20 mg PO DIN [facility] Last Admin: 10/17/17 18:52 Dose: 20 mg Benzocaine/Menthol (Cepacol Sore Throat) 1 julissa MT Q2H PRN PRN Reason: Sore Throat Last Admin: 10/08/17 09:04 Dose: 1 julissa Budesonide (Pulmicort Respules) 0.5 mg IH [id number] [facility] Last Admin: 10/17/17 20:13 Dose: 0.5 mg Furosemide (Lasix) 20 mg PO DAILY [facility] Last Admin: 10/17/17 12:24 Dose: 20 mg Lorazepam (Ativan) 0.5 mg PO Q6H PRN PRN Reason: Anxiety Last Admin: 10/17/17 06:27 Dose: 0.5 mg Methylprednisolone (Solu-Medrol) 20 mg IVP Q12H [facility] Last Admin: 10/17/17 21:39 Dose: 20 mg Metoprolol Tartrate (Lopressor) 12.5 mg PO BRK [facility] Last Admin: 10/17/17 08:19 Dose: 12.5 mg Nystatin (Nystatin Oral Susp) 5 ml PO Q6 [facility] Last Admin: 10/18/17 05:11 Dose: 5 ml Ondansetron HCl (Zofran Inj) 4 mg IVP Q6H PRN PRN Reason: Nausea/Vomiting Last Admin: 10/14/17 15:18 Dose: 4 mg Pantoprazole Sodium (Protonix Ec Tab) 40 mg PO 0600 [facility] Last Admin: 10/18/17 05:11 Dose: 40 mg Tramadol HCl (Ultram) 50 mg PO Q12 PRN PRN Reason: severe pain Last Admin: 10/18/17 00:15 Dose: 50 mg - Labs Labs: 10/14/17 06:45 10/14/17 06:45 PT 16.2 SECONDS (9.4-12.5) H 10/11/17 10:45 INR 1.40 10/11/17 10:45 APTT 31.6 Seconds (25.1-36.5) 10/11/17 10:45 - Constitutional Appears: No Acute Distress, Chronically Ill - Head Exam Head Exam: NORMAL INSPECTION - Neck Exam Neck Exam: absent: Meningismus - Respiratory Exam Respiratory Exam: Decreased Breath Sounds - Cardiovascular Exam Cardiovascular Exam: +S1, +S2 - GI/Abdominal Exam GI & Abdominal Exam: Soft. absent: Tenderness Assessment and Plan - Assessment and Plan (Free Text) Plan: Assessment S/P severe sepsis due to right sided community-acquired pneumonia possible cardiac tamponade GERD HTN dyslipidemia possible rheumatoid arthritis anxiety history of UTI Plan continue to monitor off antibiotics since she is at risk for nosocomial infections
--- NOTE | 2017-10-18 17:39 | CP.PCM.PN ---
Subjective - Date & Time of Evaluation Date of Evaluation: 10/18/17 Time of Evaluation: 11:45 - Subjective Subjective: S&E at bedside, chart reviewed, s/p stress test yesterday, patient result consistent with infarct. No N/V or abdominal pain. Tolerating oral intake, having formed BM, no bleeding reported. No GI complaints. Objective - Vital Signs/Intake and Output Vital Signs (last 24 hours): Temp Pulse Resp BP Pulse Ox 98.5 F 83 20 127/98 H 99 10/18/17 12:00 10/18/17 12:00 10/18/17 12:00 10/18/17 12:00 10/18/17 08:00 Intake and Output: 10/18/17 10/18/17 06:59 18:59 Intake Total 240 Balance 240 - Medications Medications: Current Medications Acetaminophen (Tylenol 325mg Tab) 325 mg PO Q6H PRN PRN Reason: Fever >100.4 F Last Admin: 10/06/17 20:57 Dose: 325 mg Arformoterol Tartrate (Brovana) 15 mcg IH [id number] [facility] Last Admin: 10/18/17 08:13 Dose: 15 mcg Atorvastatin Calcium (Lipitor) 20 mg PO DIN [facility] Last Admin: 10/18/17 16:32 Dose: 20 mg Benzocaine/Menthol (Cepacol Sore Throat) 1 julissa MT Q2H PRN PRN Reason: Sore Throat Last Admin: 10/08/17 09:04 Dose: 1 julissa Budesonide (Pulmicort Respules) 0.5 mg IH [id number] [facility] Last Admin: 10/18/17 08:13 Dose: 0.5 mg Furosemide (Lasix) 20 mg PO DAILY [facility] Last Admin: 10/18/17 09:43 Dose: 20 mg Lorazepam (Ativan) 0.5 mg PO Q6H PRN PRN Reason: Anxiety Last Admin: 10/17/17 06:27 Dose: 0.5 mg Methylprednisolone (Solu-Medrol) 20 mg IVP Q12H [facility] Last Admin: 10/18/17 09:42 Dose: 20 mg Metoprolol Succinate (Toprol Xl) 50 mg PO BRK [facility] Nystatin (Nystatin Oral Susp) 5 ml PO Q6 [facility] Last Admin: 10/18/17 17:16 Dose: Not Given Ondansetron HCl (Zofran Inj) 4 mg IVP Q6H PRN PRN Reason: Nausea/Vomiting Last Admin: 10/14/17 15:18 Dose: 4 mg Pantoprazole Sodium (Protonix Ec Tab) 40 mg PO 0600 [facility]YANT Last Admin: 10/18/17 05:11 Dose: 40 mg Tramadol HCl (Ultram) 50 mg PO Q12 PRN PRN Reason: severe pain Last Admin: 10/18/17 00:15 Dose: 50 mg - Labs Labs: 10/14/17 06:45 10/14/17 06:45 PT 16.2 SECONDS (9.4-12.5) H 10/11/17 10:45 INR 1.40 10/11/17 10:45 APTT 31.6 Seconds (25.1-36.5) 10/11/17 10:45 - Constitutional Appears: No Acute Distress - Head Exam Head Exam: NORMOCEPHALIC - Eye Exam Eye Exam: Normal appearance. absent: Scleral icterus - ENT Exam ENT Exam: Mucous Membranes Moist - Neck Exam Neck Exam: Normal Inspection - Respiratory Exam Respiratory Exam: NORMAL BREATHING PATTERN. absent: Respiratory Distress - Cardiovascular Exam Cardiovascular Exam: +S1, +S2 - GI/Abdominal Exam GI & Abdominal Exam: Soft, Normal Bowel Sounds. absent: Guarding, Tenderness, Rebound - Extremities Exam Extremities Exam: absent: Calf Tenderness, Pedal Edema - Neurological Exam Neurological Exam: Alert, Awake, Oriented x3 - Skin Skin Exam: Dry, Warm Assessment and Plan - Assessment and Plan (Free Text) Assessment: ASSESSMENT: Anemia, r/o GIB GERD HTN HLD SLE/RA S/p stress test: showed infarct PLAN: CT Abdomen/Pelvis, Abdominal US and all pertinent vitals, labs, imaging studies and consultations reviewed Continue to monitor H/H continue Heart Healthy Diet with Ensure Enlive supplementation TID Continue PPI daily Cardiology, ID, Cardiothoracic Surgery and Neurology consultations, all recommendations appreciated Patient for discharge today to rehab, discuss w/ patient out pt. office FU plan for endoscopic evaluations Seen and case discussed with Dr. Hackett.
[2017-10-18 18:40] VITALS: BP 131/78; PULSE 93; TEMP 98.3
[2017-10-19] MEDS: Nystatin 100,000 Units/ml Oral Susp 5 ml UD PO SCH (01:01)
--- NOTE | 2017-10-19 04:24 | DS ---
DATE OF DISCHARGE AND EXAM: 10/18/2017 FINAL DIAGNOSES: Community-acquired right lower lung pneumonia, improved; exacerbation of chronic obstructive pulmonary disease; pericardial effusion, improved; stable atherosclerotic heart disease; anterior wall myocardial infarction, timing indeterminate; chronic hypertension; hyperlipidemia; peptic ulcer disease with gastroesophageal reflux disease; anemia of chronic disease; iron-deficiency anemia; degenerative arthritis; reported systemic lupus erythematosus. DISPOSITION: [facility]. CONSULTANTS: Dr. Ranulfo Hackett from GI, Dr. Mallory from Infectious Disease, Dr. Cory Saul from Pulmonary and Dr. Danie Rosen from Cardiology. DISCHARGE DIET: 2 g sodium, heart-healthy. DISCHARGE MEDICATIONS: Ativan 0.5 mg p.o. every 6 hours p.r.n. anxiety, Brovana inhalational therapy every 12, Cepacol lozenges every 2 hours p.r.n. sore throat, Lasix 20 mg p.o. daily, Lipitor 20 mg p.o. daily, nystatin swish and swallow 5 mL p.o. every 6 hours, Protonix 40 mg p.o. daily, Pulmicort inhalational therapy every 12, Solu-Medrol 20 mg IV every 12, Toprol XL 50 mg p.o. daily. SUMMARY: This 66-year-old female was admitted to [facility] with community-acquired right lower lung pneumonia and exacerbation of chronic obstructive pulmonary disease. Her hospital course was complicated by anxiety neurosis and tachycardia which on further workup she was found to have a [id number] pericardial effusion and 2D echocardiography with depressed left ventricular wall motion. She was seen in consultation by Dr. Danie Rosen from Cardiology and because of IODINATED CONTRAST ORAL AND IV DYE ALLERGY, underwent a nuclear stress test that was significant for no evidence of reversible ischemic changes, however, she was noted to have evidence of fixed anteroseptal and apical defects due to either breast attenuation or previous myocardial injury. She had normal overall left ventricular function despite paradoxical septal wall motion. The patient was cleared for discharge to subacute rehab by co-consultants and at the time of discharge had a temperature of 98.3, respirations 20, pulse 93 and blood pressure 131/78. DISCHARGE LABORATORY DATA: Showed white count 4900, hemoglobin 8.8, hematocrit 28.1, platelets 393,000. Sodium 139, K 4.5, chloride 99, bicarb 33, BUN 19, creatinine 0.4, random blood sugar 78. Calcium was 8.9. Bilirubin 0.6, AST 35, ALT 28, alk phos 104. Hepatitis A, B, C serologies were negative. HIV was negative and urine for Legionella antigen was negative as well. ASSESSMENT AND PLAN: The patient will be followed by Dr. Fernandez Salgado at [facility]. She was also seen by Dr. Aiden Varghese from Neurology because of complaints of weakness early in her hospital course and was cleared by him for discharge as well. The patient was advised by Dr. Ranulfo Hackett, she will need an outpatient endoscopy and colonoscopy given her anemia which was treated with IV Venofer because the patient had refused any consideration of blood cell transfusion as well. The patient is clearly aware of the need for close outpatient monitoring upon discharge by myself, Dr. Rosen, Dr. Ranulfo Hackett and the patient will also need to be seen by a cable television line technician now that she is in the open access Medicare plan. All of this was reviewed in detail for greater than 35 minutes with the patient, nursing, co-consultants and all questions were answered. Flora Ace MD MTDNatasha
[2017-10-19] MEDS ORDERED: Metoprolol Succinate 50 mg XL Tab PO SCH (08:00)
== END 2017-10-19 01:44 | DRG 194 ==
LOC: ED 16:55 → ERH 19:53 → 2RNO 22:11 → OBSVTOIN 10-03 16:47 → CCU 10-10 23:53 → 2RSO 10-12 20:16
PROVIDERS: ADMIT Internal Medicine; ATTEND Internal Medicine
DX: J18.9 Pneumonia, unspecified organism (principal); J44.1 Chronic obstructive pulmonary disease with (acute) exacerbation; J44.0 Chronic obstructive pulmonary disease with (acute) lower respiratory infection; I31.3 Pericardial effusion (noninflammatory); E87.1 Hypo-osmolality and hyponatremia; J90 Pleural effusion, not elsewhere classified; N39.0 Urinary tract infection, site not specified; M32.9 Systemic lupus erythematosus, unspecified; M19.90 Unspecified osteoarthritis, unspecified site; K27.9 Peptic ulcer, site unspecified, unspecified as acute or chronic, without hemorrhage or perforation; K21.9 Gastro-esophageal reflux disease without esophagitis; I25.10 Atherosclerotic heart disease of native coronary artery without angina pectoris; I10 Essential (primary) hypertension; E78.5 Hyperlipidemia, unspecified; D63.8 Anemia in other chronic diseases classified elsewhere; D50.9 Iron deficiency anemia, unspecified; E11.9 Type 2 diabetes mellitus without complications; E87.5 Hyperkalemia; Y95 Nosocomial condition; E87.6 Hypokalemia; F17.200 Nicotine dependence, unspecified, uncomplicated; F41.1 Generalized anxiety disorder; I44.7 Left bundle-branch block, unspecified; M06.9 Rheumatoid arthritis, unspecified; K76.0 Fatty (change of) liver, not elsewhere classified; R79.1 Abnormal coagulation profile; G89.29 Other chronic pain; R62.7 Adult failure to thrive; R13.10 Dysphagia, unspecified; R26.9 Unspecified abnormalities of gait and mobility; I25.2 Old myocardial infarction; Z68.24 Body mass index [BMI] 24.0-24.9, adult; Z86.73 Personal history of transient ischemic attack (TIA), and cerebral infarction without residual deficits; Z88.0 Allergy status to penicillin; Z88.6 Allergy status to analgesic agent; Z91.041 Radiographic dye allergy status; Z82.49 Family history of ischemic heart disease and other diseases of the circulatory system

== ENCOUNTER 2018-01-03 06:27 | Day surgery (SDC) | payer MEDICARE, OTHER ==
[2017-12-29 15:22] VITALS: BMI 22.8
[2018-01-03] MEDS ORDERED: Iodixanol 320 MG/ML 200 ML BOTTLE IV ONE (07:12)
[2018-01-03] MEDS ORDERED: Phenylephrine 10 mg/ml Inj ONE (07:12)
[2018-01-03] MEDS ORDERED: Lidocaine 2% Inj (20ml) ONE (07:12)
[2018-01-03] MEDS ORDERED: Iodixanol 320 MG/ML 100 ML BOTTLE IV ONE (07:12)
[2018-01-03] MEDS ORDERED: Iohexol 350mgl/ml 50 ML ONE (07:12)
[2018-01-03] MEDS ORDERED: Famotidine 20mg/50ml 20 MG/50 ML BAG IVPB ONE (07:18)
[2018-01-03] MEDS ORDERED: DiphenhydrAMINE 50 mg/ml Inj ONE (07:18)
[2018-01-03] MEDS ORDERED: Midazolam 2 MG/2 ML VIAL ONE ×2 (07:59→08:11)
[2018-01-03] MEDS ORDERED: Sodium Chloride 0.45% 1,000 ML IV SCH (08:30)
[2018-01-03 09:15] VITALS: TEMP 97.4
[2018-01-03 10:41] VITALS: O2SAT 96
[2018-01-03 12:02] VITALS: BP 156/74; PULSE 80; RESP 18
--- NOTE | 2018-01-03 23:54 | CARDCATH ---
PROCEDURE DATE: 01/03/2018 PROCEDURES: 1. Selective left and right coronary angiography. 2. Left ventriculography. 3. Right femoral arteriorrhaphy. 4. Angio-Seal deployment. HISTORY: This is a 67-year-old woman with a history of hyperlipidemia with recent worsening exertional dyspnea and a borderline nuclear stress test. Cardiac catheterization was advised. INDICATION: As above. FINDINGS: HEMODYNAMICS: The aortic pressure was 140/70; left ventricular pressure of 140/20. CORONARY ANATOMY: 1. The left main stem was normal. 2. The left anterior descending artery and its branches were normal as well. 3. The left circumflex artery and its branches were normal. 4. The right coronary artery was dominant and normal. LEFT VENTRICULOGRAPHY: A hand injection was performed in the left ventricle revealing normal wall motion with ejection fraction of 55%. There was no aortic valve gradient noted on catheter pullback. RIGHT FEMORAL ARTERIORRHAPHY: The right femoral arteriogram was performed in the BRADSHAW projection. This revealed no evidence of significant disease and appropriate level of arterial puncture. The puncture site was then closed with deployment of an Angio-Seal device. CONCLUSION: 1. Normal coronary arteries. 2. Noncardiac dyspnea. 3. Elevated left ventricular end-diastolic pressure. 4. Normal left ventricular systolic function. RECOMMENDATIONS: Given the above findings, continued risk factor control was advised. Adequate further evaluation for noncardiac causes of dyspnea can be entertained. Danie Rosen MD cc: Flora Ace MD
== END 2018-01-03 12:18 | disposition home or self-care (01) ==
LOC: CATH 06:27
PROVIDERS: ATTEND Internal Medicine Cardiovascular Disease
DX: R06.00 Dyspnea, unspecified (principal); E78.5 Hyperlipidemia, unspecified; J43.9 Emphysema, unspecified; K21.9 Gastro-esophageal reflux disease without esophagitis; Z86.73 Personal history of transient ischemic attack (TIA), and cerebral infarction without residual deficits
CPT/HCPCS: 36415; 86850; 86900; 93458; 99152; C1760; C1769; C2629; J1200; J1644; J2250; J2930; J3010; J7030; J7040; Q9966

== ENCOUNTER 2018-02-21 09:07 | Outpatient (CLI) | payer MEDICARE, OTHER | END 2018-02-21 09:08 | disposition home or self-care (01) | LOC: RAD 09:07 ==

== ENCOUNTER → 2018-05-15 | Outpatient (CLI) | payer MEDICARE, OTHER | LOC: RAD 08:00 ==

== ENCOUNTER 2018-06-01 10:58 | Outpatient (CLI) | payer MEDICARE, OTHER | END 2018-06-01 10:59 | disposition home or self-care (01) | LOC: LAB 10:58 ==

== ENCOUNTER 2018-06-06 09:11 | Outpatient (CLI) | payer MEDICARE, OTHER | END 2018-06-06 09:12 | disposition home or self-care (01) | LOC: RAD 09:11 | DX: R63.4 Abnormal weight loss (principal); R13.10 Dysphagia, unspecified ==

== ENCOUNTER 2018-06-08 10:14 | Outpatient (CLI) | payer MEDICARE, OTHER | END 2018-06-08 10:15 | disposition home or self-care (01) | LOC: RAD 10:14 ==

== ENCOUNTER 2018-06-14 08:52 | Outpatient (CLI) | payer MEDICARE, OTHER | END 2018-06-14 08:53 | disposition home or self-care (01) | LOC: RAD 08:52 ==

== ENCOUNTER 2018-07-03 10:07 | Outpatient (CLI) | payer MEDICARE, OTHER | END 2018-07-03 10:08 | disposition home or self-care (01) | LOC: LAB 10:07 ==